=== PATIENT | female | born 1945 | race Caucasian/White ===

== ENCOUNTER → 2017-09-21 10:45 | Outpatient (POV) | payer MEDICARE, SELFPAY ==
[2017-09-21 12:26] LABS: Basophils # 0.1 K/mm3 (0-0.2); Basophils % 1.1 % (0.1-2.0); Eosinophils # 0.6 K/mm3 (0.0-0.4); Eosinophils % 5.6 % (0.1-12.0); Hematocrit 34.3 % (37.0-47.0); Hemoglobin 10.9 g/dL (12.2-16.2); Lymphocytes % 27.8 K/mm3 (10-50); Mean Corpuscular HGB Conc 31.7 g/dL (31.8-35.4); Mean Corpuscular Hemoglobin 25.7 pg (27.0-31.2); Mean Platelet Volume 7.2 fl (7.4-10.4); Monocytes # 0.7 K/mm3 (0.1-1.0); Monocytes % 5.9 % (1.7-9.3); Neutrophils # 6.5 K/mm3 (1.8-7.8); Neutrophils % 59.5 % (37.0-80.0); Platelet Count 326 K/mm3 (142-424); Red Blood Count 4.24 M/mm3 (4.20-5.40); Red Cell Distribution Width 14.9 % (11.5-17.5); White Blood Count 10.9 K/mm3 (4.8-10.8)
[2017-09-21 14:02] LABS: Ferritin 25 ng/mL (8-388)
[2017-09-22 08:24] LABS: Iron 51 ug/dL (27-139); UIBC 288 ug/dL (118-369)
[2017-09-23 06:30] LABS: Iron Saturation 15 (15-55)
== END ==
PROVIDERS: Family Provider Family Medicine; Visit Provider Physician Assistant Medical
DX: D50.9 Iron deficiency anemia, unspecified (principal)
CPT/HCPCS: 36415; 82728; 83550; 85025

== ENCOUNTER → 2018-06-23 10:40 | Outpatient (CLI) | payer MEDICARE, SELFPAY ==
--- NOTE | 2018-06-23 10:49 | XR_ITS ---
XR chest 2V HISTORY: ITS.REASON: SOB ORDERING PHYSICIAN: Katerin Echeverria PATIENT AGE: 72 years COMPARISON: Portable upright chest 05/22/2017 FINDINGS: This is a good inspiration and the lung glass appear clear of pneumonic infiltrate. There is moderate generalized cardio megaly and there is mild vascular congestion. There is mild thickening of the major minor fissures. There is no pleural fluid. There are multilevel degenerative changes of the thoracic spine. IMPRESSION: Cardio megaly with findings of mild congestive heart failure
== END ==
PROVIDERS: PCP Nurse Practitioner Family; Visit Provider Nurse Practitioner Family
DX: R06.02 Shortness of breath (principal)
CPT/HCPCS: 71046

== ENCOUNTER → 2018-09-18 14:47 | Outpatient (CLI) | payer MEDICARE, SELFPAY ==
[2018-09-18 16:04] LABS: Erythrocyte Sedimentation Rate 38 mm/hr (0-30)
[2018-09-18 16:07] LABS: Basophils # 0.1 K/mm3 (0-0.2); Eosinophils # 0.6 K/mm3 (0.0-0.4); Eosinophils % 5.8 % (0.1-12.0); Hematocrit 34.1 % (37.0-47.0); Hemoglobin 10.7 g/dL (12.2-16.2); Lymphocytes # 2.3 K/mm3 (0.7-4.5); Lymphocytes % 23.8 % (10-50); Mean Corpuscular HGB Conc 31.4 g/dL (31.8-35.4); Mean Corpuscular Volume 76.3 fl (81-99); Mean Platelet Volume 6.1 fl (7.4-10.4); Monocytes # 0.5 K/mm3 (0.1-1.0); Monocytes % 4.9 % (1.7-9.3); Neutrophils # 6.3 K/mm3 (1.8-7.8); Neutrophils % 64.6 % (37.0-80.0); Platelet Count 311 K/mm3 (142-424); Red Blood Count 4.46 M/mm3 (4.20-5.40); Red Cell Distribution Width 18.2 % (11.5-17.5); White Blood Count 9.8 K/mm3 (4.8-10.8)
[2018-09-18 16:18] LABS: Alanine Aminotransferase 13 U/L (12-78); Albumin Level 3.2 gm/dL (3.4-5.0); Albumin/Globulin Ratio 0.9 (1.1-1.8); Alkaline Phosphatase 93 U/L (46-116); Anion Gap 13.9 mEq/L (5-15); Aspartate Amino Transferase 10 U/L (15-37); Bilirubin,Total 0.2 mg/dL (0.2-1.0); Blood Urea Nitrogen 39 mg/dL (7-18); Calcium 8.6 mg/dL (8.5-10.1); Carbon Dioxide 27 mmol/L (21.0-32.0); Chloride 101 mmol/L (98-107); Estimated Glomerular Filt Rate 34 ml/min (>60); Ferritin 20 ng/mL (8-388); GFR (African American) 41 ML/MIN (>60); Globulin 3.7 gm/dl (1.3-3.2); Glucose 231 mg/dL (74-106); Potassium 4.9 mmoL/L (3.5-5.1); Sodium 137 mmol/L (136-145); Total Protein,Serum 6.9 gm/dL (6.4-8.2)
[2018-09-20 08:30] LABS: Iron 25 ug/dL (27-139); UIBC 307 ug/dL (118-369)
[2018-09-20 15:19] LABS: Iron Saturation 8 % (15-55); Vitamin B12 224 pg/mL (232-1245)
[2018-09-20 15:20] LABS: Vitamin D 25 Hydroxy 25.7 ng/mL (30.0-100.0)
== END ==
PROVIDERS: Visit Provider Nurse Practitioner Acute Care
DX: K51.90 Ulcerative colitis, unspecified, without complications (principal)
CPT/HCPCS: 36415; 80053; 82607; 82652; 82728; 83540; 83550; 85025; 85651; 86140

== ENCOUNTER → 2018-09-18 14:50 | Outpatient (POV) | payer MEDICARE, SELFPAY | PROVIDERS: Visit Provider Nurse Practitioner Acute Care | DX: Z00.00 Encounter for general adult medical examination without abnormal findings (principal) ==

== ENCOUNTER → 2019-06-13 14:49 | Outpatient (CLI) | payer MEDICARE, SELFPAY ==
--- NOTE | 2019-06-13 14:56 | XR_ITS ---
PROCEDURE: XR CHEST 2V CLINICAL HISTORY: SOB The COMPARISON: CXR1 CHEST-PORTABLE from 05/22/2017 CXR2V XR chest 2V from 06/23/2018 FINDINGS: Cardiomegaly with some mild pulmonary venous congestion suggesting mild CHF. No lobar consolidation or collapse is evident. The interstitial edema has improved since 06/23/2018. The lungs are clear without infiltrates, suspicious nodules, or pleural effusions. Degenerative changes noted in the thoracic spine IMPRESSION: Mild CHF Dictated by: Jona Lopez MD 06/13/2019 15:14 Electronically signed by Jona Lopez MD in [place] 06/13/2019 15:14
== END ==
PROVIDERS: PCP Family Medicine; Visit Provider Family Medicine
DX: R06.02 Shortness of breath (principal)
CPT/HCPCS: 71046

== ENCOUNTER → 2019-06-20 14:08 | Outpatient (CLI) | payer MEDICARE, SELFPAY ==
--- NOTE | 2019-06-20 14:11 | CA_ITS ---
APPROVED REPORT EXAM: Limited 2D Echocardiogram [employer] Worker: Tamar Zurita CRT Ht: 5 ft 3 in Wt: 235lbs BSA: 2.07 BP: 145/83 mmHg Indications: CHF,HTN,HLD,SOA,OBESITY,CAD,STENT 2D Dimensions LVOT 1.47 cm (M/F) 1.5-2.5 M-Mode Dimensions RVDd 2.78 cm (0.9-2.6) LVDd 5.50 cm (3.5-5.7) LVDs 3.65 cm (3.5-5.7) IVSd 1.23 cm (0.6-1.1) PWd 0.98 cm (0.6-1.1) EF (Teich) 61.80% FS 33.60% EDV (Teich) 147.40 mL ESV (Teich) 56.30 mL LV Diastology E/A Ratio 1.35 Mitral Valve MV A Velocity 75.00 (40-130 cm/s) Left Ventricle Left atrium is mildly enlarged, left ventricle is normal size, mild concentric left ventricular hypertrophy, visually estimated ejection fraction 55% with no regional wall motion abnormality, endocardial surfaces are poorly visualized, diastolic parameters are inconclusive. Right Ventricle Right atrium and right ventricular mildly enlarged with normal contractility. Aortic Valve Aortic valve is minimally thickened and calcified, leaflet continue to display good mobility, there is no aortic stenosis aortic insufficiency. Mitral Valve Mitral valve is grossly normal, there is mild mitral regurgitation. Tricuspid Valve Tricuspid valve is poorly visualized, there is mild tricuspid regurgitation tricuspid regurgitation jet velocity is inadequate for calculation of the right ventricular systolic pressure. Pulmonic Valve Pulmonic valve is poorly visualized. Great Vessels Aortic root is normal size. Pericardium No significant pericardial effusion noted. Conclusion 1. Technically difficult study because of the patient fact in poor acoustic windows 2. Mildly enlarged left atrium, normal left ventricular size, mild concentric left ventricular hypertrophy, visually estimated ejection fraction 55% with no regional wall motion abnormality, diastolic parameters are inconclusive. 3. Mild mitral and tricuspid regurgitation. 4. No significant pericardial effusion noted. Electronically signed by : Oscar Cobb, 06/21/2019 15:13:22
== END ==
PROVIDERS: PCP Family Medicine; Visit Provider Family Medicine
DX: I50.9 Heart failure, unspecified (principal); R06.02 Shortness of breath
CPT/HCPCS: 93308

== ENCOUNTER 2019-07-11 10:15 | Observation (INO) ==
--- NOTE | 2019-07-11 10:51 | Emergency Department Note ---
ED Disposition Clinical Impression: Hyperkalemia, Weakness Disposition: Admitted as Observation Condition on Discharge: Fair Time of Disposition: 15:53 - Critical Care Critical Care Time: Yes Attestation: On 07/11/19, the high probability of a clinically significant, sudden or life threatening deterioration of the following system(s) required my full and direct attention, intervention and personal management. The time I documented below is in addition to time spent performing reported procedures but includes the following listed in this critical care notation. Total Critical Care Time: 30 Vital system(s) involved:: Metabolic Failure My critical care processes included: Assessment & monitoring of V/S, Initial and Re-exams, Data Review/Interpretation, Coordinating Care, Medication Orders and management, Documentation Medical Decision Making - Rico Inquiry Pt receiving controlled substance: No Vital Signs: 07/11/19 10:20 07/11/19 12:17 07/11/19 12:50 Temperature 98.7 F 98.6 F Temperature Source Oral Oral Pulse Rate 50 L Pulse Rate [Left] 48 L 44 L Respiratory Rate 18 18 Blood Pressure [Right Arm] 163/72 H 145/68 H Blood Pressure Mean [Right Arm] 102 93 Blood Pressure Source [Right Arm] Automatic Cuff Automatic Cuff Blood Pressure Position [Right Arm] Sitting Sitting 02 Sat by Pulse Oximetry 92 L 93 L Oxygen Delivery Method Room Air Room Air - Lab Data Lab results reviewed: Yes: I reviewed the patient's lab results. Lab Results 07/11/19 10:50: WBC 11.7 H, RBC 4.26, Hgb 10.8 L, Hct 35.2 L, MCV 82.6, MCH 25.3 L, MCHC 30.6 L, RDW 16.9, Plt Count 297, MPV 7.4, Neut % (Auto) 72.7, Lymph % (Auto) 15.3, [place] % (Auto) 6.6, Eos % (Auto) 4.4, Baso % (Auto) 1.0, Neut # (Auto) 8.5 H, Lymph # (Auto) 1.8, [place] # (Auto) 0.8, Eos # (Auto) 0.5 H, Baso # (Auto) 0.1 07/11/19 10:50: Sodium 136, Potassium 6.2 H*, Chloride 104, Carbon Dioxide 23, Anion Gap 15.2 H, BUN 27 H, Creatinine 2.07 H, Estimated Creat Clear 41, Estimated GFR 24 L, Est GFR ( Amer) 28 L, Glucose 187 H, Calcium 8.3 L, Total Bilirubin 0.3, AST 2 L, ALT 11 L, Alkaline Phosphatase 69, Troponin I < 0.02, Total Protein 7.2, Albumin 3.3 L, Globulin 3.9 H, Albumin/Globulin Ratio 0.8 L 07/11/19 10:50: Digoxin 2.20 H* 07/11/19 15:20: POC Glucose 106 Result diagrams: 07/11/19 10:50 07/11/19 10:50 Orders (Tests/Meds): ED MEDICATIONS Discontinued Medications Generic Name Dose Route Start Last Admin Trade Name Freq PRN Reason Stop Dose Admin Albuterol Sulfate 2.5 mg 07/11/19 12:25 07/11/19 12:50 Albuterol 0.083% 2.5mg/3ml [facility] 07/11/19 12:26 2.5 mg ONCE ONE Administration Albuterol Sulfate 10 mg 07/11/19 14:45 07/11/19 15:25 Albuterol 0.083% 2.5mg/3ml Neb 07/11/19 14:46 10 mg ONCE ONE Administration Dextrose 25 ml 07/11/19 14:47 07/11/19 15:33 Dextrose 50% 50ml Syringe IVP 07/11/19 14:48 Not Given ONCE ONE Dextrose 50 ml 07/11/19 15:26 07/11/19 15:27 Dextrose 50% 50ml Syringe IVP 07/11/19 15:27 50 ml ONCE ONE Administration Insulin Human Regular 10 unit 07/11/19 14:46 Humulin R Insulin 100 Units/Ml 10ml Vial IVP 07/11/19 14:47 ONCE ONE Sodium Polystyrene Sulfonate 30 gm 07/11/19 14:47 Kayexalate 15gm/60ml Bottle PO 07/11/19 14:48 ONCE ONE - ECG Data Tracing #1 EKG shows sinus bradycardia with heart rate of 47 bpm, prolonged AL interval, nonspecific ST-T changes. Left axis deviation, - Physician Consults Physician Consulted: Dr. Lee Time: 14:50 Reason -: Admission Comment/Response: Cussed with Dr. Lee, regarding the patient and planned to get the patient admitted to the floor. - Reevaluation(s) Time: 14:00 Reevaluation #1: Patient has been stable throughout the course of stay in the emergency department. Discussed the lab findings with the patient. Advised that she needs to be kept in the hospital. Patient was initially reluctant but finally agreed to stay in the hospital. Plan to discuss the case with the primary care providers. Time: 15:00 Reevaluation #3: Phone the patient about admission plan and she was agreeable for the same. General Adult HPI - General Chief complaint: Weakness Stated complaint: doctor wants for potassium levels Time Seen by Provider: 07/11/19 10:51 Mode of Arrival: Wheelchair Limitations: No Limitations Description of Symptoms (Recalled from ER Triage Doc. by RN): Patient reports she seen Dr. Echeverria yesterday and they did blood work. Patient report this morning they called her with the results this morning and told her to report to the ED because her potassium level was too high. Patient tapia not recall what the level was. - History of Present Illness HPI narrative: 73-year-old female presents to the emergency department with chief complaint of having high potassium at the blood work done from the clinic by her primary care provider about a week ago. Her primary care provider referred her to come to the emergency department to make sure that her potassium is okay. Patient takes potassium pills for her potassium replacement secondary to water pills. She has history of congestive heart failure and diabetes. He denies having any acute symptoms right now. Denies having any chest pain. Denies having any shortness of breath. No history of fever or chills. Denies having any trauma or injury. - Related Data Home Medications Medication Instructions Recorded Confirmed Amlodipine Besylate [Amlodipine 5 mg PO DAILY 11/20/18 11/20/18 5mg tab] Aspirin [Aspir 81] 81 mg PO DAILY 11/20/18 11/20/18 Balsalazide Disodium 750 mg PO DAILY 11/20/18 11/20/18 Clopidogrel Bisulfate [Clopidogrel 75 mg PO DAILY 11/20/18 11/20/18 75mg Tab] Ergocalciferol (Vitamin D2) 400 unit PO DAILY 11/20/18 11/20/18 [Vitamin D] Ferrous Gluconate [Ferrous 324 mg PO DAILY 11/20/18 11/20/18 Gluconate 324mg Tab] Furosemide [Furosemide 20mg Tab] 20 mg PO DAILY 11/20/18 11/20/18 Glimepiride 4 mg PO DAILY 11/20/18 11/20/18 Insulin NPH Hum/Reg Insulin Hm 100 unit SQ BID 11/20/18 11/20/18 [Novolin 70-30 100 Unit/ml Vial] Isosorbide Mononitrate [Imdur 60mg 0 mg PO DAILY 11/20/18 11/20/18 ER tablet] Levothyroxine Sodium 75 mcg PO DAILY 11/20/18 11/20/18 [Levothyroxine 75mcg (0.075mg) Tab] Metformin HCl [Fortamet] 500 mg PO DAILY 11/20/18 11/20/18 Omeprazole [Omeprazole 40mg 40 mg PO DAILY 11/20/18 11/20/18 Capsule] Potassium Chloride [Micro-K 10mEq 10 meq PO DAILY 11/20/18 11/20/18 cap] Simvastatin 40 mg PO DAILY 11/20/18 11/20/18 carvediloL [Carvedilol 25mg Tab] 25 mg PO DAILY 11/20/18 11/20/18 cloNIDine HCL [cloNIDine 0.2mg 0 mg PO DAILY 11/20/18 11/20/18 Tablet] hydroCHLOROthiazide [HCTZ 25mg 25 mg PO DAILY 11/20/18 11/20/18 tab] lisinopriL [Lisinopril 40mg Tablet] 40 mg PO DAILY 11/20/18 11/20/18 Allergies Allergy/AdvReac Type Severity Reaction Status Date / Time Sulfa (Sulfonamide Allergy Intermediate I-RASH Verified 07/11/19 10:34 Antibiotics) [facility] History - Hepatitis A Screen Drug use history?: No High risk sexual behaviors?: No History of sexually transmitted infection?: No Currently employed?: No Childcare worker?: No Do you have indoor plumbing?: Yes Do you have electricity?: Yes Attestation statement:: This patient has been screened for Hepatitis A risk factors. Medical History: Reports:: Coronary Artery Disease, Diabetes Mellitus Type 1, Hyperlipidemia, Hypertension Denies:: Diabetes Mellitus Type 2, Internal Pacemaker, Lung Disease, Seizures Other Medical History: Reports: Other (moise-cpap ) Other Surgeries: Yes: Coronary Stent, Hysterectomy-Total. No: Pacemaker - Social History Smoking Status: Current every day smoker Tobacco Type: cigarettes # Packs/Day (cigarettes): 1 Alcohol Intake: never Occupational Status: retired Family Hx:: No significant family history ROS Obtained: Yes All systems reviewed & no additional complaints Physical Exam - General General appearance: alert, in no apparent distress, obese - Head Head exam: atraumatic, normocephalic, normal inspection - Eye Eye exam: Present: normal appearance, PERRL, EOMI - ENT ENT exam: Present: normal exam, normal oropharynx, mucous membranes moist, normal external ear exam - Neck Neck exam: Present: normal inspection, full ROM, trachea midline. Absent: meningismus, lymphadenopathy - Chest Chest inspection: Present: normal inspection, symmetric chest wall rise. Absent: tenderness - Respiratory Respiratory exam: Present: normal lung sounds bilaterally. Absent: respiratory distress - Cardiovascular Cardiovascular exam: Present: regular rate, normal rhythm. Absent: JVD - Abdominal Exam Abdominal exam: Present: soft, normal bowel sounds. Absent: distention, tenderness, guarding - Extremities Exam Extremities exam: Present: full ROM, normal capillary refill, pedal edema, other (Bilateral lower leg extremity edema 2-3+.). Absent: calf tenderness - Back Exam Back exam: Present: normal inspection. Absent: tenderness - Neurological Exam Neurological exam: Present: alert, oriented X3, CN II-XII intact - Psychiatric Psychiatric exam: Present: normal affect, normal mood - Skin Skin exam: Present: warm, dry, intact, normal color
[2019-07-11 11:02] LABS: Basophils # 0.1 K/mm3 (0-0.2); Eosinophils # 0.5 K/mm3 (0.0-0.4); Eosinophils % 4.4 % (0.1-12.0); Hematocrit 35.2 % (37.0-47.0); Hemoglobin 10.8 g/dL (12.2-16.2); Lymphocytes # 1.8 K/mm3 (0.7-4.5); Lymphocytes % 15.3 % (10-50); Mean Corpuscular HGB Conc 30.6 g/dL (31.8-35.4); Mean Corpuscular Volume 82.6 fl (81-99); Mean Platelet Volume 7.4 fl (7.4-10.4); Monocytes # 0.8 K/mm3 (0.1-1.0); Monocytes % 6.6 % (1.7-9.3); Neutrophils # 8.5 K/mm3 (1.8-7.8); Neutrophils % 72.7 % (37.0-80.0); Platelet Count 297 K/mm3 (142-424); Red Blood Count 4.26 M/mm3 (4.20-5.40); Red Cell Distribution Width 16.9 % (11.5-17.5); White Blood Count 11.7 K/mm3 (4.8-10.8)
[2019-07-11 11:43] LABS: Alanine Aminotransferase 11 U/L (12-78); Albumin Level 3.3 gm/dL (3.4-5.0); Albumin/Globulin Ratio 0.8 (1.1-1.8); Alkaline Phosphatase 69 U/L (46-116); Anion Gap 15.2 mEq/L (5-15); Aspartate Amino Transferase 2 U/L (15-37); Bilirubin,Total 0.3 mg/dL (0.2-1.0); Blood Urea Nitrogen 27 mg/dL (7-18); Calcium 8.3 mg/dL (8.5-10.1); Carbon Dioxide 23 mmol/L (21.0-32.0); Chloride 104 mmol/L (98-107); Globulin 3.9 gm/dl (1.3-3.2); Glucose 187 mg/dL (74-106); Sodium 136 mmol/L (136-145); Total Protein,Serum 7.2 gm/dL (6.4-8.2)
[2019-07-12 06:12] LABS: Basophils # 0.1 K/mm3 (0-0.2); Eosinophils # 0.6 K/mm3 (0.0-0.4); Eosinophils % 5.2 % (0.1-12.0); Lymphocytes # 1.9 K/mm3 (0.7-4.5); Mean Corpuscular Volume 81.8 fl (81-99)
[2019-07-12 06:18] LABS: Anion Gap 15.9 mEq/L (5-15); Calcium 8.3 mg/dL (8.5-10.1)
[2019-07-12 06:21] LABS: Hematocrit 38.3 % (37.0-47.0); Lymphocytes % 16.2 % (10-50); Mean Corpuscular HGB Conc 31.3 g/dL (31.8-35.4); Mean Platelet Volume 7.7 fl (7.4-10.4); Monocytes % 8.2 % (1.7-9.3); Neutrophils # 8.1 K/mm3 (1.8-7.8); Neutrophils % 69.4 % (37.0-80.0); Platelet Count 317 K/mm3 (142-424); Red Blood Count 4.68 M/mm3 (4.20-5.40); White Blood Count 11.6 K/mm3 (4.8-10.8)
--- NOTE | 2019-07-12 07:44 | H&P/Discharge Summary ---
General - General Admission date:: 07/11/19 Discharge date: 07/12/19 *Admission Date: 07/11/19 *Chief complaint: Sent to ER by PCP *History of present illness: 73-year-old female with history of coronary artery disease was sent to the emergency department by her primary care nurse practitioner Loli Echeverria due to hyperkalemia detected on routine office-based labs. Patient's potassium as an outpatient on July 10 was 7.4. Patient was taking lisinopril, spironolactone, digoxin and due to decreasing difficulties ambulating over the preceding 2 to 3 weeks along with generalized weakness patient was told to go to the emergency department for repeat labs and assessment. In the emergency department but patient's potassium had improved compared to the outside labs but digoxin level was elevated. Patient had been taken off of her digoxin and spironolactone the day prior. Decision was made to admit the patient overnight for observation and repeat electrolytes [facility] History I have reviewed the patient's past medical history: Yes Medical History: Reports:: Coronary Artery Disease, Diabetes Mellitus Type 2, Hyperlipidemia, Hypertension Denies:: Internal Pacemaker, Lung Disease, Seizures *Have you ever received a pneumonia vaccine?: No *Have you received a flu vaccine this season?: Yes Other Medical History: Reports: Cataracts, Other (moise-cpap ) Other Surgeries: Yes: Cardiac Catheterization, Coronary Stent, Hysterectomy- Total. No: Pacemaker - *Social History Educational Level: Completed High School Smoking Status: Current every day smoker Tobacco Type: cigarettes # Packs/Day (cigarettes): 1 Alcohol Intake: never *Occupational Status:: retired Housing: house *Travel in the last 8 weeks: None Family Hx:: No significant family history Review of Systems - Constitutional Reports anorexia, Denies body ache(s), Denies chills, Denies fever(s) - ENT Denies abnormal hearing - *Cardiovascular Denies chest pain - *Respiratory Denies change in phlegm color - *Gastrointestinal Denies abdominal pain - *Musculoskeletal Reports abnormal walking Exam Vital signs and Labs for Last 24 Hours: Temp Pulse Resp BP Pulse Ox 98.7 F 74 19 175/76 H 90 L 07/12/19 04:31 07/12/19 04:31 07/12/19 04:31 07/12/19 04:31 07/12/19 04:31 Laboratory Results - last 24 hr 07/11/19 10:50: WBC 11.7 H, RBC 4.26, Hgb 10.8 L, Hct 35.2 L, MCV 82.6, MCH 25.3 L, MCHC 30.6 L, RDW 16.9, Plt Count 297, MPV 7.4, Neut % (Auto) 72.7, Lymph % (Auto) 15.3, [place] % (Auto) 6.6, Eos % (Auto) 4.4, Baso % (Auto) 1.0, Neut # (Auto) 8.5 H, Lymph # (Auto) 1.8, [place] # (Auto) 0.8, Eos # (Auto) 0.5 H, Baso # (Auto) 0.1 07/11/19 10:50: Sodium 136, Potassium 6.2 H*, Chloride 104, Carbon Dioxide 23, Anion Gap 15.2 H, BUN 27 H, Creatinine 2.07 H, Estimated Creat Clear 41, Estimated GFR 24 L, Est GFR ( Amer) 28 L, Glucose 187 H, Calcium 8.3 L, Total Bilirubin 0.3, AST 2 L, ALT 11 L, Alkaline Phosphatase 69, Troponin I < 0.02, Total Protein 7.2, Albumin 3.3 L, Globulin 3.9 H, Albumin/Globulin Ratio 0.8 L 07/11/19 10:50: Digoxin 2.20 H* 07/11/19 15:20: POC Glucose 106 07/11/19 17:47: POC Glucose 67 L 07/11/19 19:01: Troponin I < 0.02 07/11/19 21:28: POC Glucose 139 H 07/12/19 00:55: Troponin I < 0.02 07/12/19 05:39: WBC 11.6 H, RBC 4.68, Hgb 12.0 L D, Hct 38.3, MCV 81.8, MCH 25.6 L, MCHC 31.3 L, RDW 17.0, Plt Count 317, MPV 7.7, Neut % (Auto) 69.4, Lymph % (Auto) 16.2, [place] % (Auto) 8.2, Eos % (Auto) 5.2, Baso % (Auto) 1.0, Neut # (Auto) 8.1 H, Lymph # (Auto) 1.9, [place] # (Auto) 1.0, Eos # (Auto) 0.6 H, Baso # (Auto) 0.1 07/12/19 05:39: Sodium 140, Potassium 4.9 D, Chloride 106, Carbon Dioxide 23, Anion Gap 15.9 H, BUN 22 H, Creatinine 1.66 H, Estimated Creat Clear 49, Estimated GFR 30 L, Est GFR ( Amer) 37 L D, Glucose 115 H D, Calcium 8.3 L, Magnesium 1.3 L 07/12/19 05:53: POC Glucose 110 I & O for Last 24 hours: Intake & Output 07/09/19 07/10/19 07/11/19 07/12/19 11:59 11:59 11:59 11:59 Intake Total 2100 / 2100 Output Total 1150 / 1150 Balance 950 / 950 Weight 232 lb 224 lb 3 oz - *Routine HEENT Exam Head: Present: normocephalic Eye: Present: EOMI, PERRL ENT: Present: mucous membranes moist - *Routine Neck Exam Present: supple. Absent: lymphadenopathy - *Routine Respiratory Exam Present: CTA bilaterally - *Routine Cardiovascular Exam Present: RRR, Normal S1, Normal S2, murmur - *Routine Abdominal Exam Present: soft, normoactive bowel sounds. Absent: tenderness - *Routine Extremities Exam Absent: cyanosis, clubbing, edema - *Routine Skin Exam Present: warm. Absent: rash - *Routine Neurological Exam Present: alert, oriented X3 Hospital Course Hospital Course: Patient was admitted. Medicines that contribute to hyperkalemia were held. Patient was given intravenous insulin and glucose infusion in the emergency department. She was continued on fingersticks with sliding scale insulin coverage before meals and at bedtime. She was started on normal saline at 100 mL's per hour. The following morning her potassium had returned to normal. Her pulse had elevated from the 40s into the 70s. Patient was discharged home. We will arrange home health prior to discharge for home PT due to her weakness and difficulty ambulating because from her electrolyte imbalances. She will follow- up in my office on Tuesday and patient has been instructed to bring any medicine that she takes from home for review Results Labs on day of discharge: Labs from last 24 hours 07/12/19 07/12/19 07/12/19 05:53 05:39 05:39 WBC 11.6 H RBC 4.68 Hgb 12.0 L D Hct 38.3 MCV 81.8 MCH 25.6 L MCHC 31.3 L RDW 17.0 Plt Count 317 MPV 7.7 Neut % (Auto) 69.4 Lymph % (Auto) 16.2 [place] % (Auto) 8.2 Eos % (Auto) 5.2 Baso % (Auto) 1.0 Neut # (Auto) 8.1 H Lymph # (Auto) 1.9 [place] # (Auto) 1.0 Eos # (Auto) 0.6 H Baso # (Auto) 0.1 Sodium 140 Potassium 4.9 D Chloride 106 Carbon Dioxide 23 Anion Gap 15.9 H BUN 22 H Creatinine 1.66 H Estimated Creat Clear 49 Estimated GFR 30 L Est GFR ( Amer) 37 L D Glucose 115 H D POC Glucose 110 Calcium 8.3 L Magnesium 1.3 L Total Bilirubin AST ALT Alkaline Phosphatase Troponin I Total Protein Albumin Globulin Albumin/Globulin Ratio Digoxin 07/12/19 07/11/19 07/11/19 00:55 21:28 19:01 WBC RBC Hgb Hct MCV MCH MCHC RDW Plt Count MPV Neut % (Auto) Lymph % (Auto) [place] % (Auto) Eos % (Auto) Baso % (Auto) Neut # (Auto) Lymph # (Auto) [place] # (Auto) Eos # (Auto) Baso # (Auto) Sodium Potassium Chloride Carbon Dioxide Anion Gap BUN Creatinine Estimated Creat Clear Estimated GFR Est GFR ( Amer) Glucose POC Glucose 139 H Calcium Magnesium Total Bilirubin AST ALT Alkaline Phosphatase Troponin I < 0.02 < 0.02 Total Protein Albumin Globulin Albumin/Globulin Ratio Digoxin 07/11/19 07/11/19 07/11/19 17:47 15:20 10:50 WBC RBC Hgb Hct MCV MCH MCHC RDW Plt Count MPV Neut % (Auto) Lymph % (Auto) [place] % (Auto) Eos % (Auto) Baso % (Auto) Neut # (Auto) Lymph # (Auto) [place] # (Auto) Eos # (Auto) Baso # (Auto) Sodium Potassium Chloride Carbon Dioxide Anion Gap BUN Creatinine Estimated Creat Clear Estimated GFR Est GFR ( Amer) Glucose POC Glucose 67 L 106 Calcium Magnesium Total Bilirubin AST ALT Alkaline Phosphatase Troponin I Total Protein Albumin Globulin Albumin/Globulin Ratio Digoxin 2.20 H* 07/11/19 07/11/19 10:50 10:50 WBC 11.7 H RBC 4.26 Hgb 10.8 L Hct 35.2 L MCV 82.6 MCH 25.3 L MCHC 30.6 L RDW 16.9 Plt Count 297 MPV 7.4 Neut % (Auto) 72.7 Lymph % (Auto) 15.3 [place] % (Auto) 6.6 Eos % (Auto) 4.4 Baso % (Auto) 1.0 Neut # (Auto) 8.5 H Lymph # (Auto) 1.8 [place] # (Auto) 0.8 Eos # (Auto) 0.5 H Baso # (Auto) 0.1 Sodium 136 Potassium 6.2 H* Chloride 104 Carbon Dioxide 23 Anion Gap 15.2 H BUN 27 H Creatinine 2.07 H Estimated Creat Clear 41 Estimated GFR 24 L Est GFR ( Amer) 28 L Glucose 187 H POC Glucose Calcium 8.3 L Magnesium Total Bilirubin 0.3 AST 2 L ALT 11 L Alkaline Phosphatase 69 Troponin I < 0.02 Total Protein 7.2 Albumin 3.3 L Globulin 3.9 H Albumin/Globulin Ratio 0.8 L Digoxin DS: Diagnosis - Discharge Diagnosis (1) Hyperkalemia Status: Resolved (2) Digoxin toxicity Status: Resolved (3) Acute kidney injury Status: Resolved (4) Diabetes mellitus Status: Chronic (5) Coronary artery disease Status: Chronic Discharge Plan - Patient Discharge Instructions ACTIVITY: Continue current activity DIET: continue same diet - Follow up Plan Follow up with: Mike Lee MD [Staff Physician] - 07/16/19 (Bring all your medicines from home to your follow up appointment) Disposition: Home, Self-Detention Medications: Home Medications Medication Instructions Recorded Confirmed Type Amlodipine Besylate [Amlodipine 5 mg PO DAILY 11/20/18 07/11/19 History 5mg tab] Aspirin [Aspir 81] 81 mg PO DAILY 11/20/18 07/11/19 History Balsalazide Disodium 2,250 mg PO BID 11/20/18 07/11/19 History Clopidogrel Bisulfate [Clopidogrel 75 mg PO DAILY 11/20/18 07/11/19 History 75mg Tab] Ergocalciferol (Vitamin D2) 400 unit PO DAILY 11/20/18 07/11/19 History [Vitamin D] Ferrous Gluconate [Ferrous 324 mg PO DAILY 11/20/18 07/11/19 History Gluconate 324mg Tab] Furosemide [Furosemide 20mg Tab] 20 mg PO DAILY 11/20/18 07/11/19 History Glimepiride 4 mg PO BID 11/20/18 07/11/19 History Insulin NPH Hum/Reg Insulin Hm 0 unit SQ BID 11/20/18 07/11/19 History [Novolin 70-30 100 Unit/ml Vial] Isosorbide Mononitrate [Imdur 60mg 60 mg PO DAILY 11/20/18 07/11/19 History ER tablet] Levothyroxine Sodium 75 mcg PO DAILY 11/20/18 07/11/19 History [Levothyroxine 75mcg (0.075mg) Tab] Metformin HCl [Fortamet] 1,000 mg PO BID 11/20/18 07/11/19 History Omeprazole [Omeprazole 40mg 40 mg PO DAILY 11/20/18 07/11/19 History Capsule] Potassium Chloride [Micro-K 10mEq 10 meq PO BID 11/20/18 07/11/19 History cap] Simvastatin 40 mg PO HS 11/20/18 07/11/19 History carvediloL [Carvedilol 25mg Tab] 25 mg PO BID 11/20/18 07/11/19 History cloNIDine HCL [cloNIDine 0.2mg 0.2 mg PO TID 11/20/18 07/11/19 History Tablet] hydroCHLOROthiazide [HCTZ 25mg 25 mg PO BID 11/20/18 07/11/19 History tab] lisinopriL [Lisinopril 40mg Tablet] 40 mg PO DAILY 11/20/18 07/11/19 History Timolol [Betimol] 5 ml OP BID 07/11/19 07/11/19 History Prescriptions/Medication Reconciliation: Continued Levothyroxine Sodium [Levothyroxine 75mcg (0.075mg) Tab] 75 mcg PO DAILY Furosemide [Furosemide 20mg Tab] 20 mg PO DAILY hydroCHLOROthiazide [HCTZ 25mg tab] 25 mg PO BID Ferrous Gluconate [Ferrous Gluconate 324mg Tab] 324 mg PO DAILY lisinopriL [Lisinopril 40mg Tablet] 40 mg PO DAILY Amlodipine Besylate [Amlodipine 5mg tab] 5 mg PO DAILY Simvastatin 40 mg PO HS Omeprazole [Omeprazole 40mg Capsule] 40 mg PO DAILY Isosorbide Mononitrate [Imdur 60mg ER tablet] 60 mg PO DAILY Insulin NPH Hum/Reg Insulin Hm [Novolin 70-30 100 Unit/ml Vial] 0 unit SQ BID Glimepiride 4 mg PO BID Ergocalciferol (Vitamin D2) [Vitamin D] 400 unit PO DAILY Clopidogrel Bisulfate [Clopidogrel 75mg Tab] 75 mg PO DAILY Balsalazide Disodium 2,250 mg PO BID Aspirin [Aspir 81] 81 mg PO DAILY Timolol [Betimol] 5 ml OP BID cloNIDine HCL [cloNIDine 0.2mg Tablet] 0.2 mg PO TID Changed carvediloL [Carvedilol 25mg Tab] 12.5 mg PO BID #0 Discontinued Metformin HCl [Fortamet] 1,000 mg PO BID Potassium Chloride [Micro-K 10mEq cap] 10 meq PO BID - Problem Reconciliation Problems Reviewed?: Yes
--- NOTE | 2019-07-12 07:45 | Pharmacy Consult Notes ---
[facility] Pharm[facility] VTE Monitoring - Patient Demographics Admission date: 07/11/19 Report Date: 07/12/19 Time: 07:45 Allergies/Adverse Reactions: Patient Allergies Sulfa (Sulfonamide Antibiotics) Allergy (Intermediate, Verified 07/11/19 10:34) I-RASH Height: 1.6 m Weight: 101.69 kg Patient Problems: Current Active Problems Hyperkalemia (Acute) Weakness (Acute) - VTE Risk Labs: VTE Related Lab Results Hgb 12.0 g/dL (12.2-16.2) L D 07/12/19 05:39 Hct 38.3 % (37.0-47.0) 07/12/19 05:39 Plt Count 317 K/mm3 (142-424) 07/12/19 05:39 BUN 22 mg/dL (7-18) H 07/12/19 05:39 Creatinine 1.66 mg/dL (0.55-1.02) H 07/12/19 05:39 Estimated Creat Clear 49 mL/min (50-200) 07/12/19 05:39 Was VTE Risk Assessment Performed: Yes VTE Score: 3 VTE Risk Level: Low Risk - Prophylaxis VTE Prophylaxis Ordered?: Yes Types of VTE Prophylaxis: TEDS Knee High Location of Applied Device: Bilateral Lower Extremeties - VTE Diagnosis Confirmed Treatment or plan recommended: Continue Current Treatment
--- NOTE | 2019-07-12 10:27 | Electrocardiograph Report ---
APPROVED REPORT Exam: Resting ECG HR:47 bpm ECG Measurements Heart Rate 47 AXES PA 218 P -16 QRSd 70 QRS -37 QT 350 T124 QTc 309 <Conclusion> Marked sinus bradycardia with 1st degree AV block Left axis deviation Inferior infarct, age undetermined Anterolateral infarct, age undetermined Abnormal ECG Electronically signed by : Mike Saucedo, 07/12/2019 10:26:34
== END 2019-07-12 13:34 | disposition home health service (06) ==
LOC: 2ND 10:15 → ER 10:15 → 2ND 17:12
PROVIDERS: ADMIT Family Medicine; ATTEND Family Medicine
CPT/HCPCS: 36415; 80048; 80053; 80162; 82962; 83735; 84484; 85025; 93005; 96374; 96375; 99284; G0378

== ENCOUNTER 2019-09-02 21:07 | Inpatient (IN) ==
[2019-09-02 21:40] LABS: Basophils # 0.1 K/mm3 (0-0.2); Eosinophils # 0.5 K/mm3 (0.0-0.4); Lymphocytes # 3.4 K/mm3 (0.7-4.5); Lymphocytes % 25.5 % (10-50); Mean Corpuscular HGB Conc 30.5 g/dL (31.8-35.4); Mean Corpuscular Volume 83.8 fl (81-99); Mean Platelet Volume 7.3 fl (7.4-10.4); Monocytes # 0.7 K/mm3 (0.1-1.0); Monocytes % 4.9 % (1.7-9.3); Neutrophils # 8.6 K/mm3 (1.8-7.8); Neutrophils % 64.6 % (37.0-80.0); Platelet Count 338 K/mm3 (142-424); Red Cell Distribution Width 15.8 % (11.5-17.5); White Blood Count 13.2 K/mm3 (4.8-10.8)
[2019-09-02 21:42] LABS: Hematocrit 21.8 % (37.0-47.0); Hemoglobin 6.6 g/dL (12.2-16.2)
--- NOTE | 2019-09-02 21:43 | Emergency Department Note ---
ED Disposition Clinical Impression: Lower gastrointestinal hemorrhage, Blood loss anemia, PIEDAD (acute kidney injury) Ulcerative colitis Qualifiers: Ulcerative colitis location: unspecified ulcerative colitis location Digestive disease complication type: with rectal bleeding Qualified Code(s): K51.911 - Ulcerative colitis, unspecified with rectal bleeding Disposition: Admitted As Inpatient Condition on Discharge: Fair - Critical Care Critical Care Time: No Attestation: On 09/02/19, the high probability of a clinically significant, sudden or life threatening deterioration of the following system(s) required my full and direct attention, intervention and personal management. The time I documented below is in addition to time spent performing reported procedures but includes the following listed in this critical care notation. Medical Decision Making - Medical Records Medical records reviewed: Yes: I reviewed the patient's medical records. - [place] Inquiry Pt receiving controlled substance: No Vital Signs: 09/02/19 21:23 Temperature 97.8 F Temperature Source Oral Pulse Rate [Right Brachial] 83 Respiratory Rate 18 Blood Pressure [Right Arm] 120/56 L Blood Pressure Mean [Right Arm] 77 Blood Pressure Source [Right Arm] Automatic Cuff Blood Pressure Position [Right Arm] Sitting 02 Sat by Pulse Oximetry 98 Oxygen Delivery Method Room Air - Lab Data Lab results reviewed: Yes: I reviewed the patient's lab results. Lab Results 09/02/19 20:22: Troponin I < 0.02 09/02/19 21:10: Sodium 137, Potassium 4.3, Chloride 101, Carbon Dioxide 25, Anion Gap 15.3 H, BUN 45 H, Creatinine 2.17 H, Estimated Creat Clear 38, Estimated GFR 22 L, Est GFR ( Amer) 27 L, Glucose 113 H, Calcium 8.1 L, Total Bilirubin 0.2, AST 10 L, ALT 11 L, Alkaline Phosphatase 68, C-Reactive Protein 1.0 H, Total Protein 6.2 L, Albumin 2.9 L, Globulin 3.3 H, Albumin/Globulin Ratio 0.9 L, Lipase 131 09/02/19 21:10: ESR > 140 H 09/02/19 21:20: WBC 13.2 H, RBC 2.60 L, Hgb 6.6 L*, Hct 21.8 L*, MCV 83.8, MCH 25.6 L, MCHC 30.5 L, RDW 15.8, Plt Count 338, MPV 7.3 L, Neut % (Auto) 64.6, Lymph % (Auto) 25.5, Osborne % (Auto) 4.9, Eos % (Auto) 4.0, Baso % (Auto) 1.0, Neut # (Auto) 8.6 H, Lymph # (Auto) 3.4, Osborne # (Auto) 0.7, Eos # (Auto) 0.5 H, Baso # (Auto) 0.1 09/02/19 21:45: Stool Occult Blood Positive A Result diagrams: 09/02/19 21:20 09/02/19 21:10 Orders (Tests/Meds): ED MEDICATIONS Generic Name Dose Route Start Last Admin Trade Name Freq PRN Reason Stop Dose Admin Sodium Chloride 250 mls @ 25 mls/hr 09/02/19 21:45 09/02/19 21:58 Sod Chlor 0.9% 250ml Bag IV 09/03/19 21:44 25 mls/hr .Q10H JESSE Administration Discontinued Medications Generic Name Dose Route Start Last Admin Trade Name Freq PRN Reason Stop Dose Admin Methylprednisolone Sodium Succinate 125 mg 09/02/19 21:44 09/02/19 21:58 Solu-Medrol 125mg/2ml Vial IV 09/02/19 21:45 125 mg ONCE ONE Administration ORDERS Category Date Time Status PRBC [Red Blood Cells] Stat [facility] 09/02/19 21:59 Results Type and Screen Stat [facility] 09/02/19 21:[address] abdomen pelvis wo con Stat Cat Scan 09/02/19 21:29 Taken Troponin I Q3H Lab 09/03/19 00:45 Ordered Troponin I Q3H Lab 09/03/19 03:45 Ordered Urinalysis and Microscopic Routine Lab 09/02/19 Ordered - CT Data CT Scan: Abdomen, Pelvis Time Received: 23:[address] Reviewed: Yes: I have viewed the radiologist's interpretation Preliminary Findings: Abnormal (see report ) - ECG Data Tracing #1 Normal Sinus Rhythm: Yes Ischemic changes: non-specific ST-T wave changes GI Bleed HPI - General Chief complaint: GI Bleed Stated complaint: ulcerative colitis Time Seen by Provider: 09/02/19 21:40 Mode of Arrival: Family Vehicle Source of Information: Patient, Medical Record Limitations: No Limitations Description of Symptoms (Recalled from ER Triage Doc. by RN): pt presents with two days of bloody stools; history of ulcerative colitis - History of Present Illness HPI Narrative: crampy abd pain with hx of ulcerative colitis with brrb - no chest pain - no syncope MD complaint: gross hematochezia Onset (ago): day(s) Consistency: intermittent Severity: similar to previous episodes Context: other (ulcerative colitis ) Associated symptoms: denies other symptoms Treatments Prior to Arrival: none - Related Data Home Medications Medication Instructions Recorded Confirmed Amlodipine Besylate [Amlodipine 5 mg PO DAILY 11/20/18 09/02/19 5mg tab] Aspirin [Aspir 81] 81 mg PO DAILY 11/20/18 09/02/19 Balsalazide Disodium 2,250 mg PO BID 11/20/18 09/02/19 Clopidogrel Bisulfate [Clopidogrel 75 mg PO DAILY 11/20/18 09/02/19 75mg Tab] Ergocalciferol (Vitamin D2) 400 unit PO DAILY 11/20/18 09/02/19 [Vitamin D] Ferrous Gluconate [Ferrous 324 mg PO DAILY 11/20/18 09/02/19 Gluconate 324mg Tab] Furosemide [Furosemide 20mg Tab] 20 mg PO DAILY 11/20/18 09/02/19 Glimepiride 4 mg PO BID 11/20/18 09/02/19 Insulin NPH Hum/Reg Insulin Hm 0 unit SQ BID 11/20/18 09/02/19 [Novolin 70-30 100 Unit/ml Vial] Isosorbide Mononitrate [Imdur 60mg 60 mg PO DAILY 11/20/18 09/02/19 ER tablet] Levothyroxine Sodium 75 mcg PO DAILY 11/20/18 09/02/19 [Levothyroxine 75mcg (0.075mg) Tab] Omeprazole [Omeprazole 40mg 40 mg PO DAILY 11/20/18 09/02/19 Capsule] Simvastatin 40 mg PO HS 11/20/18 09/02/19 cloNIDine HCL [cloNIDine 0.2mg 0.2 mg PO TID 11/20/18 09/02/19 Tablet] hydroCHLOROthiazide [HCTZ 25mg 25 mg PO BID 11/20/18 09/02/19 tab] lisinopriL [Lisinopril 40mg Tablet] 40 mg PO DAILY 11/20/18 09/02/19 Timolol [Betimol] 5 ml OP BID 07/11/19 09/02/19 carvediloL [Carvedilol 25mg Tab] 6.25 mg PO BID 09/02/19 09/02/19 Allergies Allergy/AdvReac Type Severity Reaction Status Date / Time Sulfa (Sulfonamide Allergy Intermediate I-RASH Verified 07/11/19 10:34 Antibiotics) [facility] History - Hepatitis A Screen Drug use history?: No High risk sexual behaviors?: No History of sexually transmitted infection?: No Currently employed?: No Childcare worker?: No Do you have indoor plumbing?: Yes Do you have electricity?: Yes Attestation statement:: This patient has been screened for Hepatitis A risk factors. I have reviewed the patient's past medical history: Yes Medical History: Reports:: Congestive Heart Failure, Coronary Artery Disease, Diabetes Mellitus Type 1, Diabetes Mellitus Type 2, Hyperlipidemia, Hypertension Denies:: Internal Pacemaker, Lung Disease, Seizures Other Medical History: Reports: Cataracts, Other (moise-cpap ) Other Surgeries: Yes: Cardiac Catheterization, Coronary Stent, Hysterectomy- Total. No: Pacemaker - Social History Smoking Status: Current every day smoker Tobacco Type: cigarettes # Packs/Day (cigarettes): 1 Alcohol Intake: never Occupational Status: retired Housing: house Family Hx:: No significant family history ROS Obtained: Yes All systems reviewed & no additional complaints - Constitutional Constitutional: Denies fever(s) - Eyes Eyes: Denies change in vision - ENT Ears, Nose, Mouth, and Throat: Denies sore throat - Cardiovascular Cardiovascular: Denies chest pain, Denies dyspnea - Respiratory Respiratory: No cough - Gastrointestinal Gastrointestingal: Reports: as per HPI, abdominal pain, bright red blood in stools, nausea, vomiting - Genitourinary Female Genitourinary: Denies hematuria - Musculoskeletal Musculoskeletal: Denies joint swelling - Integumentary/Breasts Skin/Breast: Denies rash - Neurologic Neurologic: Denies seizure-like activity Physical Exam - General General appearance: alert, obese - Head Head exam: normocephalic - Eye Eye exam: Present: PERRL, EOMI, other (pale conj) - ENT ENT exam: Present: mucous membranes dry - Neck Neck exam: Present: trachea midline - Respiratory Respiratory exam: Present: normal lung sounds bilaterally. Absent: respiratory distress - Cardiovascular Cardiovascular exam: Present: regular rate, systolic murmur, +S4 - Abdominal Exam Abdominal exam: Present: soft, tenderness. Absent: guarding, rebound Abdominal tenderness: Present: moderate. Absent: epigastrium - Rectal Exam Rectal exam: Present: normal rectal tone, heme (+) stool, bloody stool - Extremities Exam Extremities exam: Present: full ROM. Absent: calf tenderness - Neurological Exam Neurological exam: Present: alert, oriented X3, CN II-XII intact - Psychiatric Psychiatric exam: Present: normal affect - Skin Skin exam: Absent: rash
[2019-09-02 21:51] LABS: Albumin Level 2.9 gm/dL (3.4-5.0); Albumin/Globulin Ratio 0.9 (1.1-1.8); Anion Gap 15.3 mEq/L (5-15); Bilirubin,Total 0.2 mg/dL (0.2-1.0); Calcium 8.1 mg/dL (8.5-10.1); Globulin 3.3 gm/dl (1.3-3.2); Total Protein,Serum 6.2 gm/dL (6.4-8.2)
[2019-09-03 04:13] LABS: Anion Gap 15.3 mEq/L (5-15); Blood Urea Nitrogen 48 mg/dL (7-18); Carbon Dioxide 25 mmol/L (21.0-32.0); Chloride 102 mmol/L (98-107); Sodium 138 mmol/L (136-145)
[2019-09-03 04:14] LABS: Glucose 160 mg/dL (74-106)
--- NOTE | 2019-09-03 07:12 | Pharmacy Consult Notes ---
[facility] Pharmacy VTE Monitoring - Patient Demographics Admission date: 09/02/19 Report Date: 09/03/19 Time: 07:09 Allergies/Adverse Reactions: Patient Allergies Sulfa (Sulfonamide Antibiotics) Allergy (Intermediate, Verified 07/11/19 10:34) I-RASH Height: 1.6 m Weight: 104.525 kg Patient Problems: Current Active Problems Lower gastrointestinal hemorrhage (Acute) Blood loss anemia (Acute) PIEDAD (acute kidney injury) (Acute) Ulcerative colitis (Acute) - VTE Risk Labs: VTE Related Lab Results Hgb 6.6 g/dL (12.2-16.2) L* 09/02/19 21:20 Hct 21.8 % (37.0-47.0) L* 09/02/19 21:20 Plt Count 338 K/mm3 (142-424) 09/02/19 21:20 BUN 48 mg/dL (7-18) H 09/03/19 03:50 Creatinine 2.04 mg/dL (0.55-1.02) H 09/03/19 03:50 Estimated Creat Clear 41 mL/min (50-200) 09/03/19 03:50 Was VTE Risk Assessment Performed: Yes VTE Score: 8 VTE Risk Level: Moderate Risk - Prophylaxis VTE Prophylaxis Ordered?: Yes Types of VTE Prophylaxis: TEDS Thigh High Location of Applied Device: Bilateral Lower Extremeties
--- NOTE | 2019-09-03 07:20 | History & Physical Report ---
*Admission Date: 09/02/19 *Chief complaint: Blood in stool *History of present illness: 73-year-old female with known ulcerative colitis with last colonoscopy in October 2018 that also identified left-sided diverticulosis presented to the emergency department on the evening of September 02 with approximately 36 hours of bright red blood per rectum. Patient noted on Tuesday morning she had fresh blood with each bowel movement which had increased significantly in frequency on Tuesday and Tuesday. Patient did not have any significant abdominal pain. She denies fevers or chills. Patient takes aspirin and Plavix for known coronary artery disease. When bleeding persisted patient presented to the emergency department. She was found to be anemic requiring blood transfusion and was admitted for transfusion of 2 units of packed red blood cells and treatment of possible flare of ulcerative colitis. Patient denies change in appetite, fevers, chills, abdominal bloating, abdominal pain. [facility] History I have reviewed the patient's past medical history: Yes Medical History: Reports:: Cancer, Congestive Heart Failure, Coronary Artery Disease, Diabetes Mellitus Type 2, Hyperlipidemia, Hypertension, Myocardial Infarction Denies:: Diabetes Mellitus Type 1, Internal Pacemaker, Lung Disease, MRSA, Seizures *Have you ever received a pneumonia vaccine?: No *Have you received a flu vaccine this season?: Yes Other Medical History: Reports: Anemia, Cataracts, Hypothyroidism, Other (moise- cpap ) Laterality Cases: Right: Mastectomy Other Surgeries: Yes: Cardiac Catheterization, Coronary Stent, Hysterectomy- Total, Hysterectomy-Partial. No: Pacemaker Amputation: No Fractures: No - *Social History Educational Level: Completed High School Smoking Status: Current some day smoker Tobacco Type: cigarettes # Packs/Day (cigarettes): 1 Alcohol Intake: never *Occupational Status:: retired Housing: house Household Members: spouse *Travel in the last 8 weeks: None Family Hx:: Cancer Review of Systems - Review of Systems Review of systems:: pertinent systems reviewed and negative unless documented below - Constitutional Denies body ache(s), Denies chills, Denies fatigue, Denies fever(s) - ENT Denies bleeding gums - *Cardiovascular Denies chest pain, Denies chest pain at rest - *Respiratory Denies change in phlegm color, Denies chest congestion - *Gastrointestinal Reports change in bowel habits, Reports change in stools, Reports bright, red blood in stools, Denies abdominal pain, Denies belching, Denies bloating, Denies coffee ground vomit, Denies difficulty swallowing - *Neurologic Denies seizure-like activity Meds Home Medications Medication Instructions Recorded Confirmed Type Amlodipine Besylate [Amlodipine 5 mg PO DAILY 11/20/18 09/02/19 History 5mg tab] Aspirin [Aspir 81] 81 mg PO DAILY 11/20/18 09/02/19 History Balsalazide Disodium 2,250 mg PO BID 11/20/18 09/02/19 History Clopidogrel Bisulfate [Clopidogrel 75 mg PO DAILY 11/20/18 09/02/19 History 75mg Tab] Ferrous Gluconate [Ferrous 324 mg PO BID 11/20/18 09/02/19 History Gluconate 324mg Tab] Furosemide [Furosemide 20mg Tab] 20 mg PO DAILY 11/20/18 09/02/19 History Glimepiride 4 mg PO BID 11/20/18 09/02/19 History Insulin NPH Hum/Reg Insulin Hm 0 unit SQ BID 11/20/18 09/03/19 History [Novolin 70-30 100 Unit/ml Vial] Isosorbide Mononitrate [Imdur 60mg 60 mg PO BID 11/20/18 09/02/19 History ER tablet] Levothyroxine Sodium 75 mcg PO DAILY 11/20/18 09/03/19 History [Levothyroxine 75mcg (0.075mg) Tab] Omeprazole [Omeprazole 40mg 40 mg PO HS 11/20/18 09/02/19 History Capsule] Simvastatin 40 mg PO HS 11/20/18 09/02/19 History cloNIDine HCL [cloNIDine 0.2mg 0.2 mg PO TID 11/20/18 09/02/19 History Tablet] hydroCHLOROthiazide [HCTZ 25mg 25 mg PO BID 11/20/18 09/02/19 History tab] Timolol [Betimol] 5 ml OP BID 07/11/19 09/03/19 History Prazosin HCl [Minipres 1mg capsule] 2 mg PO BID 09/02/19 09/02/19 History carvediloL [Carvedilol 25mg Tab] 6.25 mg PO BID 09/02/19 09/02/19 History Cholecalciferol (Vitamin D3) 50 mcg PO DAILY 09/03/19 09/03/19 History [Vitamin D3] Allergies Allergy/AdvReac Type Severity Reaction Status Date / Time Sulfa (Sulfonamide Allergy Intermediate I-RASH Verified 07/11/19 10:34 Antibiotics) Exam Vital signs and Labs for Last 24 Hours: Temp Pulse Resp BP Pulse Ox 98.2 F 73 18 179/70 H 94 L 09/03/19 06:49 09/03/19 06:49 09/03/19 06:49 09/03/19 06:49 09/03/19 06:49 Laboratory Results - last 24 hr 09/02/19 20:22: Troponin I < 0.02 09/02/19 21:10: Sodium 137, Potassium 4.3, Chloride 101, Carbon Dioxide 25, Anion Gap 15.3 H, BUN 45 H, Creatinine 2.17 H, Estimated Creat Clear 38, Estimated GFR 22 L, Est GFR ( Amer) 27 L, Glucose 113 H, Calcium 8.1 L, Total Bilirubin 0.2, AST 10 L, ALT 11 L, Alkaline Phosphatase 68, C-Reactive Protein 1.0 H, Total Protein 6.2 L, Albumin 2.9 L, Globulin 3.3 H, Albumin/Globulin Ratio 0.9 L, Lipase 131 09/02/19 21:10: ESR > 140 H 09/02/19 21:20: WBC 13.2 H, RBC 2.60 L, Hgb 6.6 L*, Hct 21.8 L*, MCV 83.8, MCH 25.6 L, MCHC 30.5 L, RDW 15.8, Plt Count 338, MPV 7.3 L, Neut % (Auto) 64.6, Lymph % (Auto) 25.5, Gregg % (Auto) 4.9, Eos % (Auto) 4.0, Baso % (Auto) 1.0, Neut # (Auto) 8.6 H, Lymph # (Auto) 3.4, Gregg # (Auto) 0.7, Eos # (Auto) 0.5 H, Baso # (Auto) 0.1 09/02/19 21:45: Stool Occult Blood Positive A 09/02/19 21:59: Blood Type O Positive, Antibody Screen Negative, Crossmatch (AHG) See Detail 09/02/19 21:59: Blood Type Confirm O Positive 09/03/19 00:45: Troponin I < 0.02 09/03/19 03:50: Sodium 138, Potassium 4.3, Chloride 102, Carbon Dioxide 25, Anion Gap 15.3 H, BUN 48 H, Creatinine 2.04 H, Estimated Creat Clear 41, Estimated GFR 24 L, Est GFR ( Amer) 29 L, Glucose 160 H D, Calcium 8.0 L, Troponin I < 0.02 09/03/19 06:10: POC Glucose 212 H I & O for Last 24 hours: Intake & Output 08/31/19 09/01/19 09/02/19 09/03/19 11:59 11:59 11:59 11:59 Intake Total 800 / 800 Output Total 500 / 500 Balance 300 / 300 Weight 230 lb 7 oz Narrative: Patient is awake and alert sitting up in bed. She does not appear pale. There is no scleral icterus. Oropharynx is moist and clear. Neck has no jugular venous distention or carotid bruits. Lungs are distant but clear. Heart has a regular rate and rhythm. Abdomen is obese, soft, nontender with bowel sounds present. Patient has active range of motion in all extremities. There is no gross neurologic deficit. Skin is warm to the touch. Assessment and Plan (1) Lower gastrointestinal hemorrhage Current visit: Yes Status: Acute Category: Medical Code(s): K92.2 - Gastrointestinal hemorrhage, unspecified (2) Diverticulosis Current visit: Yes Status: Acute Category: Medical Code(s): K57.90 - Diverticulosis of intestine, part unspecified, without perforation or abscess without bleeding (3) Long-term use of aspirin therapy Current visit: Yes Status: Acute Category: Medical Code(s): Z79.82 - retirement (current) use of aspirin (4) Ulcerative colitis Current visit: Yes Status: Acute Qualifiers: Ulcerative colitis location: unspecified ulcerative colitis location Digestive disease complication type: with rectal bleeding Qualified Code(s): K51.911 - Ulcerative colitis, unspecified with rectal bleeding Category: Medical Code(s): K51.90 - Ulcerative colitis, unspecified, without complications (5) Coronary artery disease Current visit: No Status: Chronic Category: Medical Code(s): I25.10 - Atherosclerotic heart disease of samish coronary artery without angina pectoris (6) Diabetes mellitus Current visit: No Status: Chronic Category: Medical Code(s): E11.9 - Type 2 diabetes mellitus without complications - Assessment and plan all Dx Assessment and Plan for all problems:: 1. Continue patient's balsalazide and she has been placed on intravenous steroids 20 mg of Solu-Medrol every 8 hours 2. Patient's GI bleed may be diverticular in origin. Hold aspirin and Plavix 3. Consult gastroenterology due to familiarity with patient 4. Patient will remain n.p.o. for now until gastroenterology consult was obtained
[2019-09-03 07:59] LABS: Hematocrit 27.5 % (37.0-47.0)
[2019-09-03 08:00] LABS: Hemoglobin 8.7 g/dL (12.2-16.2)
--- NOTE | 2019-09-03 13:45 | Electrocardiograph Report ---
APPROVED REPORT Exam: Resting ECG HR:68 bpm ECG Measurements Heart Rate 68 AXES NC 196 P 53 QRSd 66 QRS -20 QT 388 T64 QTc 412 <Conclusion> Sinus rhythm with 1st degree AV block Left axis deviation Poor R Wave Progression Possible Inferior infarct Electronically signed by : Larry Durham, 09/03/2019 13:45:07
--- NOTE | 2019-09-03 14:46 | Procedure Note ---
[facility] Procedure Note Procedure Note:: Flexible Sigmoidoscopy Procedure Report: Aborted colonoscopy Endoscopist: David Armijo II, MD Referring physician: DANDRE Welsh/Mike Lee MD Date of Procedure: September 03, 2019 Equipment: Olympus 180 variable stiffness pediatric colonoscope Sedation: MAC sedation Indication: Mrs. Michelle is a 73-year-old female who presents with marked hematochezia. She initially had bright red blood and then current jelly stool and clots. This began at 8 AM Tuesday morning (September 01). The patient has had blood work showing hemoglobin 8.7 and hematocrit 27.5. Her CT scan of the abdomen showed some mild thickening of the sigmoid colon with air-fluid level that was nonspecific. The patient was on aspirin and Plavix for CASHD. She is received 2 to 4 units of PRBCs. The patient reports no abdominal pain. She has had some diarrhea. The patient does have a history of chronic ulcerative col itis but her colonoscopy in October 2018 showed complete colonoscopic remission with scattered pseudopolyps. The patient also had left-sided diverticulosis. The patient reports no abdominal pain. Her CRP was 1.0 with sed rate of 140. Her hemoglobin and hematocrit dropped critically low to 6.6 and 21.8 prior to the transfusions. Procedure: Prior to the procedure, a history and physical exam was performed, and patient's medications and allergies were reviewed. The risks, benefits and alternatives of the sedation and procedure were discussed with the patient. All questions were answered and informed consent was obtained. The patient was brought to the procedure room. Patient identification and proposed procedure were verified by the physician and the nurse. The patient was placed in a left lateral decubitus position and the scope was passed under direct vision. Throughout the procedure, the patient's blood pressure, pulse, and oxygen saturations were monitored continuously. The colonoscopy was accomplished without difficulty. The patient tolerated the procedure well. Findings: There was normal rectal tone. There were no external hemorrhoids or fistulas. The colonoscope was advanced through the anal canal and advanced to 20 to 25 cm. There was a marked amount of black/maroon current jelly appearing stool with some solid content. The scope could not be advanced further due to very poor visualization and completely unprepped colon. Vigorous washing was performed in the rectum and there was no evidence of any mucosal abnormality within the rectum. There was no evidence of proctocolitis of the rectum. Impression: 1. Unprepped colonoscopy with evidence of old blood within the rectum and no evidence of proctitis Plan: I do feel that the clinical history is more supportive of bleeding of diverticular origin. Diverticular hemorrhage is most often painless. She does not have any abdominal pain. Patient to have bleeding from chronic ulcerative colitis do not have massive bleeding in most circumstances. However, the patient has been on Plavix and aspirin. I do feel that withdrawal of anticoagulation short-term would be of some benefit. I would also consider adding octreotide short-term (50 mcg bolus and then 25 mcg an hour for 24 hours) if the patient is still bleeding. This reduces splanchnic blood flow and would help if she were to have ongoing bleeding. I would like for her to return soon for prepped colonoscopy to evaluate further.
--- NOTE | 2019-09-03 14:46 | Progress Note ---
[facility] Anesthesia Checklist - Structural Data Admitted From: Inpatient Planned Operative Procedure/s: colonoscopy Consent for Planned Operative Procedure(s) Verified: Yes - Additional verifications Anesthesia Reactions: No - Airway Assessment C-Spine Mobility Assessed: Yes TMJ Mobility Assessed: Yes Dentition: Poor Dentition - Neurological Assessment Level of Consciousness: Awake, Alert, Appropriate - Anesthesia Plan Anesthesia Risk discussed: Yes Anesthesia Plan: Verified ASA Class: III Anesthesia Type: MAC [facility] History I have reviewed the patient's past medical history: Yes Medical History: Reports:: Cancer, Congestive Heart Failure, Coronary Artery Disease, Diabetes Mellitus Type 2, Hyperlipidemia, Hypertension, Myocardial Infarction Denies:: Diabetes Mellitus Type 1, Internal Pacemaker, Lung Disease, MRSA, Seizures *Have you ever received a pneumonia vaccine?: No *Have you received a flu vaccine this season?: Yes Other Medical History: Reports: Anemia, Cataracts, Hypothyroidism, Other (moise- cpap ) Anesthesia experience/problems:: none Laterality Cases: Right: Mastectomy Other Surgeries: Yes: Cardiac Catheterization, Coronary Stent, Hysterectomy- Total, Hysterectomy-Partial. No: Pacemaker Amputation: No Fractures: No - *Social History Educational Level: Completed High School Smoking Status: Current some day smoker Tobacco Type: cigarettes # Packs/Day (cigarettes): 1 Alcohol Intake: never Substance Use Type: denies use *Occupational Status:: retired Housing: house Household Members: spouse *Travel in the last 8 weeks: None Family Hx:: Cancer
[2019-09-03 18:48] LABS: Hematocrit 22.7 % (37.0-47.0); Hemoglobin 7.1 g/dL (12.2-16.2)
[2019-09-04 04:11] LABS: Hematocrit 29.4 % (37.0-47.0)
[2019-09-04 04:15] LABS: Hemoglobin 9.4 g/dL (12.2-16.2)
--- NOTE | 2019-09-04 07:12 | Progress Note ---
Internal Medicine - PN: Subj *Date: 09/04/19 *Time: 07:09 Interval history: Patient has no complaints this morning. She denies abdominal pain. She underwent a very limited colonoscopy yesterday which did not reveal any proctitis or rectal bleeding. Dr. Armijo suspects a diverticular bleed is the source of the patient's lower GI bleed. Plan will be to repeat colonoscopy tomorrow with proper bowel prep. Patient required additional 2 units of packed red blood cells overnight. She remains off aspirin and Plavix. Exam Vital signs and Labs for Last 24 Hours: Temp Pulse Resp BP Pulse Ox 98.0 F 81 17 157/55 H 92 L 09/04/19 04:00 09/04/19 04:00 09/04/19 04:00 09/04/19 04:00 09/04/19 04:00 Laboratory Results - last 24 hr 09/02/19 21:59: Blood Type O Positive, Antibody Screen Negative, Crossmatch (AHG) See Detail 09/03/19 07:42: Hgb 8.7 L D, Hct 27.5 L 09/03/19 08:09: POC Glucose 223 H 09/03/19 10:54: POC Glucose 313 H* 09/03/19 16:24: POC Glucose 332 H* 09/03/19 18:14: Hgb 7.1 L*, Hct 22.7 L* 09/03/19 21:01: POC Glucose 459 H* 09/04/19 04:00: Hgb 9.4 L D, Hct 29.4 L 09/04/19 05:50: POC Glucose 298 H I & O for Last 24 hours: Intake & Output 09/01/19 09/02/19 09/03/19 09/04/19 11:59 11:59 11:59 11:59 Intake Total 800 / 800 679.37 / 679.37 Output Total 1200 / 1200 300 / 300 Balance -400 / -400 379.37 / 379.37 Weight 230 lb 7 oz 231 lb 7.766 oz Narrative: She is awake and alert sitting up on the side of the bed and is in no distress. She does not appear pale. Lungs are distant but clear. Heart has a regular rate and rhythm. Abdomen is obese, soft with some left lower quadrant tenderness with deep palpation Assessment and Plan (1) Lower gastrointestinal hemorrhage Current visit: Yes Status: Acute Category: Medical Code(s): K92.2 - Gastrointestinal hemorrhage, unspecified (2) Diverticulosis Current visit: Yes Status: Acute Category: Medical Code(s): K57.90 - Diverticulosis of intestine, part unspecified, without perforation or abscess without bleeding (3) Long-term use of aspirin therapy Current visit: Yes Status: Acute Category: Medical Code(s): Z79.82 - intermediate designer (current) use of aspirin (4) Ulcerative colitis Current visit: Yes Status: Acute Qualifiers: Ulcerative colitis location: unspecified ulcerative colitis location Digestive disease complication type: with rectal bleeding Qualified Code(s): K51.911 - Ulcerative colitis, unspecified with rectal bleeding Category: Medical Code(s): K51.90 - Ulcerative colitis, unspecified, without complications (5) Coronary artery disease Current visit: No Status: Chronic Category: Medical Code(s): I25.10 - Atherosclerotic heart disease of [place] coronary artery without angina pectoris (6) Diabetes mellitus Current visit: No Status: Chronic Category: Medical Code(s): E11.9 - Type 2 diabetes mellitus without complications - Assessment and plan all Dx Assessment and Plan for all problems:: 1. Start octreotide drip 2. Continue to hold aspirin and Plavix 3. Plan for colonoscopy tomorrow
[2019-09-04 07:55] LABS: Anion Gap 11.4 mEq/L (5-15); Calcium 8.3 mg/dL (8.5-10.1)
[2019-09-04 08:25] LABS: Basophils # 0.2 K/mm3 (0-0.2); Basophils % 0.8 % (0.1-2.0); Eosinophils # 0.1 K/mm3 (0.0-0.4); Eosinophils % 0.5 % (0.1-12.0); Hematocrit 31.3 % (37.0-47.0); Hemoglobin 9.8 g/dL (12.2-16.2); Lymphocytes # 2.2 K/mm3 (0.7-4.5); Lymphocytes % 9.6 % (10-50); Mean Corpuscular HGB Conc 31.2 g/dL (31.8-35.4); Mean Corpuscular Volume 90.9 fl (81-99); Mean Platelet Volume 7.8 fl (7.4-10.4); Monocytes # 0.9 K/mm3 (0.1-1.0); Monocytes % 3.9 % (1.7-9.3); Neutrophils # 19.5 K/mm3 (1.8-7.8); Neutrophils % 85.3 % (37.0-80.0); Platelet Count 291 K/mm3 (142-424); Red Blood Count 3.44 M/mm3 (4.20-5.40); Red Cell Distribution Width 16.3 % (11.5-17.5); White Blood Count 22.9 K/mm3 (4.8-10.8)
[2019-09-04 09:54] LABS: Lymphocytes % 11 % (10-50); Monocytes % 5 % (2-9); Neutrophils % 83 % (42-76); RBC Morphology Normal; Total Cells Counted 100
[2019-09-04 14:08] LABS: Hematocrit 27.9 % (37.0-47.0)
--- NOTE | 2019-09-05 07:00 | Progress Note ---
Internal Medicine - PN: Subj *Date: 09/05/19 *Time: 06:59 Interval history: Patient complains of abdominal pain this morning while she is completing her MoviPrep. She also reports that bowel movements are lightening up in her last bowel movement was basically clear. Overnight nursing does report some dark tarry liquidy stools. Patient denies shortness of breath or chest pain this morning. She is scheduled for colonoscopy at noon Exam Vital signs and Labs for Last 24 Hours: Temp Pulse Resp BP Pulse Ox 98.7 F 85 20 186/74 H 100 09/05/19 04:00 09/05/19 04:00 09/05/19 04:00 09/05/19 04:00 09/05/19 04:00 Laboratory Results - last 24 hr 09/04/19 07:30: Sodium 136, Potassium 4.4, Chloride 102, Carbon Dioxide 27, Anion Gap 11.4, BUN 46 H, Creatinine 1.76 H, Estimated Creat Clear 23, Estimated GFR 28 L, Est GFR ( Amer) 34 L, Glucose 321 H, Calcium 8.3 L 09/04/19 07:30: WBC 22.9 H* D, RBC 3.44 L D, Hgb 9.8 L, Hct 31.3 L, MCV 90.9, MCH 28.4, MCHC 31.2 L, RDW 16.3, Plt Count 291, MPV 7.8, Neut % (Auto) 85.3 H, Lymph % (Auto) 9.6 L, Josephine % (Auto) 3.9, Eos % (Auto) 0.5, Baso % (Auto) 0.8, Neut # (Auto) 19.5 H, Lymph # (Auto) 2.2, Josephine # (Auto) 0.9, Eos # (Auto) 0.1, Baso # (Auto) 0.2, Total Counted 100, Neutrophils % (Manual) 83 H, Lymphocytes % (Manual) 11, Monocytes % (Manual) 5, Metamyelocytes % 1.0, Platelet Estimate Normal, RBC Morphology Normal 09/04/19 11:34: POC Glucose 317 H* 09/04/19 13:57: Hgb 9.0 L, Hct 27.9 L 09/04/19 17:08: POC Glucose 341 H* 09/04/19 21:22: POC Glucose 357 H* 09/05/19 05:30: POC Glucose 258 H I & O for Last 24 hours: Intake & Output 09/02/19 09/03/19 09/04/19 09/05/19 11:59 11:59 11:59 11:59 Intake Total 800 / 800 1179.37 / 1179.37 2062 Output Total 1200 / 1200 1000 / 1000 400 / 400 Balance -400 / -400 179.37 / 179.37 166 / 1663 Weight 230 lb 7 oz 231 lb 7.766 oz 231 lb 7 oz Narrative: Patient is sitting up in bed. She is wrapped in covers and is shivering from being cold. Lungs are clear. Heart has a regular rate and rhythm. Abdomen is obese and soft with mild left lower quadrant tenderness. 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 (current) use of aspirin (4) Ulcerative colitis Current visit: Yes Status: Acute Qualifiers: Ulcerative colitis location: unspecified ulcerative colitis location Digestive disease complication type: with rectal bleeding Qualified Code(s): K51.911 - Ulcerative colitis, unspecified with rectal bleeding Category: Medical Code(s): K51.90 - Ulcerative colitis, unspecified, without complications (5) Coronary artery disease Current visit: No Status: Chronic Category: Medical Code(s): I25.10 - Atherosclerotic heart disease of [place] coronary artery without angina pectoris (6) Diabetes mellitus Current visit: No Status: Chronic Category: Medical Code(s): E11.9 - Type 2 diabetes mellitus without complications - Assessment and plan all Dx Assessment and Plan for all problems:: Colonoscopy today with further decisions made after colonoscopy. Await labs this morning as well to assess need for further transfusions
[2019-09-05 07:43] LABS: Basophils # 0.1 K/mm3 (0-0.2); Eosinophils # 0.1 K/mm3 (0.0-0.4); Mean Platelet Volume 7.7 fl (7.4-10.4); Monocytes # 0.6 K/mm3 (0.1-1.0); Red Cell Distribution Width 16.4 % (11.5-17.5); White Blood Count 17.9 K/mm3 (4.8-10.8)
[2019-09-05 07:48] LABS: Basophils % 0.4 % (0.1-2.0); Eosinophils % 0.3 % (0.1-12.0); Hematocrit 33.1 % (37.0-47.0); Lymphocytes # 1.4 K/mm3 (0.7-4.5); Mean Corpuscular HGB Conc 31.6 g/dL (31.8-35.4); Mean Corpuscular Volume 88.6 fl (81-99); Monocytes % 3.1 % (1.7-9.3); Neutrophils # 15.8 K/mm3 (1.8-7.8); Neutrophils % 88.1 % (37.0-80.0); Platelet Count 338 K/mm3 (142-424); Red Blood Count 3.73 M/mm3 (4.20-5.40)
[2019-09-05 07:49] LABS: Hemoglobin 10.4 g/dL (12.2-16.2)
[2019-09-05 11:25] LABS: Hypochromasia 1+; Lymphocytes % 9 % (10-50); Monocytes % 4 % (2-9); Neutrophils % 87 % (42-76); Total Cells Counted 100
--- NOTE | 2019-09-05 13:33 | Procedure Note ---
[facility] Procedure Note Procedure Note:: Colonoscopy Procedure Report: Colonoscopy with cold biopsies and Endo Clip placement Endoscopist: David Armijo II, MD Referring physician: Tony Canseco MD/Mike Lee MD Date of Procedure: September 05, 2019 Equipment: Olympus 180 variable stiffness pediatric colonoscope Sedation: MAC sedation Indication: Mrs. Michelle is a 73-year-old female that presented to the hospital with hematochezia and significant anemia with an initial hemoglobin of 6. The patient did have an unprepped sigmoid exam on Tuesday without good visualization. The patient has had gradual resolution. The rectal bleeding did begin abruptly 5 days ago and also stopped abruptly. The patient does have a history of chronic colitis. Her last colonoscopy did reveal complete remission. Procedure: Prior to the procedure, a history and physical exam was performed, and patient's medications and allergies were reviewed. The risks, benefits and alternatives of the sedation and procedure were discussed with the patient. All questions were answered and informed consent was obtained. The patient was brought to the procedure room. Patient identification and proposed procedure were verified by the physician and the nurse. The patient was placed in a left lateral decubitus position and the scope was passed under direct vision. Throughout the procedure, the patient's blood pressure, pulse, and oxygen saturations were monitored continuously. The colonoscopy was accomplished without difficulty. The patient tolerated the procedure well. Findings: On digital rectal examination there was normal rectal tone. There were no external hemorrhoids. The colonoscope was introduced through the anal canal to the rectum and advanced to the cecum. The ileocecal valve and appendiceal orifice were identified. The scope was advanced a short distance into the ileum which appeared grossly normal. The scope was then withdrawn into the colon. The cecum was normal. There was a superficial ulceration on the ileocecal valve. This was not deemed to be the source of bleeding but an Endo Clip was placed over the ulceration because there was some minor oozing of blood. The remainder of the ascending and transverse colon did show some diminutive pseudopolyps but there was no active colitis throughout. In other words there was complete colonoscopic remission of the chronic colitis. Cold biopsies were taken from the transverse colon at the site of the pseudopolyps to rule out any microscopic inflammatory activity. There were extensive scattered diverticuli throughout the colon but more predominantly in the descending and sigmoid colon (LEFT colon). There was no evidence of any blood or maroon stool or liquid with in the colon. The rectum itself was normal. Upon retroflexion within the rectum there were grade 1-2 internal hemorrhoids. The preparation was fair throughout with [place] Preparation Score of 7 out of 9. The cecal time was 12 minutes. Impression: 1. Superficial ileocecal valve ulcer status post Endo Clip placement (unlikely source of acute bleeding) 2. Complete colonoscopic remission of the chronic ulcerative colitis with some associated regenerative pseudopolyps (unlikely source of bleeding) 3. Extensive left-sided diverticulosis (most likely etiology is acute diverticular hemorrhage) 4. Grade 1-2 internal hemorrhoids Plan: Based upon the clinical history and presentation, this is most likely acute diverticular hemorrhage. The patient has had no further bleeding. I will advance diet to low residue. There is an appreciable 30% risk of diverticular hemorrhage in the future.
--- NOTE | 2019-09-05 13:59 | Discharge Summary ---
General - General Admission date:: 09/02/19 Discharge date: 09/07/19 HPI HPI: 73-year-old female with known ulcerative colitis with last colonoscopy in October 2018 that also identified left-sided diverticulosis presented to the emergency department on the evening of September 02 with approximately 36 hours of bright red blood per rectum. Patient noted on Tuesday morning she had fresh blood with each bowel movement which had increased significantly in frequency on Tuesday and Tuesday. Patient did not have any significant abdominal pain. She denies fevers or chills. Patient takes aspirin and Plavix for known coronary artery disease. When bleeding persisted patient presented to the emergency department. She was found to be anemic requiring blood transfusion and was admitted for transfusion of 2 units of packed red blood cells and treatment of possible flare of ulcerative colitis. Patient denies change in appetite, fevers, chills, abdominal bloating, abdominal pain. Hospital Course Hospital Course: Patient was admitted and transufused 2 units of PRBC. The following morning attmept was made at colonoscopy but prep was inadequate to not enough time for proper bowel prep. Patient required additional 2 units on the evening of Sep. 3. Patient was started on 24 hours of IV octreotide on the morning of Sep.04 due to slight drop in H/H and continued dark stools. Hemoglobin remained stable after morning of 09/04 and even yves on carroll morning of 09/05 to >10. She underwent repeat colonsocopy on 09/05 with sufficient prep and was found to have a cecal valve ulcer that was not bleeding and extensive left sided diverticulosis with no active bleeding. Diet was advanced and H&H was monitored. Once H&H stabilized patient met for requirement for discharge. After patient's colonoscopy she complained of chest tightness. Because of patient's underlying coronary artery disease EKG and troponin were monitored. EKG did not show any ischemic changes but troponin was elevated at 1.7. Cardiology was consulted. Patient underwent left heart catheterization on September 07. Findings were as follows: ANGIOGRAPHIC RESULTS The left main artery Normal The left anterior descending artery Has a very proximal 40 to 50% stenosis followed by a stent which is widely patent free of in-stent restenosis which extends through the mid segment and has excellent distal transitioning. A moderate sized first diagonal artery has a proximal 60% stenosis at a bifurcation The circumflex artery Nondominant and gives rise to a moderate-sized first obtuse marginal artery which has proximal 40% stenosis. The remaining circumflex artery has mild plaque The right coronary artery Is a dominant vessel proximally occluded and fills very nicely via [id number] collaterals The DUVAL ventriculogram reveals Normal 60% The left ventricular end-diastolic pressure 20 mmHg IMPRESSION Coronary artery disease as described above Normal ejection fraction Mildly elevated LVEDP Type II myocardial infarction secondary to demand ischemia stemming from severe to critical anemia PLAN 1. Medical management for coronary artery disease After left heart catheterization diet was advanced. Patient tolerated. The following morning H&H remained stable. Renal function remained stable. Patient was discharged to home she will follow-up in my office early next week. Objective Vital signs: Temp Pulse Resp BP Pulse Ox 98.7 F 93 H 16 180/90 H 91 L 09/05/19 12:00 09/05/19 12:00 09/05/19 12:00 09/05/19 12:00 09/05/19 12:00 no acute distress - *Routine Respiratory Exam Present: distant breath sounds - *Routine Cardiovascular Exam Present: RRR, Normal S1, Normal S2 - *Routine Abdominal Exam Present: soft, normoactive bowel sounds Results Labs on day of discharge: Labs from last 24 hours 09/05/19 09/05/19 09/05/19 12:41 11:23 07:25 WBC 17.9 H RBC 3.73 L Hgb 10.4 L D Hct 33.1 L MCV 88.6 MCH 28.0 MCHC 31.6 L RDW 16.4 Plt Count 338 MPV 7.7 Neut % (Auto) 88.1 H Lymph % (Auto) 8.0 L Maries % (Auto) 3.1 Eos % (Auto) 0.3 Baso % (Auto) 0.4 Neut # (Auto) 15.8 H Lymph # (Auto) 1.4 Maries # (Auto) 0.6 Eos # (Auto) 0.1 Baso # (Auto) 0.1 Total Counted 100 Neutrophils % (Manual) 87 H Lymphocytes % (Manual) 9 L Monocytes % (Manual) 4 Platelet Estimate Normal Hypochromasia 1+ POC Glucose 276 H 272 H 09/05/19 09/04/19 09/04/19 05:30 21:22 17:08 WBC RBC Hgb Hct MCV MCH MCHC RDW Plt Count MPV Neut % (Auto) Lymph % (Auto) Maries % (Auto) Eos % (Auto) Baso % (Auto) Neut # (Auto) Lymph # (Auto) Maries # (Auto) Eos # (Auto) Baso # (Auto) Total Counted Neutrophils % (Manual) Lymphocytes % (Manual) Monocytes % (Manual) Platelet Estimate Hypochromasia POC Glucose 258 H 357 H* 341 H* 09/04/19 13:57 WBC RBC Hgb 9.0 L Hct 27.9 L MCV MCH MCHC RDW Plt Count MPV Neut % (Auto) Lymph % (Auto) Maries % (Auto) Eos % (Auto) Baso % (Auto) Neut # (Auto) Lymph # (Auto) Maries # (Auto) Eos # (Auto) Baso # (Auto) Total Counted Neutrophils % (Manual) Lymphocytes % (Manual) Monocytes % (Manual) Platelet Estimate Hypochromasia POC Glucose DS: Diagnosis - Discharge Diagnosis (1) Lower gastrointestinal hemorrhage Status: Acute (2) Diverticulosis Status: Acute (3) Long-term use of aspirin therapy Status: Acute (4) Ulcerative colitis Status: Acute (5) Coronary artery disease Status: Chronic (6) Diabetes mellitus Status: Chronic Discharge Plan - Patient Discharge Instructions ACTIVITY: Continue current activity DIET: continue same diet Patient Instructions: Anemia, Acute Renal Failure, DI for Ulcerative Colitis, Gastrointestinal Bleeding, DI for Diverticulosis - Follow up Plan Follow up with: Mike Lee MD [Primary Care Provider] - 1 day Disposition: Home, Self-Correction Medications: Home Medications Medication Instructions Recorded Confirmed Type Balsalazide Disodium 2,250 mg PO BID 11/20/18 09/02/19 History Clopidogrel Bisulfate [Clopidogrel 75 mg PO DAILY 11/20/18 09/02/19 History 75mg Tab] Ferrous Gluconate [Ferrous 324 mg PO BID 11/20/18 09/02/19 History Gluconate 324mg Tab] Furosemide [Furosemide 20mg Tab] 20 mg PO DAILY 11/20/18 09/02/19 History Glimepiride 4 mg PO BID 11/20/18 09/02/19 History Insulin NPH Hum/Reg Insulin Hm 40 unit SQ BID 11/20/18 09/03/19 History [Novolin 70-30 100 Unit/ml Vial] Isosorbide Mononitrate [Imdur 60mg 60 mg PO BID 11/20/18 09/02/19 History ER tablet] Levothyroxine Sodium 75 mcg PO DAILY 11/20/18 09/03/19 History [Levothyroxine 75mcg (0.075mg) Tab] Omeprazole [Omeprazole 40mg 40 mg PO HS 11/20/18 09/02/19 History Capsule] Simvastatin 40 mg PO HS 11/20/18 09/02/19 History cloNIDine HCL [cloNIDine 0.2mg 0.2 mg PO TID 11/20/18 09/02/19 History Tablet] hydroCHLOROthiazide [HCTZ 25mg 25 mg PO BID 11/20/18 09/02/19 History tab] Timolol [Betimol] 1 drop OP BID 07/11/19 09/03/19 History Prazosin HCl [Minipres 1mg capsule] 2 mg PO BID 09/02/19 09/02/19 History Amlodipine Besylate [Amlodipine 5 mg PO DAILY 09/03/19 09/03/19 History 10mg Tab] Aspirin [Aspirin 81mg chewable 81 mg PO DAILY 09/03/19 09/03/19 History tab] Cholecalciferol (Vitamin D3) 50 mcg PO DAILY 09/03/19 09/03/19 History [Vitamin D3] carvediloL [Carvedilol 6.25mg Tab] 6.25 mg PO BID 09/03/19 09/03/19 History Prescriptions/Medication Reconciliation: Continued Levothyroxine Sodium [Levothyroxine 75mcg (0.075mg) Tab] 75 mcg PO DAILY Furosemide [Furosemide 20mg Tab] 20 mg PO DAILY hydroCHLOROthiazide [HCTZ 25mg tab] 25 mg PO BID Ferrous Gluconate [Ferrous Gluconate 324mg Tab] 324 mg PO BID Simvastatin 40 mg PO HS Omeprazole [Omeprazole 40mg Capsule] 40 mg PO HS Isosorbide Mononitrate [Imdur 60mg ER tablet] 60 mg PO BID Insulin NPH Hum/Reg Insulin Hm [Novolin 70-30 100 Unit/ml Vial] 40 unit SQ BID Glimepiride 4 mg PO BID Balsalazide Disodium 2,250 mg PO BID Timolol [Betimol] 1 drop OP BID Prazosin HCl [Minipres 1mg capsule] 2 mg PO BID Cholecalciferol (Vitamin D3) [Vitamin D3] 50 mcg PO DAILY carvediloL [Carvedilol 6.25mg Tab] 6.25 mg PO BID cloNIDine HCL [cloNIDine 0.2mg Tablet] 0.2 mg PO TID Amlodipine Besylate [Amlodipine 10mg Tab] 5 mg PO DAILY Discontinued Clopidogrel Bisulfate [Clopidogrel 75mg Tab] 75 mg PO DAILY Aspirin [Aspirin 81mg chewable tab] 81 mg PO DAILY - Problem Reconciliation Problems Reviewed?: Yes
--- NOTE | 2019-09-06 07:07 | Progress Note ---
Internal Medicine - PN: Subj *Date: 09/06/19 *Time: 07:04 Interval history: Patient underwent colonoscopy yesterday which revealed extensive left-sided diverticulosis which is believed to be the likely source of bleeding. She also had a single valve ulcer that was clipped but showed no active signs of bleeding or evidence of recent bleeding. Around 4 PM patient complained of some chest tightness. She has a history of coronary artery disease with prior stenting of the right coronary artery in 2017 so troponin, EKG and chest x-ray were ordered. Patient's troponin returned at 1.7. She was given aspirin and Lovenox. Patient had previously been on aspirin and Plavix which had been held because of her GI bleeding. Patient also had not had her blood pressure medicines yesterday and was dealing with quite high systolics. This x-ray was suggestive of CHF and patient was given intravenous Lasix 40 mg with excellent response This morning the patient reports intermittent chest tightness although not as severe as yesterday. Patient has not had a bowel movement since her colonoscopy yesterday Exam Vital signs and Labs for Last 24 Hours: Temp Pulse Resp BP Pulse Ox 99.1 F 87 18 157/75 H 92 L 09/06/19 04:00 09/06/19 05:00 09/06/19 04:00 09/06/19 05:00 09/06/19 04:00 Laboratory Results - last 24 hr 09/02/19 21:59: Crossmatch (AHG) See Detail 09/05/19 07:25: WBC 17.9 H, RBC 3.73 L, Hgb 10.4 L D, Hct 33.1 L, MCV 88.6, MCH 28.0, MCHC 31.6 L, RDW 16.4, Plt Count 338, MPV 7.7, Neut % (Auto) 88.1 H, Lymph % (Auto) 8.0 L, [place] % (Auto) 3.1, Eos % (Auto) 0.3, Baso % (Auto) 0.4, Neut # (Auto) 15.8 H, Lymph # (Auto) 1.4, [place] # (Auto) 0.6, Eos # (Auto) 0.1, Baso # (Auto) 0.1, Total Counted 100, Neutrophils % (Manual) 87 H, Lymphocytes % (Manual) 9 L, Monocytes % (Manual) 4, Platelet Estimate Normal, Hypochromasia 1+ 09/05/19 11:23: POC Glucose 272 H 09/05/19 12:41: POC Glucose 276 H 09/05/19 13:41: POC Glucose 261 H 09/05/19 15:20: Troponin I 1.71 H 09/05/19 16:03: POC Glucose 215 H 09/05/19 18:15: Troponin I 1.74 H 09/05/19 20:43: POC Glucose 322 H* 09/06/19 05:16: POC Glucose 316 H* I & O for Last 24 hours: Intake & Output 09/03/19 09/04/19 09/05/19 09/06/19 11:59 11:59 11:59 11:59 Intake Total 800 / 800 1179.37 / 1179.37 2183 / 2183 460 / 460 Output Total 1200 / 1200 1000 / 1000 700 / 700 3150 / 3150 Balance -400 / -400 179.37 / 179.37 1483 / 1483 -2690 / -2690 Weight 230 lb 7 oz 231 lb 7.766 oz 231 lb 7 oz 224 lb 8 oz Narrative: Patient is awake and alert. She is in no distress. Lungs are clear. Heart has a regular rate and rhythm. Abdomen is soft. 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 (4) Ulcerative colitis Current visit: Yes Status: Acute Qualifiers: Ulcerative colitis location: unspecified ulcerative colitis location Digestive disease complication type: with rectal bleeding Qualified Code(s): K51.911 - Ulcerative colitis, unspecified with rectal bleeding Category: Medical Code(s): K51.90 - Ulcerative colitis, unspecified, without complications (5) Coronary artery disease Current visit: No Status: Chronic Category: Medical Code(s): I25.10 - Atherosclerotic heart disease of [place] coronary artery without angina pectoris (6) Diabetes mellitus Current visit: No Status: Chronic Category: Medical Code(s): E11.9 - Type 2 diabetes mellitus without complications (7) NSTEMI (non-ST elevated myocardial infarction) Current visit: Yes Status: Acute Category: Medical Code(s): I21.4 - Non-ST elevation (NSTEMI) myocardial infarction (8) Hypertensive heart disease Current visit: Yes Status: Acute Category: Medical Code(s): I11.9 - Hypertensive heart disease without heart failure (9) Kidney disease, chronic, stage IV (severe, 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) Current visit: Yes Status: Acute Category: Medical Code(s): N18.4 - Chronic kidney disease, stage 4 (severe) - Assessment and plan all Dx Assessment and Plan for all problems:: 1. Consult cardiology. I have put in an order for echocardiogram. This can be compared to patient's June echocardiogram to assess for any change in LV function. Patient has had problems with hyperkalemia from CARMEN inhibitors and arms. I will place the patient on spironolactone 25 mg this morning with close monitoring of renal function and potassium.
[2019-09-06 08:41] LABS: Anion Gap 8.7 mEq/L (5-15); Calcium 8.6 mg/dL (8.5-10.1)
--- NOTE | 2019-09-06 08:48 | Consult Report ---
History of Present Illness Consult date: 09/06/19 Requesting physician: Mike Lee Consult reason: chest pain Chief complaint: NSTEMI Additional Medical History:: 1. Diabetes mellitus, treated for greater than 20 years 2. Coronary artery disease A. History of prior stent to RCA, 2017, Dr. Brock's group in [facility] in [place], [place] 3. Longstanding tobacco use up to 2 cartons per week until 2017 4. History of ulcerative colitis since 2012, followed by Dr. Armijo 5. Admission for GI bleed, 09/2019 with hemoglobin down to 6-7 and subsequent transfusion of 4 units A. Colonoscopy results: 1. Superficial ileocecal valve ulcer status post Endo Clip placement (unlikely source of acute bleeding) 2. Complete colonoscopic remission of the chronic ulcerative colitis with some associated regenerative pseudopolyps (unlikely source of bleeding) 3. Extensive left-sided diverticulosis (most likely etiology is acute diverticular hemorrhage) 4. Grade 1-2 internal hemorrhoids 6. Hypertension 7. Hyperlipidemia History of present illness: 73-year-old white female admitted for GI bleed with subsequent blood transfusion and colonoscopy yesterday revealing evidence of diverticulosis as likely source of bleeding. After patient returned to her room she began complaining of chest discomfort with elevated BP noted. Work-up including EKG and troponins was obtained with elevated troponin noted. No acute ST segment changes noted on EKG with the patient maintaining sinus rhythm. Symptoms resolved with sublingual nitroglycerin and cardiology consulted for evaluation. Patient denies any chest pain overnight. She does relate some recent similar but much less intense symptoms at home that are not associated with activity. Patient does admit to taking 1 of her husbands nitroglycerin tablets intermittently with relief of symptoms. Patient is on aspirin and Plavix at home with history of coronary stenting in 2017. [facility] History Medical History: Reports:: Cancer, Congestive Heart Failure, Coronary Artery Disease, Diabetes Mellitus Type 2, Hyperlipidemia, Hypertension, Myocardial Infarction Denies:: Diabetes Mellitus Type 1, Internal Pacemaker, Lung Disease, MRSA, Seizures *Have you ever received a pneumonia vaccine?: No *Have you received a flu vaccine this season?: Yes Other Medical History: Reports: Anemia, Cataracts, Hypothyroidism, Other (moise- cpap ) Anesthesia experience/problems:: none Laterality Cases: Right: Mastectomy Other Surgeries: Yes: Cardiac Catheterization, Coronary Stent, Hysterectomy- Total, Hysterectomy-Partial. No: Pacemaker Amputation: No Fractures: No - *Social History Educational Level: Completed High School Smoking Status: Current some day smoker Tobacco Type: cigarettes # Packs/Day (cigarettes): 1 Alcohol Intake: never Substance Use Type: denies use *Occupational Status:: retired Housing: house Household Members: spouse *Travel in the last 8 weeks: None Family Hx:: Cancer Meds Home Medications Medication Instructions Recorded Confirmed Type Balsalazide Disodium 2,250 mg PO BID 11/20/18 09/02/19 History Clopidogrel Bisulfate [Clopidogrel 75 mg PO DAILY 11/20/18 09/02/19 History 75mg Tab] Ferrous Gluconate [Ferrous 324 mg PO BID 11/20/18 09/02/19 History Gluconate 324mg Tab] Furosemide [Furosemide 20mg Tab] 20 mg PO DAILY 11/20/18 09/02/19 History Glimepiride 4 mg PO BID 11/20/18 09/02/19 History Insulin NPH Hum/Reg Insulin Hm 40 unit SQ BID 11/20/18 09/03/19 History [Novolin 70-30 100 Unit/ml Vial] Isosorbide Mononitrate [Imdur 60mg 60 mg PO BID 11/20/18 09/02/19 History ER tablet] Levothyroxine Sodium 75 mcg PO DAILY 11/20/18 09/03/19 History [Levothyroxine 75mcg (0.075mg) Tab] Omeprazole [Omeprazole 40mg 40 mg PO HS 11/20/18 09/02/19 History Capsule] Simvastatin 40 mg PO HS 11/20/18 09/02/19 History cloNIDine HCL [cloNIDine 0.2mg 0.2 mg PO TID 11/20/18 09/02/19 History Tablet] hydroCHLOROthiazide [HCTZ 25mg 25 mg PO BID 11/20/18 09/02/19 History tab] Timolol [Betimol] 1 drop OP BID 07/11/19 09/03/19 History Prazosin HCl [Minipres 1mg capsule] 2 mg PO BID 09/02/19 09/02/19 History Amlodipine Besylate [Amlodipine 5 mg PO DAILY 09/03/19 09/03/19 History 10mg Tab] Aspirin [Aspirin 81mg chewable 81 mg PO DAILY 09/03/19 09/03/19 History tab] Cholecalciferol (Vitamin D3) 50 mcg PO DAILY 09/03/19 09/03/19 History [Vitamin D3] carvediloL [Carvedilol 6.25mg Tab] 6.25 mg PO BID 09/03/19 09/03/19 History Allergies Allergy/AdvReac Type Severity Reaction Status Date / Time Sulfa (Sulfonamide Allergy Intermediate I-RASH Verified 07/11/19 10:34 Antibiotics) Review of Systems - *Cardiovascular Reports chest pain, Reports shortness of breath - *Respiratory Reports shortness of breath with activity, Denies cough - *Gastrointestinal Reports loose stools, Reports nausea, Denies vomiting - *Genitourinary Denies blood in urine - *Musculoskeletal Denies joint pain, Denies back pain - *Neurologic Denies seizure-like activity Exam Vital signs and Labs for Last 24 Hours: Temp Pulse Resp BP Pulse Ox 99.1 F 90 18 157/75 H 92 L 09/06/19 04:00 09/06/19 05:10 09/06/19 04:00 09/06/19 05:00 09/06/19 04:00 Laboratory Results - last 24 hr 09/02/19 21:59: Crossmatch (AHG) See Detail 09/05/19 07:25: Total Counted 100, Neutrophils % (Manual) 87 H, Lymphocytes % (Manual) 9 L, Monocytes % (Manual) 4, Platelet Estimate Normal, Hypochromasia 1+ 09/05/19 11:23: POC Glucose 272 H 09/05/19 12:41: POC Glucose 276 H 09/05/19 13:41: POC Glucose 261 H 09/05/19 15:20: Troponin I 1.71 H 09/05/19 16:03: POC Glucose 215 H 09/05/19 18:15: Troponin I 1.74 H 09/05/19 20:43: POC Glucose 322 H* 09/06/19 05:16: POC Glucose 316 H* I & O for Last 24 hours: Intake & Output 09/03/19 09/04/19 09/05/19 09/06/19 11:59 11:59 11:59 11:59 Intake Total 800 / 800 1179.37 / 1179.37 2183 / 2183 460 / 460 Output Total 1200 / 1200 1000 / 1000 700 / 700 3150 / 3150 Balance -400 / -400 179.37 / 179.37 1483 / 1483 -2690 / -2690 Weight 230 lb 7 oz 231 lb 7.766 oz 231 lb 7 oz 224 lb 8 oz - *Routine HEENT Exam Head: Present: normocephalic Eye: Present: EOMI, PERRL ENT: Present: mucous membranes moist - *Routine Neck Exam Present: supple, carotid bruit. Absent: JVD - *Routine Respiratory Exam Present: CTA bilaterally. Absent: accessory muscle use, rales, rhonchi, wheezes - *Routine Cardiovascular Exam Present: RRR, murmur. Absent: gallop, rubs Comments: Grade 2/6 systolic ejection murmur noted at the left upper sternal border with radiation into the carotids - *Routine Abdominal Exam Present: soft. Absent: tenderness, distended, guarding - *Routine Extremities Exam Present: edema. 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 (4) Ulcerative colitis Current visit: Yes Status: Acute Qualifiers: Ulcerative colitis location: unspecified ulcerative colitis location Digestive disease complication type: with rectal bleeding Qualified Code(s): K51.911 - Ulcerative colitis, unspecified with rectal bleeding Category: Medical Code(s): K51.90 - Ulcerative colitis, unspecified, without complications (5) Coronary artery disease Current visit: No Status: Chronic Category: Medical Code(s): I25.10 - Atherosclerotic heart disease of [place] coronary artery without angina pectoris (6) Diabetes mellitus Current visit: No Status: Chronic Category: Medical Code(s): E11.9 - Type 2 diabetes mellitus without complications (7) NSTEMI (non-ST elevated myocardial infarction) Current visit: Yes Status: Acute Category: Medical Code(s): I21.4 - Non-ST elevation (NSTEMI) myocardial infarction (8) Hypertensive heart disease Current visit: Yes Status: Acute Category: Medical Code(s): I11.9 - Hypertensive heart disease without heart failure (9) Kidney disease, chronic, stage IV (severe, 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) Current visit: Yes Status: Acute Category: Medical Code(s): N18.4 - Chronic kidney disease, stage 4 (severe) - Assessment and plan all Dx Assessment and Plan for all problems:: 1. Elevated troponins with chest pain resolved with sublingual nitroglycerin consistent with non-ST elevation [place]. EKG showed no acute ST segment changes. Patient with known coronary artery disease and prior coronary stenting for which she has been on aspirin and Plavix at home. Recommend proceeding with left heart catheterization today. Risks, benefits and procedure explained to the patient she agrees to proceed. 2. GI bleed with subsequent transfusion and colonoscopy showing likely etiology of diverticulosis. 3. History of ulcerative colitis with colonoscopy evidence of remission on 09/05/2019 4. Long-term diabetes, per PCP 5. History of tobacco use, cessation recommended with patient stating no recent cigarette use in the last month 6. Hypertension with elevated blood pressure yesterday secondary to transient medication hold due to colonoscopy 7. Hyperlipidemia, statin therapy to continue
[2019-09-06 09:01] LABS: Basophils % 0.2 % (0.1-2.0); Eosinophils % 0.3 % (0.1-12.0); Hematocrit 30.6 % (37.0-47.0); Hemoglobin 9.7 g/dL (12.2-16.2); Lymphocytes # 1.1 K/mm3 (0.7-4.5); Lymphocytes % 8.7 % (10-50); Mean Corpuscular HGB Conc 31.6 g/dL (31.8-35.4); Mean Corpuscular Volume 89.1 fl (81-99); Mean Platelet Volume 7.8 fl (7.4-10.4); Monocytes # 1.2 K/mm3 (0.1-1.0); Monocytes % 9.3 % (1.7-9.3); Neutrophils # 10.5 K/mm3 (1.8-7.8); Neutrophils % 81.3 % (37.0-80.0); Platelet Count 289 K/mm3 (142-424); Red Blood Count 3.44 M/mm3 (4.20-5.40); Red Cell Distribution Width 16.2 % (11.5-17.5); White Blood Count 12.9 K/mm3 (4.8-10.8)
--- NOTE | 2019-09-06 15:29 | Electrocardiograph Report ---
APPROVED REPORT Exam: Resting ECG HR:102 bpm ECG Measurements Heart Rate 102 AXES [place] 192 P 64 QRSd 94 QRS 9 QT 342 T83 QTc 445 <Conclusion> Sinus tachycardia Cannot rule out Anterior infarct, age undetermined Abnormal ECG Electronically signed by : Mike Saucedo, 09/06/2019 15:29:02
--- NOTE | 2019-09-06 15:30 | Electrocardiograph Report ---
APPROVED REPORT Exam: Resting ECG HR:93 bpm ECG Measurements Heart Rate 93 AXES [place] 184 P 40 QRSd 82 QRS 22 QT 336 T29 QTc 417 <Conclusion> Normal sinus rhythm Low voltage QRS Septal infarct, age undetermined Abnormal ECG Electronically signed by : Mike Saucedo, 09/06/2019 15:29:53
[2019-09-07 06:39] LABS: Basophils % 0.2 % (0.1-2.0); Eosinophils % 0.3 % (0.1-12.0); Hematocrit 30.4 % (37.0-47.0); Hemoglobin 9.5 g/dL (12.2-16.2); Lymphocytes # 1.1 K/mm3 (0.7-4.5); Lymphocytes % 11.9 % (10-50); Mean Corpuscular HGB Conc 31.4 g/dL (31.8-35.4); Mean Corpuscular Volume 89.3 fl (81-99); Mean Platelet Volume 7.4 fl (7.4-10.4); Monocytes # 0.7 K/mm3 (0.1-1.0); Monocytes % 7.2 % (1.7-9.3); Neutrophils # 7.7 K/mm3 (1.8-7.8); Neutrophils % 80.4 % (37.0-80.0); Platelet Count 256 K/mm3 (142-424); Red Blood Count 3.41 M/mm3 (4.20-5.40); Red Cell Distribution Width 15.5 % (11.5-17.5); White Blood Count 9.6 K/mm3 (4.8-10.8)
[2019-09-07 06:44] LABS: Anion Gap 7.8 mEq/L (5-15); Calcium 8.3 mg/dL (8.5-10.1)
--- NOTE | 2019-09-07 07:12 | Progress Note ---
Internal Medicine - PN: Subj *Date: 09/07/19 *Time: 07:11 Interval history: Patient has no complaints this morning. She underwent left heart catheterization yesterday which revealed moderate disease but patient did not require any further intervention. Medical management has been recommended and at this time patient may stay off aspirin and Plavix while she recovers from her GI bleed. Exam Vital signs and Labs for Last 24 Hours: Temp Pulse Resp BP Pulse Ox 99.4 F 70 16 140/76 94 L 09/07/19 03:55 09/07/19 04:00 09/07/19 03:55 09/07/19 03:55 09/07/19 03:55 Laboratory Results - last 24 hr 09/06/19 08:18: WBC 12.9 H D, RBC 3.44 L, Hgb 9.7 L, Hct 30.6 L, MCV 89.1, MCH 28.2, MCHC 31.6 L, RDW 16.2, Plt Count 289, MPV 7.8, Neut % (Auto) 81.3 H, Lymph % (Auto) 8.7 L, [place] % (Auto) 9.3, Eos % (Auto) 0.3, Baso % (Auto) 0.2, Neut # (Auto) 10.5 H, Lymph # (Auto) 1.1, [place] # (Auto) 1.2 H, Eos # (Auto) 0.0, Baso # (Auto) 0.0 09/06/19 08:18: Sodium 141, Potassium 3.7, Chloride 104, Carbon Dioxide 32, Anion Gap 8.7, BUN 27 H D, Creatinine 1.39 H D, Estimated Creat Clear 59, Estimated GFR 37 L, Est GFR ( Amer) 45 L D, Glucose 257 H, Calcium 8.6 09/06/19 11:02: POC Glucose 273 H 09/06/19 16:31: POC Glucose 322 H* 09/06/19 20:00: POC Glucose 396 H* 09/07/19 05:30: POC Glucose 300 H 09/07/19 06:18: WBC 9.6 D, RBC 3.41 L, Hgb 9.5 L, Hct 30.4 L, MCV 89.3, MCH 28.0, MCHC 31.4 L, RDW 15.5, Plt Count 256, MPV 7.4, Neut % (Auto) 80.4 H, Lymph % (Auto) 11.9, [place] % (Auto) 7.2, Eos % (Auto) 0.3, Baso % (Auto) 0.2, Neut # (Auto) 7.7, Lymph # (Auto) 1.1, [place] # (Auto) 0.7, Eos # (Auto) 0.0, Baso # (Auto) 0.0 I & O for Last 24 hours: Intake & Output 09/04/19 09/05/19 09/06/19 09/07/19 11:59 11:59 11:59 11:59 Intake Total 1179.37 / 1179.37 2183 / 2183 460 / 460 120 / 120 Output Total 1000 / 1000 700 / 700 3450 / 3450 1700 / 1700 Balance 179.37 / 179.37 1483 / 1483 -2990 / -2990 -1580 / -1580 Weight 231 lb 7.766 oz 231 lb 7 oz 224 lb 8 oz 221 lb 6 oz Narrative: Patient is sitting up on the side of the bed. Lungs are distant but clear. Heart has a regular rate and rhythm. Extremities are warm to the touch. 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) use of aspirin (4) Ulcerative colitis Current visit: Yes Status: Acute Qualifiers: Ulcerative colitis location: unspecified ulcerative colitis location Digestive disease complication type: with rectal bleeding Qualified Code(s): K51.911 - Ulcerative colitis, unspecified with rectal bleeding Category: Medical Code(s): K51.90 - Ulcerative colitis, unspecified, without complications (5) Coronary artery disease Current visit: No Status: Chronic Category: Medical Code(s): I25.10 - Atherosclerotic heart disease of [place] coronary artery without angina pectoris (6) Diabetes mellitus Current visit: No Status: Chronic Category: Medical Code(s): E11.9 - Type 2 diabetes mellitus without complications (7) NSTEMI (non-ST elevated myocardial infarction) Current visit: Yes Status: Acute Category: Medical Code(s): I21.4 - Non-ST elevation (NSTEMI) myocardial infarction (8) Hypertensive heart disease Current visit: Yes Status: Acute Category: Medical Code(s): I11.9 - Hypertensive heart disease without heart failure (9) Kidney disease, chronic, stage IV (severe, 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) Current visit: Yes Status: Acute Category: Medical Code(s): N18.4 - Chronic kidney disease, stage 4 (severe) - Assessment and plan all Dx Assessment and Plan for all problems:: 1. Await morning BMP. Anticipate discharge home today. Follow-up in the office next week
--- NOTE | 2019-09-07 13:19 | Cardiology Report ---
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: Tamar Zurita CRT Ht: 5 ft 2 in Wt: 224lbs BSA: 2.01 BP: 157/75 mmHg Indications: Congenital Heart Disease, Shortness of Breath, Non STEMI, Diabetes, Obesity, Hyperlipidemia, Hypertension/HDD, stent, gi bleed 2D Dimensions LVOT 2.07 cm (M/F) 1.5-2.5 M-Mode Dimensions RVDd 1.91 cm (0.9-2.6)LVDd 5.34 cm (3.5-5.7) LVDs 3.79 cm (3.5-5.7)IVSd 2.09 cm (0.6-1.1) PWd 0.56 cm (0.6-1.1)EF (Teich) 55.30% FS 29.00% EDV (Teich) 137.70 mL ESV (Teich) 61.60 mL LV Diastology E/A Ratio 1.04 Mitral Valve MV A Velocity 116.00 (40-130 cm/s) Left Ventricle Left atrium is mildly enlarged, left ventricle is normal size, mild concentric left ventricular hypertrophy, visually estimated ejection fraction 55% with no regional wall motion abnormality. Grade 1 diastolic dysfunction seen with tissue Doppler evidence of raise left atrial pressure. Right Ventricle Right atrium and right ventricle are mildly enlarged with normal contractility. Aortic Valve Aortic valve leaflets are not well visualized, aortic outflow velocities not suggestive of aortic stenosis or aortic insufficiency. Mitral Valve Mitral valve is grossly normal, there is mild mitral regurgitation. Tricuspid Valve Tricuspid valve is grossly normal, there is mild tricuspid regurgitation, tricuspid regurgitation jet velocity is inadequate for calculation of the right ventricular systolic pressure. Pulmonic Valve Pulmonic valve is poorly visualized. Great Vessels Aortic root is normal size. Pericardium No significant pericardial effusion noted. Conclusion 1. Biatrial enlargement, normal left ventricular size, mild concentric left ventricular hypertrophy, visually estimated ejection fraction 55% with no regional wall motion abnormality, grade 1 diastolic dysfunction seen with tissue Doppler evidence of raise left atrial pressure. Endocardial surfaces are poorly visualized. 2. Mildly enlarged right ventricle with normal contractility. 3. Mild mitral and tricuspid regurgitation. 4. No significant pericardial effusion noted. Electronically signed by : Oscar Cobb, 09/07/2019 13:18:54
== END 2019-09-07 08:50 | disposition home or self-care (01) | DRG 377 ==
LOC: ER 21:07 → 2ND 21:45
PROVIDERS: ADMIT Emergency Medicine; ATTEND Family Medicine
CPT/HCPCS: 36415; 71010; 71045; 74176; 80048; 80053; 82272; 82962; 83690; 84484; 85007; 85014; 85018; 85025; 85651; 86140; 86850; 88305; 93005; 93306; 93458; 96365; 96375; 99152; 99284; C1725; C1769; G0328; J1644; J2354; J2405; P9016; Q9967

== ENCOUNTER → 2019-09-25 12:59 | Outpatient (CLI) | payer MEDICARE, SELFPAY ==
[2019-09-25 13:02] LABS: Microscopic, Urine URINE MICROSCOPIC (MICROSCOPIC)
[2019-09-25 13:28] LABS: Basophils # 0.1 K/mm3 (0-0.2); Basophils % 0.9 % (0.1-2.0); Eosinophils # 0.4 K/mm3 (0.0-0.4); Eosinophils % 4.5 % (0.1-12.0); Hematocrit 29.6 % (37.0-47.0); Hemoglobin 9.4 g/dL (12.2-16.2); Lymphocytes # 2.1 K/mm3 (0.7-4.5); Lymphocytes % 22.8 % (10-50); Mean Corpuscular HGB Conc 31.6 g/dL (31.8-35.4); Mean Corpuscular Hemoglobin 27.8 pg (27.0-31.2); Mean Corpuscular Volume 87.9 fl (81-99); Mean Platelet Volume 7.3 fl (7.4-10.4); Monocytes # 0.5 K/mm3 (0.1-1.0); Monocytes % 5.2 % (1.7-9.3); Neutrophils # 6.1 K/mm3 (1.8-7.8); Neutrophils % 66.5 % (37.0-80.0); Platelet Count 293 K/mm3 (142-424); Red Blood Count 3.37 M/mm3 (4.20-5.40); Red Cell Distribution Width 15.8 % (11.5-17.5); White Blood Count 9.1 K/mm3 (4.8-10.8)
[2019-09-25 14:23] LABS: Appearance,Urine CLEAR (Clear); Bilirubin,Urine Negative (Negative); Blood, Urine Negative (Negative); Color,Urine YELLOW (Yellow); Glucose,Urine (UA) Negative (Negative); Ketones,Urine Negative (Negative); Leukocyte Esterase,Urine Negative (Negative); Nitrate,Urine Negative (Negative); Protein,Urine 2+ (Negative); Urobilinogen,Urine 0.2 EU/dl (0.2)
[2019-09-25 14:30] LABS: Creatinine,Urine Random 58 mg/dL (Not Estab.)
[2019-09-25 14:36] LABS: Albumin Level 3.2 g/dl (3.5-5.0); Chloride 98 mmol/L (98-107); Potassium 4.4 mmoL/L (3.5-5.1); Sodium 134 mmol/L (136-145)
[2019-09-25 14:38] LABS: Blood Urea Nitrogen 21 mg/dl (7-17); Estimated Glomerular Filt Rate 37 ml/min (>60); GFR (African American) 45 ML/MIN (>60)
[2019-09-25 14:39] LABS: Anion Gap 12.4 mEq/L (5-15); Calcium 8.5 mg/dl (8.4-10.2); Carbon Dioxide 28 mmol/L (22.0-30.0); Glucose 210 mg/dl (74-100); Phosphorous 4.5 mg/dl (2.5-4.5)
[2019-09-25 14:45] LABS: Bacteria,Urine Trace /lpf; Squamous Epithelial Cell,Urine 20-50 #/hpf (0-5)
[2019-09-27 06:40] LABS: Parathyroid Hormone Intact 74 pg/mL (15-65); Vitamin D 25 Hydroxy 26.8 ng/mL (30.0-100.0)
== END ==
PROVIDERS: Visit Provider Internal Medicine Nephrology
DX: N18.3 Chronic kidney disease, stage 3 (moderate) (principal); E55.9 Vitamin D deficiency, unspecified
CPT/HCPCS: 36415; 80069; 81001; 82570; 82652; 83970; 84155; 85025

== ENCOUNTER 2019-09-26 14:54 | Outpatient (RCR) | payer MEDICARE, SELFPAY | END 2019-10-31 10:21 | disposition home or self-care (01) | LOC: PT 14:54 | PROVIDERS: Visit Provider Internal Medicine | DX: I21.4 Non-ST elevation (NSTEMI) myocardial infarction (principal) | CPT/HCPCS: 93798 ==

== ENCOUNTER 2019-10-03 07:57 | Inpatient (IN) ==
[2019-10-03 08:36] LABS: Basophils # 0.1 K/mm3 (0-0.2); Basophils % 0.9 % (0.1-2.0); Eosinophils # 0.5 K/mm3 (0.0-0.4); Eosinophils % 3.8 % (0.1-12.0); Hematocrit 36.6 % (37.0-47.0); Hemoglobin 11.2 g/dL (12.2-16.2); Lymphocytes # 1.7 K/mm3 (0.7-4.5); Lymphocytes % 13.3 % (10-50); Mean Corpuscular HGB Conc 30.6 g/dL (31.8-35.4); Mean Corpuscular Volume 88.5 fl (81-99); Mean Platelet Volume 7.6 fl (7.4-10.4); Monocytes # 0.5 K/mm3 (0.1-1.0); Monocytes % 4.2 % (1.7-9.3); Neutrophils % 77.9 % (37.0-80.0); Platelet Count 437 K/mm3 (142-424); Red Blood Count 4.14 M/mm3 (4.20-5.40); Red Cell Distribution Width 15.3 % (11.5-17.5); White Blood Count 12.8 K/mm3 (4.8-10.8)
[2019-10-03 08:44] LABS: Anion Gap 15.5 mEq/L (5-15); Bilirubin,Total 0.3 mg/dl (0.2-1.3)
--- NOTE | 2019-10-03 08:44 | Emergency Department Note ---
ED Disposition Clinical Impression: Pneumonia Disposition: Admitted as Observation Condition on Discharge: Good Additional Instructions: Admit to Dr. Lee Referrals: Mike Lee MD [Primary Care Provider] - - Critical Care Critical Care Time: No Attestation: On 10/03/19, the high probability of a clinically significant, sudden or life threatening deterioration of the following system(s) required my full and direct attention, intervention and personal management. The time I documented below is in addition to time spent performing reported procedures but includes the following listed in this critical care notation. Medical Decision Making - Medical Records Medical records reviewed: Yes: I reviewed the patient's medical records. - [place] Inquiry Pt receiving controlled substance: No Vital Signs: 10/03/19 07:58 10/03/19 08:36 10/03/19 09:24 Pulse Rate [Radial] 111 H 83 95 H Respiratory Rate 22 Blood Pressure [Right Arm] 193/106 H 190/83 H 203/70 H Blood Pressure Mean [Right Arm] 135 118 114 Blood Pressure Source [Right Arm] Automatic Cuff Blood Pressure Position [Right Arm] Sitting Sitting Sitting 02 Sat by Pulse Oximetry 82 L 91 L 90 L Oxygen Delivery Method Room Air Nasal Cannula Nasal Cannula Oxygen Flow Rate (LPM) 2 2 - Lab Data Lab results reviewed: Yes: I reviewed the patient's lab results. Lab Results 10/03/19 08:15: WBC 12.8 H, RBC 4.14 L, Hgb 11.2 L, Hct 36.6 L, MCV 88.5, MCH 27.0, MCHC 30.6 L, RDW 15.3, Plt Count 437 H, MPV 7.6, Neut % (Auto) 77.9, Lymph % (Auto) 13.3, [place] % (Auto) 4.2, Eos % (Auto) 3.8, Baso % (Auto) 0.9, Neut # (Auto) 10.0 H, Lymph # (Auto) 1.7, [place] # (Auto) 0.5, Eos # (Auto) 0.5 H, Baso # (Auto) 0.1 10/03/19 08:15: Sodium 139, Potassium 4.5, Chloride 100, Carbon Dioxide 28, Anion Gap 15.5 H, BUN 17, Creatinine 1.40 H, Estimated Creat Clear 30, Estimated GFR 37 L, Est GFR ( Amer) 45 L, Glucose 175 H, Calcium 9.2, Total Bilirubin 0.3, AST 19, ALT 9 L, Alkaline Phosphatase 102, Total Protein 7.1, Albumin 3.9, Globulin 3.2, Albumin/Globulin Ratio 1.2 10/03/19 08:15: Lactate 0.9 10/03/19 08:15: Troponin I < 0.01 10/03/19 08:15: NT-Pro-B Natriuret Pep 779 H Result diagrams: 10/03/19 08:15 10/03/19 08:15 Orders (Tests/Meds): ED MEDICATIONS Discontinued Medications Generic Name Dose Route Start Last Admin Trade Name Freq PRN Reason Stop Dose Admin Albuterol/Ipratropium 3 ml 10/03/19 08:19 10/03/19 08:20 Duoneb 3ml Neb IH 10/03/19 08:20 3 ml ONCE ONE Administration Methylprednisolone Sodium Succinate 125 mg 10/03/19 08:13 10/03/19 08:19 Solu-Medrol 125mg/2ml Vial IV 10/03/19 08:14 125 mg ONCE ONE Administration ORDERS Category Date Time Status Troponin I Q3H Lab 10/03/19 11:30 Ordered Troponin I Q3H Lab 10/03/19 14:30 Ordered Blood Culture Stat Micro 10/03/19 08:12 Received - Radiology Data #1 Image(s): Chest Preliminary Findings: Abnormal (Right lower lobe infiltrate) - ECG Data Tracing #1 I reviewed this ECG and interpreted as documented below: Normal Sinus Rhythm: Yes Medical Decision Narrative: Patient did receive 125 of Solu-Medrol IV plus a DuoNeb treatment here in the ER and her oxygen saturations improved and her breathing improved after those treatments. As of note she did get up and walk to the restroom and when she came back her oxygen saturation was in the mid 70s when she was placed back on the nasal cannula at 2 L her oxygen saturations went back up to 93%. Resp/SOB HPI - General Chief Complaint: Shortness of Breath/Dyspnea Stated Complaint: SOA Time Seen by Provider: 10/03/19 08:30 Mode of Arrival: Wheelchair Source of Information: Patient Limitations: No Limitations Description of Symptoms (Recalled from ER Triage Doc. by RN): Complaint of shortness of breathe for approx. 1.5 hours. - History of Present Illness 73-year-old female comes in with acute shortness of breath. She states that the shortness of breath started this morning. She denies any other exacerbating symptoms as any recent fever shakes or chills or any cough or any productive co ugh she does state that she is had a dry cough for about 3 to 4 days. Patient does deny any fevers. Patient also denies any chest pain or diaphoresis. And patient also denies any recent nausea or vomiting. Patient does have some cardiac history she was recently diagnosed with CHF in June of this past year. She is presently on medications to help control her CHF. - Related Data Home Medications Medication Instructions Recorded Confirmed Balsalazide Disodium 2,250 mg PO BID 11/20/18 09/19/19 Ferrous Gluconate [Ferrous 324 mg PO BID 11/20/18 09/19/19 Gluconate 324mg Tab] Furosemide [Furosemide 20mg Tab] 20 mg PO DAILY 11/20/18 09/19/19 Glimepiride 4 mg PO BID 11/20/18 09/19/19 Insulin NPH Hum/Reg Insulin Hm 40 unit SQ BID 11/20/18 09/19/19 [Novolin 70-30 100 Unit/ml Vial] Isosorbide Mononitrate [Imdur 60mg 60 mg PO BID 11/20/18 09/19/19 ER tablet] Levothyroxine Sodium 75 mcg PO DAILY 11/20/18 09/19/19 [Levothyroxine 75mcg (0.075mg) Tab] Omeprazole [Omeprazole 40mg 40 mg PO HS 11/20/18 09/19/19 Capsule] Simvastatin 40 mg PO HS 11/20/18 09/19/19 cloNIDine HCL [cloNIDine 0.2mg 0.2 mg PO TID 11/20/18 09/19/19 Tablet] hydroCHLOROthiazide [HCTZ 25mg 25 mg PO BID 11/20/18 09/19/19 tab] Timolol [Betimol] 1 drp OP BID 07/11/19 09/19/19 Prazosin HCl [Minipres 1mg capsule] 2 mg PO BID 09/02/19 09/19/19 Amlodipine Besylate [Amlodipine 5 mg PO DAILY 09/03/19 09/19/19 10mg Tab] Cholecalciferol (Vitamin D3) 50 mcg PO DAILY 09/03/19 09/19/19 [Vitamin D3] carvediloL [Carvedilol 6.25mg Tab] 6.25 mg PO BID 09/03/19 09/19/19 Allergies Allergy/AdvReac Type Severity Reaction Status Date / Time Sulfa (Sulfonamide Allergy Intermediate I-RASH Verified 09/19/19 09:12 Antibiotics) [facility] History - Hepatitis A Screen Drug use history?: No High risk sexual behaviors?: No History of sexually transmitted infection?: No Currently employed?: No Childcare worker?: No Do you have indoor plumbing?: Yes Do you have electricity?: Yes Attestation statement:: This patient has been screened for Hepatitis A risk factors. I have reviewed the patient's past medical history: Yes Medical History: Reports:: Cancer, Congestive Heart Failure, Coronary Artery Disease, Diabetes Mellitus Type 2, Hyperlipidemia, Hypertension, Myocardial Infa rction Denies:: Diabetes Mellitus Type 1, Internal Pacemaker, Lung Disease, MRSA, Seizures Other Medical History: Reports: Anemia, Cataracts, Hypothyroidism, Other (moise- cpap ) Laterality Cases: Right: Mastectomy Other Surgeries: Yes: Cardiac Catheterization, Coronary Stent, Hysterectomy- Total, Hysterectomy-Partial. No: Pacemaker Amputation: No Fractures: No - Social History Educational Level: Completed High School Smoking Status: Current some day smoker Tobacco Type: cigarettes # Packs/Day (cigarettes): 1 Alcohol Intake: never Substance Use Type: denies use Occupational Status: disabled Housing: house Household Members: spouse Family Hx:: Cancer, Coronary Artery Disease ROS Obtained: Yes All systems reviewed & no additional complaints - Constitutional Constitutional: Reports system reviewed and no additional complaints, except as docu - Eyes Eyes: Reports system reviewed and no additional complaints, except as docu - ENT Ears, Nose, Mouth, and Throat: Reports system reviewed and no additional complaints, except as docu - Cardiovascular Cardiovascular: Reports system reviewed and no additional complaints, except as docu - Respiratory Respiratory: Yes system reviewed and no additional complaints, except as docu - Gastrointestinal Gastrointestingal: Reports: system reviewed and no additional complaints, except as docu - Genitourinary Male Genitourinary: Reports system reviewed and no additional complaints, except as docu Female Genitourinary: Reports system reviewed and no additional complaints, except as docu - Musculoskeletal Musculoskeletal: Reports system reviewed and no additional complaints, except as docu Physical Exam - General General appearance: alert, in no apparent distress - Head Head exam: atraumatic, normocephalic - Eye Eye exam: Present: normal appearance, PERRL - ENT ENT exam: Present: normal exam, normal oropharynx - Neck Neck exam: Present: normal inspection - Chest Chest inspection: Present: normal inspection - Respiratory Respiratory exam: Present: normal lung sounds bilaterally - Cardiovascular Cardiovascular exam: Present: regular rate, normal rhythm - Abdominal Exam Abdominal exam: Present: soft - External exam: Absent: normal external exam - Extremities Exam Extremities exam: Present: normal inspection - Back Exam Back exam: Present: normal inspection - Neurological Exam Neurological exam: Present: alert, oriented X3 - Psychiatric Psychiatric exam: Present: normal affect - Skin Skin exam: Present: warm
[2019-10-03 08:45] LABS: Albumin Level 3.9 g/dl (3.5-5.0); Albumin/Globulin Ratio 1.2 (1.1-1.8); Calcium 9.2 mg/dl (8.4-10.2); Globulin 3.2 g/dL (1.3-3.2); Total Protein,Serum 7.1 g/dl (6.3-8.2)
--- NOTE | 2019-10-03 11:29 | Pharmacy Consult Notes ---
[facility] Pharmacy VTE Monitoring - Patient Demographics Admission date: 10/03/19 Report Date: 10/03/19 Time: 11:29 Allergies/Adverse Reactions: Patient Allergies Sulfa (Sulfonamide Antibiotics) Allergy (Intermediate, Verified 09/19/19 09:12) I-RASH Height: 1.6 m Weight: 107.955 kg Patient Problems: Current Active Problems Pneumonia (Acute) - VTE Risk Labs: VTE Related Lab Results Hgb 11.2 g/dL (12.2-16.2) L 10/03/19 08:15 Hct 36.6 % (37.0-47.0) L 10/03/19 08:15 Plt Count 437 K/mm3 (142-424) H 10/03/19 08:15 BUN 17 mg/dl (7-17) 10/03/19 08:15 Creatinine 1.40 mg/dl (0.52-1.04) H 10/03/19 08:15 Estimated Creat Clear 30 mL/min (50-200) 10/03/19 08:15 - Prophylaxis VTE Prophylaxis Ordered?: Yes Types of VTE Prophylaxis: TEDS Knee High Location of Applied Device: Bilateral Lower Extremeties - VTE Diagnosis Confirmed Treatment or plan recommended: Continue Current Treatment
--- NOTE | 2019-10-03 15:24 | History & Physical Report ---
*Admission Date: 10/03/19 *Chief complaint: Shortness of breath *History of present illness: 73-year-old female presented to the ER early this morning with complaint of shortness of breath. Patient's shortness of breath started yesterday. Early this morning she awoke because of a hypoglycemic event. She corrected her hypoglycemia but expressed to her her extreme shortness of breath. He checked her O2 sat at home and their pulse oximeter recorded 78%. He decided to bring her to the hospital. He notes that she was quite short of breath with exertion. Patient denies fevers, chills, runny nose, sore throat, chest pain. She endorses some cough that is been productive of clear sputum. Work-up in the emergency department was suspicious for both CHF and pneumonia. Patient was admitted and started on IV antibiotics. Patient denies orthopnea or paroxysmal nocturnal dyspnea. Patient does imbibe large quantities of fluids at home and while she takes some diuretics has chronic kidney disease which may impair her ability to maintain a euvolemia. She does endorse swelling of the lower ex tremities but is not sure whether it is above baseline. She does not weigh herself routinely at home. Patient's last echocardiogram was in June which revealed a normal systolic function with ejection fraction of 55%. [facility] History I have reviewed the patient's past medical history: Yes Medical History: Reports:: Cancer, Congestive Heart Failure, Coronary Artery Disease, Diabetes Mellitus Type 2, Gastrointestinal Bleed (Diverticular), Hyperlipidemia, Hypertension, Myocardial Infarction, Renal Disease Denies:: Diabetes Mellitus Type 1, Internal Pacemaker, Lung Disease, MRSA, Seizures *Have you ever received a pneumonia vaccine?: No *Have you received a flu vaccine this season?: Yes Other Medical History: Reports: Anemia, Cataracts, Hypothyroidism, Other (moise- cpap, ulcerative colitis) Laterality Cases: Right: Mastectomy Other Surgeries: Yes: Cardiac Catheterization, Coronary Stent, Hysterectomy- Total, Hysterectomy-Partial. No: Pacemaker Amputation: No Fractures: No - *Social History Educational Level: Completed High School Smoking Status: Former smoker Tobacco Type: cigarettes # Packs/Day (cigarettes): 1 Alcohol Intake: never Substance Use Type: denies use *Occupational Status:: retired Housing: house Household Members: spouse *Travel in the last 8 weeks: None Family Hx:: Cancer, Coronary Artery Disease Review of Systems - Review of Systems Review of systems:: other (See HPI) Meds Home Medications Medication Instructions Recorded Confirmed Type Balsalazide Disodium 2,250 mg PO BID 11/20/18 10/03/19 History Ferrous Gluconate [Ferrous 324 mg PO BID 11/20/18 10/03/19 History Gluconate 324mg Tab] Furosemide [Furosemide 20mg Tab] 20 mg PO DAILY 11/20/18 10/03/19 History Glimepiride 4 mg PO BID 11/20/18 10/03/19 History Insulin NPH Hum/Reg Insulin Hm 40 unit SQ BID 11/20/18 10/03/19 History [Novolin 70-30 100 Unit/ml Vial] Isosorbide Mononitrate [Imdur 60mg 60 mg PO BID 11/20/18 10/03/19 History ER tablet] Levothyroxine Sodium 75 mcg PO DAILY 11/20/18 10/03/19 History [Levothyroxine 75mcg (0.075mg) Tab] Omeprazole [Omeprazole 40mg 40 mg PO HS 11/20/18 10/03/19 History Capsule] Simvastatin 40 mg PO HS 11/20/18 10/03/19 History cloNIDine HCL [cloNIDine 0.2mg 0.2 mg PO TID 11/20/18 10/03/19 History Tablet] hydroCHLOROthiazide [HCTZ 25mg 25 mg PO BID 11/20/18 10/03/19 History tab] Timolol [Betimol] 1 drp OU BID 07/11/19 10/03/19 History Prazosin HCl [Minipres 1mg capsule] 2 mg PO BID 09/02/19 10/03/19 History Amlodipine Besylate [Amlodipine 5 mg PO DAILY 09/03/19 10/03/19 History 10mg Tab] Cholecalciferol (Vitamin D3) 50 mcg PO DAILY 09/03/19 10/03/19 History [Vitamin D3] carvediloL [Carvedilol 6.25mg Tab] 6.25 mg PO BID 09/03/19 10/03/19 History Allergies Allergy/AdvReac Type Severity Reaction Status Date / Time Sulfa (Sulfonamide Allergy Intermediate I-RASH Verified 09/19/19 09:12 Antibiotics) Exam Vital signs and Labs for Last 24 Hours: Temp Pulse Resp BP Pulse Ox 98.8 F 102 H 19 133/85 90 L 10/03/19 12:00 10/03/19 12:00 10/03/19 12:00 10/03/19 12:00 10/03/19 12:00 Laboratory Results - last 24 hr 10/03/19 08:15: WBC 12.8 H, RBC 4.14 L, Hgb 11.2 L, Hct 36.6 L, MCV 88.5, MCH 27.0, MCHC 30.6 L, RDW 15.3, Plt Count 437 H, MPV 7.6, Neut % (Auto) 77.9, Lymph % (Auto) 13.3, [place] % (Auto) 4.2, Eos % (Auto) 3.8, Baso % (Auto) 0.9, Neut # (Auto) 10.0 H, Lymph # (Auto) 1.7, [place] # (Auto) 0.5, Eos # (Auto) 0.5 H, Baso # (Auto) 0.1 10/03/19 08:15: Sodium 139, Potassium 4.5, Chloride 100, Carbon Dioxide 28, Anion Gap 15.5 H, BUN 17, Creatinine 1.40 H, Estimated Creat Clear 30, Estimated GFR 37 L, Est GFR ( Amer) 45 L, Glucose 175 H, Calcium 9.2, Total Bilirubin 0.3, AST 19, ALT 9 L, Alkaline Phosphatase 102, Total Protein 7.1, Albumin 3.9, Globulin 3.2, Albumin/Globulin Ratio 1.2 10/03/19 08:15: Lactate 0.9 10/03/19 08:15: Troponin I < 0.01 10/03/19 08:15: NT-Pro-B Natriuret Pep 779 H I & O for Last 24 hours: Intake & Output 10/01/19 10/02/19 10/03/19 10/04/19 11:59 11:59 11:59 11:59 Intake Total 240 / 240 Balance 240 / 240 Weight 238 lb 238 lb 1.588 oz Narrative: Patient is awake and alert sitting up in a chair. Nasal cannula is in place. She does not appear to be in any distress. Scalp is without lesions. Pupils are reactive to light. Oropharynx is moist and clear. Neck is supple. Lungs have bibasilar rales right slightly more prominent than left. There are no wheezes. Heart has a regular rate and rhythm. Abdomen is obese and soft. Lower extremities have 2+ edema over the tibias. Patient is active range of motion in the arms and legs. Neurologically there is no deficit. Assessment and Plan (1) Acute diastolic CHF (congestive heart failure) Current visit: Yes Status: Acute Category: Medical Code(s): I50.31 - Acute diastolic (congestive) heart failure Patient will be given Lasix 40 mg IV this evening with monitoring of urine output and daily weights (2) Kidney disease, chronic, stage IV (severe, 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) Current visit: No Status: Acute Category: Medical Code(s): N18.4 - Chronic kidney disease, stage 4 (severe) Stable with creatinine at baseline (3) Recent non-ST elevation myocardial infarction (NSTEMI) Current visit: No Status: Acute Category: Medical (4) Ulcerative colitis Current visit: No Status: Acute Qualifiers: Ulcerative colitis location: unspecified ulcerative colitis location Digestive disease complication type: with rectal bleeding Qualified Code(s): K51.911 - Ulcerative colitis, unspecified with rectal bleeding Category: Medical Code(s): K51.90 - Ulcerative colitis, unspecified, without complications (5) Coronary artery disease Current visit: No Status: Chronic Qualifiers: Coronary Disease-Associated Artery/Lesion type: [place] artery [place] vs. transplanted heart: [place] heart Associated angina: without angina Qualified Code(s): I25.10 - Atherosclerotic heart disease of [place] coronary artery without angina pectoris Category: Medical Code(s): I25.10 - Atherosclerotic heart disease of [place] coronary artery without angina pectoris (6) Diabetes mellitus Current visit: No Status: Chronic Qualifiers: Diabetes mellitus type: type 2 Diabetes mellitus detention insulin use: with detention use Diabetes mellitus complication status: with circulatory complication Category: Medical Code(s): E11.9 - Type 2 diabetes mellitus without complications At present we will continue sliding scale insulin (7) Hypertensive heart disease Current visit: No Status: Chronic Qualifiers: Heart failure presence: without heart failure Qualified Code(s): I11.9 - Hypertensive heart disease without heart failure Category: Medical Code(s): I11.9 - Hypertensive heart disease without heart failure Monitor blood pressure, pulse rate and patient will be ordered home medications.
--- NOTE | 2019-10-04 07:23 | Progress Note ---
Internal Medicine - PN: Subj *Date: 10/04/19 *Time: 07:21 Interval history: Patient has no complaints this morning. She does report that she still has some dyspnea with exertion. She had some mild orthopnea last night as well which she did not have on admission. Urine output has been excellent after a single dose of Lasix 40 mg intravenously. Exam Vital signs and Labs for Last 24 Hours: Temp Pulse Resp BP Pulse Ox 98.3 F 78 20 163/79 H 95 10/04/19 03:29 10/04/19 06:16 10/04/19 03:29 10/04/19 03:29 10/04/19 07:15 Laboratory Results - last 24 hr 10/03/19 08:15: WBC 12.8 H, RBC 4.14 L, Hgb 11.2 L, Hct 36.6 L, MCV 88.5, MCH 27.0, MCHC 30.6 L, RDW 15.3, Plt Count 437 H, MPV 7.6, Neut % (Auto) 77.9, Lymph % (Auto) 13.3, [place] % (Auto) 4.2, Eos % (Auto) 3.8, Baso % (Auto) 0.9, Neut # (Auto) 10.0 H, Lymph # (Auto) 1.7, [place] # (Auto) 0.5, Eos # (Auto) 0.5 H, Baso # (Auto) 0.1 10/03/19 08:15: Sodium 139, Potassium 4.5, Chloride 100, Carbon Dioxide 28, Anion Gap 15.5 H, BUN 17, Creatinine 1.40 H, Estimated Creat Clear 30, Estimated GFR 37 L, Est GFR ( Amer) 45 L, Glucose 175 H, Calcium 9.2, Total Bilirubin 0.3, AST 19, ALT 9 L, Alkaline Phosphatase 102, Total Protein 7.1, Albumin 3.9, Globulin 3.2, Albumin/Globulin Ratio 1.2 10/03/19 08:15: Lactate 0.9 10/03/19 08:15: Troponin I < 0.01 10/03/19 08:15: NT-Pro-B Natriuret Pep 779 H 10/03/19 16:52: POC Glucose 347 H* 10/03/19 22:28: POC Glucose 480 H* 10/04/19 05:14: POC Glucose 325 H* I & O for Last 24 hours: Intake & Output 10/01/19 10/02/19 10/03/19 10/04/19 11:59 11:59 11:59 11:59 Intake Total 1260 / 1260 Output Total 3300 / 3300 Balance -2039 / -2039 Weight 238 lb 240 lb Microbiology Reports for the Last 24 Hours: Microbiology 10/03/19 15:15 Sputum - Expectorated Sputum Gram Stain - Final 10/03/19 15:15 Sputum - Expectorated Sputum Sputum Culture - Preliminary Narrative: Patient looks well. Weight is recorded as having increased 2 pounds. Lung exam reveals bibasilar rales right more prominent than left. Anteriorly lung glass are clear. There are no wheezes. Heart has a regular rate and rhythm. Lower extremities have 1+ edema around the ankles. Assessment and Plan (1) Acute diastolic CHF (congestive heart failure) Current visit: Yes Status: Acute Category: Medical Code(s): I50.31 - Acute diastolic (congestive) heart failure (2) Kidney disease, chronic, stage IV (severe, 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) Current visit: No Status: Acute Category: Medical Code(s): N18.4 - Chronic kidney disease, stage 4 (severe) (3) Recent non-ST elevation myocardial infarction (NSTEMI) Current visit: No Status: Acute Category: Medical (4) Ulcerative colitis Current visit: No Status: Acute Qualifiers: Ulcerative colitis location: unspecified ulcerative colitis location Digestive disease complication type: with rectal bleeding Qualified Code(s): K51.911 - Ulcerative colitis, unspecified with rectal bleeding Category: Medical Code(s): K51.90 - Ulcerative colitis, unspecified, without complications (5) Coronary artery disease Current visit: No Status: Chronic Qualifiers: Coronary Disease-Associated Artery/Lesion type: [place] artery [place] vs. transplanted heart: [place] heart Associated angina: without angina Qualified Code(s): I25.10 - Atherosclerotic heart disease of [place] coronary artery without angina pectoris Category: Medical Code(s): I25.10 - Atherosclerotic heart disease of [place] coronary artery without angina pectoris (6) Diabetes mellitus Current visit: No Status: Chronic Qualifiers: Diabetes mellitus type: type 2 Diabetes mellitus alf insulin use: with alf use Diabetes mellitus complication status: with circulatory complication Category: Medical Code(s): E11.9 - Type 2 diabetes mellitus without complications (7) Hypertensive heart disease Current visit: No Status: Chronic Qualifiers: Heart failure presence: without heart failure Qualified Code(s): I11.9 - Hypertensive heart disease without heart failure Category: Medical Code(s): I11.9 - Hypertensive heart disease without heart failure - Assessment and plan all Dx Assessment and Plan for all problems:: 1. Give Lasix 40 mg IV twice daily today and continue monitoring of urine output 2. DC steroids
[2019-10-04 08:00] LABS: Basophils # 0.1 K/mm3 (0-0.2); Basophils % 0.6 % (0.1-2.0); Eosinophils # 0.1 K/mm3 (0.0-0.4); Eosinophils % 0.5 % (0.1-12.0); Hematocrit 52.6 % (37.0-47.0); Lymphocytes # 0.9 K/mm3 (0.7-4.5); Mean Corpuscular HGB Conc 31.3 g/dL (31.8-35.4); Mean Corpuscular Volume 89.3 fl (81-99); Mean Platelet Volume 7.9 fl (7.4-10.4); Monocytes # 0.3 K/mm3 (0.1-1.0); Monocytes % 2.7 % (1.7-9.3); Neutrophils # 7.7 K/mm3 (1.8-7.8); Platelet Count 205 K/mm3 (142-424); Red Blood Count 5.89 M/mm3 (4.20-5.40); Red Cell Distribution Width 15.2 % (11.5-17.5)
[2019-10-04 08:09] LABS: Anion Gap 12.2 mEq/L (5-15); Calcium 9.2 mg/dl (8.4-10.2)
[2019-10-04 09:19] LABS: Lymphocytes % 20 % (10-50); Monocytes % 1 % (2-9); Neutrophils % 79 % (42-76); RBC Morphology Normal; Total Cells Counted 100
[2019-10-04 09:38] LABS: Hemoglobin 16.5 g/dL (12.2-16.2)
[2019-10-05 06:51] LABS: Basophils % 0.3 % (0.1-2.0); Eosinophils % 0.1 % (0.1-12.0); Lymphocytes # 2.3 K/mm3 (0.7-4.5); Lymphocytes % 14.5 % (10-50); Mean Corpuscular HGB Conc 30.7 g/dL (31.8-35.4); Mean Corpuscular Volume 86.1 fl (81-99); Mean Platelet Volume 7.1 fl (7.4-10.4); Neutrophils # 12.7 K/mm3 (1.8-7.8); Neutrophils % 79.2 % (37.0-80.0); Platelet Count 446 K/mm3 (142-424); Red Blood Count 3.84 M/mm3 (4.20-5.40); Red Cell Distribution Width 15.1 % (11.5-17.5)
[2019-10-05 07:00] LABS: Anion Gap 10.9 mEq/L (5-15); Calcium 9.4 mg/dl (8.4-10.2)
[2019-10-05 07:21] LABS: Lymphocytes % 18 % (10-50); Monocytes % 5 % (2-9); Neutrophils % 77 % (42-76); RBC Morphology Normal; Total Cells Counted 100
--- NOTE | 2019-10-05 07:34 | Discharge Summary ---
General - General Admission date:: 10/03/19 Discharge date: 10/05/19 HPI HPI: 73-year-old female presented to the ER early this morning with complaint of shortness of breath. Patient's shortness of breath started yesterday. Early this morning she awoke because of a hypoglycemic event. She corrected her hypoglycemia but expressed to her her extreme shortness of breath. He checked her O2 sat at home and their pulse oximeter recorded 78%. He decided to bring her to the hospital. He notes that she was quite short of breath with exertion. Patient denies fevers, chills, runny nose, sore throat, chest pain. She endorses some cough that is been productive of clear sputum. Work-up in the emergency department was suspicious for both CHF and pneumonia. Patient was admitted and started on IV antibiotics. Patient denies orthopnea or paroxysmal nocturnal dyspnea. Patient does imbibe large quantities of fluids at home and while she takes some diuretics has chronic kidney disease which may impair her ability to maintain a euvolemia. She does endorse swelling of the lower extremities but is not sure whether it is above baseline. She does not weigh herself routinely at home. Patient's last echocardiogram was in June which revealed a normal systolic function with ejection fraction of 55%. Hospital Course Hospital Course: Patient was admitted and placed on Rocephin and azithromycin to cover possibility of right lower lobe pneumonia but symptoms were more consistent with hypervolemia so patient was treated with intravenous Lasix to diurese. Patient had excellent response to diuretics but did not actually lose weight on vital sign monitoring. Patient put out over 2002 L each day with diuretic and had rapid improvement in her level of dyspnea as well as her dependence upon supplemental oxygen. Once patient had diuresed adequately she was discharged home. At discharge patient's hydrochlorothiazide has been transitioned to furosemide twice daily Objective Vital signs: Temp Pulse Resp BP Pulse Ox 98.3 F 67 20 144/63 H 96 10/05/19 04:00 10/05/19 06:05 10/05/19 04:00 10/05/19 04:00 10/05/19 06:05 no acute distress - *Routine Respiratory Exam Present: crackles (Bilateral bases right more than left improved since admission), diminished air movement - *Routine Cardiovascular Exam Present: RRR, Normal S1, Normal S2 Results Labs on day of discharge: Labs from last 24 hours 10/05/19 10/05/19 10/05/19 06:25 06:25 06:08 WBC 16.0 H D RBC 3.84 L D Hgb Hct 33.0 L MCV 86.1 MCH 26.5 L MCHC 30.7 L RDW 15.1 Plt Count 446 H D MPV 7.1 L Neut % (Auto) 79.2 Lymph % (Auto) 14.5 Henry % (Auto) 6.0 Eos % (Auto) 0.1 Baso % (Auto) 0.3 Neut # (Auto) 12.7 H Lymph # (Auto) 2.3 Henry # (Auto) 1.0 Eos # (Auto) 0.0 Baso # (Auto) 0.0 Total Counted 100 Neutrophils % (Manual) 77 H Lymphocytes % (Manual) 18 Monocytes % (Manual) 5 Platelet Estimate Normal RBC Morphology Normal Sodium 138 Potassium 3.9 Chloride 98 Carbon Dioxide 33 H D Anion Gap 10.9 BUN 38 H D Creatinine 1.40 H Estimated Creat Clear 63 Estimated GFR 37 L Est GFR ( Amer) 45 L Glucose 76 D POC Glucose 89 Calcium 9.4 10/04/19 10/04/19 10/04/19 21:12 16:16 10:40 WBC RBC Hgb Hct MCV MCH MCHC RDW Plt Count MPV Neut % (Auto) Lymph % (Auto) Henry % (Auto) Eos % (Auto) Baso % (Auto) Neut # (Auto) Lymph # (Auto) Henry # (Auto) Eos # (Auto) Baso # (Auto) Total Counted Neutrophils % (Manual) Lymphocytes % (Manual) Monocytes % (Manual) Platelet Estimate RBC Morphology Sodium Potassium Chloride Carbon Dioxide Anion Gap BUN Creatinine Estimated Creat Clear Estimated GFR Est GFR ( Amer) Glucose POC Glucose 437 H* 492 H* 381 H* Calcium 10/04/19 10/04/19 10/04/19 08:26 07:30 07:30 WBC 9.0 D RBC 5.89 H D Hgb 16.5 H D Hct 52.6 H MCV 89.3 MCH 28.0 MCHC 31.3 L RDW 15.2 Plt Count 205 D MPV 7.9 Neut % (Auto) 86.0 H Lymph % (Auto) 10.0 Henry % (Auto) 2.7 Eos % (Auto) 0.5 Baso % (Auto) 0.6 Neut # (Auto) 7.7 Lymph # (Auto) 0.9 Henry # (Auto) 0.3 Eos # (Auto) 0.1 Baso # (Auto) 0.1 Total Counted 100 Neutrophils % (Manual) 79 H Lymphocytes % (Manual) 20 Monocytes % (Manual) 1 L Platelet Estimate Normal RBC Morphology Normal Sodium 132 L Potassium 4.2 Chloride 97 L Carbon Dioxide 27 Anion Gap 12.2 BUN 24 H D Creatinine 1.20 H Estimated Creat Clear 34 Estimated GFR 44 L Est GFR ( Amer) 53 L Glucose 360 H D POC Glucose 375 H* Calcium 9.2 Preliminary micro results at discharge 10/03/19 15:15 Sputum Culture - Preliminary Sputum - Expectorated Sputum DS: Diagnosis - Discharge Diagnosis (1) Acute diastolic CHF (congestive heart failure) Status: Acute (2) Kidney disease, chronic, stage IV (severe, 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) Status: Acute (3) Recent non-ST elevation myocardial infarction (NSTEMI) Status: Acute (4) Ulcerative colitis Status: Acute (5) Coronary artery disease Status: Chronic (6) Diabetes mellitus Status: Chronic (7) Hypertensive heart disease Status: Chronic Discharge Plan - Patient Discharge Instructions ACTIVITY: Continue current activity DIET: continue same diet Patient Instructions: DI for Pneumonia -- Adult - Follow up Plan Follow up with: Mike Lee MD [Primary Care Provider] - Disposition: Home, [facility] Medications: Home Medications Medication Instructions Recorded Confirmed Type Balsalazide Disodium 2,250 mg PO BID 11/20/18 10/03/19 History Ferrous Gluconate [Ferrous 324 mg PO BID 11/20/18 10/03/19 History Gluconate 324mg Tab] Furosemide [Furosemide 20mg Tab] 20 mg PO DAILY 11/20/18 10/03/19 History Glimepiride 4 mg PO BID 11/20/18 10/03/19 History Insulin NPH Hum/Reg Insulin Hm 40 unit SQ BID 11/20/18 10/03/19 History [Novolin 70-30 100 Unit/ml Vial] Isosorbide Mononitrate [Imdur 60mg 60 mg PO BID 11/20/18 10/03/19 History ER tablet] Levothyroxine Sodium 75 mcg PO DAILY 11/20/18 10/03/19 History [Levothyroxine 75mcg (0.075mg) Tab] Omeprazole [Omeprazole 40mg 40 mg PO HS 11/20/18 10/03/19 History Capsule] Simvastatin 40 mg PO HS 11/20/18 10/03/19 History cloNIDine HCL [cloNIDine 0.2mg 0.2 mg PO TID 11/20/18 10/03/19 History Tablet] hydroCHLOROthiazide [HCTZ 25mg 25 mg PO BID 11/20/18 10/03/19 History tab] Timolol [Betimol] 1 drp OU BID 07/11/19 10/03/19 History Prazosin HCl [Minipres 1mg capsule] 2 mg PO BID 09/02/19 10/03/19 History Amlodipine Besylate [Amlodipine 5 mg PO DAILY 09/03/19 10/03/19 History 10mg Tab] Cholecalciferol (Vitamin D3) 50 mcg PO DAILY 09/03/19 10/03/19 History [Vitamin D3] carvediloL [Carvedilol 6.25mg Tab] 6.25 mg PO BID 09/03/19 10/03/19 History Methylcellulose [Citrucel] 500 mg PO DAILY 10/03/19 10/03/19 History Furosemide [Furosemide 40MG tAB] 40 mg PO BID #60 tab 10/05/19 Rx Prescriptions/Medication Reconciliation: New Furosemide [Furosemide 40MG tAB] 40 mg PO BID #60 tab Continued Levothyroxine Sodium [Levothyroxine 75mcg (0.075mg) Tab] 75 mcg PO DAILY Ferrous Gluconate [Ferrous Gluconate 324mg Tab] 324 mg PO BID Simvastatin 40 mg PO HS Omeprazole [Omeprazole 40mg Capsule] 40 mg PO HS Isosorbide Mononitrate [Imdur 60mg ER tablet] 60 mg PO BID Insulin NPH Hum/Reg Insulin Hm [Novolin 70-30 100 Unit/ml Vial] 40 unit SQ BID Glimepiride 4 mg PO BID Balsalazide Disodium 2,250 mg PO BID Timolol [Betimol] 1 drp OU BID Prazosin HCl [Minipres 1mg capsule] 2 mg PO BID Cholecalciferol (Vitamin D3) [Vitamin D3] 50 mcg PO DAILY carvediloL [Carvedilol 6.25mg Tab] 6.25 mg PO BID Methylcellulose [Citrucel] 500 mg PO DAILY cloNIDine HCL [cloNIDine 0.2mg Tablet] 0.2 mg PO TID Amlodipine Besylate [Amlodipine 10mg Tab] 5 mg PO DAILY Discontinued Furosemide [Furosemide 20mg Tab] 20 mg PO DAILY hydroCHLOROthiazide [HCTZ 25mg tab] 25 mg PO BID - Problem Reconciliation Problems Reviewed?: Yes
[2019-10-05 07:39] LABS: Hemoglobin 10.2 g/dL (12.2-16.2)
--- NOTE | 2019-10-05 08:51 | Electrocardiograph Report ---
APPROVED REPORT Exam: Resting ECG HR:89 bpm ECG Measurements Heart Rate 89 AXES KS 210 P 66 QRSd 92 QRS -33 QT 362 T49 QTc 440 <Conclusion> Sinus rhythm with 1st degree AV block Left axis deviation Low voltage QRS Nonsignificant Q waves in III Unchanged poor R wave progression Abnormal ECG Electronically signed by : Mike Saucedo, 10/05/2019 08:51:00
== END 2019-10-05 10:30 | disposition home or self-care (01) | DRG 280 ==
LOC: ER 07:57 → 2ND 09:54
PROVIDERS: ADMIT Family Medicine; ATTEND Family Medicine
CPT/HCPCS: 36415; 71010; 71045; 80048; 80053; 82962; 83605; 83880; 84484; 85007; 85025; 87040; 87070; 87205; 93005; 94640; 94761; 96374; 99285; J0456

== ENCOUNTER → 2020-01-14 08:48 | Outpatient (CLI) | payer MEDICARE, SELFPAY ==
[2020-01-14 10:17] LABS: Basophils # 0.1 K/mm3 (0-0.2); Basophils % 1.1 % (0.1-2.0); Eosinophils # 0.9 K/mm3 (0.0-0.4); Eosinophils % 7.5 % (0.1-12.0); Hematocrit 38.7 % (37.0-47.0); Hemoglobin 12.5 g/dL (12.2-16.2); Lymphocytes # 2.3 K/mm3 (0.7-4.5); Lymphocytes % 19.4 % (10-50); Mean Corpuscular HGB Conc 32.2 g/dL (31.8-35.4); Mean Corpuscular Hemoglobin 25.8 pg (27.0-31.2); Mean Corpuscular Volume 80.1 fl (81-99); Mean Platelet Volume 7.3 fl (7.4-10.4); Monocytes # 0.6 K/mm3 (0.1-1.0); Neutrophils # 7.8 K/mm3 (1.8-7.8); Platelet Count 338 K/mm3 (142-424); Red Blood Count 4.83 M/mm3 (4.20-5.40); White Blood Count 11.6 K/mm3 (4.8-10.8)
== END ==
PROVIDERS: Visit Provider Family Medicine
DX: K57.31 Diverticulosis of large intestine without perforation or abscess with bleeding (principal)
CPT/HCPCS: 36415; 85025

== ENCOUNTER → 2020-03-17 09:12 | Outpatient (CLI) | payer MEDICARE, SELFPAY ==
--- NOTE | 2020-03-17 09:16 | CA_ITS ---
APPROVED REPORT Tool Planner: Candace Orona RVT Laterality: Bilateral Study Quality: Adequate, Due to body habitus. Indications: TIA,RT AMAUROSIS FUGAX Risk Factors Hypertension: TIA/CVA History Diabetes Smoking Doppler Spectral Velocity Analysis ECA (R) 167.40/9.70 cm/s ECA (L) 235.80/5.50 cm/s dICA (R) 95.70/12.10 cm/s dICA (L) 66.60/18.00 cm/s Joe (R) 326.70/58.30 cm/s Joe (L) 107.70/17.50 cm/s pICA (R) 335.00/41.60 cm/s pICA (L) 119.00/16.30 cm/s dCCA (R) 61.40/10.30 cm/s dCCA (L) 65.90/14.30 cm/s pCCA (R) 67.70/8.60 cm/s pCCA (L) 79.10/16.50 cm/s Vert (R) 43.50/17.70 cm/s Vert (L) 48.50/12.40 cm/s ICA/CCA 5.45 ICA/CCA 1.80 Findings Study suggests 70-99% stenosis of the right internal cartoid artery. Study suggests 20-49% stenosis of the left internal cartoid artery. Antegrade flow seen bilateral vertebral arteries. Conclusion Study suggests 70-99% stenosis of the right internal cartoid artery. Study suggests 20-49% stenosis of the left internal cartoid artery. Antegrade flow seen bilateral vertebral arteries. Critical Notification Physician Notified Date: 03/17/2020 Time: 10:01 Physician Name: Christina Lee Electronically signed by : Jona Lopez MD 03/17/2020 15:23:25
== END ==
PROVIDERS: PCP Family Medicine; Visit Provider Family Medicine
DX: G45.9 Transient cerebral ischemic attack, unspecified (principal); I25.10 Atherosclerotic heart disease of native coronary artery without angina pectoris; R09.89 Other specified symptoms and signs involving the circulatory and respiratory systems
CPT/HCPCS: 93880

== ENCOUNTER → 2020-03-24 13:32 | Outpatient (POV) | payer MEDICARE, SELFPAY ==
[2020-03-24 15:35] LABS: Basophils # 0.1 K/mm3 (0-0.2); Basophils % 0.7 % (0.1-2.0); Eosinophils # 0.6 K/mm3 (0.0-0.4); Eosinophils % 4.7 % (0.1-12.0); Hematocrit 36.2 % (37.0-47.0); Hemoglobin 11.9 g/dL (12.2-16.2); Lymphocytes # 2.8 K/mm3 (0.7-4.5); Lymphocytes % 22.3 % (10-50); Mean Corpuscular HGB Conc 32.8 g/dL (31.8-35.4); Mean Corpuscular Hemoglobin 26.2 pg (27.0-31.2); Mean Platelet Volume 7.3 fl (7.4-10.4); Monocytes # 0.6 K/mm3 (0.1-1.0); Monocytes % 5.1 % (1.7-9.3); Neutrophils # 8.3 K/mm3 (1.8-7.8); Neutrophils % 67.2 % (37.0-80.0); Platelet Count 293 K/mm3 (142-424); Red Blood Count 4.53 M/mm3 (4.20-5.40); Red Cell Distribution Width 15.8 % (11.5-17.5); White Blood Count 12.4 K/mm3 (4.8-10.8)
[2020-03-24 15:54] LABS: Chloride 100 mmol/L (98-107); Potassium 4.3 mmoL/L (3.5-5.1); Sodium 138 mmol/L (136-145)
[2020-03-24 15:57] LABS: Alanine Aminotransferase 9 U/L (12-78); Albumin Level 3.7 g/dl (3.5-5.0); Albumin/Globulin Ratio 1.1 (1.1-1.8); Alkaline Phosphatase 107 U/L (38-126); Anion Gap 13.3 mEq/L (5-15); Aspartate Amino Transferase 17 U/L (14-36); Bilirubin,Total 0.5 mg/dl (0.2-1.3); Blood Urea Nitrogen 29 mg/dl (7-17); Carbon Dioxide 29 mmol/L (22.0-30.0); Estimated Glomerular Filt Rate 32 ml/min (>60); GFR (African American) 38 ML/MIN (>60); Globulin 3.4 g/dL (1.3-3.2); Glucose 148 mg/dl (74-100); Iron 49 ug/dL (37-170); Total Protein,Serum 7.1 g/dl (6.3-8.2)
[2020-03-24 15:59] LABS: Erythrocyte Sedimentation Rate 39 mm/hr (0-30)
[2020-03-24 16:07] LABS: C-Reactive Protein 13.7 mg/L (0-4)
[2020-03-24 16:10] LABS: Total Iron Binding Capacity 253 ug/dL (265-497)
[2020-03-24 16:31] LABS: Ferritin 23.3 ng/ml (11.1-264)
[2020-03-24 16:49] LABS: 25-OH Vitamin D, Total 24.1 ng/mL (30-100)
[2020-03-26 12:11] LABS: Vitamin B12 380 pg/mL (232-1245)
== END ==
PROVIDERS: Visit Provider Nurse Practitioner Family
DX: K51.90 Ulcerative colitis, unspecified, without complications (principal); R14.0 Abdominal distension (gaseous); K64.9 Unspecified hemorrhoids; K57.90 Diverticulosis of intestine, part unspecified, without perforation or abscess without bleeding; K62.5 Hemorrhage of anus and rectum; E55.9 Vitamin D deficiency, unspecified
CPT/HCPCS: 36415; 80053; 82306; 82607; 82728; 83540; 83550; 85025; 85651; 86140

== ENCOUNTER → 2020-04-18 08:37 | Outpatient (CLI) | payer MEDICARE, SELFPAY ==
--- NOTE | 2020-04-18 09:02 | CT_ITS ---
Procedure: CT ANGIO NECK CLINICAL HISTORY: CAROTID STENOSIS BRIGITTE right carotid artery stenosis 100ml optiray 350, 40ml saline no prior carotid duplex 03/17/20 COMPARISON: US CA CAROTID DUPLEX BI from 03/17/2020 TECHNIQUE: IV Contrast: 100ml Optiray 350 Axial images obtained with sagittal and coronal reformats. All CT scans at the facility use one or more dose reduction, viz: automated exposure control, ma/kV adjustment per patient size (including targeted exams where dose is matched to indication, i.e. head), or iterative reconstruction technique. FINDINGS: There are mild atherosclerotic changes of the aortic arch. No significant stenosis evident of the great vessels. Right carotid: The common carotid artery is unremarkable. Fibrocalcific plaque is present at the ostium of the ICA causing 70 percent stenosis. There is tortuosity of the right ICA having a retropharyngeal coarse. Left carotid: There is a mild amount of calcific plaque at the ostium of the left ICA and carotid bifurcation with approximately 20 percent stenosis of the ostium of the left ICA. Retropharyngeal course of the ICA also noted on the left. Vertebral arteries have an unremarkable appearance. Small amount of calcific plaque is present at the ostium of the right vertebral artery without significant stenosis. Nonvascular Mosaic attenuation of the lungs which is nonspecific. IMPRESSION: 70 percent stenosis of the ostium of the right ICA secondary to fibrocalcific plaque. Retropharyngeal course of the ICAs on both sides. 20 percent stenosis of the ostium of the left ICA Dictated by: Jona Lopez MD 04/19/2020 10:21 Jona Lopez MD in [place] 04/19/2020 10:21
[2020-04-18 09:17] LABS: Blood Urea Nitrogen 27 mg/dl (7-17); Estimated Glomerular Filt Rate 40 ml/min (>60); GFR (African American) 49 ML/MIN (>60)
== END ==
PROVIDERS: PCP Family Medicine; Visit Provider Surgery
DX: I65.23 Occlusion and stenosis of bilateral carotid arteries (principal)
CPT/HCPCS: 36415; 70498; 82565; 84520; Q9967

== ENCOUNTER → 2020-05-27 09:11 | Outpatient (CLI) | payer MEDICARE, SELFPAY ==
[2020-05-27 09:16] LABS: Microscopic, Urine URINE MICROSCOPIC (MICROSCOPIC)
[2020-05-27 10:03] LABS: Basophils # 0.1 K/mm3 (0-0.2); Basophils % 1.1 % (0.1-2.0); Eosinophils # 0.5 K/mm3 (0.0-0.4); Eosinophils % 4.7 % (0.1-12.0); Hematocrit 39.2 % (37.0-47.0); Hemoglobin 12.6 g/dL (12.2-16.2); Lymphocytes # 1.7 K/mm3 (0.7-4.5); Lymphocytes % 17.4 % (10-50); Mean Corpuscular HGB Conc 32.1 g/dL (31.8-35.4); Mean Corpuscular Volume 81.1 fl (81-99); Monocytes # 0.6 K/mm3 (0.1-1.0); Monocytes % 6.2 % (1.7-9.3); Neutrophils % 70.6 % (37.0-80.0); Platelet Count 325 K/mm3 (142-424); Red Blood Count 4.84 M/mm3 (4.20-5.40); Red Cell Distribution Width 15.2 % (11.5-17.5); White Blood Count 9.9 K/mm3 (4.8-10.8)
[2020-05-27 10:12] LABS: Appearance,Urine CLEAR (Clear); Bilirubin,Urine Negative (Negative); Blood, Urine Negative (Negative); Color,Urine YELLOW (Yellow); Glucose,Urine (UA) TRACE (Negative); Ketones,Urine Negative (Negative); Leukocyte Esterase,Urine TRACE (Negative); Nitrate,Urine Negative (Negative); Protein,Urine 2+ (Negative); Urobilinogen,Urine 0.2 EU/dl (0.2)
[2020-05-27 10:25] LABS: Creatinine,Urine Random 112 mg/dL (Not Estab.)
[2020-05-27 10:34] LABS: RBC,Urine Occasional #/hpf (0-3)
[2020-05-27 11:12] LABS: Chloride 98 mmol/L (98-107); Potassium 4.6 mmoL/L (3.5-5.1); Sodium 137 mmol/L (136-145)
[2020-05-27 11:13] LABS: Albumin Level 3.7 g/dl (3.5-5.0)
[2020-05-27 11:15] LABS: Anion Gap 11.6 mEq/L (5-15); Blood Urea Nitrogen 30 mg/dl (7-17); Carbon Dioxide 32 mmol/L (22.0-30.0); Estimated Glomerular Filt Rate 29 ml/min (>60); GFR (African American) 36 ML/MIN (>60); Glucose 288 mg/dl (74-100); Phosphorous 4.4 mg/dl (2.5-4.5)
[2020-05-27 11:16] LABS: Calcium 8.8 mg/dl (8.4-10.2)
== END ==
PROVIDERS: Visit Provider Internal Medicine Nephrology
DX: N18.30 Chronic kidney disease, stage 3 unspecified (principal)
CPT/HCPCS: 36415; 80069; 81001; 82570; 84155; 85025

== ENCOUNTER → 2020-06-02 14:10 | Outpatient (POV) | payer MEDICARE, SELFPAY | PROVIDERS: Visit Provider Internal Medicine Nephrology | DX: Z00.00 Encounter for general adult medical examination without abnormal findings (principal) ==

== ENCOUNTER → 2020-09-22 10:41 | Outpatient (POV) | payer MEDICARE, SELFPAY | PROVIDERS: Visit Provider Nurse Practitioner Family | DX: Z00.00 Encounter for general adult medical examination without abnormal findings (principal) ==

== ENCOUNTER → 2020-09-29 10:01 | Outpatient (CLI) | payer MEDICARE, SELFPAY ==
[2020-09-29 10:08] LABS: Microscopic, Urine URINE MICROSCOPIC (MICROSCOPIC)
--- NOTE | 2020-09-29 10:24 | XR_ITS ---
PROCEDURE: XR DEXA AXIAL SKELETON CLINICAL HISTORY: POST-MENOPAUSAL COMPARISON: CT CT ABDOMEN PELVIS WO CON from 09/02/2019 FINDINGS: The right hip BMD is 1.153 with a T-score of 2.7. The left hip BMD is 0.892 with a T-score of 0.4. The lumbar spine BMD is 1.516 with a T-score of 4.3. IMPRESSION: This patient is considered normal according to the World Health Organization criteria. Fracture risk is low. Based on these results a follow-up exam is recommended in 2 year. Dictated by: Jona Lopez MD 09/29/2020 20:34 Jona Lopez MD in [facility] 09/30/2020 08:39
[2020-09-29 10:53] LABS: Appearance,Urine CLEAR (Clear); Basophils # 0.1 K/mm3 (0-0.2); Basophils % 1.2 % (0.1-2.0); Bilirubin,Urine Negative (Negative); Blood, Urine Negative (Negative); Color,Urine YELLOW (Yellow); Eosinophils # 0.4 K/mm3 (0.0-0.4); Eosinophils % 4.2 % (0.1-12.0); Glucose,Urine (UA) 3+ (Negative); Hematocrit 40.1 % (37.0-47.0); Hemoglobin 12.9 g/dL (12.2-16.2); Ketones,Urine Negative (Negative); Leukocyte Esterase,Urine Negative (Negative); Lymphocytes # 2.2 K/mm3 (0.7-4.5); Lymphocytes % 20.8 % (10-50); Mean Corpuscular HGB Conc 32.1 g/dL (31.8-35.4); Mean Corpuscular Hemoglobin 26.2 pg (27.0-31.2); Mean Corpuscular Volume 81.7 fl (81-99); Mean Platelet Volume 6.9 fl (7.4-10.4); Monocytes # 0.5 K/mm3 (0.1-1.0); Monocytes % 4.9 % (1.7-9.3); Neutrophils # 7.2 K/mm3 (1.8-7.8); Neutrophils % 68.9 % (37.0-80.0); Nitrate,Urine Negative (Negative); PH,Urine 7.5 (5.0-8.5); Platelet Count 325 K/mm3 (142-424); Protein,Urine Negative (Negative); Red Blood Count 4.91 M/mm3 (4.20-5.40); Red Cell Distribution Width 14.8 % (11.5-17.5); Urobilinogen,Urine 0.2 EU/dl (0.2); White Blood Count 10.5 K/mm3 (4.8-10.8)
[2020-09-29 11:11] LABS: Creatinine,Urine Random 12 mg/dL (Not Estab.)
[2020-09-29 11:21] LABS: Chloride 99 mmol/L (98-107); Potassium 4.6 mmoL/L (3.5-5.1); Sodium 138 mmol/L (136-145)
[2020-09-29 11:22] LABS: Albumin Level 3.9 g/dl (3.5-5.0)
[2020-09-29 11:23] LABS: Blood Urea Nitrogen 34 mg/dl (7-17); Estimated Glomerular Filt Rate 24 ml/min (>60); GFR (African American) 30 ML/MIN (>60)
[2020-09-29 11:24] LABS: Anion Gap 11.6 mEq/L (5-15); Calcium 9.1 mg/dl (8.4-10.2); Carbon Dioxide 32 mmol/L (22.0-30.0); Glucose 250 mg/dl (74-100); Phosphorous 4.9 mg/dl (2.5-4.5)
[2020-10-02 15:17] LABS: Tandem-R Ostase 27.1 ug/L (.)
[2020-10-03 14:01] LABS: N-Telopeptide Cross-linked 24.3 nmol BCE/L (6.2-19.0)
== END ==
PROVIDERS: PCP Family Medicine; Visit Provider Internal Medicine Nephrology
DX: Z78.0 Asymptomatic menopausal state (principal); N18.30 Chronic kidney disease, stage 3 unspecified; E55.9 Vitamin D deficiency, unspecified
CPT/HCPCS: 36415; 77080; 80069; 81001; 82306; 82523; 82570; 84080; 84155; 85025

== ENCOUNTER → 2020-10-10 06:14 | Outpatient (CLI) | payer MEDICARE, SELFPAY ==
--- NOTE | 2020-10-10 06:15 | CA_ITS ---
APPROVED REPORT EXAM: Comprehensive 2D, Doppler, and color-flow Echocardiogram Ward Assistant: Gail Charles RT(R) Ht: 5 ft 3 in Wt: 230lbs BSA: 2.05 BP: 149/65 mmHg Indications: CP, ex smoker, HTN, DM, hyperlipidemia,angina, CAD, NSTEMI, KARON, Abn EKG 2D Dimensions LVOT 1.92 cm (M/F) 1.5-2.5 M-Mode Dimensions RVDd 2.80 cm (0.9-2.6) LA Diam 4.13 cm (1.9-4.0) LVDd 5.14 cm (3.5-5.7) Ao Diam 2.13 cm (2.0-3.7) LVDs 4.25 cm (3.5-5.7) IVSd 1.23 cm (0.6-1.1) PWd 0.89 cm (0.6-1.1) EF (Teich) 35.90% FS 17.30% EDV (Teich) 126.10 mL ESV (Teich) 80.80 mL Left Ventricle Technically difficult study because of the patient factors and poor acoustic windows, repeat study with Definity contrast is recommended. Left atrium is mildly enlarged, left ventricle is normal size, mild concentric left ventricular hypertrophy, visually estimated ejection fraction is probably 50% with no obvious regional wall motion abnormality, endocardial surfaces are very poorly visualized, but Definity contrast study is recommended. Right Ventricle Right atrium and right ventricle are mildly enlarged with normal contractility. Aortic Valve Aortic valve is minimally thickened and fibrosed, there is no aortic stenosis or aortic insufficiency. Mitral Valve Mitral valve is grossly normal, there is trace mitral regurgitation. Tricuspid Valve Tricuspid valve grossly normal, there is trace tricuspid regurgitation, tricuspid regurgitation jet velocity is inadequate for calculation of the right ventricular systolic pressure. Pulmonic Valve Pulmonic valve is poorly visualized. Great Vessels Aortic root is normal size. Pericardium No significant pericardial effusion noted. Conclusion 1. Technically difficult study because of the patient factors and poor acoustic windows, repeat study with Definity contrast is recommended. Normal left ventricular size, preserved left ventricular systolic function, visually estimated ejection fraction approximately 50% with no obvious regional wall motion abnormality, endocardial surfaces are very poorly visualized. Diastolic parameters are inconclusive. 2. Mildly enlarged right ventricle with normal contractility. 3. Trace mitral and tricuspid regurgitation. 4. No significant pericardial effusion noted. Electronically signed by : Oscar Cobb, 10/10/2020 12:48:47
--- NOTE | 2020-10-10 06:15 | NM_ITS ---
APPROVED REPORT Exam: Nuclear Stress Test Indication: CAD, H/O NE, HTN, DM, HYPERLIPIDEMIA, C.P., SOB, FATIGUE Patient Location: Outpatient Stress Tech: Tri Coburnnkson [place] Tech:Mari Batres, ARRT RT(R)(N) Ht: 5 ft 3 in Wt: 230 lbs Bra Size: 44D HR: 90 bpm BP: 213/90 mmHg BSA: 2.05 m2 BMI: 40.7 History: CAD, H/O NE, HTN, DM, HYPERLIPIDEMIA, C.P., SOB, FATIGUE Procedure: Patient received a 0.4 mg of intravenous Lexiscan, resting heart rate 90 bpm, resting blood pressure 213/90 mmHg, with Lexiscan maximum heart rate achived was 105 bpm which is Less than 85 % of the maximum predicted heart rate and blood pressure was 200/78 mmHg. With Lexiscan, patient denied any complaint of chest pain. Electrocardiogram Resting electrocardiogram shows sinus rhythm nonspecific ST-T changes, low voltage QRS complexes, with Lexiscan there is less than 1.[address] segment depression noted from the baseline EKG. Cardiac Stress and Resting SPECT Images: Cardiac Stress and Resting SPECT images were obtained using technetium 99m Myoview 32.6 mCi stress and 9.64 mCi at rest. Gated SPECT for analysis of segmental wall motion and calculation of the ejection fraction also done. Prone images were also obtained. Cardiac stress and resting SPECT images show reversible ischemia involving the inferior and posterior basal buchanan, computer derived ejection fraction is 50% with moderate inferior and posterior basal wall hypokinesis, right ventricle is mildly enlarged with normal contractility. Conclusion: 1. The EKG portion of the Lexiscan is nondiagnostic. 2. Scintigraphic evidence of reversible ischemia seen involving the inferior posterior basal wall, computer derived ejection fraction 50% with segmental wall motion abnormality described above, right ventricle is mildly enlarged with normal contractility. 3. Abnormal Lexiscan Myoview study. Electronically signed by : Oscar Cobb, 10/10/2020 11:21:17
--- NOTE | 2020-10-10 06:15 | CA_ITS ---
APPROVED REPORT Exam: Pharmacologic Technologist: Aurora Vanegas, Ht: 5 ft 3 in Wt: 241 lbs BSA: 2.09 m2 HR: 90 bpm BP: 200/78 mmHg Rhythm: NSR,IRBBB,NSSTTW ABNORMALITIES Medical History Medical History: HTN,, Hyperlipidemia, Diabetic ??? Insulin Medications: Omeprazole,,,,, Levothyroxine,,,,, Clonidine,,,,, Isosorbide,,,,, Simvastatin,,,,, Iron,,,,, Lasix,,,,, INSULIN,,,,, Vit D3,,,,, PraZOSIN,,,,, BaLSALAZIDE,,,,, CaNAGLIFLOZIN,,,,, Allergies: SULFA Cardiac Risk Factors: HTN, Hyperlipidemia, Diabetes (insulin) Stress Test Details Test: LEXISCAN HR Resting HR: 93 bpm Max Heart Rate (APMHR): 147.240210 bpm Max HR Achieved: 111 bpm Target HR (85% APMHR): 124.120247 bpm % of APMHR: 75.51 BP Resting BP: 213/90 mmHg Max BP: 222/75 mmHg Recovery BP: 225.0/75.0 mmHg ECG Resting ECG: NSR,IRBBB,NSSTTW ABNORMALITIES Clinical Reason for Termination: Completed Protocol Exercise duration: 04:04 min Highest Stage Achieved: Exercise capacity: 1.0 METs Stress ECG Conclusion DURING INFUSION PATIENT HAD NO SYMPTOMS. NO ARRHYTHMIAS/ECTOPY DURING STRESS 1PVC IN RECOVERY. <1.[address] SEGMENT CHANGES. NON-DIAGNOSTIC STRESS Test Summary REST . . . . . . . Sitting REST 04:27 . . 93 . 213/ 90 . . Stage 1 . . . . . . . Cardiolite injected Stage 1 01:00 . . 104 . . . . Stage 2 01:00 . . 106 . . . . Stage 3 01:00 . . 108 . 200/ 78 . . Stage 4 01:00 . . 104 . . . . Stage 4 01:04 . . 105 . . . Stop exercise at 04:04 RECOVERY 01:00 . . 102 . 222/ 75 . . RECOVERY 02:00 . . 97 . 222/ 75 . . RECOVERY 03:00 . . 97 . 222/ 75 . . RECOVERY 04:00 . . 97 . 222/ 75 . . RECOVERY 04:24 . . 96 . 222/ 75 . . Electronically signed by : Oscar Cobb, 10/10/2020 11:09:15
== END ==
PROVIDERS: PCP Family Medicine; Visit Provider Nurse Practitioner Family
DX: E11.69 Type 2 diabetes mellitus with other specified complication (principal); I11.9 Hypertensive heart disease without heart failure; I21.4 Non-ST elevation (NSTEMI) myocardial infarction; I25.10 Atherosclerotic heart disease of native coronary artery without angina pectoris; K92.2 Gastrointestinal hemorrhage, unspecified; R06.00 Dyspnea, unspecified; R07.9 Chest pain, unspecified; Z79.4 Long term (current) use of insulin
CPT/HCPCS: 78452; 93017; 93306; A9502; J2785

== ENCOUNTER → 2020-10-15 10:59 | Outpatient (CLI) | payer MEDICARE, SELFPAY ==
[2020-10-15 12:06] LABS: Basophils # 0.1 K/mm3 (0-0.2); Eosinophils # 0.4 K/mm3 (0.0-0.4); Eosinophils % 3.8 % (0.1-12.0); Hematocrit 39.9 % (37.0-47.0); Hemoglobin 12.9 g/dL (12.2-16.2); Lymphocytes # 2.5 K/mm3 (0.7-4.5); Lymphocytes % 23.2 % (10-50); Mean Corpuscular HGB Conc 32.3 g/dL (31.8-35.4); Mean Corpuscular Hemoglobin 26.4 pg (27.0-31.2); Mean Corpuscular Volume 81.8 fl (81-99); Mean Platelet Volume 7.3 fl (7.4-10.4); Monocytes # 0.5 K/mm3 (0.1-1.0); Monocytes % 4.6 % (1.7-9.3); Neutrophils # 7.2 K/mm3 (1.8-7.8); Neutrophils % 67.5 % (37.0-80.0); Platelet Count 330 K/mm3 (142-424); Red Blood Count 4.87 M/mm3 (4.20-5.40); Red Cell Distribution Width 14.8 % (11.5-17.5); White Blood Count 10.7 K/mm3 (4.8-10.8)
[2020-10-15 12:14] LABS: Chloride 99 mmol/L (98-107); Potassium 4.8 mmoL/L (3.5-5.1); Sodium 138 mmol/L (136-145)
[2020-10-15 12:17] LABS: Anion Gap 10.8 mEq/L (5-15); Blood Urea Nitrogen 30 mg/dl (7-17); Calcium 8.9 mg/dl (8.4-10.2); Carbon Dioxide 33 mmol/L (22.0-30.0); Estimated Glomerular Filt Rate 26 ml/min (>60); GFR (African American) 31 ML/MIN (>60); Glucose 168 mg/dl (74-100)
[2020-10-15 12:26] LABS: Coronavirus 19 IgG Antibody Negative (Negative)
[2020-10-15 12:27] LABS: Coronavirus 19 IgM Antibody Negative (Negative)
== END ==
PROVIDERS: PCP Family Medicine; Visit Provider Urology
DX: Z01.818 Encounter for other preprocedural examination; Z20.822 Contact with and (suspected) exposure to COVID-19; R06.00 Dyspnea, unspecified; R42 Dizziness and giddiness; R60.0 Localized edema; R94.30 Abnormal result of cardiovascular function study, unspecified; E78.2 Mixed hyperlipidemia; I11.9 Hypertensive heart disease without heart failure; I25.118 Atherosclerotic heart disease of native coronary artery with other forms of angina pectoris; I50.30 Unspecified diastolic (congestive) heart failure; Z87.891 Personal history of nicotine dependence
CPT/HCPCS: 36415; 80048; 85025; 86328; U0003

== ENCOUNTER 2020-10-16 07:20 | Day surgery (SDC) | payer MEDICARE, SELFPAY ==
[2020-10-16] VITALS (13 sets, daily range): BP systolic 149–253; BP diastolic 60–114; PULSE 57–86; RESP 16–18; TEMP 36.8; O2SAT 91–99; BMI 42.7
--- NOTE | 2020-10-16 07:30 | IR_ITS ---
APPROVED REPORT Patient Location: Outpatient Suspender Maker: PAWNA Ruffin RT (R) PROCEDURES Left heart catheterization Left ventriculogram Selective coronary angiogram INDICATION Abnormal stress test, Angina pectoris, Known multivessel coronary disease, Informed consent was obtained prior to the procedure. COMPLICATIONS None Estimated Blood Loss: Less than 10 mls TECHNIQUE One percent lidocaine used to anesthetize the right anterior aspect of the wrist. The right radial artery was accessed via the Seldinger technique. A 6 Slovenian sheath was placed in the right radial artery. 2.5 mg of verapamil, 800 mcg of nitroglycerin, 1mg Lidocaine and 5000 U Heparin were given through the arterial sheath. The trap catheter was also used to perform left heart catheterization, left ventriculogram and selective coronary angiogram. At the end of the procedure the sheath was removed good hemostasis was achieved using Traclet band, patient was transferred to the postop holding area in stable condition. ANGIOGRAPHIC RESULTS The left main artery Normal The left anterior descending artery As proximal 10 to 20% stenosis followed by a proximal stent which is widely patent with minimal in-stent restenosis and excellent proximal distal transitioning. The remaining vessel is widely patent with minimal mid vessel 20% stenosis The circumflex artery Is a nondominant yet still large vessel which has an ostial proximal 10 to 20% stenosis followed by a concentric 40 to 50% stenosis and a moderate size 2-1/2 mm obtuse marginal artery. The right coronary artery Dominant proximally occluded with excellent [id number] collaterals The DUVAL ventriculogram reveals Normal 65% The left ventricular end-diastolic pressure Severely elevated at 30 to 35 mmHg IMPRESSION Coronary disease as described above which includes a chronically occluded right coronary artery which is excellent left to right collateralization Normal ejection fraction Severely elevated LVEDP PLAN 1. Medical management which should focus on decreasing LVEDP which is likely etiology for patient's angina 2. Beta-blockers 3. Better hypertension control. Patient's blood pressure was 210 mmHg systolic at the beginning of the case while sedate on the Senior Java Programmer Analyst table her therapy should include beta-blockers Electronically signed by : John Ramos, 10/16/2020 08:52:18
== END 2020-10-16 12:10 | disposition home or self-care (01) ==
PROVIDERS: PCP Family Medicine; Visit Provider Internal Medicine
DX: E78.2 Mixed hyperlipidemia (principal); I25.118 Atherosclerotic heart disease of native coronary artery with other forms of angina pectoris; I50.30 Unspecified diastolic (congestive) heart failure; R06.00 Dyspnea, unspecified; R42 Dizziness and giddiness; R60.0 Localized edema; R94.30 Abnormal result of cardiovascular function study, unspecified; I11.0 Hypertensive heart disease with heart failure; I25.82 Chronic total occlusion of coronary artery
CPT/HCPCS: 93458; 99152; C1725; C1769; J1644; Q9967

== ENCOUNTER → 2020-10-20 07:52 | Outpatient (CLI) | payer MEDICARE, SELFPAY ==
--- NOTE | 2020-10-20 08:38 | CA_ITS ---
APPROVED REPORT Health Safety Manager: RA Study Quality: FairPoor, Due to body habitus. Indications: acute kidney failure Risk Factors Hypertension Obesity Diabetes quit smoking Renal Artery Doppler Mid (R) 104.8/ cm/sec Distal (R) 107.3/ cm/sec Renal Aorta Ratio (R) 0.00 Segmental A. (R) / cm/sec RI: 0.82 Segmental A. Sup (R) 15.0/2.0 cm/sec Segmental A. Mid (R) 15.0/4.0 cm/sec Segmental A. Inf (R) 21.0/3.0 cm/sec Origin (L) 141.4/ cm/sec Proximal (L) 119.0/ cm/sec Mid (L) 99.4/ cm/sec Distal (L) 95.4/ cm/sec Renal Aorta Ratio (L) 1.10 Segmental A. (L) / cm/sec RI: 0.76 Segmental A. Sup (L) 16.0/4.0 cm/sec Segmental A. Mid (L) 20.0/5.0 cm/sec Segmental A. Inf (L) 16.0/3.0 cm/sec Renal Measurements Kidney Size (R) 12.0x4.0 cm Kidney Size (L) 11.5x4.7 cm Findings An attempt was made to evaluate the abdominal aorta, the right and left renal arteries and kidneys, utilizing duplex ultrasonography and color flow doppler. This was a technically difficult and therefore limited exam due to the presence of bowel gas and abdominal movement with respiration. Both kidneys appear to be within normal size parameters (greater than 9.0cm and symmetrical). Based on the renal/aortic ratio there is no evidence of significant stenosis in the mid nor distal renal artery. Based on the renal/aortic ratio there is no evidence of significant stenosis in the left renal artery. Conclusion An attempt was made to evaluate the abdominal aorta, the right and left renal arteries and kidneys, utilizing duplex ultrasonography and color flow doppler. This was a technically difficult and therefore limited exam due to the presence of bowel gas and abdominal movement with respiration. Both kidneys appear to be within normal size parameters (greater than 9.0cm and symmetrical). Based on the renal/aortic ratio there is no evidence of significant stenosis in the mid nor distal renal artery. Based on the renal/aortic ratio there is no evidence of significant stenosis in the left renal artery. Electronically signed by : Jona Lopez MD 10/20/2020 16:03:53
== END ==
PROVIDERS: PCP Family Medicine; Visit Provider Internal Medicine
DX: N17.9 Acute kidney failure, unspecified (principal)
CPT/HCPCS: 93976

== ENCOUNTER → 2020-10-27 13:16 | Outpatient (CLI) | payer MEDICARE, SELFPAY ==
[2020-10-27 14:08] LABS: Chloride 96 mmol/L (98-107)
[2020-10-27 14:09] LABS: Potassium 5.1 mmoL/L (3.5-5.1); Sodium 134 mmol/L (136-145)
[2020-10-27 14:11] LABS: Blood Urea Nitrogen 39 mg/dl (7-17); Estimated Glomerular Filt Rate 24 ml/min (>60); GFR (African American) 30 ML/MIN (>60)
[2020-10-27 14:12] LABS: Anion Gap 12.1 mEq/L (5-15); Calcium 8.8 mg/dl (8.4-10.2); Carbon Dioxide 31 mmol/L (22.0-30.0); Glucose 319 mg/dl (74-100)
== END ==
PROVIDERS: Visit Provider Physician Assistant
DX: E11.69 Type 2 diabetes mellitus with other specified complication (principal); I11.9 Hypertensive heart disease without heart failure; I21.4 Non-ST elevation (NSTEMI) myocardial infarction; I25.118 Atherosclerotic heart disease of native coronary artery with other forms of angina pectoris; I65.23 Occlusion and stenosis of bilateral carotid arteries; K92.2 Gastrointestinal hemorrhage, unspecified; R06.00 Dyspnea, unspecified; R94.31 Abnormal electrocardiogram [ECG] [EKG]; Z98.890 Other specified postprocedural states
CPT/HCPCS: 36415; 80048

== ENCOUNTER → 2020-11-03 13:36 | Outpatient (CLI) | payer MEDICARE, SELFPAY ==
[2020-11-03 15:22] LABS: Anion Gap 11.9 mEq/L (5-15); Blood Urea Nitrogen 39 mg/dl (7-17); Calcium 8.8 mg/dl (8.4-10.2); Carbon Dioxide 31 mmol/L (22.0-30.0); Chloride 97 mmol/L (98-107); Estimated Glomerular Filt Rate 26 ml/min (>60); GFR (African American) 31 ML/MIN (>60); Glucose 278 mg/dl (74-100); Potassium 4.9 mmoL/L (3.5-5.1); Sodium 135 mmol/L (136-145)
== END ==
PROVIDERS: Visit Provider Physician Assistant
DX: I10 Essential (primary) hypertension (principal)
CPT/HCPCS: 36415; 80048

== ENCOUNTER → 2021-02-23 09:40 | Outpatient (CLI) | payer MEDICARE, SELFPAY | PROVIDERS: PCP Family Medicine; Visit Provider Family Medicine | DX: R06.02 Shortness of breath (principal); J44.9 Chronic obstructive pulmonary disease, unspecified | CPT/HCPCS: 94060; 94640; 94726; 94729 ==

== ENCOUNTER → 2021-03-17 12:51 | Outpatient (CLI) | payer MEDICARE, SELFPAY ==
[2021-03-17 13:34] LABS: Basophils # 0.2 K/mm3 (0-0.2); Basophils % 1.2 % (0.1-2.0); Eosinophils # 0.5 K/mm3 (0.0-0.4); Eosinophils % 3.9 % (0.1-12.0); Hematocrit 37.4 % (37.0-47.0); Hemoglobin 12.2 g/dL (12.2-16.2); Lymphocytes # 2.5 K/mm3 (0.7-4.5); Lymphocytes % 19.3 % (10-50); Mean Corpuscular HGB Conc 32.6 g/dL (31.8-35.4); Mean Corpuscular Hemoglobin 26.4 pg (27.0-31.2); Mean Corpuscular Volume 81.1 fl (81-99); Mean Platelet Volume 7.7 fl (7.4-10.4); Monocytes # 0.6 K/mm3 (0.1-1.0); Monocytes % 4.9 % (1.7-9.3); Neutrophils % 70.7 % (37.0-80.0); Platelet Count 318 K/mm3 (142-424); Red Blood Count 4.61 M/mm3 (4.20-5.40); Red Cell Distribution Width 15.1 % (11.5-17.5); White Blood Count 12.8 K/mm3 (4.8-10.8)
[2021-03-17 14:17] LABS: Erythrocyte Sedimentation Rate 94 mm/hr (0-30)
[2021-03-17 14:21] LABS: Chloride 98 mmol/L (98-107); Potassium 4.6 mmoL/L (3.5-5.1); Sodium 139 mmol/L (136-145)
[2021-03-17 14:23] LABS: Alanine Aminotransferase 9 U/L (12-78); Alkaline Phosphatase 97 U/L (38-126); Anion Gap 13.6 mEq/L (5-15); Aspartate Amino Transferase 19 U/L (14-36); Bilirubin,Total 0.4 mg/dl (0.2-1.3); Blood Urea Nitrogen 29 mg/dl (7-17); Carbon Dioxide 32 mmol/L (22.0-30.0); Estimated Glomerular Filt Rate 22 ml/min (>60); GFR (African American) 26 ML/MIN (>60); Iron 48 ug/dL (37-170)
[2021-03-17 14:24] LABS: Albumin Level 3.9 g/dl (3.5-5.0); Albumin/Globulin Ratio 1.3 (1.1-1.8); Calcium 8.8 mg/dl (8.4-10.2); Glucose 79 mg/dl (74-100); Total Protein,Serum 6.9 g/dl (6.3-8.2)
[2021-03-17 14:30] LABS: 25-OH Vitamin D, Total 34.9 ng/mL (30-100)
[2021-03-17 14:44] LABS: C-Reactive Protein 15.6 mg/L (0-4)
[2021-03-17 14:47] LABS: Total Iron Binding Capacity 313 ug/dL (265-497)
[2021-03-17 14:59] LABS: Ferritin 31.2 ng/ml (11.1-264)
[2021-03-17 21:25] LABS: Vitamin B12 304 pg/mL (239-931)
== END ==
PROVIDERS: Visit Provider Nurse Practitioner Family
DX: K62.5 Hemorrhage of anus and rectum (principal); K51.90 Ulcerative colitis, unspecified, without complications; K57.90 Diverticulosis of intestine, part unspecified, without perforation or abscess without bleeding; E66.9 Obesity, unspecified
CPT/HCPCS: 36415; 80053; 82306; 82607; 82728; 83540; 83550; 85025; 85651; 86140

== ENCOUNTER → 2021-04-03 14:11 | Outpatient (CLI) | payer MEDICARE, SELFPAY ==
[2021-04-03 14:27] LABS: Basophils # 0.2 K/mm3 (0-0.2); Basophils % 1.2 % (0.1-2.0); Eosinophils # 0.5 K/mm3 (0.0-0.4); Eosinophils % 3.7 % (0.1-12.0); Hematocrit 41.8 % (37.0-47.0); Hemoglobin 13.1 g/dL (12.2-16.2); Lymphocytes # 2.4 K/mm3 (0.7-4.5); Lymphocytes % 18.8 % (10-50); Mean Corpuscular HGB Conc 31.3 g/dL (31.8-35.4); Mean Corpuscular Hemoglobin 26.7 pg (27.0-31.2); Mean Corpuscular Volume 85.2 fl (81-99); Monocytes # 0.6 K/mm3 (0.1-1.0); Monocytes % 4.4 % (1.7-9.3); Neutrophils # 9.3 K/mm3 (1.8-7.8); Platelet Count 349 K/mm3 (142-424); Red Cell Distribution Width 15.1 % (11.5-17.5); White Blood Count 12.8 K/mm3 (4.8-10.8)
[2021-04-03 15:02] LABS: Erythrocyte Sedimentation Rate 22 mm/hr (0-30)
[2021-04-03 16:14] LABS: C-Reactive Protein 15.4 mg/L (0-4)
== END ==
PROVIDERS: Visit Provider Nurse Practitioner Family
DX: Z01.89 Encounter for other specified special examinations (principal); R79.89 Other specified abnormal findings of blood chemistry
CPT/HCPCS: 36415; 85025; 85651; 86140

== ENCOUNTER → 2021-05-08 12:41 | Outpatient (CLI) | payer MEDICARE, SELFPAY ==
--- NOTE | 2021-05-08 12:55 | CA_ITS ---
APPROVED REPORT Pitch Worker: CT Laterality: Bilateral Study Quality: Fair, Due to body habitus. Indications: aaron Risk Factors Hypertension: Hyperlipidemia Diabetes Surgery/Intervention Endarterectomy: right Doppler Spectral Velocity Analysis ECA (R) 113.00/23.00 cm/s ECA (L) 101.00/ cm/s dICA (R) 66.30/16.10 cm/s dICA (L) 90.10/18.20 cm/s Joe (R) 126.00/24.40 cm/s Joe (L) 77.60/15.20 cm/s pICA (R) 133.00/23.70 cm/s pICA (L) 64.10/17.00 cm/s dCCA (R) 77.70/12.70 cm/s dCCA (L) 59.70/8.64 cm/s pCCA (R) 80.10/9.43 cm/s pCCA (L) 79.00/13.80 cm/s Vert (R) 46.30/ cm/s Vert (L) 40.10/ cm/s ICA/CCA 1.71 ICA/CCA 1.51 Findings Duplex evaluation demonstrates stenosis of the right proximal internal carotid artery <20% with PSV <140 cm/sec, EDV <100 cm/sec, and IC/CC Ratio <4.0. Duplex evaluation demonstrates stenosis of the left proximal internal carotid artery in the range of 20-49% with PSV <140 cm/sec, EDV <100 cm/sec, and IC/CC Ratio <4.0. Duplex evaluation demonstrates antegrade flow of the bilateral Vertebral Arteries. TDS scanned by 2 techs. Conclusion Duplex evaluation demonstrates stenosis of the right proximal internal carotid artery <20% with PSV <140 cm/sec, EDV <100 cm/sec, and IC/CC Ratio <4.0. Duplex evaluation demonstrates stenosis of the left proximal internal carotid artery in the range of 20-49% with PSV <140 cm/sec, EDV <100 cm/sec, and IC/CC Ratio <4.0. Duplex evaluation demonstrates antegrade flow of the bilateral Vertebral Arteries. TDS scanned by 2 techs. Electronically signed by : Jona Lopez MD 05/12/2021 09:25:41
== END ==
PROVIDERS: PCP Family Medicine; Visit Provider Surgery
DX: R42 Dizziness and giddiness (principal)
CPT/HCPCS: 93880

== ENCOUNTER → 2021-06-10 14:04 | Outpatient (CLI) | payer MEDICARE, SELFPAY ==
[2021-06-10 16:16] LABS: Albumin Level 3.7 g/dl (3.5-5.0); Blood Urea Nitrogen 28 mg/dl (7-17); Calcium 8.5 mg/dl (8.4-10.2); Carbon Dioxide 30 mmol/L (22.0-30.0); Chloride 98 mmol/L (98-107); Estimated Glomerular Filt Rate 28 ml/min (>60); GFR (African American) 33 ML/MIN (>60); Glucose 176 mg/dl (74-100); Phosphorous 4.7 mg/dl (2.5-4.5); Sodium 137 mmol/L (136-145)
[2021-06-10 17:00] LABS: 25-OH Vitamin D, Total 36.8 ng/mL (30-100)
== END ==
PROVIDERS: Visit Provider Internal Medicine Nephrology
DX: N18.30 Chronic kidney disease, stage 3 unspecified (principal)
CPT/HCPCS: 36415; 80069; 82306

== ENCOUNTER → 2021-06-15 13:06 | Outpatient (POV) | payer MEDICARE, SELFPAY | PROVIDERS: Visit Provider Internal Medicine Nephrology | DX: Z00.00 Encounter for general adult medical examination without abnormal findings (principal) ==

== ENCOUNTER → 2021-12-03 09:13 | Outpatient (CLI) | payer MEDICARE, SELFPAY ==
--- NOTE | 2021-12-03 09:17 | CA_ITS ---
APPROVED REPORT EXAM: Comprehensive 2D, Doppler, and color-flow Echocardiogram Tunnel Kiln Repairer: SORIN Sequeira, RVS Ht: 5 ft 3 in Wt: 255lbs BSA: 2.14 BP: 000/00 mmHg Indications: CP, COPD, Morbid Obesity, SOA, DM, HTN, Edema, Ex-smoker Echo Enhancing Agent Indication: declined IV Comments: Extremely poor acoustic properties due to large body habitus with lung impedence. 2D Dimensions Aortic Root 3.60 cm F: 2.7 - 3.3 LA Volume 35.50 mL Left Atrium 3.08 cm F: 2.7 - 3.8 LA Volume Index 16.58 mL/m2 (M/F) 16-34 LVOT 1.80 cm (M/F) 1.5-2.5 M-Mode Dimensions RVDd 2.95 cm (0.9-2.6) LA Diam 4.23 cm (1.9-4.0) LVDd 4.74 cm (3.5-5.7) Ao Diam 2.79 cm (2.0-3.7) LVDs 3.05 cm (3.5-5.7) IVSd 1.41 cm (0.6-1.1) PWd 1.22 cm (0.6-1.1) EF (Teich) 65.10% FS 35.70% EDV (Teich) 104.40 mL TAPSE 2.81 (<1.7) ESV (Teich) 36.40 mL LV Diastology E Decel Time 227.00 (160-240 msec) E/A Ratio 1.13 MED E' 5.60 (< 7 cm/sec) MED A' 8.40 cm/s E'/MED E' Ratio 22.80 (>14) LAT E' 4.70 (<10 cm/sec) LAT A' 6.80 cm/s E/LAT E' Ratio 27.17 (>14) Aortic Valve LVOT Max 118.00 (70-110 cm/s) LVOT VTI 28.84 cm AoV Peak Josué. 168.00 (50-130 cm/s) AO Peak GR. 11.30 mmHg AO Mean GR. 5.70 (<5 mmHg) AO VTI 41.81 (18-25 cm) KLEBER (VTI) 1.76 (2.5-4.5 cm2) Mitral Valve MV A Velocity 113.00 (40-130 cm/s) E/A Ratio 1.13 MV Decel. Time 227.00 (160-240 ms) MV Mean Gr. 2.70 (<2mmHg) MV PHT 63.00 ms Pulmonary Valve PV Peak Velocity 94.00 (50-150 cm/s) Tricuspid Valve TR P. Velocity 192.00 cm/s RAP Estimate 10.00 mmHg RVSP 24.80 mmHg Left Ventricle Left atrium is mildly enlarged, left ventricle is normal size, mild concentric left ventricular hypertrophy, estimated ejection fraction 55% with no regional wall motion abnormality, grade 2 diastolic dysfunction seen with tissue Doppler evidence of raise left atrial pressure. Right Ventricle Right atrium and right ventricle are mildly enlarged with normal contractility. Aortic Valve Aortic valve is minimally thickened and fibrosed, there is no aortic stenosis or aortic insufficiency. Mitral Valve Mitral valve grossly normal, there is trace mitral regurgitation. Tricuspid Valve Tricuspid valve grossly normal, there is trace tricuspid regurgitation, tricuspid regurgitation jet velocity is inadequate for calculation of the left right ventricular systolic pressure. Pulmonic Valve Pulmonic valve is poorly visualized. Great Vessels Aortic root is normal size. Inferior vena cava is poorly visualized. Pericardium No significant pericardial effusion noted. Conclusion 1. Mild biatrial enlargement, normal left ventricular size, mild concentric left ventricular hypertrophy, estimated ejection fraction 55% with no regional wall motion abnormality, grade 2 diastolic dysfunction seen with tissue Doppler evidence of raise left atrial pressure. 2. Mildly enlarged right ventricle with normal contractility. 3. Trace mitral and tricuspid regurgitation. 4. No significant pericardial effusion. 5. Inferior vena cava is poorly visualized. Electronically signed by : Oscar Cobb MD 12/04/2021 11:13:39
== END ==
PROVIDERS: PCP Nurse Practitioner Family; Visit Provider Nurse Practitioner Family
DX: E78.2 Mixed hyperlipidemia (principal); I25.118 Atherosclerotic heart disease of native coronary artery with other forms of angina pectoris; I50.30 Unspecified diastolic (congestive) heart failure; R06.00 Dyspnea, unspecified; R60.0 Localized edema; Z98.890 Other specified postprocedural states; I11.0 Hypertensive heart disease with heart failure
CPT/HCPCS: 93306

== ENCOUNTER → 2021-12-08 08:43 | Outpatient (CLI) | payer MEDICARE, SELFPAY ==
[2021-12-08 10:22] LABS: Basophils # 0.1 K/mm3 (0-0.2); Basophils % 1.1 % (0.1-2.0); Eosinophils # 0.5 K/mm3 (0.0-0.4); Eosinophils % 4.1 % (0.1-12.0); Hematocrit 40.2 % (37.0-47.0); Hemoglobin 13.2 g/dL (12.2-16.2); Lymphocytes # 1.6 K/mm3 (0.7-4.5); Lymphocytes % 14.7 % (10-50); Mean Corpuscular HGB Conc 32.8 g/dL (31.8-35.4); Mean Corpuscular Hemoglobin 26.8 pg (27.0-31.2); Mean Corpuscular Volume 81.6 fl (81-99); Mean Platelet Volume 7.6 fl (7.4-10.4); Monocytes # 0.6 K/mm3 (0.1-1.0); Monocytes % 5.6 % (1.7-9.3); Neutrophils # 8.3 K/mm3 (1.8-7.8); Neutrophils % 74.5 % (37.0-80.0); Platelet Count 326 K/mm3 (142-424); Red Blood Count 4.93 M/mm3 (4.20-5.40); Red Cell Distribution Width 16.2 % (11.5-17.5); White Blood Count 11.2 K/mm3 (4.8-10.8)
[2021-12-08 10:41] LABS: Albumin Level 3.7 g/dl (3.5-5.0); Anion Gap 13.6 mEq/L (5-15); Blood Urea Nitrogen 37 mg/dl (7-17); Calcium 8.8 mg/dl (8.4-10.2); Carbon Dioxide 33 mmol/L (22.0-30.0); Chloride 96 mmol/L (98-107); Estimated Glomerular Filt Rate 23 ml/min (>60); GFR (African American) 28 ML/MIN (>60); Glucose 140 mg/dl (74-100); Potassium 4.6 mmoL/L (3.5-5.1); Sodium 138 mmol/L (136-145)
[2021-12-08 11:00] LABS: Creatinine,Urine Random 36 mg/dL (Not Estab.)
[2021-12-08 11:04] LABS: Microalbumin/Creatinine Ratio 236.6
== END ==
PROVIDERS: Visit Provider Internal Medicine Nephrology
DX: N18.4 Chronic kidney disease, stage 4 (severe) (principal); I10 Essential (primary) hypertension; N25.0 Renal osteodystrophy
CPT/HCPCS: 36415; 80069; 82043; 82306; 82570; 85025

== ENCOUNTER → 2021-12-14 12:06 | Outpatient (POV) | payer MEDICARE, SELFPAY | PROVIDERS: Visit Provider Internal Medicine Nephrology | DX: Z00.00 Encounter for general adult medical examination without abnormal findings (principal) ==

== ENCOUNTER → 2022-04-14 13:14 | Outpatient (CLI) | payer MEDICARE, SELFPAY ==
[2022-04-14 14:29] LABS: Albumin Level 3.8 g/dl (3.5-5.0); Chloride 96 mmol/L (98-107); Sodium 137 mmol/L (136-145)
[2022-04-14 14:32] LABS: Blood Urea Nitrogen 36 mg/dl (7-17); Carbon Dioxide 32 mmol/L (22.0-30.0); Estimated Glomerular Filt Rate 27 ml/min (>60); GFR (African American) 33 ML/MIN (>60)
[2022-04-14 14:33] LABS: Glucose 220 mg/dl (74-100); Phosphorous 4.5 mg/dl (2.5-4.5)
== END ==
PROVIDERS: PCP Nurse Practitioner Family; Visit Provider Internal Medicine Nephrology
DX: I12.9 Hypertensive chronic kidney disease with stage 1 through stage 4 chronic kidney disease, or unspecified chronic kidney disease (principal); N18.4 Chronic kidney disease, stage 4 (severe); N25.0 Renal osteodystrophy
CPT/HCPCS: 36415; 80069

== ENCOUNTER → 2022-04-19 10:44 | Outpatient (POV) | payer MEDICARE, SELFPAY | PROVIDERS: Visit Provider Internal Medicine Nephrology | DX: Z00.00 Encounter for general adult medical examination without abnormal findings (principal) ==

== ENCOUNTER → 2022-05-14 10:43 | Outpatient (CLI) | payer MEDICARE, SELFPAY ==
--- NOTE | 2022-05-14 10:47 | CA_ITS ---
FINAL REPORT TECHNIQUE: Color Doppler, duplex Doppler and yoder scale sonography of the bilateral neck arterial vasculature was performed. Velocities were measured in the carotid arteries. Stenosis evaluation based on the validated velocity criteria. CLINICAL HISTORY: .KARON RT ENART FINDINGS: The peak systolic velocity of the right common carotid artery is 76 cm/s. The peak systolic velocity of the right internal carotid artery is 111 cm/s and end diastolic velocity 20 cm/s. The ICA/CCA ratio is 2.0. A small amount of plaque is present. The right external carotid artery is patent. The right vertebral artery is patent with antegrade flow. The peak systolic velocity of the left common carotid artery is 71 cm/s. The peak systolic velocity of the left internal carotid artery is 81 cm/s and end diastolic velocity 17 cm/s. The ICA/CCA ratio is 1.3. A small amount of plaque is present. The left external carotid artery is patent.The left vertebral artery is patent with antegrade flow. IMPRESSION: Less than 50% bilateral carotid stenoses. Bilateral patent vertebral arteries with antegrade flow. If indicated, CTA or MRA could further evaluate. Reviewed, Interpreted and Dictated by Leonardo Mendes III, MD Transcribed by Analilia Turner Authenticated and [facility]
== END ==
PROVIDERS: PCP Nurse Practitioner Family; Visit Provider Nurse Practitioner Family
DX: I65.23 Occlusion and stenosis of bilateral carotid arteries (principal)
CPT/HCPCS: 93880

== ENCOUNTER 2022-06-01 16:28 | Inpatient (IN) | payer MEDICARE, SELFPAY ==
[2022-06-01] VITALS (10 sets, daily range): BP systolic 130–207; BP diastolic 62–117; PULSE 57–88; RESP 16–24; TEMP 36.6–37; O2SAT 81–98; BMI 45.1; BMI 46.5
--- NOTE | 2022-06-01 16:24 | ECG_ITS ---
APPROVED REPORT Exam: Resting ECG HR:77 bpm ECG Measurements Heart Rate 77 AXES SD 219 P 46 QRSd 94 QRS -36 QT 374 T 56 QTc 406 Conclusion SINUS RHYTHM WITH FIRST DEGREE AV BLOCK LEFT AXIS DEVIATION [QRS AXIS < -30] LVH Isolated Q in iii Late r wave progression ABNORMAL ECG UNCONFIRMED REPORT Electronically signed by : Mike Saucedo MD 06/01/2022 21:05:42
--- NOTE | 2022-06-01 16:39 | XR_ITS ---
PROCEDURE INFORMATION: Exam: XR Chest Exam date and time: 06/01/2022 5:02 PM Age: 76 years old Clinical indication: Patient HX: Fluid buildup per patient, shortness of breath. ; Additional info: SOA, chest pain TECHNIQUE: Imaging protocol: Radiologic exam of the chest. Views: 1 view. COMPARISON: CR XR CHEST PORTABLE 10/03/2019 8:32 AM FINDINGS: Lungs: Prominence and redistribution of pulmonary vasculature. Pleural spaces: Unremarkable. No pleural effusion. No pneumothorax. Heart/Mediastinum: Cardiomegaly. Bones/joints: Unremarkable. IMPRESSION: Findings compatible with congestive heart failure.
[2022-06-01 16:47] LABS: Basophils # 0.1 K/mm3 (0-0.2); Eosinophils # 0.5 K/mm3 (0.0-0.4); Hemoglobin 13.3 g/dL (12.2-16.2); Lymphocytes # 1.6 K/mm3 (0.7-4.5); Lymphocytes % 13.2 % (10-50); Mean Corpuscular HGB Conc 32.5 g/dL (31.8-35.4); Mean Corpuscular Hemoglobin 27.1 pg (27.0-31.2); Mean Corpuscular Volume 83.3 fl (81-99); Mean Platelet Volume 7.4 fl (7.4-10.4); Monocytes # 0.5 K/mm3 (0.1-1.0); Neutrophils # 9.5 K/mm3 (1.8-7.8); Neutrophils % 77.7 % (37.0-80.0); Platelet Count 319 K/mm3 (142-424); Red Blood Count 4.92 M/mm3 (4.20-5.40); Red Cell Distribution Width 15.2 % (11.5-17.5); White Blood Count 12.2 K/mm3 (4.8-10.8)
[2022-06-01 16:53] LABS: Anion Gap 14.5 mEq/L (5-15); Blood Urea Nitrogen 35 mg/dl (7-17); Calcium 9.2 mg/dl (8.4-10.2); Carbon Dioxide 33 mmol/L (22.0-30.0); Chloride 94 mmol/L (98-107); Creatinine Clearance Estimated 29 mL/min (50-200); Estimated Glomerular Filt Rate 37 ml/min (>60); GFR (African American) 44 ML/MIN (>60); Glucose 263 mg/dl (74-100); Potassium 4.5 mmoL/L (3.5-5.1); Sodium 137 mmol/L (136-145)
[2022-06-01 17:02] LABS: NT Pro Brain Natriuretic Pep. 972 pg/mL (0-450)
[2022-06-01 17:15] LABS: Troponin I < 0.01 ng/ml (0.00-0.034)
--- NOTE | 2022-06-01 18:04 | HMH.EDGENADL ---
Discharge Plan Disposition Patient Disposition: Admitted As Inpatient Condition: Fair Clinical Impressions Clinical Impression: Congestive heart failure Discharge ED Provider: Tawanda Del Real General Adult HPI General Chief complaint: Shortness of Breath/Dyspnea Stated complaint: SOA Time Seen by Provider: 06/01/22 18:03 History of Present Illness HPI narrative: Patient states that she is filling up with fluid . 3 to 4-day history of shortness of breath, swelling of abdomen and legs. She saw her primary care provider, Loli Echeverria, in the office today. States she was told her pulse ox was 88% on room air and that she had gained 7 pounds since her last visit in mid May. She has a history of congestive heart failure and takes Lasix 40 mg twice a day. She had an episode of chest pain last night, but states it only lasted 1 minute . No current chest pain. No fever, vomiting, diarrhea. Related Data Home Medications Medication Instructions Recorded Confirmed ferrous gluconate 324 mg (38 mg 324 mg PO BID anemia 11/20/18 01/04/22 iron) tablet glimepiride 4 mg tablet 4 mg PO BID Diabetes 11/20/18 01/04/22 insulin human U-100 NPH-regulr 40 unit SQ BID Diabetes 11/20/18 01/04/22 70-30 mix 100 unit/mL subcutaneous susp isosorbide mononitrate 60 mg 60 mg PO BID BLOOD PRESSURE 11/20/18 01/04/22 tablet,extended release 24 hr levothyroxine 75 mcg tablet 75 mcg PO DAILY thyroid 11/20/18 01/04/22 omeprazole 40 mg capsule,delayed 40 mg PO HS GERD 11/20/18 01/04/22 release simvastatin 40 mg tablet 40 mg PO HS Cholesterol 11/20/18 01/04/22 timolol 0.25 % eye drops 1 drp OU BID eyes 07/11/19 01/04/22 prazosin 1 mg capsule 2 mg PO BID Hypertension 09/02/19 01/04/22 cholecalciferol (vitamin D3) 50 50 mcg PO DAILY bone health 09/03/19 01/04/22 mcg (2,000 unit) capsule balsalazide 750 mg capsule 750 mg PO BID u.c. 10/01/20 01/04/22 aspirin 81 mg tablet,delayed 81 mg PO DAILY heart health 10/15/20 01/04/22 release (Adult Low Dose Aspirin) spironolactone 25 mg tablet 25 mg PO .MWF 11/03/20 01/04/22 (Aldactone) canagliflozin 100 mg tablet 100 mg PO DAILY 12/02/20 01/04/22 ergocalciferol (vitamin D2) 1,250 1,250 mcg PO WEEKLY 12/02/20 01/04/22 mcg (50,000 unit) capsule albuterol sulfate 90 mcg/actuation 2 puff inhalation ONCE PRN 01/04/22 01/04/22 aerosol inhaler (Ventolin HFA) furosemide 40 mg tablet 40 mg PO BID chf 06/01/22 06/01/22 Previous Rx's Medication Instructions Recorded nitroglycerin 0.4 mg sublingual 0.4 mg sublingual Q5-15M PRN chest 10/15/20 tablet pain #25 tabs carvedilol 25 mg tablet (Coreg) 25 mg PO BID #60 tabs 11/30/21 amlodipine 5 mg tablet 5 mg PO DAILY #30 tabs 12/04/21 Allergies Allergy/AdvReac Type Severity Reaction Status Date / Time Sulfa (Sulfonamide Allergy Intermediate I-RASH Verified 01/04/22 09:18 Antibiotics) [facility] Medical History (Updated 06/01/22 @ 18:23 by Tawanda Del Real MD) Chest pain Dyspnea LV dysfunction Surgical History (Updated 10/01/20 @ 10:19 by Erika Talamantes RN) History of right-sided carotid endarterectomy Social History Smoking Status: Former smoker alcohol intake: never substance use type: denies use current occupational status: retired Travel in the last 8 weeks: Inside the [place] household members: spouse housing: house current occupational exposures/hazards: No caffeine: Yes ROS Obtained: Yes Systems reviewed as appropriate & no additional complaints except as documented Constitutional Constitutional: Denies fever(s), Denies headache(s) and Denies weakness ENT Ears, Nose, Mouth, and Throat: Denies headache(s), Denies nasal discharge and Denies sore throat Cardiovascular Cardiovascular: Reports chest pain and Reports edema Respiratory Respiratory: Reports shortness of breath and Denies cough Gastrointestinal Gastrointestingal: Reports bloating; Denies abdominal pain, constipation,
--- NOTE | 2022-06-01 18:30 | PC.NURSE ---
pt up to restroom, standby assist only, tolerated activity well.
[2022-06-01 18:56] LABS: Alanine Aminotransferase 14 U/L (12-78); Albumin Level 4.1 g/dl (3.5-5.0); Alkaline Phosphatase 97 U/L (38-126); Aspartate Amino Transferase 25 U/L (14-36); Bilirubin,Direct 0.3 mg/dl (0.0-0.4); Bilirubin,Indirect 0.1 mg/dL (0.0-0.9); Bilirubin,Total 0.4 mg/dl (0.2-1.3); Bilirubin,Unconjugated 0.1 mg/dL (0.0-1.1); Total Protein,Serum 7.5 g/dl (6.3-8.2)
--- NOTE | 2022-06-01 19:01 | PC.NURSE ---
notified household refrigeration mechanic of admission
--- NOTE | 2022-06-01 19:18 | PC.NURSE ---
shift change report given to sharirn
[2022-06-01 19:20] LABS: Coronavirus 19, PCR Not Detected (NotDetected); Influenza A, PCR Not Detected (NotDetected); Influenza B, PCR Not Detected (NotDetected)
[2022-06-01 19:28] LABS: Thyroid Stimulating Hormone 2.71 uIU/mL (0.465-4.68)
[2022-06-01 20:16] LABS: Troponin I 0.03 ng/ml (0.00-0.034)
--- NOTE | 2022-06-01 20:39 | EXP.HP ---
History of Present Illness *Admission Date: 06/01/22 *Reason for visit:: SOA, weight gain *History of present illness: Ms. Michelle is a 76-year-old female with a past medical history that is positive for Diastolic CHF with preserved EF, Ulcerative Colitis, Hyperlipidemia, Diabetes Mellitus and Iron deficiency anemia. She presents to [facility] with complaints of weight gain due to fluid and progressive shortness of air with the fluid over approximately a 1-week period of time. She denies orthopnea or paroxysmal nocturnal dyspnea. In the ER the patient had a Cxray that showed pulmonary edema. BNP was elevated at 972. EKG showed NSR with 1st degree AVB with rate 77. On initial evaluation the patient's blood pressure was noted to be elevated in the 200 range systolic, however on re-check the blood pressure was 150 systolic. She was given Lasix 80 mg iv x 1 in the ER. The patient will be admitted with initial impression: CHF exacerbation. She will be placed on strict intake/output. Placed on low sodium diet and CHF teaching performed. The plan of care was discussed with the patient and in length and detatil at bedside prior to admission. Both verbalized understanding and agreement with the plan of care. [facility] Medical History Carpal tunnel syndrome Chest pain Diastolic CHF Dyspnea Hyperlipidemia Iron deficiency anemia LV dysfunction Ulcerative colitis Surgical History H/O hysterectomy for benign disease History of right-sided carotid endarterectomy Family History (Updated 06/01/22 @ 21:29 by Mari Cardoso RN) Liver cancer Family history of diabetes mellitus type I Family history of myocardial infarction Social History (Updated 06/01/22 @ 21:30 by Mari Cardoso RN) Smoking Status: Former smoker alcohol intake: never substance use type: denies use current occupational status: retired Travel in the last 8 weeks: Inside the [place] household members: spouse housing: house current occupational exposures/hazards: No caffeine: Yes Review of Systems Review of Systems Review of systems:: pertinent systems reviewed and negative unless documented below Constitutional Constitutional: Reports weakness and Reports weight gain Eyes Eyes: Reports system reviewed and no additional complaints, except as documented ENT Ears, Nose, Mouth, and Throat: Reports system reviewed and no additional complaints, except as documented *Cardiovascular Cardiovascular: Reports dyspnea, Reports dyspnea on exertion, Reports edema and Reports leg edema *Respiratory Respiratory: Reports dyspnea and Reports dyspnea on exertion *Gastrointestinal Gastrointestinal: Reports system reviewed and no additional complaints, except as documented *Genitourinary Genitourinary: Reports system reviewed and no additional complaints, except as documented *Musculoskeletal Musculoskeletal: Reports system reviewed and no additional complaints, except as documented Integumentary/Breasts Skin/Breast: Reports system reviewed and no additional complaints, except as documented *Neurologic Neurologic: Reports system reviewed and no additional complaints, except as documented and Reports weakness Psychiatric Psychiatric: Reports system reviewed and no additional complaints, except as documented Endocrine Endocrine: Reports system reviewed and no additional complaints, except as documented Hematologic/Lymphatic Hematologic/Lymphatic: Reports system reviewed and no additional complaints, except as documented Allergic/Immunologic Allergic/Immunologic: Reports system reviewed and no additional complaints, except as documented Meds Home Medications and Allergies Home Medications Medication Instructions Recorded Confirmed Type ferrous gluconate 324 mg (38 mg 324 mg PO BID anemia 11/20/18 06/02/22 History iron) ta
[2022-06-01 20:56] LABS: POC Glucose,Bedside 56 (70-110)
--- NOTE | 2022-06-01 21:07 | PC.NURSE ---
PT ARRIVED TO FLOOR VIA WHEELCHAIR AT THIS TIME
--- NOTE | 2022-06-01 22:22 | PC.NURSE ---
NURSE NOTIFIED ABOUT OXYGEN LEVEL OF 85% ON ROOM AIR.
[2022-06-01 22:26] LABS: POC Glucose,Bedside 162 (70-110)
--- NOTE | 2022-06-01 22:26 | PC.NURSE ---
o2 sat on RA 85% now remains on 3l nc o2 sat >90%
--- NOTE | 2022-06-01 22:56 | PC.NURSE ---
upon admission pt stated she used CPAP at night at home. spoke with Agapito BARAJAS, and CPAP was ordered for tonight. Pt refused our CPAP and refused to have her huisband bring her CPAP tonight, stating she is going home in the morning, and she is okay without it tonight. Educated pt on use of CPAP at night, and to have her bring her CPAP for tomorrow night if she is still here. Pt agrees and verbalizes understanding
[2022-06-01 23:23] LABS: Troponin I 0.03 ng/ml (0.00-0.034)
[2022-06-02] VITALS (7 sets, daily range): BP systolic 145–171; BP diastolic 56–85; PULSE 53–66; RESP 18–20; TEMP 36.6–36.9; O2SAT 94–98; BMI 46.5
--- NOTE | 2022-06-02 04:24 | PC.NURSE ---
pt admitted this shift. no changes since previous assessment. +2 pitting edema in BLE. pt gets SOA with little activity. commode placed at bedside. o2 sats remain >90% on 3L NC. LS diminished O2 sats drop to mid 80's on room air.
[2022-06-02 05:39] LABS: POC Glucose,Bedside 111 (70-110)
--- NOTE | 2022-06-02 10:19 | HMH.PHAINT1 ---
Pharmacy Intervention Comments: HOME MEDICATION LIST COMPLETED USING LIST FROM OUTPATIENT PHARMACY AND RX BOTTLES
--- NOTE | 2022-06-02 11:03 | EXP.ACUTE.PN ---
Subjective *Date: 06/02/22 *Time: 11:07 Interval history: Complaining of shortness of breath though somewhat improved overnight with diuresis. Wears oxygen at home at night but not during the day. Still on 2-1/2 L this morning. Denies chest pain, nausea, vomiting. Has been urinating frequently. No significant cough. 14 point review of systems performed, pertinent positives and negatives as per above. Medical Exam Vital signs and Labs for Last 24 Hours: Vital Signs Temp Pulse Pulse Resp BP BP Pulse Ox 06/02/22 07:43 98.4 F 60 18 149/76 H 96 06/02/22 04:00 98.2 F 57 L 20 153/85 H 96 06/02/22 00:00 98.4 F 53 L 18 158/62 H 96 06/01/22 22:21 85 L 06/01/22 21:07 97.9 F 65 18 185/68 H 92 L 06/01/22 20:44 98 F 88 16 152/80 H 06/01/22 20:31 58 L 16 152/80 H 96 06/01/22 20:01 57 L 19 163/62 H 96 06/01/22 19:40 60 18 130/106 H 95 06/01/22 19:00 60 20 165/99 H 95 06/01/22 18:01 64 20 207/84 H 95 06/01/22 18:00 95 06/01/22 16:29 98.6 F 77 24 177/117 H 81 L Intake and Output 06/01/22 06/02/22 06/02/22 23:59 07:59 15:59 Intake Total 300 / 300 Output Total 900 / 1100 950 / 950 0 / 950 Balance -900 / -1100 -650 / -650 0 / -650 Intake: Intake, Oral Amount 300 / 300 Output: Output, Urine Amount 900 / 1100 950 / 950 0 / 950 Other: Number of Voids 1 Number of Unmeasured Voids 0 1 1 Weight 119.011 kg Laboratory Results - last 24 hr 06/01/22 16:32: WBC 12.2 H, RBC 4.92, Hgb 13.3, Hct 41.0, MCV 83.3, MCH 27.1, MCHC 32.5, RDW 15.2, Plt Count 319, MPV 7.4, Neut % (Auto) 77.7, Lymph % (Auto) 13.2, [place] % (Auto) 4.0, Eos % (Auto) 4.0, Baso % (Auto) 1.0, Neut # (Auto) 9.5 H, Lymph # (Auto) 1.6, [place] # (Auto) 0.5, Eos # (Auto) 0.5 H, Baso # (Auto) 0.1 06/01/22 16:32: Sodium 137, Potassium 4.5, Chloride 94 L, Carbon Dioxide 33 H, Anion Gap 14.5, BUN 35 H, Creatinine 1.40 H, Estimated Creat Clear 29, Estimated GFR 37 L, Est GFR ( Amer) 44 L, Glucose 263 H, Calcium 9.2, Troponin I < 0.01 06/01/22 16:32: NT-Pro-B Natriuret Pep 972 H 06/01/22 16:35: Total Bilirubin 0.4, Direct Bilirubin 0.3, Conjugated Bilirubin 0.0, Indirect Bilirubin 0.1, Unconjugated Bilirubin 0.1, AST 25, ALT 14, Alkaline Phosphatase 97, Total Protein 7.5, Albumin 4.1, TSH 2.71 06/01/22 18:55: SARS-CoV-2 (PCR) Not detected, Influenza A Untype (PCR) Not detected, Influenza Type B (PCR) Not detected 06/01/22 19:35: Troponin I 0.03 06/01/22 20:49: POC Glucose 56 L 06/01/22 21:38: POC Glucose 162 H 06/01/22 22:51: Troponin I 0.03 06/02/22 05:24: POC Glucose 111 H I & O for Labs for Last 24 Hours: Intake & Output 05/30/22 05/31/22 06/01/22 06/02/22 23:59 23:59 23:59 23:59 Intake Total 300 / 300 Output Total 900 / 1100 950 / 950 Balance -900 / -1100 -650 / -650 Weight 119.011 kg Constitutional: Present mild distress, obese and chronically ill appearing Head: Present atraumatic and normocephalic ENT: Present normal exam and mucous membranes moist Respiratory: Present accessory muscle use and crackles (bibasilar); Absent rhonchi or wheezes Cardiac: Present Reg Rate and Rhythm; Absent No Murmur GI: Present normal bowel sounds; Absent tenderness Extremities: Present normal inspection, full ROM and edema Comment:: 2+ to grey BLE Skin: Present intact; Absent erythema Neuro: Present Grossly Intact and moves all extremities Assessment and Plan *Assessment and plan (1) Acute exacerbation of CHF (congestive heart failure): Status: Acute Category: Medical Code(s): I50.9 - Heart failure, unspecified (2) Diabetes: Status: Chronic Category: Medical Code(s): E11.9 - Type 2 diabetes mellitus without complications (3) Ulcerative colitis: Status: Chronic Category: Medical Code(s): K51.90 - Ulcerative colitis, unspecified, without complications (4) Iron deficiency anemia: Status
[2022-06-02 18:08] LABS: POC Glucose,Bedside 289 (70-110)
[2022-06-02 21:05] LABS: POC Glucose,Bedside 310 (70-110)
--- NOTE | 2022-06-02 23:39 | PC.NURSE ---
Pt is A/ox4. She has been on 3L NC all shift. She has ambulated to the bathroom as a stand by assist. She gets very winded with exertion. She has tolerated diet well. She has not complained of any pain. I spoke with Dr. Shultz about VTE, and he stated that she is ambulating and doesn't need it. He is aware there is no order, but doesn't want to do it. She has no complaints at this time during shift.
[2022-06-03] VITALS: BP 138/72; PULSE 66; RESP 16; TEMP 36.6; O2SAT 92
[2022-06-03 04:00] VITALS: BP 132/66; PULSE 60; RESP 17; TEMP 36.6; O2SAT 94
[2022-06-03 05:00] VITALS: BMI 46.5
[2022-06-03 05:28] LABS: POC Glucose,Bedside 122 (70-110)
[2022-06-03 07:25] LABS: Basophils # 0.1 K/mm3 (0-0.2); Eosinophils # 0.5 K/mm3 (0.0-0.4); Eosinophils % 4.7 % (0.1-12.0); Hematocrit 39.1 % (37.0-47.0); Hemoglobin 12.5 g/dL (12.2-16.2); Lymphocytes # 1.8 K/mm3 (0.7-4.5); Lymphocytes % 16.4 % (10-50); Mean Corpuscular HGB Conc 31.9 g/dL (31.8-35.4); Mean Corpuscular Hemoglobin 26.9 pg (27.0-31.2); Mean Corpuscular Volume 84.3 fl (81-99); Mean Platelet Volume 7.7 fl (7.4-10.4); Monocytes # 0.7 K/mm3 (0.1-1.0); Monocytes % 6.2 % (1.7-9.3); Neutrophils # 7.7 K/mm3 (1.8-7.8); Neutrophils % 71.6 % (37.0-80.0); Platelet Count 310 K/mm3 (142-424); Red Blood Count 4.64 M/mm3 (4.20-5.40); Red Cell Distribution Width 15.3 % (11.5-17.5); White Blood Count 10.8 K/mm3 (4.8-10.8)
[2022-06-03 07:31] LABS: Alanine Aminotransferase 9 U/L (12-78); Albumin Level 3.6 g/dl (3.5-5.0); Albumin/Globulin Ratio 1.2 (1.1-1.8); Alkaline Phosphatase 101 U/L (38-126); Anion Gap 12.7 mEq/L (5-15); Aspartate Amino Transferase 21 U/L (14-36); Bilirubin,Total 0.7 mg/dl (0.2-1.3); Blood Urea Nitrogen 39 mg/dl (7-17); Calcium 8.8 mg/dl (8.4-10.2); Carbon Dioxide 35 mmol/L (22.0-30.0); Chloride 95 mmol/L (98-107); Creatinine Clearance Estimated 24 mL/min (50-200); Estimated Glomerular Filt Rate 31 ml/min (>60); GFR (African American) 38 ML/MIN (>60); Globulin 3.1 g/dL (1.3-3.2); Glucose 120 mg/dl (74-100); Magnesium 1.9 mg/dl (1.6-2.3); Potassium 4.7 mmoL/L (3.5-5.1); Sodium 138 mmol/L (136-145); Total Protein,Serum 6.7 g/dl (6.3-8.2)
[2022-06-03 08:00] VITALS: BP 155/93; PULSE 58; RESP 17; TEMP 37; O2SAT 91
[2022-06-03 11:21] LABS: POC Glucose,Bedside 221 (70-110)
[2022-06-03 11:31] VITALS: BP 135/53; PULSE 59; RESP 18; TEMP 36.6; O2SAT 92
--- NOTE | 2022-06-03 12:15 | EXP.DC.SUM ---
General Admission date:: 06/02/22 Discharge date: 06/03/22 HPI HPI HPI: Ms. Michelle is a 76-year-old female with a past medical history that is positive for Diastolic CHF with preserved EF, Ulcerative Colitis, Hyperlipidemia, Diabetes Mellitus and Iron deficiency anemia. She presents to [facility] with complaints of weight gain due to fluid and progressive shortness of air with the fluid over approximately a 1-week period of time. She denies orthopnea or paroxysmal nocturnal dyspnea. In the ER the patient had a Cxray that showed pulmonary edema. BNP was elevated at 972. EKG showed NSR with 1st degree AVB with rate 77. On initial evaluation the patient's blood pressure was noted to be elevated in the 200 range systolic, however on re-check the blood pressure was 150 systolic. She was given Lasix 80 mg iv x 1 in the ER. The patient will be admitted with initial impression: CHF exacerbation. She will be placed on strict intake/output. Placed on low sodium diet and CHF teaching performed. The plan of care was discussed with the patient and in length and detatil at bedside prior to admission. Both verbalized understanding and agreement with the plan of care. Hospital Course Hospital Course Hospital Course: 76-year-old female with past medical history of CHF (Diastolic) with preserved EF, Ulcerative Colitis, Diabetes, Hyperlipidemia, Iron deficiency anemia presents with acute onset of Shortness of air associated with weight gain and swelling Acute CHF Exacerbation - Presented with peripheral edema and pulmonary edema on assessment and imaging, Echo from 11/2021 reviewed with Diastolic Dysfunction Grade 2, EF 55%. Started on diuretics, responded well with over 2 L of output daily. On nighttime oxygen at home, continue during admission. Given her saturations during hospitalization, meets criteria for daytime oxygen as well. Impressive response to diuresis. Improved discomfort. Hemodynamically stable. Discharge home with continued diuretic regimen. See medications for full details. -Patient meeting criteria for continuous oxygen therapy. Saturations documented as 85% on room air on day of discharge. Continue 2 L nasal cannula continuously CKD -Review of chart shows that her creatinine is the best its been in the past year.? Stable during admission. New baseline creatinine 1.4-1.6. Diabetes - Sliding Scale insulin while hospitalized. A1c 9.0 during admission. Resumed her home SGLT2 during hospitalization. Needs further adjustment in the outpatient setting. Continued her home regimen for ulcerative colitis. Medically stable for discharge home. Exam Data for Last 24 hours Vital signs and Labs for Last 24 Hours: Temp Pulse Resp BP Pulse Ox 97.9 F 59 L 18 135/53 L 92 L 06/03/22 11:31 06/03/22 11:31 06/03/22 11:31 06/03/22 11:31 06/03/22 11:31 Laboratory Results - last 24 hr 06/01/22 16:32: Hemoglobin A1c 9.0 H 06/02/22 18:01: POC Glucose 289 H 06/02/22 20:58: POC Glucose 310 H* 06/03/22 05:21: POC Glucose 122 H 06/03/22 06:39: WBC 10.8, RBC 4.64, Hgb 12.5, Hct 39.1, MCV 84.3, MCH 26.9 L, MCHC 31.9, RDW 15.3, Plt Count 310, MPV 7.7, Neut % (Auto) 71.6, Lymph % (Auto) 16.4, [place] % (Auto) 6.2, Eos % (Auto) 4.7, Baso % (Auto) 1.0, Neut # (Auto) 7.7, Lymph # (Auto) 1.8, [place] # (Auto) 0.7, Eos # (Auto) 0.5 H, Baso # (Auto) 0.1 06/03/22 06:39: Sodium 138, Potassium 4.7, Chloride 95 L, Carbon Dioxide 35 H, Anion Gap 12.7, BUN 39 H, Creatinine 1.60 H, Estimated Creat Clear 24, Estimated GFR 31 L, Est GFR ( Amer) 38 L, Glucose 120 H, Calcium 8.8, Magnesium 1.9, Total Bilirubin 0.7, AST 21, ALT 9 L D, Alkaline Phosphatase 101, Total Protein 6.7, Albumin 3.6, Globulin 3.1, Albumin/Globulin Ratio 1.2 06/03/22 11:12: POC Glucose 221 H I & O for Last 24 hours: Intake & Output 05/31/22 06/01/22 06/02/22 06/03/22 23:59 23:59 23:59 23:59 Intake Total 900 / 900 480 / 480 Output Total
--- NOTE | 2022-06-03 12:28 | CARE MANAGER ---
MD wanted patient to have oxygen continuos, this was faxed to [facility] (they provide HS O2)
--- NOTE | 2022-06-04 13:21 | CARE MANAGER ---
Spoke with patient for post-discharge phone interview, no needs noted.
== END 2022-06-03 13:33 | disposition home or self-care (01) | DRG 292 ==
LOC: ER 18:23 → 2ND 19:15
PROVIDERS: Admitting Provider Internal Medicine Adolescent Medicine; Emergency Provider Emergency Medicine; PCP Nurse Practitioner Family; Visit Provider Internal Medicine Adolescent Medicine
DX: I50.33 Acute on chronic diastolic (congestive) heart failure (principal); K51.90 Ulcerative colitis, unspecified, without complications; N17.9 Acute kidney failure, unspecified; D50.9 Iron deficiency anemia, unspecified; N18.30 Chronic kidney disease, stage 3 unspecified; J44.9 Chronic obstructive pulmonary disease, unspecified; Z99.81 Dependence on supplemental oxygen; E11.22 Type 2 diabetes mellitus with diabetic chronic kidney disease
CPT/HCPCS: 36415; 71045; 80048; 80053; 80076; 82962; 83036; 83735; 83880; 84443; 84484; 85025; 93005; 94640; 94761; 99285; C9803; G0378; U0003; U0005

== ENCOUNTER 2022-06-10 07:35 | Inpatient (IN) | payer MEDICARE, SELFPAY ==
[2022-06-10] VITALS (50 sets, daily range): BP systolic 112–244; BP diastolic 47–130; PULSE 64–86; RESP 15–24; TEMP 36.4–37.2; O2SAT 89–97; BMI 44.2; BMI 44.1
--- NOTE | 2022-06-10 07:19 | ECG_ITS ---
APPROVED REPORT Exam: Resting ECG HR:87 bpm ECG Measurements Heart Rate 87 AXES IL 221 P 140 QRSd 88 QRS -28 QT 340 T 157 QTc 384 Conclusion ECTOPIC ATRIAL RHYTHM WITH FIRST DEGREE AV BLOCK WITH OCCASIONAL VENTRICULAR PREMATURE COMPLEXES LOW QRS VOLTAGE IN PRECORDIAL LEADS [QRS DEFLECTION < 1.0 mV IN CHEST LEADS] ABNORMAL ECG UNCONFIRMED REPORT Electronically signed by : Mike Saucedo MD 06/10/2022 19:49:54
--- NOTE | 2022-06-10 08:03 | CT_ITS ---
FINAL REPORT TECHNIQUE: Axial images were obtained through the chest without contrast. This study was performed with techniques to keep radiation doses as low as reasonably achievable (ALARA). Individualized dose reduction techniques using automated exposure control or adjustment of mA and/or kV according to the patient's size were employed. CLINICAL HISTORY: concern for pneumonia, covid positive FINDINGS: There is moderate vascular calcification of the aortic arch. There is dense coronary artery calcification. Small bilateral pleural effusions are identified. There is moderate cardiomegaly. There is a dense opacity in the right mid lung and dense bibasilar airspace infiltrates consistent with acute pneumonia. Limited images of the upper abdomen are unremarkable. No suspicious infiltrate or nodule identified. IMPRESSION: Findings consistent with acute pneumonia. Small bilateral pleural effusions. Reviewed, Interpreted and Dictated by Erik Lares MD Transcribed by Analilia Turner Authenticated and [facility]
--- NOTE | 2022-06-10 08:04 | XR_ITS ---
FINAL REPORT CLINICAL HISTORY: concern for covid pneumonia, covid positive COMPARISON: 06/01/2022 FINDINGS: SINGLE-VIEW CHEST There is moderate cardiomegaly and pulmonary vascular congestion. The mediastinum is normal. There is dense airspace opacity in the inferior right upper lobe which is new since prior. Findings are probably due to acute pneumonia. There is no pneumothorax. IMPRESSION: Acute pneumonia. Reviewed, Interpreted and Dictated by Erik Lares MD Transcribed by Analilia Turner Authenticated and [facility]
[2022-06-10 08:07] LABS: Basophils # 0.1 K/mm3 (0-0.2); Basophils % 1.3 % (0.1-2.0); Chloride 94 mmol/L (98-107); Eosinophils # 0.1 K/mm3 (0.0-0.4); Eosinophils % 0.9 % (0.1-12.0); Hematocrit 36.5 % (37.0-47.0); Lymphocytes # 0.9 K/mm3 (0.7-4.5); Lymphocytes % 9.2 % (10-50); Mean Corpuscular HGB Conc 35.6 g/dL (31.8-35.4); Mean Corpuscular Hemoglobin 29.8 pg (27.0-31.2); Mean Corpuscular Volume 83.8 fl (81-99); Mean Platelet Volume 7.7 fl (7.4-10.4); Monocytes # 0.3 K/mm3 (0.1-1.0); Monocytes % 3.1 % (1.7-9.3); Neutrophils # 8.4 K/mm3 (1.8-7.8); Neutrophils % 85.6 % (37.0-80.0); Platelet Count 276 K/mm3 (142-424); Potassium 4.9 mmoL/L (3.5-5.1); Red Blood Count 4.35 M/mm3 (4.20-5.40); Red Cell Distribution Width 15.6 % (11.5-17.5); Sodium 135 mmol/L (136-145); White Blood Count 9.8 K/mm3 (4.8-10.8)
[2022-06-10 08:08] LABS: MANUAL DIFFERENTIAL MANUAL DIFFERENTIAL (MANUAL DIFF)
[2022-06-10 08:09] LABS: Blood Urea Nitrogen 35 mg/dl (7-17); Creatinine Clearance Estimated 31 mL/min (50-200); Estimated Glomerular Filt Rate 40 ml/min (>60); GFR (African American) 48 ML/MIN (>60)
--- NOTE | 2022-06-10 08:09 | HMH.EDGENADL ---
Discharge Plan Disposition Patient Disposition: Admitted As Inpatient Chief Complaint: Shortness of Breath/Dyspnea Clinical Impressions Clinical Impression: Acute on chronic respiratory failure with hypoxia and hypercapnia, Pneumonia Discharge ED Provider: Moises Rodas General Adult HPI General Chief complaint: Shortness of Breath/Dyspnea Stated complaint: shortness of breath Time Seen by Provider: 06/10/22 08:00 History of Present Illness HPI narrative: Patient is a 76-year-old female with a past medical history of CHF, CAD, COPD, hyperlipidemia, hypertension, CKD who presents with concern for shortness of breath. She says that she was recently admitted in the hospital for CHF exacerbation. She says that she was discharged about a week ago. She says that she has been doing okay until she was diagnosed with COVID on Tuesday. She says that she is gotten progressively more short of breath during that time. She says it is worse when she lies flat. She also endorses little bit of chest pain when she takes a deep inspiration. Denies any fever or chills. She does have sputum production but unknown if this is changed from her baseline. She wears 2 L nasal cannula at all times. She states that she has not missed any doses of her medications. She feels like her weight is trending downward. Related Data Home Medications Medication Instructions Recorded Confirmed ferrous gluconate 324 mg (38 mg 324 mg PO BID anemia 11/20/18 06/10/22 iron) tablet glimepiride 4 mg tablet 4 mg PO BIDWMEAL Diabetes 11/20/18 06/10/22 insulin human U-100 NPH-regulr 40 unit SQ DIRECTED Diabetes 11/20/18 06/10/22 70-30 mix 100 unit/mL subcutaneous susp levothyroxine 75 mcg tablet 75 mcg PO DAILYDM hypothyroidism 11/20/18 06/10/22 omeprazole 40 mg capsule,delayed 40 mg PO HS acid reflux 11/20/18 06/10/22 release simvastatin 40 mg tablet 40 mg PO HS Cholesterol 11/20/18 06/10/22 cholecalciferol (vitamin D3) 50 50 mcg PO DAILY bone health 09/03/19 06/10/22 mcg (2,000 unit) capsule balsalazide 750 mg capsule 750 mg PO BID ulcerative colitis 10/01/20 06/10/22 aspirin 81 mg tablet,delayed 81 mg PO DAILY heart health 10/15/20 06/10/22 release (Adult Low Dose Aspirin) albuterol sulfate 90 mcg/actuation 1 puff inhalation Q4HP PRN 01/04/22 06/10/22 aerosol inhaler (Ventolin HFA) Shortness Of Breath latanoprost 0.005 % eye drops 1 drp Eye-Both PM intraocular 06/02/22 06/10/22 pressure fluticasone 100 mcg-salmeterol 50 1 puff inhalation BIDRT COPD 06/10/22 06/10/22 mcg/dose blistr powdr for inhalation (Advair Diskus) Previous Rx's Medication Instructions Recorded nitroglycerin 0.4 mg sublingual 0.4 mg sublingual Q5-15M PRN chest 10/15/20 tablet pain #25 tabs furosemide 40 mg tablet 80 mg PO DAILY diuretic/heart 06/03/22 disease 30 days #60 tabs carvedilol 25 mg tablet (Coreg) 25 mg PO BIDWMEAL High blood 06/08/22 pressure #180 tabs Allergies Allergy/AdvReac Type Severity Reaction Status Date / Time Sulfa (Sulfonamide Allergy Intermediate I-RASH Verified 01/04/22 09:18 Antibiotics) PFSH [facility] Medical History (Updated 06/10/22 @ 13:21 by Moises Rodas MD) Breast cancer Carpal tunnel syndrome Cataract Chest pain Diastolic CHF Dyspnea Hyperlipidemia Iron deficiency anemia LV dysfunction IAN (obstructive sleep apnea) Ulcerative colitis Surgical History (Updated 06/10/22 @ 12:31 by Keerthi Diego, LUIS) H/O hysterectomy for benign disease H/O mastectomy History of right-sided carotid endarterectomy Family History Other Family history of diabetes mellitus type I Family history of myocardial infarction Liver cancer Social History (Updated 06/10/22 @ 12:34 by Keerthi Diego, RN) Smoking Status: Former smoker alcohol intake: never substance use type: denies use current occupational status: retired Travel
[2022-06-10 08:10] LABS: Alanine Aminotransferase 15 U/L (12-78); Albumin Level 3.8 g/dl (3.5-5.0); Albumin/Globulin Ratio 1.1 (1.1-1.8); Alkaline Phosphatase 97 U/L (38-126); Anion Gap 10.9 mEq/L (5-15); Aspartate Amino Transferase 28 U/L (14-36); Bilirubin,Total 0.5 mg/dl (0.2-1.3); Carbon Dioxide 35 mmol/L (22.0-30.0); Globulin 3.4 g/dL (1.3-3.2); Total Protein,Serum 7.2 g/dl (6.3-8.2)
[2022-06-10 08:11] LABS: Calcium 8.5 mg/dl (8.4-10.2); Glucose 221 mg/dl (74-100)
--- NOTE | 2022-06-10 08:11 | PC.NURSE ---
called RT for vbg collection
[2022-06-10 08:13] LABS: VBG Base Excess 2.8 mmol/L (-2.4-2.3); VBG Oxygen Saturation 74.9 % (50-70); VBG Total CO2 33.5 mmol/L (23-27)
[2022-06-10 08:15] LABS: VBG PCO2 82.6 mmol/L (35-51); VBG PH 7.19 mmol/L (7.31-7.41)
--- NOTE | 2022-06-10 08:19 | PC.NURSE ---
pt to radiology
[2022-06-10 08:22] LABS: Lactic Acid 0.9 mmol/L (0.7-2.1)
[2022-06-10 08:23] LABS: Magnesium 1.6 mg/dl (1.6-2.3)
--- NOTE | 2022-06-10 08:23 | PC.NURSE ---
RT to the bedside for bipap
[2022-06-10 08:28] LABS: C-Reactive Protein 30.4 mg/L (0-4)
[2022-06-10 08:34] LABS: NT Pro Brain Natriuretic Pep. 2160 pg/mL (0-450)
[2022-06-10 08:36] LABS: Erythrocyte Sedimentation Rate 16 mm/hr (0-30)
[2022-06-10 08:37] LABS: Troponin I 0.02 ng/ml (0.00-0.034)
[2022-06-10 08:40] LABS: Lymphocytes % 7 % (10-50); Monocytes % 9 % (2-9); Neutrophils % 84 % (42-76); Platelet Estimate Normal; RBC Morphology Normal; Total Cells Counted 100
[2022-06-10 08:43] LABS: Procalcitonin 0.065 ng/mL (0.0-2.0)
[2022-06-10 09:53] LABS: ABG Base Excess -0.6 mmol/L (-2.4-2.3); ABG HCO3 25.3 mmhg (22.0-26.0); ABG Oxygen Saturation 91 % (90-100); ABG PCO2 49.1 mmhg (35.0-45.0); ABG PH 7.33 mmol/L (7.35-7.45); ABG PO2 61.2 mmhg (80-100); ABG TCO2 26.8 mmhg (23-27)
[2022-06-10 09:57] LABS: Allen's Test ACCEPTABLE; Oxygen 40 %; Pressure Support BIPAP 14/7; Source Right Radial
--- NOTE | 2022-06-10 10:20 | PC.NURSE ---
CALLING RAD FOR UPDATE ON REPORTS
--- NOTE | 2022-06-10 10:39 | PC.NURSE ---
titrated drip per protocol per md request
[2022-06-10 10:50] LABS: Influenza A, PCR Not Detected (NotDetected); Influenza B, PCR Not Detected (NotDetected)
[2022-06-10 10:50] LABS: Microscopic, Urine URINE MICROSCOPIC (MICROSCOPIC)
[2022-06-10 10:53] LABS: Appearance,Urine CLEAR (Clear); Bilirubin,Urine Negative (Negative); Blood, Urine TRACE-I (Negative); Glucose,Urine (UA) 1+ (Negative); Ketones,Urine TRACE (Negative); Leukocyte Esterase,Urine Negative (Negative); Nitrate,Urine Negative (Negative); Protein,Urine 3+ (Negative); Specific Gravity, Urine 1.025 (1.005-1.030); Urobilinogen,Urine 0.2 EU/dl (0.2)
[2022-06-10 11:03] LABS: Color,Urine Yellow (Yellow)
[2022-06-10 11:05] LABS: Bacteria,Urine Trace /lpf; Squamous Epithelial Cell,Urine Occasional #/hpf (0-5); WBC,Urine Occasional #/hpf (0-3)
[2022-06-10 11:39] LABS: Coronavirus 19, PCR Detected (NotDetected)
--- NOTE | 2022-06-10 11:40 | PC.NURSE ---
called care management for admission
[2022-06-10 12:05] LABS: Troponin I 0.32 ng/ml (0.00-0.034)
--- NOTE | 2022-06-10 12:38 | PC.NURSE ---
called report to ann boo
--- NOTE | 2022-06-10 12:44 | PC.NURSE ---
drip titrated per protocol
--- NOTE | 2022-06-10 13:37 | PC.NURSE ---
patient arrived to floor by stretcher from ED
--- NOTE | 2022-06-10 13:41 | EXP.HP ---
History of Present Illness *Admission Date: 06/10/22 *Reason for visit:: shortness of breath, cough, fatigue *History of present illness: Patient is a 76-year-old woman with past medical history of diastolic heart failure, CAD status post stent x1, type 2 diabetes, ulcerative colitis, iron deficiency anemia, CKD who comes to the hospital for shortness of breath, fatigue, cough, decreased appetite, and head congestion for the past few days. Patient was recently admitted to this facility from 06/01-06/03 for CHF exacerbation and acute kidney injury. Patient is typically on 2 L of oxygen by nasal cannula for CHF, but she continued to develop the aforementioned cough and shortness of breath despite supplemental oxygen. Patient saw her PCP on Tuesday (3 days ago) and she was diagnosed with COVID at that time. [facility] Medical History (Updated 06/10/22 @ 13:56 by Pancho Zabala MD) Breast cancer Carpal tunnel syndrome Cataract Chest pain Diastolic CHF Dyspnea Hyperlipidemia Iron deficiency anemia LV dysfunction IAN (obstructive sleep apnea) Ulcerative colitis Surgical History (Updated 06/10/22 @ 12:31 by Keerthi Diego RN) H/O hysterectomy for benign disease H/O mastectomy History of right-sided carotid endarterectomy Family History Other Family history of diabetes mellitus type I Family history of myocardial infarction Liver cancer Social History (Updated 06/10/22 @ 12:34 by Keerthi Diego RN) Smoking Status: Former smoker alcohol intake: never substance use type: denies use current occupational status: retired Travel in the last 8 weeks: Inside the [place] household members: spouse housing: house current occupational exposures/hazards: No caffeine: Yes Review of Systems Constitutional Constitutional: Reports as per HPI, Reports body ache(s), Reports chills, Reports fatigue, Denies fever(s), Reports headache(s), Reports poor appetite and Reports lethargy Eyes Eyes: Denies change in vision and Denies loss of vision ENT Ears, Nose, Mouth, and Throat: Denies change in voice, Denies dizziness, Denies dysphagia, Reports headache(s), Denies mouth lesions, Denies odynophagia and Reports sinus pressure *Cardiovascular Cardiovascular: Denies chest pain, Denies chest pain at rest, Denies chest pain with activity, Reports dyspnea, Reports dyspnea on exertion, Denies irregular heart rhythm, Reports leg edema, Reports orthopnea and Denies syncope *Respiratory Respiratory: Reports cough, Reports dyspnea and Reports dyspnea on exertion *Gastrointestinal Gastrointestinal: Denies dysphagia and Denies odynophagia *Musculoskeletal Musculoskeletal: Denies abnormal gait, Denies limited range of motion and Denies muscle weakness *Neurologic Neurologic: Denies abnormal gait, Denies confusion, Denies dizziness, Denies localized weakness, Reports headache(s), Denies loss of vision and Denies syncope Psychiatric Psychiatric: Denies anxiety, Denies confusion and Denies depression Endocrine Endocrine: Reports fatigue Meds Home Medications and Allergies Home Medications Medication Instructions Recorded Confirmed Type ferrous gluconate 324 mg (38 mg 324 mg PO BID anemia 11/20/18 06/10/22 History iron) tablet glimepiride 4 mg tablet 4 mg PO BIDWMEAL Diabetes 11/20/18 06/10/22 History insulin human U-100 NPH-regulr 40 unit SQ DIRECTED Diabetes 11/20/18 06/10/22 History 70-30 mix 100 unit/mL subcutaneous susp levothyroxine 75 mcg tablet 75 mcg PO DAILYDM hypothyroidism 11/20/18 06/10/22 History omeprazole 40 mg capsule,delayed 40 mg PO HS acid reflux 11/20/18 06/10/22 History release simvastatin 40 mg tablet 40 mg PO HS Cholesterol 11/20/18 06/10/22 History cholecalciferol (vitamin D3) 50 50 mcg PO DAILY bone health 09/03/19 06/10/22 History mcg (2,000 unit) capsule balsalazide 750 mg capsule 750 mg PO BID ulcerative colitis 10/01/20
--- NOTE | 2022-06-10 14:03 | PC.NURSE ---
verified with md that patient was to get another dose of lasix now and then stated to give the second dose closer to 6 rather than 4
--- NOTE | 2022-06-10 14:17 | PC.NURSE ---
RN aware of elevated BP.
--- NOTE | 2022-06-10 14:30 | EXP.PHA.CONS ---
Pharmacy Consult Date: 06/10/22 Time: 14:31 Referring provider: DR WILBURN Reason for Consult:: VANCOMYCIN DOSING CONSULT Allergies Allergy/AdvReac Type Severity Reaction Status Date / Time Sulfa (Sulfonamide Allergy Intermediate I-RASH Verified 01/04/22 09:18 Antibiotics) Home Medications Medication Instructions Recorded Confirmed Type ferrous gluconate 324 mg (38 mg 324 mg PO BID anemia 11/20/18 06/10/22 History iron) tablet glimepiride 4 mg tablet 4 mg PO BIDWMEAL Diabetes 11/20/18 06/10/22 History insulin human U-100 NPH-regulr 40 unit SQ DIRECTED Diabetes 11/20/18 06/10/22 History 70-30 mix 100 unit/mL subcutaneous susp levothyroxine 75 mcg tablet 75 mcg PO DAILYDM hypothyroidism 11/20/18 06/10/22 History omeprazole 40 mg capsule,delayed 40 mg PO HS acid reflux 11/20/18 06/10/22 History release simvastatin 40 mg tablet 40 mg PO HS Cholesterol 11/20/18 06/10/22 History cholecalciferol (vitamin D3) 50 50 mcg PO DAILY bone health 09/03/19 06/10/22 History mcg (2,000 unit) capsule balsalazide 750 mg capsule 750 mg PO BID ulcerative colitis 10/01/20 06/10/22 History aspirin 81 mg tablet,delayed 81 mg PO DAILY heart health 10/15/20 06/10/22 History release (Adult Low Dose Aspirin) nitroglycerin 0.4 mg sublingual 0.4 mg sublingual Q5-15M PRN chest 10/15/20 06/10/22 Rx tablet pain #25 tabs albuterol sulfate 90 mcg/actuation 1 puff inhalation Q4HP PRN 01/04/22 06/10/22 History aerosol inhaler (Ventolin HFA) Shortness Of Breath latanoprost 0.005 % eye drops 1 drp Eye-Both PM intraocular 06/02/22 06/10/22 History pressure furosemide 40 mg tablet 80 mg PO DAILY diuretic/heart 06/03/22 06/10/22 Rx disease 30 days #60 tabs carvedilol 25 mg tablet (Coreg) 25 mg PO BIDWMEAL High blood 06/08/22 06/10/22 Rx pressure #180 tabs fluticasone 100 mcg-salmeterol 50 1 puff inhalation BIDRT COPD 06/10/22 06/10/22 History mcg/dose blistr powdr for inhalation (Advair Diskus) New Prescriptions to Start Prescriptions: Height: 1.6 m Weight: 113.115 kg Laboratory Results:: Laboratory Results - last 24 hr 06/10/22 07:20: WBC 9.8, RBC 4.35, Hgb 13.0, Hct 36.5 L, MCV 83.8, MCH 29.8, MCHC 35.6 H, RDW 15.6, Plt Count 276, MPV 7.7, Neut % (Auto) 85.6 H, Lymph % (Auto) 9.2 L, [place] % (Auto) 3.1, Eos % (Auto) 0.9, Baso % (Auto) 1.3, Neut # (Auto) 8.4 H, Lymph # (Auto) 0.9, [place] # (Auto) 0.3, Eos # (Auto) 0.1, Baso # (Auto) 0.1, Total Counted 100, Neutrophils % (Manual) 84 H, Lymphocytes % (Manual) 7 L, Monocytes % (Manual) 9, Platelet Estimate Normal, RBC Morphology Normal 06/10/22 07:20: Sodium 135 L, Potassium 4.9, Chloride 94 L, Carbon Dioxide 35 H, Anion Gap 10.9, BUN 35 H, Creatinine 1.30 H, Estimated Creat Clear 31, Estimated GFR 40 L, Est GFR ( Amer) 48 L, Glucose 221 H, Calcium 8.5, Total Bilirubin 0.5, AST 28, ALT 15, Alkaline Phosphatase 97, Total Protein 7.2, Albumin 3.8, Globulin 3.4 H, Albumin/Globulin Ratio 1.1 06/10/22 07:20: Lactate 0.9 06/10/22 07:20: Troponin I 0.02, C-Reactive Protein 30.4 H, NT-Pro-B Natriuret Pep 2160 H 06/10/22 07:20: ESR 16 06/10/22 07:20: Magnesium 1.6, Procalcitonin 0.065 06/10/22 07:25: SARS-CoV-2 (PCR) Detected A, Influenza A Untype (PCR) Not detected, Influenza Type B (PCR) Not detected 06/10/22 08:12: VBG pH 7.19 L, VBG pCO2 82.6 H, VBG pO2 48.0 H, VBG HCO3 31.0 H, VBG Total CO2 33.5 H, VBG O2 Saturation 74.9 H, VBG Base Excess 2.8 H 06/10/22 08:40: Urine Color Yellow, Urine Appearance Clear, Urine pH 6.0, Ur Specific [place] 1.025, Urine Protein 3+, Urine Glucose (UA) 1+, Urine Ketones Trace, Urine Blood Trace-i, Urine Nitrate Negative, Urine Bilirubin Negative, Urine Urobilinogen 0.2, Ur Leukocyte Esterase Negative, Urine RBC 3-5, Urine WBC Occasional, Ur Squamous Epith Cells Occasional, Urine Bacteria Trace 06/10/22 10:00: Specimen Source Right radial, O2 % 40, ABG pH 7.33 L, ABG pCO2 49.1 H, ABG pO2 61.2 L, ABG HCO3 25.3, ABG Total CO2 26.8, ABG O2 Saturation 91
[2022-06-10 14:48] LABS: Troponin I 0.37 ng/ml (0.00-0.034)
--- NOTE | 2022-06-10 14:49 | DIET.NUTRFU ---
saw patient with present. Patient was on breathing mask and was having a hard time understanding me. Spoke to about diet at home, practices low sugar and low sodium. Checks sugars at home and gives insulin, he explained they hve been really recently d/t COVID. Today he was unable to give insulin with her BS being really low in the 40's and 50's possible d/t low meal intake. He said she reports nothing tastes good. RD also explained the fluid restriction and to only drink beverages at meals and sip inbetween, provided handouts for all diet recommendations and contact information. Will stop tomorrow to review and answer any questions.
[2022-06-10 17:22] LABS: POC Glucose,Bedside 261 (70-110)
--- NOTE | 2022-06-10 17:27 | PC.NURSE ---
Nitro drip titrated as follows: 1545: 40mcg/min 1550: 60mcg/min 1600: 80mcg/min 1640: 100mcg/min 1651: 120mcg/min VS as documented in intervention
--- NOTE | 2022-06-10 17:57 | PC.NURSE ---
Addendum entered by Keerthi Diego RN 06/10/22 17:58: 1655: Original Note: Pt taken off bipap and placed on 5L Dr Sagrario HARRIS aware
[2022-06-10 21:33] LABS: POC Glucose,Bedside 336 (70-110)
[2022-06-10 22:18] LABS: POC Glucose,Bedside 323 (70-110)
--- NOTE | 2022-06-10 23:51 | PC.NURSE ---
1939 nitro drip decreased to 110mcg//min per Hospital verbal order from Elizabeth BARAJAS, stated of with sbp 160-180's 2014 nitro decreased to 90mcg/min 2044 nitro drip decreased to 80mcg/min 2144 nitro drip decreased to 70mcg/min 2234 nitro drip decreased to 60mcg/min 2299 nitro decreased to 50mcg/min 2314 nitro drip off for sbp 112-120's, notified Elizabeth BARAJAS of b/p's and states to monitor neuro checks as needed, no acute distress, pt on side of bed working word search puzzles, alert and oriented x4.
[2022-06-11] VITALS (17 sets, daily range): BP systolic 129–198; BP diastolic 53–89; PULSE 51–65; RESP 12–22; TEMP 36.5–37.1; O2SAT 89–98; BMI 45.6
[2022-06-11 06:07] LABS: Basophils % 0.5 % (0.1-2.0); Eosinophils % 0.2 % (0.1-12.0); Hematocrit 37.3 % (37.0-47.0); Hemoglobin 11.8 g/dL (12.2-16.2); Lymphocytes # 0.8 K/mm3 (0.7-4.5); Lymphocytes % 15.2 % (10-50); Mean Corpuscular HGB Conc 31.5 g/dL (31.8-35.4); Mean Corpuscular Hemoglobin 26.4 pg (27.0-31.2); Mean Corpuscular Volume 83.7 fl (81-99); Mean Platelet Volume 8.1 fl (7.4-10.4); Monocytes # 0.3 K/mm3 (0.1-1.0); Monocytes % 5.7 % (1.7-9.3); Neutrophils # 4.3 K/mm3 (1.8-7.8); Neutrophils % 78.4 % (37.0-80.0); Platelet Count 288 K/mm3 (142-424); Red Blood Count 4.46 M/mm3 (4.20-5.40); Red Cell Distribution Width 15.7 % (11.5-17.5); White Blood Count 5.5 K/mm3 (4.8-10.8)
[2022-06-11 06:11] LABS: Lactic Acid 0.7 mmol/L (0.7-2.1)
[2022-06-11 06:12] LABS: Alanine Aminotransferase 14 U/L (12-78); Albumin Level 3.2 g/dl (3.5-5.0); Albumin/Globulin Ratio 1.1 (1.1-1.8); Alkaline Phosphatase 82 U/L (38-126); Anion Gap 15.3 mEq/L (5-15); Aspartate Amino Transferase 24 U/L (14-36); Bilirubin,Total 0.4 mg/dl (0.2-1.3); Blood Urea Nitrogen 52 mg/dl (7-17); Calcium 8.1 mg/dl (8.4-10.2); Carbon Dioxide 29 mmol/L (22.0-30.0); Chloride 94 mmol/L (98-107); Creatinine Clearance Estimated 23 mL/min (50-200); Estimated Glomerular Filt Rate 29 ml/min (>60); GFR (African American) 35 ML/MIN (>60); Globulin 2.9 g/dL (1.3-3.2); Glucose 290 mg/dl (74-100); Magnesium 1.6 mg/dl (1.6-2.3); Potassium 4.3 mmoL/L (3.5-5.1); Sodium 134 mmol/L (136-145); Total Protein,Serum 6.1 g/dl (6.3-8.2)
[2022-06-11 06:42] LABS: POC Glucose,Bedside 256 (70-110)
[2022-06-11 06:42] LABS: Adenovirus F 40/41, stool Not Detected (NotDetected); Astrovirus Not Detected (NotDetected); Campylobacter Not Detected (NotDetected); Clostridium Difficile A/B, PCR Not Detected (NotDetected); Cryptosporidium Not Detected (NotDetected); Cyclospora Cayetanesis Not Detected (NotDetected); Entamoeba histolytica Not Detected (NotDetected); Enteroaggregative E coli Not Detected (NotDetected); Enteropathogenic E coli Not Detected (NotDetected); Enterotoxigenic E coli Not Detected (NotDetected); Giardia lamblia Not Detected (NotDetected); Norovirus Not Detected (NotDetected); Plesimonas Shigalloides, PCR Not Detected (NotDetected); Rotavirus A Not Detected (NotDetected); Salmonella, PCR Not Detected (NotDetected); Sapovirus Not Detected (NotDetected); Shiga-like toxin E coli Not Detected (NotDetected); Shigella Enterovasive E coli Not Detected (NotDetected); Vibrio Cholerae Not Detected (NotDetected); Vibrio, PCR Not Detected (NotDetected); Yersinia Entercolitica, PCR Not Detected (NotDetected)
--- NOTE | 2022-06-11 07:02 | PC.NURSE ---
called critical troponin to Elizabeth Sinclair, 0.2 repeated and verified, no new orders recieved at this time, also informed elizabeth of urine appears red brown, hematuria with sedement, also notified of diarrhea panel sent as pt has had 3 loose bm's, no new orders at this time.
--- NOTE | 2022-06-11 07:05 | PC.NURSE ---
pt restless through the night, vss, b/p have been normotensive, nitro drip was stopped, pt is alert and oriented x4, 2+ pitting edema, skin pwd, lung sounds diminished, 02 sats have been 90-93% on 5L of 02, f/c to bsd with brown red urine noted with sediment, no acute distress, no other issues or concerns at this time
--- NOTE | 2022-06-11 07:30 | XR_ITS ---
FINAL REPORT TECHNIQUE: Chest PA & Lateral CLINICAL HISTORY: CHF, PNA COMPARISON: 06/10/2022 FINDINGS: 2 views of the chest were performed. There is mild to moderate cardiomegaly. The mediastinum is within normal limits. There is diffuse interstitial opacity in both lungs probably due to edema. There are small bilateral pleural effusions. There is no pneumothorax. The bony thorax appears intact. IMPRESSION: Bilateral edema and pleural effusions. Reviewed, Interpreted and Dictated by Erik Lares MD Transcribed by Rylie Soto Authenticated and [facility]
[2022-06-11 08:19] LABS: ABG Base Excess 0.6 mmol/L (-2.4-2.3); ABG HCO3 25.8 mmhg (22.0-26.0); ABG Oxygen Saturation 96 % (90-100); ABG PCO2 44.9 mmhg (35.0-45.0); ABG PH 7.38 mmol/L (7.35-7.45); ABG PO2 80.1 mmhg (80-100); ABG TCO2 27.2 mmhg (23-27)
[2022-06-11 08:20] LABS: Allen's Test Acceptable; Oxygen 5L NC %; Source Left Radial
--- NOTE | 2022-06-11 10:06 | EXP.PN ---
Subjective *Date: 06/11/22 *Time: 10:06 Interval history: No acute events overnight. Patient has been off BiPAP since 5 PM last night and she is doing well on 5 L by nasal cannula. Her shortness of breath has improved, she is sitting up in her bed doing a crossword puzzle this morning. Exam Data for Last 24 hours Vital signs and Labs for Last 24 Hours: Temp Pulse Resp BP Pulse Ox FiO2 98.3 F 58 L 20 138/59 L 95 40 06/11/22 08:00 06/11/22 07:00 06/11/22 07:00 06/11/22 07:00 06/11/22 07:00 06/10/22 08:41 Laboratory Results - last 24 hr 06/10/22 07:25: SARS-CoV-2 (PCR) Detected A, Influenza A Untype (PCR) Not detected, Influenza Type B (PCR) Not detected 06/10/22 08:40: Urine Color Yellow, Urine Appearance Clear, Urine pH 6.0, Ur Specific [place] 1.025, Urine Protein 3+, Urine Glucose (UA) 1+, Urine Ketones Trace, Urine Blood Trace-i, Urine Nitrate Negative, Urine Bilirubin Negative, Urine Urobilinogen 0.2, Ur Leukocyte Esterase Negative, Urine RBC 3-5, Urine WBC Occasional, Ur Squamous Epith Cells Occasional, Urine Bacteria Trace 06/10/22 11:30: Troponin I 0.32 H 06/10/22 14:10: Troponin I 0.37 H 06/10/22 15:55: POC Glucose 261 H 06/10/22 20:23: POC Glucose 336 H* 06/10/22 22:10: POC Glucose 323 H* 06/11/22 05:53: Troponin I 0.20 H 06/11/22 05:53: WBC 5.5 D, RBC 4.46, Hgb 11.8 L, Hct 37.3, MCV 83.7, MCH 26.4 L, MCHC 31.5 L, RDW 15.7, Plt Count 288, MPV 8.1, Neut % (Auto) 78.4, Lymph % (Auto) 15.2, [place] % (Auto) 5.7, Eos % (Auto) 0.2, Baso % (Auto) 0.5, Neut # (Auto) 4.3, Lymph # (Auto) 0.8, [place] # (Auto) 0.3, Eos # (Auto) 0.0, Baso # (Auto) 0.0 06/11/22 05:53: Sodium 134 L, Potassium 4.3, Chloride 94 L, Carbon Dioxide 29, Anion Gap 15.3 H, BUN 52 H D, Creatinine 1.70 H D, Estimated Creat Clear 23, Estimated GFR 29 L, Est GFR ( Amer) 35 L D, Glucose 290 H D, Calcium 8.1 L, Magnesium 1.6, Total Bilirubin 0.4, AST 24, ALT 14, Alkaline Phosphatase 82, Total Protein 6.1 L, Albumin 3.2 L D, Globulin 2.9, Albumin/Globulin Ratio 1.1 06/11/22 05:53: Lactate 0.7 06/11/22 06:24: POC Glucose 256 H 06/11/22 06:25: Stl Aeromonas (PCR) Not detected, Stl C. cayetanensis PCR Not detected, Stool Rotavirus (PCR) Not detected, Stl Adenov F 40/41 PCR Not detected, Stool Astrovirus (PCR) Not detected, Stool Campylobacter PCR Not detected, Stl C.difficile Tox PCR Not detected, Stool Cryptosporidium PCR Not detected, Stl E.coli Shiga Tox PCR Not detected, Stool E coli O157 PCR Not detected, Stl Enterotoxigenic E PCR Not detected, Stool EPEC (PCR) Not detected, Stool EAEC (PCR) Not detected, Stl E. histolytica PCR Not detected, Stool Giardia Lamblia PCR Not detected, Stool Salmonella PCR Not detected, Stool Sapovirus (PCR) Not detected, Stl P. shigelloides PCR Not detected, Stl Shigella/EIEC PCR Not detected, St Y.enterocolitica PCR Not detected, Stool Vibrio (PCR) Not detected, Stl Vibrio cholerae PCR Not detected, Stl Norovirus GI/GII PCR Not detected 06/11/22 08:15: Specimen Source Left radial, O2 % 5l nc, ABG pH 7.38, ABG pCO2 44.9, ABG pO2 80.1, ABG HCO3 25.8, ABG Total CO2 27.2 H, ABG O2 Saturation 96, ABG Base Excess 0.6, Jona Test Acceptable I & O for Last 24 hours: Intake & Output 11/0806/09/22 06/10/22 06/11/22 23:59 23:59 23:59 23:59 Intake Total 1237.6 / 1237.6 594 / 594 Output Total 1400 / 1400 201 / 201 Balance -162.4 / -162.4 393 / 393 Weight 113 kg 116.8 kg Constitutional Constitutional: no acute distress, morbidly obese, chronically ill appearing and cooperative Comments: sitting up on the side of her bed doing a cross word puzzle, dyspnea improved *Routine HEENT Exam Head: Present normocephalic and atraumatic Eye: Present EOMI and PERRL ENT: Present mucous membranes moist and oropharynx clear *Routine Neck Exam Neck: Present supple and full ROM *Routine Respiratory Exam Respiratory: Present rhonchi and crackles (bibasilar); Absent accessory muscle use, CTA bilaterally, respiratory distress or wheezes *Routine
--- NOTE | 2022-06-11 10:35 | EXP.CARD.CON ---
History of Present Illness History of Present Illness Consult date: 06/11/22 Requesting physician: Pancho Zabala Consult reason: congestive heart failure and shortness of breath Chief complaint: SOA, COVID, pneumonia, elevated troponin Additional Medical History:: 1. Carotid artery stenosis with history of right CEA in 2019 A. Carotid duplex, 05/14/2022, less than 50% stenosis bilaterally. 2. Hypertension with hypertensive heart disease/diastolic dysfunction and congestive heart failure A. Echocardiogram, 12/03/2021, mild biatrial enlargement, normal LV size, mild concentric LVH, EF 55% with no regional WMA, grade 2 diastolic dysfunction with tissue Doppler evidence of raise left atrial pressure. Mild RV enlargement with normal contractility. Trace MR and TR. B. Renal artery duplex, 10/20/2020, technically very difficult but with limited exam showing what appears to be normal kidney sizes with no evidence of significant renal artery stenosis 3. Coronary artery disease with NSTEMI 09/2019 (no stenting required) and prior LAD stenting 12/29/2016 ([place], [place]) A. Abnormal myocardial perfusion scanning 10/10/2020 with ischemia of the inferior posterior basal wall. EF 50%. B. Left heart catheterization, 10/16/2020, left main normal, LAD with proximal 10 to 20% stenosis followed by proximal stent that is widely patent and containing minimal in-stent restenosis. Nondominant circumflex has ostial 10 to 20% stenosis followed by concentric 40 to 50% stenosis in a moderate 2-1/2 mm vessel. RCA dominant with proximal occlusion and excellent [id number] collaterals. EF 65%. LVEDP elevated at 30-35 mmHg. Medical management recommended. 4. History of ulcerative colitis with prior GI bleed and severe anemia. 5. Chronic kidney disease, followed by nephrology 6. Hyperlipidemia 7. Diabetes mellitus type 2 with last hemoglobin A1c of 9 on 06/01/2022 8. COPD 9. COVID, 06/2022 with right upper lobe pneumonia. History of present illness: In review this is a 76-year-old female who presents with shortness of breath.? Hemodynamically stable but ill-appearing.? Her initial vitals show that she is hypoxic.? She was bumped up to 6 L nasal cannula which brought her into the upper 80s and low 90s.? She still seems to be using a little bit of accessory muscles and her lung exam shows rales in bilateral lung glass as well as some rhonchi on the right.? Concern that this could be bacterial pneumonia on top of COVID-pneumonia superimposed on a CHF exacerbation and pulmonary edema.? Due to this I gave her 80 mg of Lasix.? Additionally I gave her 10 mg of Decadron due to her hypoxia in the setting of COVID.? Additionally she was recently admitted to the hospital so I gave her a dose of cefepime here to cover any bacterial pneumonia.? Initial VBG shows a pH of 7.19 with a PCO2 of 82.6 consistent with respiratory acidosis the patient was placed on BiPAP to assist with ventilation.? Laboratory studies were obtained which showed no leukocytosis.? Stable chronic kidney disease.? Her BNP was 2160 consistent with CHF exacerbation which is elevated from her recent admission levels.? She also became hypertensive at this point so this is all consistent with flash pulmonary edema.? Due to this I placed her on a nitroglycerin drip as well to help remove some of the fluid from her lungs as well as help with her blood pressure.? Her chest x-ray and CT scans were all consistent with pulmonary edema as well as focal pneumonia.? Patient is already on cefepime.? I talked with the hospital admission team and the subsequently admitted the patient to their service. The above per NICHOLAS Abreu MD Patient confirms events as noted above. After being diagnosed with COVID on Tuesday she was prescribed Paxlovid but was unable to fill the prescription here in [place]. Nitroglycerin drip was discontinued early this morning with blood pressure in the 170/80s range. Patient denies an
--- NOTE | 2022-06-11 10:51 | HMH.PHAINT1 ---
Pharmacy Intervention Comments: Medication reconciliation completed via external fill history and patient interview. Of note, patient states she no longer takes canagliflozin due to the expensive co-pay. -Ivette Hou, PharmD Candidate 2022
--- NOTE | 2022-06-11 11:37 | CA_ITS ---
APPROVED REPORT EXAM: Comprehensive 2D, Doppler, and color-flow Echocardiogram Layboy Tender: Candace Orona RVT Ht: 5 ft 2 in Wt: 257lbs BSA: 2.13 BP: 138/59 mmHg Indications: CHF,CAD,ELEVATED TROP,DM,COPD,OBESITY,COVID,PNEUMONIA,HTN,HLD,EX SMOKER TDS-PT BODY HABITUS 2D Dimensions LVOT 2.16 cm (M/F) 1.5-2.5 LA Volume 39.90 mL LA Volume Index 18.82 mL/m2 (M/F) 16-34 M-Mode Dimensions RVDd 3.08 cm (0.9-2.6) LA Diam 3.53 cm (1.9-4.0) LVDd 4.26 cm (3.5-5.7) Ao Diam 2.60 cm (2.0-3.7) LVDs 2.92 cm (3.5-5.7) IVSd 1.54 cm (0.6-1.1) PWd 1.08 cm (0.6-1.1) EF (Teich) 59.70% FS 31.50% EDV (Teich) 81.30 mL TAPSE 2.83 (<1.7) ESV (Teich) 32.80 mL LV Diastology E Decel Time 190.00 (160-240 msec) E/A Ratio 1.5 MED E' 8.90 (< 7 cm/sec) E'/MED E' Ratio 13.72 (>14) LAT E' 7.70 (<10 cm/sec) E/LAT E' Ratio 15.86 (>14) Aortic Valve AO Peak GR. 8.40 mmHg Mitral Valve MV E Max Josué. 122.00 (40-130 cm/s) MV A Velocity 84.00 (40-130 cm/s) E/A Ratio 1.46 MV Decel. Time 190.00 (160-240 ms) MV PHT 56.00 ms Pulmonary Valve PV Peak Velocity 83.00 (50-150 cm/s) Tricuspid Valve TR P. Velocity 277.00 cm/s RAP Estimate 10.00 mmHg RVSP 40.70 mmHg Left Ventricle Technically difficult study because of the patient factors and poor acoustic windows. Left atrium is mildly enlarged, left ventricle is normal size mild concentric left ventricular hypertrophy, estimated ejection fraction 55% with no regional wall motion abnormality, diastolic parameters are inconclusive. Right Ventricle Right atrium and right ventricle are mildly enlarged with normal contractility. Aortic Valve Aortic valve is minimally thickened and fibrosed there is no aortic stenosis or aortic insufficiency. Mitral Valve Mitral valve has mitral annular calcification, there is no mitral stenosis, there is mild mitral regurgitation. Tricuspid Valve Tricuspid valve grossly normal, there is mild tricuspid regurgitation, tricuspid regurgitation jet velocity is inadequate for calculation of the right ventricular systolic pressure. Pulmonic Valve Pulmonic valve is poorly visualized. Great Vessels Aortic root is normal size. Inferior vena cava is normal size with normal inspiratory collapse. Pericardium No significant pericardial effusion noted. Conclusion 1. Technically difficult study because of the patient factors and poor acoustic windows. Mild biatrial enlargement, normal left ventricular size, mild concentric left ventricular hypertrophy, estimated ejection fraction 55% with no regional wall motion abnormality, diastolic parameters are inconclusive. 2. Mildly enlarged right ventricle with normal contractility. 3. Mild mitral and tricuspid regurgitation. 4. No significant pericardial effusion noted. 5. Inferior vena cava is normal size with normal inspiratory collapse. Electronically signed by : Oscar Cobb MD 06/11/2022 15:02:05
[2022-06-11 12:19] LABS: POC Glucose,Bedside 191 (70-110)
--- NOTE | 2022-06-11 13:16 | PC.NURSE ---
late entry: pt out of stepdown during am rounds per Dr Zabala
--- NOTE | 2022-06-11 16:24 | PC.NURSE ---
report given to lorraine romero RN at 4100
[2022-06-11 16:27] LABS: POC Glucose,Bedside 217 (70-110)
--- NOTE | 2022-06-11 17:49 | PC.NURSE ---
Pt is alert and oriented x4. She is currently on 5L NC w/O2 sats measuring > 90%. Her pop is to bedside draining brownish red urine, moderate amount of sediment noted. Glucose was 191 and 217 at checks. SSI administered per mar. She reports feeling much better today and is anxious to go home. She is currently sitting on the side of the bed doing a word search puzzle. Bed is locked and in the lowest position, call light is within reach.
[2022-06-11 21:24] LABS: POC Glucose,Bedside 180 (70-110)
[2022-06-12] VITALS (9 sets, daily range): BP systolic 168–196; BP diastolic 73–101; PULSE 60–69; RESP 17–20; TEMP 36.4–36.9; O2SAT 93–98; BMI 45.6
--- NOTE | 2022-06-12 04:27 | PC.NURSE ---
Elevated BP reported to Leonel. Orders for 1 time dose of hydralazine given over the phone. Pt is asymptomatic at this time. Hospitalist putting order in.
--- NOTE | 2022-06-12 06:42 | PC.NURSE ---
pt given orange juice and peanut butter crackers
[2022-06-12 06:50] LABS: POC Glucose,Bedside 54 (70-110)
[2022-06-12 08:39] LABS: POC Glucose,Bedside 186 (70-110)
[2022-06-12 08:44] LABS: Basophils % 0.4 % (0.1-2.0); Eosinophils # 0.1 K/mm3 (0.0-0.4); Eosinophils % 1.4 % (0.1-12.0); Hematocrit 38.7 % (37.0-47.0); Hemoglobin 12.3 g/dL (12.2-16.2); Lymphocytes # 1.3 K/mm3 (0.7-4.5); Lymphocytes % 14.7 % (10-50); Mean Corpuscular HGB Conc 31.9 g/dL (31.8-35.4); Mean Corpuscular Hemoglobin 26.3 pg (27.0-31.2); Mean Corpuscular Volume 82.5 fl (81-99); Mean Platelet Volume 7.7 fl (7.4-10.4); Monocytes # 0.4 K/mm3 (0.1-1.0); Monocytes % 4.9 % (1.7-9.3); Neutrophils # 6.8 K/mm3 (1.8-7.8); Neutrophils % 78.5 % (37.0-80.0); Platelet Count 333 K/mm3 (142-424); Red Blood Count 4.69 M/mm3 (4.20-5.40); Red Cell Distribution Width 15.7 % (11.5-17.5); White Blood Count 8.7 K/mm3 (4.8-10.8)
[2022-06-12 08:50] LABS: Chloride 95 mmol/L (98-107); Potassium 4.3 mmoL/L (3.5-5.1); Sodium 132 mmol/L (136-145)
[2022-06-12 08:53] LABS: Alanine Aminotransferase 14 U/L (12-78); Albumin Level 3.4 g/dl (3.5-5.0); Albumin/Globulin Ratio 1.2 (1.1-1.8); Alkaline Phosphatase 75 U/L (38-126); Anion Gap 16.3 mEq/L (5-15); Aspartate Amino Transferase 25 U/L (14-36); Bilirubin,Total 0.3 mg/dl (0.2-1.3); Blood Urea Nitrogen 64 mg/dl (7-17); Calcium 8.2 mg/dl (8.4-10.2); Carbon Dioxide 25 mmol/L (22.0-30.0); Creatinine Clearance Estimated 18 mL/min (50-200); Estimated Glomerular Filt Rate 23 ml/min (>60); GFR (African American) 28 ML/MIN (>60); Globulin 2.9 g/dL (1.3-3.2); Glucose 148 mg/dl (74-100); Total Protein,Serum 6.3 g/dl (6.3-8.2)
[2022-06-12 08:54] LABS: Magnesium 1.7 mg/dl (1.6-2.3)
--- NOTE | 2022-06-12 09:07 | EXP.DC.SUM ---
General Admission date:: 06/10/22 Discharge date: 06/12/22 HPI HPI HPI: Patient is a 76-year-old woman with past medical history of diastolic heart failure, CAD status post stent x1, type 2 diabetes, ulcerative colitis, iron deficiency anemia, CKD who comes to the hospital for shortness of breath, fatigue, cough, decreased appetite, and head congestion for the past few days. Patient was recently admitted to this facility from 06/01-06/03 for CHF exacerbation and acute kidney injury. Patient is typically on 2 L of oxygen by nasal cannula for CHF, but she continued to develop the aforementioned cough and shortness of breath despite supplemental oxygen. Patient saw her PCP on Tuesday (3 days ago) and she was diagnosed with COVID at that time. Hospital Course Hospital Course Hospital Course: Patient is a 76-year-old woman with several significant comorbidities including diastolic heart failure, poorly controlled type 2 diabetes, COPD, ulcerative colitis, iron deficiency anemia, and morbid obesity who was admitted on 06/10 for COVID, diastolic heart failure exacerbation, and HCAP. This was a readmission as patient was discharged home on 06/03 for a heart failure exacerbation, but she became more short of breath and was diagnosed with COVID on 06/07. Patient was treated here with aggressive diuresis, including a total of 160 mg of Lasix IV on day of admission, followed by 40 mg IV twice daily yesterday and today. Patient will be discharged home on 40 mg p.o. 3 times daily and advised to use compression stockings as well. Cardiology was consulted and a repeat echocardiogram was done with no change to patient's ejection fraction noted. Cardiology recommends Imdur or hydralazine to improve blood pressure control. -On arrival to the ER patient's blood pressure was very high at 241/121. Patient was placed on a nitro drip and this improved and was stopped just after 7 PM on day of admission. On 1110 I started irbesartan 75 mg p.o. in addition to her home medication of Coreg 25 mg p.o. twice daily. On 06/12 patient was started on Imdur 30 mg p.o. daily and she will continue this as well as irbesartan 75 mg p.o. daily on discharge. -Patient was given 3 doses of remdesivir, and there is no need to continue this IV medication as her O2 sats are now back to baseline of 2 L by nasal cannula. -Patient was treated with Vanco and cefepime for healthcare acquired pneumonia. She will be discharged with 4 days of Levaquin 500 p.o. daily. Exam Data for Last 24 hours Vital signs and Labs for Last 24 Hours: Temp Pulse Resp BP Pulse Ox FiO2 97.5 F L 63 17 172/101 H 93 L 40 06/12/22 08:00 06/12/22 08:00 06/12/22 08:00 06/12/22 08:00 06/12/22 08:00 06/10/22 08:41 Laboratory Results - last 24 hr 06/11/22 06:25: Stl Aeromonas (PCR) Not detected, Stl C. cayetanensis PCR Not detected, Stool Rotavirus (PCR) Not detected, Stl Adenov F 40/41 PCR Not detected, Stool Astrovirus (PCR) Not detected, Stool Campylobacter PCR Not detected, Stl C.difficile Tox PCR Not detected, Stool Cryptosporidium PCR Not detected, Stl E.coli Shiga Tox PCR Not detected, Stool E coli O157 PCR Not detected, Stl Enterotoxigenic E PCR Not detected, Stool EPEC (PCR) Not detected, Stool EAEC (PCR) Not detected, Stl E. histolytica PCR Not detected, Stool Giardia Lamblia PCR Not detected, Stool Salmonella PCR Not detected, Stool Sapovirus (PCR) Not detected, Stl P. shigelloides PCR Not detected, Stl Shigella/EIEC PCR Not detected, St Y.enterocolitica PCR Not detected, Stool Vibrio (PCR) Not detected, Stl Vibrio cholerae PCR Not detected, Stl Norovirus GI/GII PCR Not detected 06/11/22 12:08: POC Glucose 191 H 06/11/22 16:09: POC Glucose 217 H 06/11/22 21:09: POC Glucose 180 H 06/12/22 06:41: POC Glucose 54 L 06/12/22 08:29: POC Glucose 186 H 06/12/22 08:36: WBC 8.7 D, RBC 4.69, Hgb 12.3, Hct 38.7, MCV 82.5, MCH 26.3 L, MCHC 31.9, RDW 15.7, Plt Count 333, MPV 7.7, Neut % (Auto) 78.5, Lymph % (Auto) 14.7,
--- NOTE | 2022-06-12 12:02 | PC.NURSE ---
pt has voided 2x post cath removal. Denies any issue with urination
--- NOTE | 2022-06-12 12:02 | PC.NURSE ---
pt has been discahrged from the unit. Took all belongings and home medication. Voiced understanding of all dc education and follow up appts. @ bedside during education. Saline locks discontinued. exited via wheelchair
--- NOTE | 2022-06-14 12:52 | CARE MANAGER ---
Contacted patient related to hospital discharge. She states she isn't feeling the best but she is better. She has all her medications and denies questions or concerns. LUIS Cid
== END 2022-06-12 12:05 | disposition home or self-care (01) | DRG 280 ==
LOC: ER 07:56 → 2ND 12:17
PROVIDERS: Admitting Provider Emergency Medicine; Emergency Provider Student in an Organized Health Care Education/Training Program; Visit Provider Emergency Medicine
DX: I13.0 Hypertensive heart and chronic kidney disease with heart failure and stage 1 through stage 4 chronic kidney disease, or unspecified chronic kidney disease; J12.82 Pneumonia due to coronavirus disease 2019; I21.A1 Myocardial infarction type 2; U07.1 COVID-19; I50.32 Chronic diastolic (congestive) heart failure; K51.90 Ulcerative colitis, unspecified, without complications; I25.118 Atherosclerotic heart disease of native coronary artery with other forms of angina pectoris; D50.9 Iron deficiency anemia, unspecified; N18.30 Chronic kidney disease, stage 3 unspecified; I65.23 Occlusion and stenosis of bilateral carotid arteries; E11.9 Type 2 diabetes mellitus without complications; Z79.4 Long term (current) use of insulin; Z79.899 Other long term (current) drug therapy
CPT/HCPCS: 36415; 71045; 71046; 71250; 80053; 81001; 82803; 82962; 83605; 83735; 83880; 84145; 84484; 85007; 85025; 85651; 86140; 87040; 87070; 87205; 87506; 93005; 93306; 94640; 94761; 99291; C9803; U0003; U0005

== ENCOUNTER → 2022-06-16 09:04 | Outpatient (CLI) | payer MEDICARE, SELFPAY ==
[2022-06-16 09:43] LABS: Basophils # 0.1 K/mm3 (0-0.2); Basophils % 1.1 % (0.1-2.0); Eosinophils # 0.4 K/mm3 (0.0-0.4); Hemoglobin 12.4 g/dL (12.2-16.2); Lymphocytes # 1.1 K/mm3 (0.7-4.5); Lymphocytes % 10.4 % (10-50); Mean Corpuscular HGB Conc 31.9 g/dL (31.8-35.4); Mean Corpuscular Hemoglobin 26.6 pg (27.0-31.2); Mean Corpuscular Volume 83.4 fl (81-99); Mean Platelet Volume 7.6 fl (7.4-10.4); Monocytes # 0.9 K/mm3 (0.1-1.0); Monocytes % 8.4 % (1.7-9.3); Neutrophils # 7.9 K/mm3 (1.8-7.8); Neutrophils % 76.1 % (37.0-80.0); Platelet Count 360 K/mm3 (142-424); Red Blood Count 4.68 M/mm3 (4.20-5.40); Red Cell Distribution Width 16.1 % (11.5-17.5); White Blood Count 10.3 K/mm3 (4.8-10.8)
[2022-06-16 10:00] LABS: Blood Urea Nitrogen 40 mg/dl (7-17); Calcium 8.9 mg/dl (8.4-10.2); Carbon Dioxide 35 mmol/L (22.0-30.0); Chloride 93 mmol/L (98-107); Estimated Glomerular Filt Rate 40 ml/min (>60); GFR (African American) 48 ML/MIN (>60); Glucose 182 mg/dl (74-100); Sodium 137 mmol/L (136-145)
== END ==
PROVIDERS: Nurse Practitioner; PCP Nurse Practitioner Family; Visit Provider Internal Medicine
DX: I11.9 Hypertensive heart disease without heart failure (principal); I50.9 Heart failure, unspecified; N18.30 Chronic kidney disease, stage 3 unspecified
CPT/HCPCS: 36415; 80048; 85025

== ENCOUNTER → 2022-07-15 09:10 | Outpatient (CLI) | payer MEDICARE, SELFPAY ==
[2022-07-15 10:41] LABS: Anion Gap 11.3 mEq/L (5-15); Blood Urea Nitrogen 38 mg/dl (7-17); Calcium 9.1 mg/dl (8.4-10.2); Carbon Dioxide 33 mmol/L (22.0-30.0); Chloride 99 mmol/L (98-107); Estimated Glomerular Filt Rate 26 ml/min (>60); GFR (African American) 31 ML/MIN (>60); Glucose 159 mg/dl (74-100); Potassium 4.3 mmoL/L (3.5-5.1); Sodium 139 mmol/L (136-145)
== END ==
PROVIDERS: PCP Nurse Practitioner Family; Visit Provider Nurse Practitioner Family
DX: E78.2 Mixed hyperlipidemia (principal); I25.118 Atherosclerotic heart disease of native coronary artery with other forms of angina pectoris; I50.30 Unspecified diastolic (congestive) heart failure; I65.23 Occlusion and stenosis of bilateral carotid arteries; J18.9 Pneumonia, unspecified organism; N18.30 Chronic kidney disease, stage 3 unspecified; Z98.890 Other specified postprocedural states; I11.0 Hypertensive heart disease with heart failure
CPT/HCPCS: 36415; 80048

== ENCOUNTER → 2022-07-29 07:55 | Outpatient (CLI) | payer MEDICARE, SELFPAY | PROVIDERS: PCP Nurse Practitioner Family; Visit Provider Internal Medicine Pulmonary Disease | DX: R06.09 Other forms of dyspnea (principal) | CPT/HCPCS: 94060; 94618; 94726; 94729 ==

== ENCOUNTER → 2022-09-01 12:55 | Outpatient (CLI) | payer MEDICARE, SELFPAY ==
[2022-09-01 13:26] LABS: Basophils # 0.2 K/mm3 (0-0.2); Basophils % 1.6 % (0.1-2.0); Eosinophils # 0.6 K/mm3 (0.0-0.4); Eosinophils % 4.6 % (0.1-12.0); Hematocrit 40.6 % (37.0-47.0); Hemoglobin 13.1 g/dL (12.2-16.2); Lymphocytes # 2.1 K/mm3 (0.7-4.5); Lymphocytes % 16.3 % (10-50); Mean Corpuscular HGB Conc 32.2 g/dL (31.8-35.4); Mean Corpuscular Hemoglobin 26.8 pg (27.0-31.2); Mean Corpuscular Volume 83.4 fl (81-99); Mean Platelet Volume 7.7 fl (7.4-10.4); Monocytes # 0.5 K/mm3 (0.1-1.0); Monocytes % 3.7 % (1.7-9.3); Neutrophils # 9.6 K/mm3 (1.8-7.8); Neutrophils % 73.8 % (37.0-80.0); Platelet Count 372 K/mm3 (142-424); Red Blood Count 4.87 M/mm3 (4.20-5.40); Red Cell Distribution Width 15.8 % (11.5-17.5); White Blood Count 13.1 K/mm3 (4.8-10.8)
[2022-09-01 14:11] LABS: Albumin Level 3.8 g/dl (3.5-5.0); Anion Gap 11.7 mEq/L (5-15); Blood Urea Nitrogen 38 mg/dl (7-17); Calcium 8.3 mg/dl (8.4-10.2); Carbon Dioxide 33 mmol/L (22.0-30.0); Chloride 97 mmol/L (98-107); Estimated Glomerular Filt Rate 24 ml/min (>60); GFR (African American) 29 ML/MIN (>60); Glucose 205 mg/dl (74-100); Phosphorous 4.7 mg/dl (2.5-4.5); Potassium 4.7 mmoL/L (3.5-5.1); Sodium 137 mmol/L (136-145)
[2022-09-01 14:22] LABS: Intact Parathyroid Hormone 199.6 pg/mL (7.5-53.5)
[2022-09-01 14:27] LABS: 25-OH Vitamin D, Total 16.5 ng/mL (30-100)
== END ==
PROVIDERS: PCP Nurse Practitioner Family; Visit Provider Internal Medicine Nephrology
DX: N18.4 Chronic kidney disease, stage 4 (severe) (principal); I10 Essential (primary) hypertension; N25.0 Renal osteodystrophy; R80.1 Persistent proteinuria, unspecified
CPT/HCPCS: 36415; 80069; 82306; 83970; 85025

== ENCOUNTER → 2022-09-06 12:43 | Outpatient (POV) | payer MEDICARE, SELFPAY | PROVIDERS: Visit Provider Internal Medicine Nephrology | DX: Z00.00 Encounter for general adult medical examination without abnormal findings (principal) ==

== ENCOUNTER → 2022-12-29 14:49 | Outpatient (CLI) | payer MEDICARE, SELFPAY ==
--- NOTE | 2022-12-29 14:49 | CT_ITS ---
FINAL REPORT TECHNIQUE: Axial CT images of the chest were obtained without contrast. Low-dose protocol was utilized. This study was performed with techniques to keep radiation doses as low as reasonably achievable (ALARA). Individualized dose reduction techniques using automated exposure control or adjustment of mA and/or kV according to the patient's size were employed. CLINICAL HISTORY: former smoker. quit 2 years ago. smoked 3 ppd x 55 years. copd COMPARISON: CT chest 05/11/2022 FINDINGS: CT CHEST WITHOUT, LOW DOSE SCREENING CT Di Vol: 2.90 mGy DLP: 100.03 mGy*cm There is no significant axillary, mediastinal, or hilar adenopathy. The heart size is normal. There are dense vascular calcifications of the aortic arch and coronary arteries. There is no pleural or pericardial effusion. The lung windows show an 11 mm noncalcified nodule in the left lower lobe seen on image 47 of series 4 and a 7 mm posterior right middle lobe nodule seen on image 45 of series 3. Limited images of the upper abdomen demonstrate no acute findings. IMPRESSION: Right mid lobe and left lower lobe noncalcified nodules. LR Category 4A: 3 month follow-up low-dose chest CT is recommended. Reviewed, Interpreted and Dictated by Erik Lares MD Transcribed by Ann Madera Authenticated and . [facility]
== END ==
PROVIDERS: PCP Nurse Practitioner Family; Visit Provider Internal Medicine Pulmonary Disease
DX: Z87.891 Personal history of nicotine dependence (principal); Z12.2 Encounter for screening for malignant neoplasm of respiratory organs
CPT/HCPCS: 71271

== ENCOUNTER 2023-02-22 15:41 | Observation (INO) | payer MEDICARE, SELFPAY ==
--- NOTE | 2023-02-22 15:36 | PC.NURSE ---
FSB mg/dL. Reported to LUIS Healy
[2023-02-22 15:41] VITALS: BP 173/75; PULSE 62; O2SAT 92
[2023-02-22 15:48] VITALS: BP 154/99; PULSE 77; RESP 20; TEMP 36.8; O2SAT 98; BMI 44.2
--- NOTE | 2023-02-22 15:58 | PC.NURSE ---
No needs at this time
[2023-02-22 16:03] VITALS: BP 115/96; PULSE 62; O2SAT 96
--- NOTE | 2023-02-22 16:05 | XR_ITS ---
FINAL REPORT CLINICAL HISTORY: SOA hypoglycemia blood sugar dropped and patient says she passed out, woke up in er. brought in by ambulance. COMPARISON: 06/11/2022 FINDINGS: SINGLE VIEW CHEST There is cardiomegaly. The mediastinum is normal. The lungs are clear. There is no pneumothorax. IMPRESSION: No acute cardiopulmonary process. Reviewed, Interpreted and Dictated by Robb Palomo MD Transcribed by Luly Garza Authenticated and [facility]
--- NOTE | 2023-02-22 16:08 | CT_ITS ---
PROCEDURE INFORMATION: Exam: CT Head Without Contrast Exam date and time: 02/22/2023 4:37 PM Age: 77 years old Clinical indication: Injury or trauma; Fall; Blunt trauma (contusions or hematomas); Altered mental status/memory loss; Additional info: Fall, head trauma, AMS TECHNIQUE: Imaging protocol: Computed tomography of the head without contrast. Radiation optimization: All CT scans at this facility use at least one of these dose optimization techniques: automated exposure control; mA and/or kV adjustment per patient size (includes targeted exams where dose is matched to clinical indication); or iterative reconstruction. REPORTING DATA: Count of CT and Cardiac NM exams in prior 12 months: This patient has received 2 known CTs and 0 known cardiac nuclear medicine studies in the 12 months prior to the current study. COMPARISON: CT ANGIO NECK 04/18/2020 10:17 AM FINDINGS: Brain: A small area of hypodensity is identified within the left occipital lobe, likely contributed by artifact. Infarct cannot be excluded, but is considered less likely. Small areas hypodense encephalomalacia/gliosis are identified within the right parietal lobe, consistent with old infarcts or brain insults. A small hypodense dilated perivascular space is visualized below the right basal ganglia. The yoder-white differentiation is otherwise preserved. No acute intracranial hemorrhage is visualized. There are scattered foci of white matter hypodensity, likely representing small vessel ischemic disease. The acuity of the white matter disease is indeterminate. The midline structures are stable compared to the previous exam. Within the left parietal convexity, there is an extra-axial calcified lesion/meningioma measuring 9 mm in diameter, without progression compared to the prior CT. Cerebral ventricles: There is mild prominence of the ventricles and sulci, compatible with atrophy. Mild asymmetry of the lateral ventricles. Paranasal sinuses: Mucosal thickening of the right maxillary sinus. Mucosal thickening of the left maxillary sinus. Mastoid air cells: Minimal effusions within right mastoid air cells. Orbital cavities: Bilateral orbital lens implants. Bones/joints: There is focal thinning of the right temporal skull post a to the mastoid air cells, which is a chronic finding compared to the prior study. Soft tissues: Unremarkable. Vasculature: Intracranial atherosclerosis visualized. IMPRESSION: 1. No acute intracranial hemorrhage. 2. A small area of hypodensity is identified within the left occipital lobe, likely contributed by artifact. Infarct cannot be excluded, but is considered less likely. If further evaluation is clinically indicated, an MRI of the brain is recommended. 3. Small areas hypodense encephalomalacia/gliosis are identified within the right parietal lobe, consistent with old infarcts or brain insults. 4. There are scattered foci of white matter hypodensity, likely representing small vessel ischemic disease. 5. Mild atrophy. 6. Minimal effusions within right mastoid air cells. 7. Within the left parietal convexity, there is an extra-axial calcified lesion/meningioma, without progression compared to the prior CT. 8. Additional findings described above. Findings are discussed with Fabian Winter , 02/22/2023 5:30 PM EDT. The findings were acknowledged and understood.
--- NOTE | 2023-02-22 16:10 | PC.NURSE ---
notified RT of abg order
--- NOTE | 2023-02-22 16:16 | HMH.EDGENADL ---
Discharge Plan Disposition Patient Disposition: Admitted as Observation Clinical Impressions Clinical Impression: PIEDAD (acute kidney injury), Hypoglycemia Discharge ED Provider: Fabian Winter General Adult HPI General Chief complaint: Hyper/Hypoglycemia Stated complaint: hypoglycemia Time Seen by Provider: 02/22/23 15:48 Mode of Arrival: EMS Source of Information: Patient Limitations: No Limitations Description of Symptoms (Recalled from ER Triage Doc. by RN): pt to ed c/o hypogylcemia and ams. ems states pt had a finger stick of 49 on scene. ems reports administering an amp of D50 in route, fsbs on arrival is 125. History of Present Illness HPI narrative: This is a 77-year-old female with history of hypertension, hyperlipidemia, type 2 diabetes, diastolic heart failure, COPD on nightly oxygen, PAD, currently smoking presenting with altered mental status and hypoglycemia. Per EMS, patient was at [facility] when she collapsed, hit the ground, bystanders mentioned they were unsure if she hit her head. On arrival, EMS took patient's blood sugar it was 49, so brought her to the emergency department after administering D50. Fingerstick on arrival 125. Initially, patient reported to be altered, answering questions appropriately on my evaluation. Denies chest pain, shortness of breath, nausea or vomiting, fevers or chills, dysuria hematuria, diarrhea constipation, abdominal pain, or any other concerns at this time. Patient remembers the event Related Data Home Medications Medication Instructions Recorded Confirmed ferrous gluconate 324 mg (38 mg 324 mg PO BID anemia 11/20/18 02/22/23 iron) tablet glimepiride 4 mg tablet 4 mg PO BIDWMEAL Diabetes 11/20/18 02/22/23 levothyroxine 75 mcg tablet 75 mcg PO DAILYDM hypothyroidism 11/20/18 02/22/23 omeprazole 40 mg capsule,delayed 40 mg PO HS acid reflux 11/20/18 02/22/23 release simvastatin 40 mg tablet 40 mg PO HS Cholesterol 11/20/18 02/22/23 cholecalciferol (vitamin D3) 50 50 mcg PO DAILY bone health 09/03/19 02/22/23 mcg (2,000 unit) capsule balsalazide 750 mg capsule 2,250 mg PO BID ulcerative colitis 10/01/20 02/22/23 aspirin 81 mg tablet,delayed 81 mg PO DAILY heart health 10/15/20 02/22/23 release (Adult Low Dose Aspirin) latanoprost 0.005 % eye drops 1 drp Eye-Both PM intraocular 06/02/22 02/22/23 pressure insulin human U-100 NPH-regulr 20 unit SQ HS Diabetes 06/11/22 02/22/23 70-30 mix 100 unit/mL subcutaneous susp (Novolin 70/30 U-100 Insulin) insulin human U-100 NPH-regulr 90 unit SQ AM Diabetes 06/11/22 02/22/23 70-30 mix 100 unit/mL subcutaneous susp (Novolin 70/30 U-100 Insulin) canagliflozin 100 mg tablet 100 mg PO DAILY Diabetes 06/22/22 02/22/23 (Invokana) Previous Rx's Medication Instructions Recorded nitroglycerin 0.4 mg sublingual 0.4 mg sublingual Q5-15M PRN chest 10/15/20 tablet pain #25 tabs carvedilol 25 mg tablet (Coreg) 25 mg PO BIDWMEAL High blood 06/08/22 pressure #180 tabs furosemide 40 mg tablet 40 mg PO TID diuretic/heart 07/22/22 disease #90 tabs Allergies Allergy/AdvReac Type Severity Reaction Status Date / Time Sulfa (Sulfonamide Allergy Intermediate I-RASH Verified 01/19/23 10:40 Antibiotics) [facility] Disclaimer: The information contained in this section may have been updated after the patient was seen, as this information can be updated by other users. 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
--- NOTE | 2023-02-22 16:22 | PC.NURSE ---
Radiology at BS; RT at BS for ABRigo
--- NOTE | 2023-02-22 16:31 | ECG_ITS ---
APPROVED REPORT Exam: Resting ECG HR:51 bpm ECG Measurements Heart Rate 51 AXES DE 201 P 42 QRSd 94 QRS -15 QT 450 T 37 QTc 426 Conclusion SINUS BRADYCARDIA WITH OCCASIONAL ECTOPIC PREMATURE COMPLEXES LEFT ATRIAL ENLARGEMENT [-0.15mV P-WAVE IN V1/V2] LOW QRS VOLTAGE IN PRECORDIAL LEADS [QRS DEFLECTION < 1.0 mV IN CHEST LEADS] POSSIBLE LEFT VENTRICULAR HYPERTROPHY [VOLTAGE CRITERIA PLUS LAE OR QRS WIDENING] ANTEROSEPTAL MYOCARDIAL INFARCTION , OF INDETERMINATE AGE [40+ ms Q WAVE IN V1-V4] ABNORMAL ECG UNCONFIRMED REPORT Electronically signed by : Mike Saucedo MD 02/22/2023 21:11:56
--- NOTE | 2023-02-22 16:41 | PC.NURSE ---
From CT; spouse at BS
[2023-02-22 16:48] LABS: ABG Base Excess 4.8 mmol/L (-2.4-2.3); ABG HCO3 30.1 mmhg (22.0-26.0); ABG Oxygen Saturation 95 % (90-100); ABG PH 7.37 mmol/L (7.35-7.45); ABG TCO2 31.7 mmhg (23-27)
[2023-02-22 16:49] LABS: Allen's Test Acceptable; Oxygen 3.5 LPM %; Source Left Radial
[2023-02-22 16:51] LABS: ABG PCO2 53.4 mmhg (35.0-45.0)
--- NOTE | 2023-02-22 16:52 | PC.NURSE ---
PATIENT PLACED ON BEDPAN, PATIENT CHANGED INTO A GOWN AND URINE COLLECTED
--- NOTE | 2023-02-22 17:01 | PC.NURSE ---
URINE COLLECTED AND SENT TO LAB
[2023-02-22 17:10] LABS: Microscopic, Urine URINE MICROSCOPIC (MICROSCOPIC)
--- NOTE | 2023-02-22 17:30 | PC.NURSE ---
NICHOLAS Winter spoke with Elijah
[2023-02-22 17:35] LABS: Appearance,Urine CLEAR (Clear); Bilirubin,Urine Negative (Negative); Blood, Urine 1+ (Negative); Color,Urine YELLOW (Yellow); Glucose,Urine (UA) 2+ (Negative); Ketones,Urine Negative (Negative); Leukocyte Esterase,Urine TRACE (Negative); Nitrate,Urine Negative (Negative); Protein,Urine 2+ (Negative); Specific Gravity, Urine 1.015 (1.005-1.030); Urobilinogen,Urine 0.2 EU/dl (0.2)
[2023-02-22 17:58] LABS: Basophils # 0.1 K/mm3 (0-0.2); Basophils % 0.8 % (0.1-2.0); Eosinophils # 0.4 K/mm3 (0.0-0.4); Eosinophils % 3.3 % (0.1-12.0); Hematocrit 46.1 % (37.0-47.0); Hemoglobin 14.2 g/dL (12.2-16.2); Lymphocytes # 1.2 K/mm3 (0.7-4.5); Lymphocytes % 10.3 % (10-50); Mean Corpuscular HGB Conc 30.9 g/dL (31.8-35.4); Mean Corpuscular Hemoglobin 25.6 pg (27.0-31.2); Mean Platelet Volume 7.5 fl (7.4-10.4); Monocytes # 0.4 K/mm3 (0.1-1.0); Monocytes % 3.8 % (1.7-9.3); Neutrophils # 9.5 K/mm3 (1.8-7.8); Neutrophils % 81.9 % (37.0-80.0); Platelet Count 291 K/mm3 (142-424); Red Blood Count 5.56 M/mm3 (4.20-5.40); Red Cell Distribution Width 15.8 % (11.5-17.5); White Blood Count 11.6 K/mm3 (4.8-10.8)
[2023-02-22 17:59] LABS: Amorphous Sediment,Urine Trace /lpf; Bacteria,Urine Trace /lpf; WBC,Urine Occasional #/hpf (0-3)
[2023-02-22 18:14] LABS: Alanine Aminotransferase 13 U/L (12-78); Albumin Level 4.2 g/dl (3.5-5.0); Albumin/Globulin Ratio 1.1 (1.1-1.8); Alkaline Phosphatase 97 U/L (38-126); Anion Gap 9.7 mEq/L (5-15); Aspartate Amino Transferase 27 U/L (14-36); Bilirubin,Total 0.5 mg/dl (0.2-1.3); Blood Urea Nitrogen 34 mg/dl (7-17); Carbon Dioxide 36 mmol/L (22.0-30.0); Chloride 99 mmol/L (98-107); Creatinine Clearance Estimated 16 mL/min (50-200); Estimated Glomerular Filt Rate 20 ml/min (>60); GFR (African American) 24 ML/MIN (>60); Globulin 3.7 g/dL (1.3-3.2); Glucose 97 mg/dl (74-100); Potassium 4.7 mmoL/L (3.5-5.1); Sodium 140 mmol/L (136-145); Total Protein,Serum 7.9 g/dl (6.3-8.2)
[2023-02-22 18:25] LABS: POC Glucose,Bedside 105 (70-110)
[2023-02-22 18:26] LABS: NT Pro Brain Natriuretic Pep. 1180 pg/mL (0-450); Troponin I < 0.01 ng/ml (0.00-0.034)
--- NOTE | 2023-02-22 18:29 | PC.NURSE ---
Rounded on patient, no needs at this time, call light within reach. Patient states she would like to go home. RN notified
--- NOTE | 2023-02-22 18:49 | PC.NURSE ---
patient assisted to bs julio jackson ordered
--- NOTE | 2023-02-22 19:41 | PC.NURSE ---
on phone with hospitalist
[2023-02-22 20:00] VITALS: BP 170/86; PULSE 60; PULSE 66; RESP 18; TEMP 36.4; O2SAT 98; BMI 45.0
[2023-02-22 20:01] VITALS: BP 121/74; PULSE 64; RESP 18; TEMP 36.8; O2SAT 96
--- NOTE | 2023-02-22 20:03 | PC.NURSE ---
Pt arrived to floor via wheelchair @ 2001
[2023-02-22 20:24] LABS: Troponin I < 0.01 ng/ml (0.00-0.034)
--- NOTE | 2023-02-22 20:53 | EXP.HP ---
History of Present Illness *Admission Date: 02/22/23 *Reason for visit:: PIEDAD *History of present illness: 77 year old female presented to the ED from [facility] after having altered mental status while operating a mobile cart. The patient was found to be in hypoglycemic shock. EMS received a blood glucose of 49 and treated with D 50. The patient was brought to the ED for further medical care. Upon ED blood work up, pt is found to have an PIEDAD with creatinine of 2.40. The patient is glucose improved to 105. PMHX of DM, HTN, CAD, CKD, COPD, CHF, UC and HLD. The patient states she experiences hypoglycemia often. She denies falling or hitting her head. States she did pass out in the mobile cart. Denies CP, SOB, or nausea. The ED physician spoke with the hospitalist team for further medical management. Pt will be admitted to the medical floor for further medical management of her PIEDAD and strict blood glucose monitoring. Pt appears in no distress. Does sound wet on lung auscultation. Currently receiving 1L NS from ED. Will also receive 40 mg IV Lasix. Will repeat BMP with morning labs. [facility] Disclaimer: The information contained in this section may have been updated after the patient was seen, as this information can be updated by other users. 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 Screening for lung cancer Smoking greater than 30 pack years Ulcerative colitis Surgical History H/O hysterectomy for benign disease H/O mastectomy History of right-sided carotid endarterectomy Family History Other Family history of diabetes mellitus type I Family history of myocardial infarction Liver cancer Social History (Updated 02/22/23 @ 22:33 by Fabian Winter MD) Smoking Status: Former smoker alcohol intake: never substance use type: denies use current occupational status: retired Travel in the last 8 weeks: None household members: spouse housing: house current occupational exposures/hazards: No caffeine: Yes Review of Systems Review of Systems Review of systems:: pertinent systems reviewed and negative unless documented below Constitutional Constitutional: Reports as per HPI Eyes Eyes: Reports system reviewed and no additional complaints, except as documented ENT Ears, Nose, Mouth, and Throat: Reports system reviewed and no additional complaints, except as documented *Cardiovascular Cardiovascular: Reports system reviewed and no additional complaints, except as documented *Respiratory Respiratory: Reports system reviewed and no additional complaints, except as documented *Gastrointestinal Gastrointestinal: Reports system reviewed and no additional complaints, except as documented *Genitourinary Genitourinary: Reports system reviewed and no additional complaints, except as documented *Musculoskeletal Musculoskeletal: Reports system reviewed and no additional complaints, except as documented Integumentary/Breasts Skin/Breast: Reports system reviewed and no additional complaints, except as documented *Neurologic Neurologic: Reports system reviewed and no additional complaints, except as documented Psychiatric Psychiatric: Reports system reviewed and no additional complaints, except as documented Endocrine Endocrine: Reports system reviewed and no additional complaints, except as documented Hematologic/Lymphatic Hematologic/Lymphatic: Reports system reviewed and no additional complaints, except as documented Allergic/Immunologic Allergic/Immunologic: Reports system reviewed and no additional complaints, except as documented Meds Home Medications and Allergi
[2023-02-22 22:04] LABS: Thyroid Stimulating Hormone 2.39 uIU/mL (0.465-4.68)
[2023-02-22 22:04] LABS: POC Glucose,Bedside 163 (70-110)
[2023-02-22 23:06] LABS: Troponin I 0.02 ng/ml (0.00-0.034)
[2023-02-22 23:22] LABS: Hemoglobin A1C 8.3 % (4.0-6.0)
[2023-02-23] VITALS: BP 155/71; PULSE 50; PULSE 55; RESP 18; TEMP 36.6; O2SAT 92
[2023-02-23 04:00] VITALS: BP 148/59; PULSE 50; PULSE 55; RESP 18; TEMP 37.1; O2SAT 97; BMI 45.0
--- NOTE | 2023-02-23 05:15 | PC.NURSE ---
NO ACUTE CHANGES THIS SHIFT. PT HAS SLEPT INTERMITTENTLY. NO C/O PAIN THIS SHIFT. PT HAS EXPIRATORY WHEEZES BILATERALLY. REMAINS ON 2L. PT DOES GET SOB WITH EXERTION. VSS. GOING TO THE BEDSIDE COMMODE INDEPENDENTLY.
[2023-02-23 05:55] LABS: POC Glucose,Bedside 113 (70-110)
[2023-02-23 06:43] LABS: Basophils # 0.1 K/mm3 (0-0.2); Basophils % 0.8 % (0.1-2.0); Eosinophils # 0.4 K/mm3 (0.0-0.4); Eosinophils % 2.9 % (0.1-12.0); Hematocrit 44.1 % (37.0-47.0); Hemoglobin 13.5 g/dL (12.2-16.2); Lymphocytes # 1.4 K/mm3 (0.7-4.5); Lymphocytes % 11.4 % (10-50); Mean Corpuscular HGB Conc 30.7 g/dL (31.8-35.4); Mean Corpuscular Hemoglobin 25.9 pg (27.0-31.2); Mean Corpuscular Volume 84.6 fl (81-99); Mean Platelet Volume 7.7 fl (7.4-10.4); Monocytes # 0.8 K/mm3 (0.1-1.0); Monocytes % 6.4 % (1.7-9.3); Neutrophils # 9.6 K/mm3 (1.8-7.8); Neutrophils % 78.4 % (37.0-80.0); Platelet Count 303 K/mm3 (142-424); Red Blood Count 5.21 M/mm3 (4.20-5.40); Red Cell Distribution Width 15.8 % (11.5-17.5); White Blood Count 12.3 K/mm3 (4.8-10.8)
[2023-02-23 06:50] LABS: Anion Gap 8.5 mEq/L (5-15); Blood Urea Nitrogen 32 mg/dl (7-17); Calcium 8.8 mg/dl (8.4-10.2); Carbon Dioxide 38 mmol/L (22.0-30.0); Chloride 99 mmol/L (98-107); Creatinine Clearance Estimated 18 mL/min (50-200); Estimated Glomerular Filt Rate 23 ml/min (>60); GFR (African American) 28 ML/MIN (>60); Glucose 141 mg/dl (74-100); Potassium 4.5 mmoL/L (3.5-5.1); Sodium 141 mmol/L (136-145)
[2023-02-23 07:40] VITALS: BP 168/87; PULSE 54; RESP 18; TEMP 36.8; O2SAT 96
--- NOTE | 2023-02-23 07:53 | HMH.PHAINT1 ---
Pharmacy Intervention Comments: Patient's home medications reviewed and verified with external pharmacy and patient. -Marko Devlin, Pharm Student
[2023-02-23 08:00] VITALS: PULSE 50
--- NOTE | 2023-02-23 09:44 | HMH.PTEV ---
Physical Therapy Evaluation Rehab PT IP Evaluation Start: 02/23/23 07:28 Freq: ONCE Status: Active Protocol: Document 02/23/23 09:25 SRINATH (Rec: 02/23/23 09:44 MICHELLEJOSUE [id number]) Subjective/History History History Pt is a 77 year old female who presented to [facility] ED from [facility] after having altered mental status while operating a mobile cart. Per history & physical note, the patient was found to be in hypoglycemic shock. EMS received a blood glucose of 49 and treated with D 50. The patient was brought to the ED for further medical care. Upon ED blood work up, pt is found to have an PIEDAD with creatinine of 2.40. The patient is glucose improved to 105. PMHX of DM, HTN, CAD, CKD, COPD, CHF, UC and HLD. The patient states she experiences hypoglycemia often . Subjective Subjective Pt reports she lives at home with her in a single- story home with 3 steps with HR to enter. Pt reports she uses a stright cane for ambulation and denies recent falls. Pt reports she is independent with all ADLs. Pt reports she wears oxygen at night time at baseline, currently on 3L NC. Pt denies pain, SOA or weakness. Rehab PT IP Eval Objective Appearance Patient Behavior Appropriate,Cooperative Patient Orientation Person,Place,Name,Birthday, Situation Difficulty following instructions none Speech Pattern Clear,Appropriate Ambulation Patient Able to Ambulate Yes Ambulation Observation IP General Gait Pattern Observation Wide Based Gait Ambulation Distance (feet) 50 Ambulation Assistive Device Straight Cane Ambulation Ability Independent Balance Ability to Arise Able, uses arms to help Sitting Balance Steady, safe Standing Balance Steady, wide stance Dynamic Sitting Balance Ability Normal Dynamic Standing Balance Ability Good Transfers Bed Transfer Ability
--- NOTE | 2023-02-23 10:28 | HMH.OTEV ---
OT Inpatient Evaluation Rehab OT IP Evaluation Start: 02/23/23 07:28 Freq: ONCE Status: Active Protocol: Document 02/23/23 10:14 SUSSY (Rec: 02/23/23 10:28 SUSSY [id number]) Rehab OT IP Assessment Subjective History 77 year old female presented to the ED from [facility] after having altered mental status while operating a mobile cart. The patient was found to be in hypoglycemic shock. EMS received a blood glucose of 49 and treated with D 50. The patient was brought to the ED for further medical care. Upon ED blood work up, pt is found to have an PIEDAD with creatinine of 2.40. The patient is glucose improved to 105. PMHX of DM, HTN, CAD, CKD, COPD, CHF, UC and HLD. The patient states she experiences hypoglycemia often . She denies falling or hitting her head. States she did pass out in the mobile cart. Denies CP, SOB, or nausea. The ED physician spoke with the hospitalist team for further medical management. Pt will be admitted to the medical floor for further medical management of her PIEDAD and strict blood glucose monitoring. Pt appears in no distress. Does sound wet on lung auscultation. Currently receiving 1L NS from ED. Will also receive 40 mg IV Lasix. Will repeat BMP with morning labs. Patient lives in 1 story home with 2 ADITYA in the front and 2- 4 ADITYA in the back. Patient uses straight cane to ambulate within home. Patient completed all ADLs and fx'l mobility independently. No hx of falling. Patient is currently on 2L of 02 at night . Subjective I
[2023-02-23 11:05] VITALS: BP 153/73; PULSE 55; RESP 16; TEMP 36.9; O2SAT 98
[2023-02-23 11:16] LABS: POC Glucose,Bedside 259 (70-110)
--- NOTE | 2023-02-23 11:26 | EXP.DC.SUM ---
General Admission date:: 02/22/23 Discharge date: 02/23/23 HPI HPI HPI: 77 year old female presented to the ED from [facility] after having altered mental status while operating a mobile cart. The patient was found to be in hypoglycemic shock. EMS received a blood glucose of 49 and treated with D 50. The patient was brought to the ED for further medical care. Upon ED blood work up, pt is found to have an PIEDAD with creatinine of 2.40. The patient is glucose improved to 105. PMHX of DM, HTN, CAD, CKD, COPD, CHF, UC and HLD. The patient states she experiences hypoglycemia often. She denies falling or hitting her head. States she did pass out in the mobile cart. Denies CP, SOB, or nausea. The ED physician spoke with the hospitalist team for further medical management. Pt will be admitted to the medical floor for further medical management of her PIEDAD and strict blood glucose monitoring. Pt appears in no distress. Does sound wet on lung auscultation. Currently receiving 1L NS from ED. Will also receive 40 mg IV Lasix. Will repeat BMP with morning labs. Hospital Course Hospital Course Hospital Course: 77 year old female presented to the ED from [facility] after having altered mental status while operating a mobile cart. The patient was found to be in hypoglycemic shock. EMS received a blood glucose of 49 and treated with D 50. The patient was brought to the ED for further medical care. Upon ED blood work up, pt is found to have an PIEDAD with creatinine of 2.40. Glucose improved in the ER however given her PIEDAD, ER requested observation overnight. Had improvement in kidney function to baseline by morning. Stable for discharge home. Problems addressed as follows: PIEDAD -Presents with PIEDAD upon ED blood workup. Baseline creatinine 1.9-2.1. 2.4 on presentation. Improved to 2.1 by morning. Responded well to diuresis with -1.5 L of output. Suspect patient has component of volume overload exacerbating her kidney dysfunction. Recommend she continue her diuretics. Chest x-ray was reviewed and consistent with cardiomegaly and hypervolemia. Further management per PCP in the outpatient setting. 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 Encouraged her to keep this appointment. DM -AMS due to hypoglycemia. Improved with D50. Reviewed patient's diabetes regimen with her. Recommend stopping glimepiride. Have adjusted her insulin regimen. Can continue her Invokana. Discussed changes today at length. See med rec for full details. A1c was obtained, 8.3. Recommend looser goal for patient per ADA guidelines with A1c of 7-8. Patient's comorbidities increase her risk for adverse events and complications due to hypoglycemia. COPD HLD HTN UC CAD HYPOTHYROID -Stopped smoking in 2019. 50+ year hx of tobacco use. Continue DuoNebs during hospitalization. Wears oxygen at home, 2 L nightly. Recommend continuing oxygen as needed. Continued home medications including aspirin, balasalzide, caredilol, lasix, levothyroxine, and simvastatin. TSH was obtained, 2.4. Continue home levothyroxine dose. No changes. Stable for discharge home. Spent 40 minutes in discharge counseling and direct care with patient. Exam Data for Last 24 hours Vital signs and Labs for Last 24 Hours: Temp Pulse Resp BP Pulse Ox O2 Del Method O2 Flow Rate 98.5 F 55 L 16 153/73 H 98 Nasal Cannula 3 02/23/23 11:05 02/23/23 11:05 02/23/23 11:05 02/23/23 11:05 02/23/23 11:05 02/23/23 11:05 02/23/23 11:05 Laboratory Results - last 24 hr 02/22/23 16:15: Specimen Source Left radial, O2 % 3.5 lpm, ABG pH 7.37, ABG pCO2 53.4 H, ABG pO2 80.0, ABG HCO3 30.1 H, ABG Total CO2 31.7 H, ABG O2 Saturation 95, ABG Base Excess 4.8 H, Jona Test Acceptable 02/22/23 17:00: Urine Color Yellow, Urine Appearance Clear, Urine pH 7.0, Ur Specific [place] 1.015, Urine Protein 2+, Urine Glucose (UA) 2+, Urine Ketones Negative, Urine Blood 1+, Urine Nitrate Negative, Urine Bilirubi
--- NOTE | 2023-02-23 11:57 | HMH.PHAINT1 ---
Pharmacy Intervention Comments: Discharge medications were reviewed with patient, -Changing morning and nightly doses of insulin. -D/C glimepiride Johnathon Hamilton. PharmD student
--- NOTE | 2023-02-24 14:43 | CARE MANAGER ---
Called and spoke with patient to discuss recent discharge. Patient stated that she is doing well, was aware of f/u appts, and had no questions or concerns at time of call.
== END 2023-02-23 13:47 | disposition home or self-care (01) ==
LOC: ER 18:11 → 2ND 19:39
PROVIDERS: Nurse Practitioner Critical Care Medicine; Admitting Provider Internal Medicine Adolescent Medicine; Emergency Provider Emergency Medicine; PCP Family Medicine; Visit Provider Internal Medicine Adolescent Medicine
DX: N17.9 Acute kidney failure, unspecified (principal); J44.9 Chronic obstructive pulmonary disease, unspecified; E78.2 Mixed hyperlipidemia; I11.0 Hypertensive heart disease with heart failure; I50.32 Chronic diastolic (congestive) heart failure; K51.911 Ulcerative colitis, unspecified with rectal bleeding; I25.118 Atherosclerotic heart disease of native coronary artery with other forms of angina pectoris; E03.9 Hypothyroidism, unspecified; E66.01 Morbid (severe) obesity due to excess calories; Z68.42 Body mass index [BMI] 45.0-49.9, adult; Z79.4 Long term (current) use of insulin; Z79.899 Other long term (current) drug therapy; E11.649 Type 2 diabetes mellitus with hypoglycemia without coma
CPT/HCPCS: G0378; 36415; 70450; 71045; 80048; 80053; 81001; 82803; 82962; 83036; 83880; 84443; 84484; 85025; 93005; 97161; 97165; 99285

== ENCOUNTER → 2023-02-28 12:49 | Outpatient (CLI) | payer MEDICARE, SELFPAY ==
[2023-02-28 14:13] LABS: Albumin Level 3.6 g/dl (3.5-5.0); Anion Gap 11.7 mEq/L (5-15); Blood Urea Nitrogen 35 mg/dl (7-17); Calcium 8.5 mg/dl (8.4-10.2); Carbon Dioxide 32 mmol/L (22.0-30.0); Chloride 99 mmol/L (98-107); Estimated Glomerular Filt Rate 24 ml/min (>60); GFR (African American) 29 ML/MIN (>60); Glucose 201 mg/dl (74-100); Phosphorous 3.6 mg/dl (2.5-4.5); Potassium 4.7 mmoL/L (3.5-5.1); Sodium 138 mmol/L (136-145)
[2023-02-28 14:25] LABS: Intact Parathyroid Hormone 233.6 pg/mL (7.5-53.5)
[2023-02-28 14:32] LABS: 25-OH Vitamin D, Total 25.8 ng/mL (30-100)
== END ==
PROVIDERS: PCP Nurse Practitioner Family; Visit Provider Internal Medicine Nephrology
DX: N18.4 Chronic kidney disease, stage 4 (severe) (principal); I10 Essential (primary) hypertension; N25.0 Renal osteodystrophy; R80.1 Persistent proteinuria, unspecified
CPT/HCPCS: 36415; 80069; 82306; 83970

== ENCOUNTER 2023-03-15 11:31 | Observation (INO) | payer MEDICARE, SELFPAY ==
[2023-03-15] VITALS (11 sets, daily range): BP systolic 137–189; BP diastolic 53–86; PULSE 55–80; RESP 18–20; TEMP 36.6–37; O2SAT 83–98; BMI 44.9; BMI 45.6
--- NOTE | 2023-03-15 11:30 | ECG_ITS ---
APPROVED REPORT Exam: Resting ECG HR:66 bpm ECG Measurements Heart Rate 66 AXES IL 225 P 62 QRSd 92 QRS -34 QT 388 T 80 QTc 402 Conclusion SINUS RHYTHM WITH FIRST DEGREE AV BLOCK LEFT AXIS DEVIATION [QRS AXIS < -30] LOW QRS VOLTAGE IN PRECORDIAL LEADS [QRS DEFLECTION < 1.0 mV IN CHEST LEADS] ANTEROSEPTAL MYOCARDIAL INFARCTION , OF INDETERMINATE AGE [40+ ms Q WAVE IN V1-V4] ABNORMAL ECG UNCONFIRMED REPORT Electronically signed by : Mike Saucedo MD 03/16/2023 17:34:32
--- NOTE | 2023-03-15 11:44 | XR_ITS ---
FINAL REPORT CLINICAL HISTORY: Shortness of breath COMPARISON: 02/22/2023 FINDINGS: A single portable view of the chest was obtained. Cardiomegaly is noted. There is mild pulmonary vascular congestion. The mediastinum is within normal limits. No acute pulmonary abnormality is identified. The bony thorax is intact. IMPRESSION: No active cardiopulmonary disease. Cardiomegaly and mild pulmonary vascular congestion. Reviewed, Interpreted and Dictated by Leonardo Mendes III, MD Transcribed by Ann Madera Authenticated and [facility]
[2023-03-15 11:56] LABS: Basophils # 0.1 K/mm3 (0-0.2); Basophils % 0.6 % (0.1-2.0); Eosinophils # 0.5 K/mm3 (0.0-0.4); Eosinophils % 4.6 % (0.1-12.0); Hematocrit 41.4 % (37.0-47.0); Hemoglobin 12.9 g/dL (12.2-16.2); Lymphocytes # 1.4 K/mm3 (0.7-4.5); Lymphocytes % 13.5 % (10-50); Mean Corpuscular HGB Conc 31.1 g/dL (31.8-35.4); Mean Corpuscular Hemoglobin 26.3 pg (27.0-31.2); Mean Corpuscular Volume 84.4 fl (81-99); Mean Platelet Volume 7.7 fl (7.4-10.4); Monocytes # 0.6 K/mm3 (0.1-1.0); Monocytes % 5.5 % (1.7-9.3); Neutrophils # 7.9 K/mm3 (1.8-7.8); Neutrophils % 75.8 % (37.0-80.0); Platelet Count 306 K/mm3 (142-424); Red Blood Count 4.91 M/mm3 (4.20-5.40); Red Cell Distribution Width 15.8 % (11.5-17.5); White Blood Count 10.5 K/mm3 (4.8-10.8)
[2023-03-15 12:01] LABS: VBG Base Excess 1.4 mmol/L (-2.4-2.3); VBG HCO3 27.4 mmol/L (23-30); VBG Oxygen Saturation 88.7 % (50-70); VBG PH 7.33 mmol/L (7.31-7.41); VBG PO2 60.8 mmol/L (28-40)
[2023-03-15 12:02] LABS: Chloride 98 mmol/L (98-107)
[2023-03-15 12:03] LABS: VBG PCO2 53.2 mmol/L (35-51)
[2023-03-15 12:03] LABS: Potassium 4.3 mmoL/L (3.5-5.1); Sodium 138 mmol/L (136-145)
--- NOTE | 2023-03-15 12:03 | PC.NURSE ---
paO2 60.8 reported to
[2023-03-15 12:05] LABS: Alanine Aminotransferase 16 U/L (12-78); Alkaline Phosphatase 83 U/L (38-126); Anion Gap 12.3 mEq/L (5-15); Aspartate Amino Transferase 21 U/L (14-36); Bilirubin,Total 0.6 mg/dl (0.2-1.3); Blood Urea Nitrogen 34 mg/dl (7-17); Carbon Dioxide 32 mmol/L (22.0-30.0); Creatinine Clearance Estimated 19 mL/min (50-200); Estimated Glomerular Filt Rate 23 ml/min (>60); GFR (African American) 28 ML/MIN (>60); Lactic Acid 1.1 mmol/L (0.7-2.1)
[2023-03-15 12:06] LABS: Albumin Level 3.8 g/dl (3.5-5.0); Calcium 8.9 mg/dl (8.4-10.2); Globulin 3.7 g/dL (1.3-3.2); Glucose 200 mg/dl (74-100); Total Protein,Serum 7.5 g/dl (6.3-8.2)
[2023-03-15 12:41] LABS: Thyroid Stimulating Hormone 2.76 uIU/mL (0.465-4.68)
[2023-03-15 12:44] LABS: T4 (Thyroxine) 9.1 ug/dl (5.53-11.0)
[2023-03-15 13:00] LABS: NT Pro Brain Natriuretic Pep. 1360 pg/mL (0-450); Troponin I < 0.01 ng/ml (0.00-0.034)
--- NOTE | 2023-03-15 13:27 | HMH.EDGENADL ---
Discharge Plan Disposition Patient Disposition: Admitted Condition: Good Clinical Impressions Clinical Impression: Acute hypoxemic respiratory failure, Acute exacerbation of chronic obstructive pulmonary disease, Acute exacerbation of CHF (congestive heart failure) Discharge ED Provider: Ashley Smith General Adult HPI General Chief complaint: Shortness of Breath/Dyspnea Stated complaint: Chest Pain Time Seen by Provider: 03/15/23 11:33 Mode of Arrival: Ambulatory Source of Information: Patient Limitations: No Limitations Description of Symptoms (Recalled from ER Triage Doc. by RN): 77 yo F presents to ED with c/o shortness of air. pt reports she began having trouble breathing. upon arrival pt 83% on room air sat. pt does have chf history and pt reports taking her lasix as prescribed. History of Present Illness HPI narrative: This patient is a 77-year-old female with a history of CAD status post stenting, diastolic heart failure, hypertension, hyperlipidemia, CKD, COPD, type 2 diabetes, and obesity presenting to the emergency department for evaluation with concern for chest tightness and shortness of breath. She reports that this has been worsening for the last several days. She typically does not wear oxygen at home except for at night, but she has had to wear it given shortness of breath. She notes that she is on Lasix at home and has been taking it without improvement. She denies any fevers, chills, abdominal pain, nausea, vomiting, changes in bowel movements, or other concerns. She does note chronic leg swelling bilaterally. Related Data Home Medications Medication Instructions Recorded Confirmed ferrous gluconate 324 mg (38 mg 324 mg PO BID Supplement 11/20/18 03/15/23 iron) tablet omeprazole 40 mg capsule,delayed 40 mg PO HS acid reflux 11/20/18 03/15/23 release simvastatin 40 mg tablet 40 mg PO HS Cholesterol 11/20/18 03/15/23 cholecalciferol (vitamin D3) 50 50 mcg PO DAILY Supplement 09/03/19 03/15/23 mcg (2,000 unit) capsule balsalazide 750 mg capsule 2,250 mg PO BID ulcerative colitis 10/01/20 03/15/23 aspirin 81 mg tablet,delayed 81 mg PO DAILY heart health 10/15/20 03/15/23 release (Adult Low Dose Aspirin) latanoprost 0.005 % eye drops 1 drp Eye-Both PM eye pressure 06/02/22 03/15/23 canagliflozin 100 mg tablet 100 mg PO DAILY Diabetes 06/22/22 03/15/23 (Invokana) furosemide 40 mg tablet 40 mg PO PM Fluid / swelling 02/23/23 03/15/23 furosemide 80 mg tablet 80 mg PO AM Fluid / swelling 03/15/23 03/15/23 insulin human U-100 NPH-regulr 24 unit SQ HS Diabetes 03/15/23 03/15/23 70-30 mix 100 unit/mL subcutaneous susp (Novolin 70/30 U-100 Insulin) insulin human U-100 NPH-regulr 75 unit SQ AM Diabetes 03/15/23 03/15/23 70-30 mix 100 unit/mL subcutaneous susp (Novolin 70/30 U-100 Insulin) levothyroxine 88 mcg tablet 88 mcg PO DAILY Thyroid 03/15/23 03/15/23 simethicone 125 mg tablet 125 mg PO DAILYP PRN Gas 03/15/23 03/15/23 Previous Rx's Medication Instructions Recorded nitroglycerin 0.4 mg sublingual 0.4 mg sublingual Q5-15M PRN chest 10/15/20 tablet pain #25 tabs carvedilol 25 mg tablet (Coreg) 25 mg PO BIDWMEAL High blood 06/08/22 pressure #180 tabs Allergies Allergy/AdvReac Type Severity Reaction Status Date / Time Sulfa (Sulfonamide Allergy Intermediate I-RASH Verified 01/19/23 10:40 Antibiotics) [facility] Disclaimer: The information contained in this section may have been updated after the patient was seen, as this information can be updated by other users. Medical History Breast cancer Carpal tunnel syndrome Cataract Chest pain COVID Diastolic CHF Dyspnea Dyspnea on exertion Hyperlipidemia Iron deficiency anemia LV dysfunction IAN (obstructive sleep apnea) [id number] syndrome manifesting as chronic dyspnea Screening for lung cancer Smoking greater than 30 pack years Ulcerative colitis Surgic
--- NOTE | 2023-03-15 13:30 | EXP.HP ---
History of Present Illness *Admission Date: 03/15/23 *Reason for visit:: shortness of breath *History of present illness: Ms. Michelle is a 77 year old female with a past medical history of IAN on cpap hs, DM, HTN, CAD, CKD, COPD (on supplemental oxygen as needed only), CHF, ulcerative colitis, HLD, hyperparathyroidism, vitamin d deficiency and a recent hospitalization for hypoglycemia and PIEDAD (02/22-02/23/23). She presented to the ED with 2-3 days of worsening shortness of breath. She's also had a dry cough only at night and has had lower extremity edema but doesn't think it is worse than her usual. She denies fever and wheeze. She quit smoking 3 years ago. She denies any recent change in her diet and hasn't skipped any doses. No recent changes to her medications except that her diabetes medications were adjusted. Initial vitals: BP 165/71 - P 72 - RR 20 - SpO2 83% RA - T 98.3F Initial workup: CBC with 10.5K wbcs CMP with na 138, k 4.3, cr 2.1 (cr was 2.0 on 02/28/23), glucose 200 trop i <0.01 probnp 1360 (1180 on 02/22/23) tsh 2.7 free t4 9.1 cxr- no active cardiopulmonary disease. cardiomegaly and mild pulmonary vascular congestion. echo from 06/2022: Conclusion 1. Technically difficult study because of the patient factors and poor acoustic windows. Mild biatrial enlargement, normal left ventricular size, mild concentric left ventricular hypertrophy, estimated ejection fraction 55% with no regional wall motion abnormality, diastolic parameters are inconclusive. 2. Mildly enlarged right ventricle with normal contractility. 3. Mild mitral and tricuspid regurgitation. 4. No significant pericardial effusion noted. 5. Inferior vena cava is normal size with normal inspiratory collapse. [facility] Disclaimer: The information contained in this section may have been updated after the patient was seen, as this information can be updated by other users. Medical History Breast cancer Carpal tunnel syndrome Cataract Chest pain Diastolic CHF Dyspnea Dyspnea on exertion Hyperlipidemia Iron deficiency anemia LV dysfunction IAN (obstructive sleep apnea) [id number] syndrome manifesting as chronic dyspnea Screening for lung cancer Smoking greater than 30 pack years Ulcerative colitis Surgical History H/O hysterectomy for benign disease H/O mastectomy History of right-sided carotid endarterectomy Family History Other Family history of diabetes mellitus type I Family history of myocardial infarction Liver cancer Social History Smoking Status: Former smoker alcohol intake: never substance use type: denies use current occupational status: retired Travel in the last 8 weeks: None household members: spouse housing: house marital status: number of children: 1 number of grandchildren: 2 education level: high school current occupational exposures/hazards: No sexually active: Yes how many partners: 1 caffeine: Yes Review of Systems *Cardiovascular Cardiovascular: Denies chest pain, Reports dyspnea on exertion and Reports edema *Respiratory Respiratory: Reports cough and Reports dyspnea on exertion Meds Home Medications and Allergies Home Medications Medication Instructions Recorded Confirmed Type ferrous gluconate 324 mg (38 mg 324 mg PO BID Supplement 11/20/18 03/15/23 History iron) tablet omeprazole 40 mg capsule,delayed 40 mg PO HS acid reflux 11/20/18 03/15/23 History release simvastatin 40 mg tablet 40 mg PO HS Cholesterol 11/20/18 03/15/23 History cholecalciferol (vitamin D3) 50 50 mcg PO DAILY Supplement 09/03/19 03/15/23 History mcg (2,000 unit) capsule balsalazide 750 mg capsule 2,250 mg PO BID ulcerative colitis 10/01/20 03/15/23 History as
--- NOTE | 2023-03-15 13:45 | PC.NURSE ---
report called to celia on second floor
--- NOTE | 2023-03-15 13:59 | PC.NURSE ---
Rounded on patient; nothing needed at this time. Call finn within reach of patient
--- NOTE | 2023-03-15 15:15 | HMH.PHAINT1 ---
Pharmacy Intervention Comments: Medication history complete, medications verified with fill history and patient at bedside. Of note, patient was told to stop losartan d/t low BP and insulin dose was changed to 75U in the AM and 24U in the PM d/t low BG. - Alexandra Murphy, PharmD Candidate 2023
--- NOTE | 2023-03-15 15:31 | CA_ITS ---
APPROVED REPORT EXAM: Comprehensive 2D, Doppler, and color-flow Echocardiogram Furniture Repair Technician: SORIN Sequeira, RVS Ht: 5 ft 3 in Wt: 257lbs BSA: 2.15 BP: 165/71 mmHg Indications: Respiratory failure, COPD, Smoker, Obesity, Diastolic CHF, Dyspnea Echo Enhancing Agent Comments: TDS: limited windows throughout exam due to body habitus, ling impedance, patient factorsa. Best exam possible. 2D Dimensions IVSd 1.21 cm F: 0.6-1.0 LVEF (Visual) 49.40 % PWd 0.96 cm F: 0.6 - 1.0 LA Volume 54.70 mL LVDd 5.64 cm F: 3.9 - 5.3 LA Volume Index 25.44 mL/m2 (M/F) 16-34 LVDs 4.21 cm F: 2.2 - 3.5 Aortic Root 2.71 cm F: 2.7 - 3.3 Left Atrium 4.00 cm F: 2.7 - 3.8 LVOT 2.10 cm (M/F) 1.5-2.5 M-Mode Dimensions LVDd 5.30 cm (3.5-5.7) LVDs 3.70 cm (3.5-5.7) EF (Teich) 57.10% EPSs 0.95 cm FS 30.20% EDV (Teich) 135.30 mL TAPSE 2.91 (<1.7) ESV (Teich) 58.10 mL LV Diastology E Decel Time 147.00 (160-240 msec) E/A Ratio 1.30 MED E' 5.40 (< 7 cm/sec) MED A' 7.40 cm/s E'/MED E' Ratio 26.44 (>14) LAT E' 5.20 (<10 cm/sec) LAT A' 6.80 cm/s E/LAT E' Ratio 27.46 (>14) Aortic Valve LVOT Max 105.00 (70-110 cm/s) LVOT VTI 27.35 cm AoV Peak Josué. 168.00 (50-130 cm/s) AO Peak GR. 11.60 mmHg AO Mean GR. 5.80 (<5 mmHg) AO VTI 39.23 (18-25 cm) KLEBER (VTI) 2.41 (2.5-4.5 cm2) Mitral Valve MV A Velocity 110.00 (40-130 cm/s) E/A Ratio 1.30 MV Decel. Time 147.00 (160-240 ms) MV Mean Gr. 3.30 (<2mmHg) Pulmonary Valve PV Peak Velocity 84.00 (50-150 cm/s) Tricuspid Valve TR P. Velocity 174.00 cm/s RAP Estimate 10.00 mmHg RVSP 22.20 mmHg Left Ventricle The left ventricle is normal size. The left ventricular systolic function is normal. The left ventricular ejection fraction is within the normal range. There is increased LV wall thickness. There is normal LV segmental wall motion. The diastolic function is indeterminate. LVEF is 55%. Right Ventricle The right ventricle is normal size. The right ventricular systolic function is normal. Atria The left atrium size is normal. The right atrium size is normal. Aortic Valve The aortic valve is mildly thickened. There is no aortic valvular stenosis. Mild aortic regurgitation. Mitral Valve There is mild mitral annular calcification. The MV leaflets are mildly thickened. No evidence of mitral valve stenosis. Trace mitral regurgitation. Tricuspid Valve The tricuspid leaflets are thin and pliable. There is trace tricuspid regurgitation. RVSP is normal. Pulmonic Valve The pulmonary valve is normal in structure. Trace pulmonic regurgitation. Great Vessels The aortic root is normal in size. The ascending aorta is not well visualized. IVC is normal in size and collapses >50% with inspiration. Pericardium There is no pericardial effusion. Other Information Study Quality: Fair Conclusion Normal biventricular systolic function. No significant valvular disease. Electronically signed by : Sobeida Turner, 03/17/2023 10:28:58
[2023-03-15 15:32] LABS: Troponin I < 0.01 ng/ml (0.00-0.034)
--- NOTE | 2023-03-15 17:28 | PC.NURSE ---
took over care from curt juarez. patient at this time sitting up on side of bed eating dinner. no concerns voiced. educated on lasix and meds as given. no distress noted. patient did walk to bathroom with out oxygen with no distress, but extra tubing provided. placed hat in toilet and bedside commode for accurate urine output. did void into toilet prior with no source of measuring. no complaints currently. appetite good.
[2023-03-15 17:30] LABS: POC Glucose,Bedside 163 (70-110)
--- NOTE | 2023-03-15 17:38 | PC.NURSE ---
spoke with about lasix. patient had a dose of 40 mg at 1347. stated to wait until about 1900 to give the 60 mg of lasix. wasted what was drawn up at that time
[2023-03-15 18:48] LABS: Troponin I < 0.01 ng/ml (0.00-0.034)
[2023-03-15 22:48] LABS: POC Glucose,Bedside 226 (70-110)
[2023-03-16] VITALS: BP 148/73; PULSE 76; PULSE 80; RESP 18; TEMP 37.1; O2SAT 91
[2023-03-16 04:00] VITALS: BP 166/66; PULSE 60; PULSE 71; RESP 20; TEMP 36.8; O2SAT 94; BMI 44.1
[2023-03-16 06:08] LABS: Basophils % 0.1 % (0.1-2.0); Eosinophils # 0.1 K/mm3 (0.0-0.4); Eosinophils % 0.7 % (0.1-12.0); Hematocrit 43.5 % (37.0-47.0); Hemoglobin 13.8 g/dL (12.2-16.2); Lymphocytes # 0.9 K/mm3 (0.7-4.5); Lymphocytes % 6.6 % (10-50); Mean Corpuscular HGB Conc 31.6 g/dL (31.8-35.4); Mean Corpuscular Volume 82.3 fl (81-99); Mean Platelet Volume 7.5 fl (7.4-10.4); Monocytes # 0.4 K/mm3 (0.1-1.0); Monocytes % 2.6 % (1.7-9.3); Neutrophils # 12.7 K/mm3 (1.8-7.8); Platelet Count 318 K/mm3 (142-424); Red Blood Count 5.29 M/mm3 (4.20-5.40); Red Cell Distribution Width 15.5 % (11.5-17.5); White Blood Count 14.1 K/mm3 (4.8-10.8)
[2023-03-16 06:12] LABS: POC Glucose,Bedside 243 (70-110)
[2023-03-16 06:23] LABS: Chloride 96 mmol/L (98-107); Potassium 4.1 mmoL/L (3.5-5.1); Sodium 137 mmol/L (136-145)
[2023-03-16 06:26] LABS: Anion Gap 16.1 mEq/L (5-15); Blood Urea Nitrogen 39 mg/dl (7-17); Calcium 9.1 mg/dl (8.4-10.2); Carbon Dioxide 29 mmol/L (22.0-30.0); Creatinine Clearance Estimated 19 mL/min (50-200); Estimated Glomerular Filt Rate 24 ml/min (>60); GFR (African American) 29 ML/MIN (>60); Glucose 256 mg/dl (74-100)
[2023-03-16 06:36] LABS: NT Pro Brain Natriuretic Pep. 4580 pg/mL (0-450)
[2023-03-16 06:39] LABS: Troponin I 0.02 ng/ml (0.00-0.034)
[2023-03-16 06:50] LABS: MANUAL DIFFERENTIAL MANUAL DIFFERENTIAL (MANUAL DIFF)
--- NOTE | 2023-03-16 07:00 | XR_ITS ---
FINAL REPORT CLINICAL HISTORY: chf exac COMPARISON: 1 day prior FINDINGS: A single portable view of the chest was obtained. Cardiomegaly is noted. There is stable pulmonary vascular congestion. The mediastinum is within normal limits. Pulmonary opacities are favored to represent edema. The bony thorax is intact. IMPRESSION: Cardiomegaly with stable pulmonary vascular congestion. Pulmonary opacities favor edema. Reviewed, Interpreted and Dictated by Leonardo Mendes III, MD Transcribed by Ann Madera Authenticated and [facility]
[2023-03-16 07:21] LABS: Hypochromasia 1+; Lymphocytes % 9 % (10-50); Monocytes % 1 % (2-9); Neutrophils % 90 % (42-76); Platelet Estimate Normal; Total Cells Counted 100
[2023-03-16 08:00] VITALS: BP 158/65; PULSE 63; PULSE 65; RESP 18; TEMP 36.7; O2SAT 94
[2023-03-16 09:15] LABS: POC Glucose,Bedside 304 (70-110)
[2023-03-16 11:15] VITALS: BP 150/78; PULSE 62; RESP 19; TEMP 37; O2SAT 92
[2023-03-16 11:55] LABS: POC Glucose,Bedside 326 (70-110)
[2023-03-16 12:00] VITALS: PULSE 60
--- NOTE | 2023-03-16 12:24 | EXP.DC.SUM ---
General Admission date:: 03/15/23 Discharge date: 03/16/23 HPI HPI HPI: Ms. Michelle is a 77 year old female with a past medical history of IAN on cpap hs, DM, HTN, CAD, CKD, COPD (on supplemental oxygen as needed only), CHF, ulcerative colitis, HLD, hyperparathyroidism, vitamin d deficiency and a recent hospitalization for hypoglycemia and [facility]EDAD (02/22-02/23/23). She presented to the ED with 2-3 days of worsening shortness of breath. She's also had a dry cough only at night and has had lower extremity edema but doesn't think it is worse than her usual. She denies fever and wheeze. She quit smoking 3 years ago. She denies any recent change in her diet and hasn't skipped any doses. No recent changes to her medications except that her diabetes medications were adjusted. Initial vitals: BP 165/71 - P 72 - RR 20 - SpO2 83% RA - T 98.3F Initial workup: CBC with 10.5K wbcs CMP with na 138, k 4.3, cr 2.1 (cr was 2.0 on 02/28/23), glucose 200 trop i <0.01 probnp 1360 (1180 on 02/22/23) tsh 2.7 free t4 9.1 cxr- no active cardiopulmonary disease. cardiomegaly and mild pulmonary vascular congestion. echo from 06/2022: Conclusion 1. Technically difficult study because of the patient factors and poor acoustic windows. Mild biatrial enlargement, normal left ventricular size, mild concentric left ventricular hypertrophy, estimated ejection fraction 55% with no regional wall motion abnormality, diastolic parameters are inconclusive. 2. Mildly enlarged right ventricle with normal contractility. 3. Mild mitral and tricuspid regurgitation. 4. No significant pericardial effusion noted. 5. Inferior vena cava is normal size with normal inspiratory collapse. Hospital Course Hospital Course Hospital Course: #acute hypoxic respiratory failure #diastolic CHF exacerbation #hyperglycemia associated with type 2 diabetes mellitus #IAN on CPAP HS #COPD #CAD In the ED the patient received furosemide iv 40mg and methylprednisolone iv 125mg. She was saturating well on room air in the ED but with ambulation desaturated to the 70s. At baseline she doesn't use supplemental oxygen except as needed. She diuresed well overnight with iv lasix 60mg bid. i/o over 24 hrs of +1.2/-3.1 net -1.9L. On day of discharge her dyspnea had significantly subsided. Her kidney function was stable. She will discharge home with new prescription of amlodipine for better blood pressure control. She will also need to increase her lasix from 80mg AM and 40mg PM to 80mg BID x 7 days, then she is to return to previous dosing. She will need to f/u with her PCP in 1 week and her kidney function should be checked at that time. Exam Data for Last 24 hours Vital signs and Labs for Last 24 Hours: Temp Pulse Resp BP Pulse Ox O2 Del Method O2 Flow Rate 98.6 F 62 19 150/78 H 92 L Nasal Cannula 1.5 03/16/23 11:15 03/16/23 11:15 03/16/23 11:15 03/16/23 11:15 03/16/23 11:15 03/16/23 11:15 03/16/23 11:15 Laboratory Results - last 24 hr 03/15/23 11:34: Troponin I < 0.01, NT-Pro-B Natriuret Pep 1360 H, TSH 2.76, Thyroxine (T4) 9.1 03/15/23 14:54: Troponin I < 0.01 03/15/23 16:57: POC Glucose 163 H 03/15/23 18:16: Troponin I < 0.01 03/15/23 20:52: POC Glucose 226 H 03/16/23 05:44: WBC 14.1 H D, RBC 5.29, Hgb 13.8, Hct 43.5, MCV 82.3, MCH 26.0 L, MCHC 31.6 L, RDW 15.5, Plt Count 318, MPV 7.5, Neut % (Auto) 90.0 H, Lymph % (Auto) 6.6 L, Maverick % (Auto) 2.6, Eos % (Auto) 0.7, Baso % (Auto) 0.1, Neut # (Auto) 12.7 H, Lymph # (Auto) 0.9, Maverick # (Auto) 0.4, Eos # (Auto) 0.1, Baso # (Auto) 0.0, Total Counted 100, Neutrophils % (Manual) 90 H, Lymphocytes % (Manual) 9 L, Monocytes % (Manual) 1 L, Platelet Estimate Normal, Hypochromasia 1+, Sodium 137, Potassium 4.1, Chloride 96 L, Carbon Dioxide 29, Anion Gap 16.1 H, BUN 39 H, Creatinine 2.00 H, Estimated Creat Clear 19, Estimated GFR 24 L, Est GFR ( Amer) 29 L, Glucose 256 H D, Calcium 9.1, Troponin I 0.02, NT-Pro-B Natriuret P
--- NOTE | 2023-03-17 11:10 | SW/DCPLANNER ---
Follow up phone call with this patient on 03/17/23. Patient stated that she is doing well at home at this time and does not have any needs.
== END 2023-03-16 13:30 | disposition home or self-care (01) ==
LOC: ER 13:28 → 2ND 13:37
PROVIDERS: Admitting Provider Internal Medicine; Emergency Provider Emergency Medicine; PCP Nurse Practitioner Family; Visit Provider Internal Medicine
DX: J96.01 Acute respiratory failure with hypoxia (principal); J44.1 Chronic obstructive pulmonary disease with (acute) exacerbation; I50.33 Acute on chronic diastolic (congestive) heart failure; I13.0 Hypertensive heart and chronic kidney disease with heart failure and stage 1 through stage 4 chronic kidney disease, or unspecified chronic kidney disease; E11.22 Type 2 diabetes mellitus with diabetic chronic kidney disease; N18.9 Chronic kidney disease, unspecified; Z95.5 Presence of coronary angioplasty implant and graft; E66.9 Obesity, unspecified; Z68.41 Body mass index [BMI] 40.0-44.9, adult; Z79.4 Long term (current) use of insulin; Z87.891 Personal history of nicotine dependence; G47.33 Obstructive sleep apnea (adult) (pediatric); E78.5 Hyperlipidemia, unspecified; E21.3 Hyperparathyroidism, unspecified; E11.65 Type 2 diabetes mellitus with hyperglycemia
CPT/HCPCS: 36415; 71045; 80048; 80053; 82803; 82962; 83605; 83880; 84436; 84443; 84484; 85007; 85025; 93005; 93306; 99291; G0378

== ENCOUNTER → 2023-05-05 13:22 | Outpatient (CLI) | payer MEDICARE, SELFPAY ==
[2023-05-05 13:49] LABS: Microscopic, Urine URINE MICROSCOPIC (MICROSCOPIC)
[2023-05-05 14:17] LABS: Appearance,Urine CLEAR (Clear); Bilirubin,Urine Negative (Negative); Blood, Urine Negative (Negative); Color,Urine YELLOW (Yellow); Glucose,Urine (UA) 3+ (Negative); Ketones,Urine Negative (Negative); Leukocyte Esterase,Urine Negative (Negative); Nitrate,Urine Negative (Negative); PH,Urine 6.5 (5.0-8.5); Protein,Urine Negative (Negative); Specific Gravity, Urine <= 1.005 (1.005-1.030); Urobilinogen,Urine 0.2 EU/dl (0.2)
[2023-05-05 14:35] LABS: Hematocrit 42.1 % (37.0-47.0); Hemoglobin 13.3 g/dL (12.2-16.2); Mean Corpuscular HGB Conc 31.7 g/dL (31.8-35.4); Mean Corpuscular Hemoglobin 26.5 pg (27.0-31.2); Mean Corpuscular Volume 83.6 fl (81-99); Platelet Count 311 K/mm3 (142-424); Red Blood Count 5.03 M/mm3 (4.20-5.40); Red Cell Distribution Width 15.2 % (11.5-17.5); White Blood Count 10.6 K/mm3 (4.8-10.8)
[2023-05-05 15:00] LABS: Albumin Level 3.6 g/dl (3.5-5.0); Anion Gap 11.9 mEq/L (5-15); Blood Urea Nitrogen 32 mg/dl (7-17); Calcium 8.6 mg/dl (8.4-10.2); Carbon Dioxide 34 mmol/L (22.0-30.0); Chloride 98 mmol/L (98-107); Estimated Glomerular Filt Rate 23 ml/min (>60); GFR (African American) 28 ML/MIN (>60); Glucose 171 mg/dl (74-100); Phosphorous 4.6 mg/dl (2.5-4.5); Potassium 4.9 mmoL/L (3.5-5.1); Sodium 139 mmol/L (136-145)
[2023-05-05 18:28] LABS: Creatinine,Urine Random 27 mg/dL (Not Estab.)
== END ==
PROVIDERS: PCP Nurse Practitioner Family; Visit Provider Internal Medicine Nephrology
DX: N18.4 Chronic kidney disease, stage 4 (severe) (principal)
CPT/HCPCS: 36415; 80069; 81001; 82570; 84155; 85014; 85018; 85048; 85049

== ENCOUNTER → 2023-06-29 10:26 | Outpatient (CLI) | payer MEDICARE, SELFPAY ==
--- NOTE | 2023-06-29 10:27 | CT_ITS ---
FINAL REPORT TECHNIQUE: Axial images were obtained through the chest without contrast. CLINICAL HISTORY: six month follow-up bilateral pulmonary nodules COMPARISON: 12/29/2022 FINDINGS: Today's exam is significantly degraded secondary to respiratory motion. The heart size is normal. There is calcification of the aortic arch. There is no pericardial or pleural effusion. There is a 5 mm noncalcified nodule in the posterior right upper lobe best seen on images 95 and 96 of series 3. Other smaller lesions are noted with well-defined foci. There is a 4 mm focus best seen on image 117 of series 3 contiguous with right major fissure. Dominant nodule in the left lower lobe measures 1.2 cm and is stable, best seen on image 147 of series 3. Stable 7 mm nodule posterior right middle lobe best seen on image 139 of series 3. Right lower lobe foci is similar to the prior study. IMPRESSION: Stable bilateral pulmonary nodules. Recommend follow-up in 1 year. Reviewed, Interpreted and Dictated by Erik Lares MD Transcribed by Ann Madera Authenticated and [facility]
== END ==
PROVIDERS: PCP Nurse Practitioner Family; Visit Provider Internal Medicine Pulmonary Disease
DX: R91.8 Other nonspecific abnormal finding of lung field (principal)
CPT/HCPCS: 71250

== ENCOUNTER → 2023-07-21 13:15 | Outpatient (CLI) | payer MEDICARE, SELFPAY | PROVIDERS: PCP Internal Medicine; Visit Provider Internal Medicine Pulmonary Disease | DX: G47.30 Sleep apnea, unspecified (principal) | CPT/HCPCS: 94762 ==

== ENCOUNTER → 2023-07-30 09:06 | Outpatient (CLI) | payer MEDICARE, SELFPAY ==
[2023-07-30 09:24] LABS: Microscopic, Urine URINE MICROSCOPIC (MICROSCOPIC)
[2023-07-30 09:44] LABS: Appearance,Urine CLEAR (Clear); Bilirubin,Urine Negative (Negative); Blood, Urine Negative (Negative); Color,Urine YELLOW (Yellow); Glucose,Urine (UA) 3+ (Negative); Ketones,Urine Negative (Negative); Leukocyte Esterase,Urine Negative (Negative); Nitrate,Urine Negative (Negative); Protein,Urine TRACE (Negative); Urobilinogen,Urine 0.2 EU/dl (0.2)
[2023-07-30 09:58] LABS: Albumin Level 3.7 g/dl (3.5-5.0); Chloride 94 mmol/L (98-107); Potassium 4.3 mmoL/L (3.5-5.1); Sodium 134 mmol/L (136-145)
[2023-07-30 10:01] LABS: Anion Gap 12.3 mEq/L (5-15); Blood Urea Nitrogen 47 mg/dl (7-17); Calcium 8.2 mg/dl (8.4-10.2); Carbon Dioxide 32 mmol/L (22.0-30.0); Estimated Glomerular Filt Rate 20 ml/min (>60); GFR (African American) 24 ML/MIN (>60); Glucose 125 mg/dl (74-100); Phosphorous 5.2 mg/dl (2.5-4.5)
[2023-07-30 10:02] LABS: Creatinine,Urine Random 54 mg/dL (Not Estab.); Hematocrit 40.3 % (37.0-47.0); Mean Corpuscular HGB Conc 32.3 g/dL (31.8-35.4); Mean Corpuscular Hemoglobin 26.5 pg (27.0-31.2); Mean Corpuscular Volume 81.9 fl (81-99); Platelet Count 330 K/mm3 (142-424); Red Blood Count 4.93 M/mm3 (4.20-5.40); Red Cell Distribution Width 15.5 % (11.5-17.5); White Blood Count 11.3 K/mm3 (4.8-10.8)
[2023-07-30 10:14] LABS: Bacteria,Urine Trace /lpf
== END ==
LOC: LAB 09:08
PROVIDERS: PCP Internal Medicine; Visit Provider Internal Medicine Nephrology
DX: N18.4 Chronic kidney disease, stage 4 (severe) (principal); E11.9 Type 2 diabetes mellitus without complications; Z79.4 Long term (current) use of insulin
CPT/HCPCS: 36415; 80069; 81001; 82570; 84155; 85014; 85018; 85048; 85049

== ENCOUNTER 2023-08-05 10:21 | Outpatient (CLI) | payer MEDICARE, SELFPAY ==
[2023-08-05 12:47] LABS: Alanine Aminotransferase 12 U/L (12-78); Albumin Level 3.9 g/dl (3.5-5.0); Albumin/Globulin Ratio 1.2 (1.1-1.8); Alkaline Phosphatase 87 U/L (38-126); Anion Gap 13.7 mEq/L (5-15); Aspartate Amino Transferase 21 U/L (14-36); Bilirubin,Total 0.7 mg/dl (0.2-1.3); Blood Urea Nitrogen 46 mg/dl (7-17); Calcium 8.9 mg/dl (8.4-10.2); Carbon Dioxide 33 mmol/L (22.0-30.0); Chloride 97 mmol/L (98-107); Cholesterol 149 mg/dl (140-200); Estimated Glomerular Filt Rate 22 ml/min (>60); GFR (African American) 26 ML/MIN (>60); Globulin 3.2 g/dL (1.3-3.2); Glucose 201 mg/dl (74-100); Potassium 4.7 mmoL/L (3.5-5.1); Sodium 139 mmol/L (136-145); Total Protein,Serum 7.1 g/dl (6.3-8.2); Triglycerides 99 mg/dl (30-150); VLDL Cholesterol 20 mg/dL (0-40)
[2023-08-05 12:48] LABS: Chol/HDL Ratio 3.5 (1-3.5); HDL Cholesterol 43 mg/dl (40-60)
[2023-08-05 12:50] LABS: Basophils # 0.1 K/mm3 (0-0.2); Basophils % 0.9 % (0.1-2.0); Eosinophils # 0.4 K/mm3 (0.0-0.4); Hematocrit 43.2 % (37.0-47.0); Hemoglobin 13.7 g/dL (12.2-16.2); Mean Corpuscular HGB Conc 31.8 g/dL (31.8-35.4); Mean Corpuscular Hemoglobin 26.5 pg (27.0-31.2); Mean Corpuscular Volume 83.2 fl (81-99); Mean Platelet Volume 8.5 fl (7.4-10.4); Monocytes # 0.7 K/mm3 (0.1-1.0); Monocytes % 5.1 % (1.7-9.3); Neutrophils # 10.7 K/mm3 (1.8-7.8); Platelet Count 340 K/mm3 (142-424); Red Blood Count 5.19 M/mm3 (4.20-5.40); Red Cell Distribution Width 15.3 % (11.5-17.5); White Blood Count 12.9 K/mm3 (4.8-10.8)
[2023-08-05 12:59] LABS: Direct LDL Cholesterol 71.14 mg/dL (100-129)
[2023-08-05 13:09] LABS: Hemoglobin A1C 7.8 % (4.0-6.0)
== END 2023-08-05 23:59 ==
PROVIDERS: PCP Internal Medicine; Visit Provider Internal Medicine
DX: K51.911 Ulcerative colitis, unspecified with rectal bleeding; E11.9 Type 2 diabetes mellitus without complications; I11.0 Hypertensive heart disease with heart failure; I50.32 Chronic diastolic (congestive) heart failure; E66.9 Obesity, unspecified; Z79.4 Long term (current) use of insulin; Z68.41 Body mass index [BMI] 40.0-44.9, adult
CPT/HCPCS: 80053; 80061; 82043; 83036; 85025

== ENCOUNTER 2023-09-14 13:03 | Outpatient (CLI) | payer MEDICARE, SELFPAY | END 2023-09-14 23:59 | LOC: RT 13:04 | PROVIDERS: PCP Internal Medicine; Visit Provider Internal Medicine Pulmonary Disease | DX: G47.33 Obstructive sleep apnea (adult) (pediatric) (principal) | CPT/HCPCS: 94762 ==

== ENCOUNTER 2023-09-22 14:43 | Outpatient (RCR) | payer MEDICARE, SELFPAY ==
--- NOTE | 2023-09-22 15:38 | HMH.PTOPWND ---
Rehab Outpt Wound Evaluation Rehab OP Wound Evaluation Start: 09/22/23 14:50 Freq: Status: Active Protocol: Document 09/22/23 15:28 BELKYS (Rec: 09/22/23 15:38 PHORNE [id number]) E-signed By Renato Simental, PT Subjective/History History History This is the initial PT eval for Cari Michelle, 77 yowf who presents with hx of B LE lymphedema for several years. She reports, They did swell, but they don't any more. She presents with no c/o pain or discomfort due to edmea and no TTP noted in B LE at this time. Minimal edema in B feet and ankles noted currently. She has PMH of lumpectomy of the breast, IAN, anemia, HLD, CHF, ulcerative colitis, ANA, DM, CKD. Subjective Subjective Currently she presents without pitting edema in B LE, No c/o pain, no c/o weeping from the skin, and no c/o TTP. She has mild-mod telangiectasis on B medial ankles, but no open wounds noted. B lower legs with significanty dry skin, but this is her baseline for some years now. New diagnosis of cancer in past 12 No months? Lymphedema Eval Classification of Lymphedema Secondary Lymphedema Yes Stemmer's sign Stemmer's Sign no Stage of Lymphedema Lymphedema stages Stage 0 (subjective c/o heaviness and aching) Skin Changes Dry Skin Yes Discoloration of Skin Yes Pain Scale Pain Scale (0-10) 0 Affected Extremities Areas Affected by Lymphedema/Edema Right Lower Extremity,Left Lower Extremity Lower Extremity Measurements Left MTP Measurement (cm) 22.2 Heel Measurement (cm) 32.8 10 cm Proximal to Lateral Malleoli 27.3 Measurement (cm) 20 cm Proximal to Lateral Malleoli 38.3 Measurement (cm) 30 cm Proximal to Lateral Malleoli 41.7 Measurement (cm) 40 cm Proximal to Lateral Malleoli 0 Measurement (cm) 50 cm Proximal to Lateral Malleoli 0 Measurement (cm) 60 cm Proximal to Lateral Malleoli 0 Measurement (cm) Lower Extremity Measurement Total (cm) 162.3 Right MTP Measurement (cm) 22.0 Heel Measurement (cm) 32.3 10 cm Proximal to Lateral Malleoli 26.5 Measurement (cm) 20 cm Proximal to Lateral Malleoli 38.9 Measurement (cm) 30 cm Proximal to Lateral Malleoli 40.6 Measurement (cm) 40 cm Proximal to Lateral Malleoli 0 Measurement (cm) 50 cm Proximal to Lateral Malleoli 0 Measurement (cm) 60 cm Proximal to Lateral Malleoli 0 Measurement (cm) Lower Extremity Measurement Total (cm) 160.3 Manual Lymphatic Drainage Treatment Area MLD Treatment Area Right Lower Extremity,Left Lower Extremity Wound Problems/Impairments Impairments Problems/Impairmments Lymphedema Present Prognosis Rehab Potential Innapropriate for Skilled Therapy Comment Considering pts multiple co- morbid conditions, she has no significant edema in either LE at this time. Baseline LE circumferential measurements taken and pt encouraged to seek further treatment if she does notice any increase in edema to B LE. Clinical Impression Consistent with Diagnosis Yes Outpatient Therapy Plan of Care Treatment Plan May Include Eval/Re-Eval Yes Frequency Times per week 0 Duration Number of Weeks 0 Addendums This patient is a candidate for social No or vocational rehab? Patient/Guardian verbally acknowledges Yes understanding of treatment program and consents to further treatment? Patient/Guardian verbally acknowledges Yes understanding of diagnosis, prognosis and goals for treatment? Eval Complexity PT Charges 93575 - Moderate Complexity PHYSICIAN CERTIFICATION: I certify the specified therapy services for Cari Michelle are required, authorized, and reviewed every 30 days.
== END 2023-09-22 16:00 | disposition home or self-care (01) ==
LOC: PT 14:43
PROVIDERS: PCP Internal Medicine; Visit Provider Internal Medicine
DX: I89.0 Lymphedema, not elsewhere classified (principal)
CPT/HCPCS: 97162

== ENCOUNTER 2023-10-05 18:15 | Outpatient (CLI) | payer MEDICARE, SELFPAY ==
[2023-10-05 19:07] LABS: Basophils # 0.1 K/mm3 (0-0.2); Eosinophils # 0.7 K/mm3 (0.0-0.4); Eosinophils % 6.4 % (0.1-12.0); Hematocrit 41.9 % (37.0-47.0); Hemoglobin 13.2 g/dL (12.2-16.2); Lymphocytes # 1.7 K/mm3 (0.7-4.5); Lymphocytes % 14.5 % (10-50); Mean Corpuscular HGB Conc 31.5 g/dL (31.8-35.4); Mean Corpuscular Hemoglobin 27.9 pg (27.0-31.2); Mean Corpuscular Volume 88.5 fl (81-99); Mean Platelet Volume 8.8 fl (7.4-10.4); Monocytes # 0.7 K/mm3 (0.1-1.0); Monocytes % 5.8 % (1.7-9.3); Neutrophils # 8.4 K/mm3 (1.8-7.8); Neutrophils % 72.3 % (37.0-80.0); Platelet Count 366 K/mm3 (142-424); Red Blood Count 4.73 M/mm3 (4.20-5.40); Red Cell Distribution Width 16.3 % (11.5-17.5); White Blood Count 11.6 K/mm3 (4.8-10.8)
[2023-10-05 19:37] LABS: Alanine Aminotransferase 11 U/L (12-78); Albumin Level 3.9 g/dl (3.5-5.0); Albumin/Globulin Ratio 1.3 (1.1-1.8); Alkaline Phosphatase 100 U/L (38-126); Anion Gap 12.8 mEq/L (5-15); Aspartate Amino Transferase 20 U/L (14-36); Bilirubin,Total 0.7 mg/dl (0.2-1.3); Blood Urea Nitrogen 34 mg/dl (7-17); Calcium 8.9 mg/dl (8.4-10.2); Carbon Dioxide 34 mmol/L (22.0-30.0); Chloride 97 mmol/L (98-107); Estimated Glomerular Filt Rate 24 ml/min (>60); GFR (African American) 29 ML/MIN (>60); Glucose 96 mg/dl (74-100); Potassium 4.8 mmoL/L (3.5-5.1); Sodium 139 mmol/L (136-145); Total Protein,Serum 6.9 g/dl (6.3-8.2)
[2023-10-05 19:49] LABS: 25-OH Vitamin D, Total 25.5 ng/mL (30-100)
== END 2023-10-05 23:59 ==
LOC: LAB.DROPOF 18:16
PROVIDERS: PCP Internal Medicine; Visit Provider Internal Medicine
DX: R53.83 Other fatigue (principal); E55.9 Vitamin D deficiency, unspecified; I11.9 Hypertensive heart disease without heart failure
CPT/HCPCS: 80053; 82306; 85025

== ENCOUNTER 2023-10-06 13:01 | Outpatient (CLI) | payer MEDICARE, SELFPAY ==
[2023-10-06 13:15] LABS: Microscopic, Urine URINE MICROSCOPIC (MICROSCOPIC)
[2023-10-06 13:34] LABS: Hematocrit 40.2 % (37.0-47.0); Hemoglobin 12.6 g/dL (12.2-16.2); Mean Corpuscular HGB Conc 31.3 g/dL (31.8-35.4); Mean Corpuscular Hemoglobin 27.2 pg (27.0-31.2); Mean Corpuscular Volume 86.9 fl (81-99); Platelet Count 356 K/mm3 (142-424); Red Blood Count 4.63 M/mm3 (4.20-5.40); Red Cell Distribution Width 16.3 % (11.5-17.5); White Blood Count 11.9 K/mm3 (4.8-10.8)
[2023-10-06 13:46] LABS: Appearance,Urine CLEAR (Clear); Bilirubin,Urine Negative (Negative); Blood, Urine Negative (Negative); Color,Urine YELLOW (Yellow); Glucose,Urine (UA) 3+ (Negative); Ketones,Urine Negative (Negative); Leukocyte Esterase,Urine Negative (Negative); Nitrate,Urine Negative (Negative); PH,Urine 6.5 (5.0-8.5); Protein,Urine Negative (Negative); Specific Gravity, Urine <= 1.005 (1.005-1.030); Urobilinogen,Urine 0.2 EU/dl (0.2)
[2023-10-06 13:57] LABS: Creatinine,Urine Random 32 mg/dL (Not Estab.)
[2023-10-06 14:34] LABS: Bacteria,Urine Trace /lpf; RBC,Urine Occasional #/hpf (0-3); WBC,Urine Occasional #/hpf (0-3)
[2023-10-06 14:46] LABS: Albumin Level 3.8 g/dl (3.5-5.0); Anion Gap 12.7 mEq/L (5-15); Blood Urea Nitrogen 35 mg/dl (7-17); Calcium 8.6 mg/dl (8.4-10.2); Carbon Dioxide 33 mmol/L (22.0-30.0); Chloride 97 mmol/L (98-107); Estimated Glomerular Filt Rate 24 ml/min (>60); GFR (African American) 29 ML/MIN (>60); Glucose 196 mg/dl (74-100); Phosphorous 5.2 mg/dl (2.5-4.5); Potassium 4.7 mmoL/L (3.5-5.1); Sodium 138 mmol/L (136-145)
== END 2023-10-06 23:59 ==
LOC: LAB 13:02
PROVIDERS: PCP Internal Medicine; Visit Provider Internal Medicine Nephrology
DX: N18.4 Chronic kidney disease, stage 4 (severe) (principal)
CPT/HCPCS: 36415; 80069; 81001; 82570; 84155; 85014; 85018; 85048; 85049

== ENCOUNTER 2023-10-10 16:04 | Outpatient (POV) | payer MEDICARE, SELFPAY | END 2023-10-10 23:59 | disposition home or self-care (01) | LOC: SC 16:05 | PROVIDERS: Visit Provider Internal Medicine Nephrology | DX: Z00.00 Encounter for general adult medical examination without abnormal findings (principal) ==

== ENCOUNTER 2023-11-30 18:00 | Outpatient (CLI) | payer MEDICARE, SELFPAY ==
[2023-11-30 19:02] LABS: Basophils # 0.1 K/mm3 (0-0.2); Basophils % 1.1 % (0.1-2.0); Eosinophils # 0.6 K/mm3 (0.0-0.4); Eosinophils % 6.1 % (0.1-12.0); Hematocrit 37.5 % (37.0-47.0); Hemoglobin 11.7 g/dL (12.2-16.2); Lymphocytes # 1.5 K/mm3 (0.7-4.5); Lymphocytes % 14.4 % (10-50); Mean Corpuscular HGB Conc 31.1 g/dL (31.8-35.4); Mean Corpuscular Volume 86.7 fl (81-99); Mean Platelet Volume 8.4 fl (7.4-10.4); Monocytes # 0.7 K/mm3 (0.1-1.0); Monocytes % 6.6 % (1.7-9.3); Neutrophils # 7.3 K/mm3 (1.8-7.8); Neutrophils % 71.8 % (37.0-80.0); Platelet Count 353 K/mm3 (142-424); Red Blood Count 4.33 M/mm3 (4.20-5.40); Red Cell Distribution Width 15.8 % (11.5-17.5); White Blood Count 10.1 K/mm3 (4.8-10.8)
[2023-11-30 19:40] LABS: Hemoglobin A1C 7.4 % (4.0-6.0)
[2023-11-30 19:52] LABS: Alanine Aminotransferase 12 U/L (12-78); Albumin Level 3.7 g/dl (3.5-5.0); Albumin/Globulin Ratio 1.2 (1.1-1.8); Alkaline Phosphatase 79 U/L (38-126); Anion Gap 12.8 mEq/L (5-15); Aspartate Amino Transferase 18 U/L (14-36); Bilirubin,Total 0.6 mg/dl (0.2-1.3); Blood Urea Nitrogen 46 mg/dl (7-17); Calcium 8.6 mg/dl (8.4-10.2); Carbon Dioxide 31 mmol/L (22.0-30.0); Chloride 100 mmol/L (98-107); Estimated Glomerular Filt Rate 22 ml/min (>60); GFR (African American) 26 ML/MIN (>60); Glucose 74 mg/dl (74-100); Potassium 4.8 mmoL/L (3.5-5.1); Sodium 139 mmol/L (136-145); Total Protein,Serum 6.7 g/dl (6.3-8.2)
== END 2023-11-30 23:59 | disposition home or self-care (01) ==
LOC: LAB.DROPOF 12-01 08:49
PROVIDERS: PCP Internal Medicine; Visit Provider Internal Medicine
DX: R53.83 Other fatigue (principal); R73.09 Other abnormal glucose
CPT/HCPCS: 80053; 83036; 85025

== ENCOUNTER 2023-12-29 09:01 | Outpatient (CLI) | payer MEDICARE, SELFPAY ==
[2023-12-29 09:11] LABS: Microscopic, Urine URINE MICROSCOPIC (MICROSCOPIC)
[2023-12-29 09:42] LABS: Hematocrit 37.1 % (37.0-47.0); Hemoglobin 11.6 g/dL (12.2-16.2); Mean Corpuscular HGB Conc 31.2 g/dL (31.8-35.4); Mean Corpuscular Hemoglobin 26.1 pg (27.0-31.2); Mean Corpuscular Volume 83.7 fl (81-99); Platelet Count 322 K/mm3 (142-424); Red Blood Count 4.43 M/mm3 (4.20-5.40); Red Cell Distribution Width 15.8 % (11.5-17.5); White Blood Count 10.8 K/mm3 (4.8-10.8)
[2023-12-29 09:53] LABS: Appearance,Urine CLEAR (Clear); Bilirubin,Urine Negative (Negative); Blood, Urine Negative (Negative); Color,Urine YELLOW (Yellow); Glucose,Urine (UA) 3+ (Negative); Ketones,Urine Negative (Negative); Leukocyte Esterase,Urine Negative (Negative); Nitrate,Urine Negative (Negative); PH,Urine 6.5 (5.0-8.5); Protein,Urine TRACE (Negative); Urobilinogen,Urine 0.2 EU/dl (0.2)
[2023-12-29 10:02] LABS: Creatinine,Urine Random 58 mg/dL (Not Estab.)
[2023-12-29 10:44] LABS: Bacteria,Urine Trace /lpf
[2023-12-29 10:45] LABS: Albumin Level 3.5 g/dl (3.5-5.0); Anion Gap 14.3 mEq/L (5-15); Blood Urea Nitrogen 37 mg/dl (7-17); Calcium 8.8 mg/dl (8.4-10.2); Carbon Dioxide 33 mmol/L (22.0-30.0); Chloride 96 mmol/L (98-107); Estimated Glomerular Filt Rate 22 ml/min (>60); GFR (African American) 26 ML/MIN (>60); Glucose 165 mg/dl (74-100); Phosphorous 4.8 mg/dl (2.5-4.5); Potassium 4.3 mmoL/L (3.5-5.1); Sodium 139 mmol/L (136-145)
[2023-12-29 10:56] LABS: Intact Parathyroid Hormone 204.1 pg/mL (7.5-53.5)
[2023-12-29 11:02] LABS: 25-OH Vitamin D, Total 31.7 ng/mL (30-100)
== END 2023-12-29 23:59 | disposition home or self-care (01) ==
LOC: LAB 09:02
PROVIDERS: PCP Internal Medicine; Visit Provider Internal Medicine Nephrology
DX: N18.4 Chronic kidney disease, stage 4 (severe) (principal); R71.0 Precipitous drop in hematocrit
CPT/HCPCS: 36415; 80069; 81001; 82306; 82570; 83970; 84156; 85014; 85018; 85048; 85049

== ENCOUNTER 2024-01-02 13:30 | Outpatient (POV) | payer MEDICARE, SELFPAY | END 2024-01-02 23:59 | disposition home or self-care (01) | LOC: SC 13:30 | PROVIDERS: Visit Provider Internal Medicine Nephrology | DX: Z00.00 Encounter for general adult medical examination without abnormal findings (principal) ==

== ENCOUNTER 2024-02-13 09:30 | Outpatient (CLI) | payer MEDICARE, SELFPAY ==
[2024-02-13 19:22] LABS: Iron 64 ug/dL (37-170)
[2024-02-13 19:36] LABS: Free Thyroxine Index 3.5 ug/dL (5.93-13.13); T4 (Thyroxine) 7.4 ug/dl (5.53-11.0); Triiodothryronine (T3) Uptake 47 % (23.5-40.5)
[2024-02-13 19:41] LABS: Total Iron Binding Capacity 290 ug/dL (265-497)
== END 2024-02-13 23:59 | disposition home or self-care (01) ==
LOC: LAB.DROPOF 02-14 08:31
PROVIDERS: PCP Internal Medicine; Visit Provider Internal Medicine
DX: D50.9 Iron deficiency anemia, unspecified (principal); E66.01 Morbid (severe) obesity due to excess calories; Z68.41 Body mass index [BMI] 40.0-44.9, adult; E03.9 Hypothyroidism, unspecified
CPT/HCPCS: 83540; 83550; 84436; 84443; 84479

== ENCOUNTER 2024-04-16 09:14 | Outpatient (CLI) | payer MEDICARE, SELFPAY ==
[2024-04-16 09:25] LABS: Microscopic, Urine URINE MICROSCOPIC (MICROSCOPIC)
[2024-04-16 10:16] LABS: Basophils # 0.2 K/mm3 (0-0.2); Basophils % 1.3 % (0.1-2.0); Eosinophils # 0.5 K/mm3 (0.0-0.4); Eosinophils % 4.3 % (0.1-12.0); Hematocrit 43.2 % (37.0-47.0); Hemoglobin 13.1 g/dL (12.2-16.2); Lymphocytes # 1.7 K/mm3 (0.7-4.5); Lymphocytes % 13.9 % (10-50); Mean Corpuscular HGB Conc 30.3 g/dL (31.8-35.4); Mean Corpuscular Hemoglobin 25.6 pg (27.0-31.2); Mean Corpuscular Volume 84.7 fl (81-99); Mean Platelet Volume 7.8 fl (7.4-10.4); Monocytes # 0.8 K/mm3 (0.1-1.0); Neutrophils # 8.8 K/mm3 (1.8-7.8); Neutrophils % 73.5 % (37.0-80.0); Platelet Count 352 K/mm3 (142-424); Red Blood Count 5.09 M/mm3 (4.20-5.40); Red Cell Distribution Width 16.8 % (11.5-17.5)
[2024-04-16 10:58] LABS: Albumin Level 3.6 g/dl (3.5-5.0); Chloride 99 mmol/L (98-107); Potassium 4.5 mmoL/L (3.5-5.1); Sodium 136 mmol/L (136-145)
[2024-04-16 11:01] LABS: Anion Gap 9.5 mEq/L (5-15); Blood Urea Nitrogen 41 mg/dl (7-17); Calcium 8.3 mg/dl (8.4-10.2); Carbon Dioxide 32 mmol/L (22.0-30.0); Estimated Glomerular Filt Rate 24 ml/min (>60); GFR (African American) 29 ML/MIN (>60); Glucose 182 mg/dl (74-100); Phosphorous 5.7 mg/dl (2.5-4.5)
[2024-04-16 11:43] LABS: Appearance,Urine CLEAR (Clear); Bilirubin,Urine Negative (Negative); Blood, Urine Negative (Negative); Color,Urine YELLOW (Yellow); Glucose,Urine (UA) 3+ (Negative); Ketones,Urine Negative (Negative); Leukocyte Esterase,Urine Negative (Negative); Nitrate,Urine Negative (Negative); Protein,Urine TRACE (Negative); Urobilinogen,Urine 0.2 EU/dl (0.2)
[2024-04-16 11:57] LABS: Creatinine,Urine Random 32 mg/dL (Not Estab.)
[2024-04-16 12:13] LABS: Squamous Epithelial Cell,Urine 20-50 #/hpf (0-5)
== END 2024-04-16 23:59 | disposition home or self-care (01) ==
LOC: LAB 09:16
PROVIDERS: PCP Internal Medicine; Visit Provider Internal Medicine Nephrology
DX: N18.4 Chronic kidney disease, stage 4 (severe) (principal)
CPT/HCPCS: 36415; 80069; 81001; 82570; 84156; 85025

== ENCOUNTER 2024-04-19 14:20 | Outpatient (POV) | payer MEDICARE, SELFPAY | END 2024-04-19 23:59 | disposition home or self-care (01) | LOC: SC 14:21 | PROVIDERS: Visit Provider Student in an Organized Health Care Education/Training Program | DX: Z00.00 Encounter for general adult medical examination without abnormal findings (principal) ==

== ENCOUNTER 2024-05-08 10:45 | Outpatient (CLI) | payer MEDICARE, SELFPAY ==
[2024-05-08 18:30] LABS: Alanine Aminotransferase 8 U/L (12-78); Albumin Level 3.8 g/dl (3.5-5.0); Albumin/Globulin Ratio 1.2 (1.1-1.8); Alkaline Phosphatase 74 U/L (38-126); Anion Gap 11.5 mEq/L (5-15); Aspartate Amino Transferase 18 U/L (14-36); Bilirubin,Total 0.7 mg/dl (0.2-1.3); Blood Urea Nitrogen 43 mg/dl (7-17); Calcium 8.7 mg/dl (8.4-10.2); Carbon Dioxide 34 mmol/L (22.0-30.0); Chloride 95 mmol/L (98-107); Estimated Glomerular Filt Rate 20 ml/min (>60); GFR (African American) 24 ML/MIN (>60); Globulin 3.1 g/dL (1.3-3.2); Glucose 104 mg/dl (74-100); Potassium 4.5 mmoL/L (3.5-5.1); Sodium 136 mmol/L (136-145); Total Protein,Serum 6.9 g/dl (6.3-8.2)
== END 2024-05-08 23:59 | disposition home or self-care (01) ==
LOC: LAB.DROPOF 05-09 09:31
PROVIDERS: PCP Internal Medicine; Visit Provider Internal Medicine
DX: N18.32 Chronic kidney disease, stage 3b (principal); E11.22 Type 2 diabetes mellitus with diabetic chronic kidney disease; B35.1 Tinea unguium; G47.33 Obstructive sleep apnea (adult) (pediatric); I89.0 Lymphedema, not elsewhere classified; E66.01 Morbid (severe) obesity due to excess calories; Z68.42 Body mass index [BMI] 45.0-49.9, adult; E03.9 Hypothyroidism, unspecified; I65.23 Occlusion and stenosis of bilateral carotid arteries; E78.2 Mixed hyperlipidemia; I11.0 Hypertensive heart disease with heart failure; I50.32 Chronic diastolic (congestive) heart failure; K51.911 Ulcerative colitis, unspecified with rectal bleeding; L98.9 Disorder of the skin and subcutaneous tissue, unspecified
CPT/HCPCS: 80053

== ENCOUNTER 2024-05-09 09:29 | Outpatient (CLI) | payer MEDICARE, SELFPAY | END 2024-05-09 23:59 | disposition home or self-care (01) | LOC: LAB.DROPOF 05-10 09:30 | PROVIDERS: PCP Internal Medicine; Visit Provider Nurse Practitioner | DX: L97.522 Non-pressure chronic ulcer of other part of left foot with fat layer exposed (principal); E11.621 Type 2 diabetes mellitus with foot ulcer | CPT/HCPCS: 87070; 87077; 87205 ==

== ENCOUNTER 2024-05-10 07:59 | Day surgery (SDC) | payer MEDICARE, SELFPAY ==
[2024-05-10] MEDS: LACTATED RINGERS 1000ML 1,000 ML 25 ML IV (08:20)
[2024-05-10 08:27] VITALS: BP 156/107; PULSE 63; RESP 18; TEMP 36.1; O2SAT 93; BMI 45.1
--- NOTE | 2024-05-10 08:40 | EXP.ANES.CKL ---
[facility] Disclaimer: The information contained in this section may have been updated after the patient was seen, as this information can be updated by other users. 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 Dyspnea on exertion COVID IAN (obstructive sleep apnea) Cataract Breast cancer Carpal tunnel syndrome Iron deficiency anemia Hyperlipidemia Diastolic CHF Ulcerative colitis LV dysfunction Chest pain Dyspnea Surgical History History of colonoscopy with polypectomy H/O mastectomy H/O hysterectomy for benign disease History of right-sided carotid endarterectomy Family History Other Family history of diabetes mellitus type I Family history of myocardial infarction Liver cancer Social History Smoking Status: Former smoker tobacco type: cigarettes packs per day: 1 alcohol intake: never substance use type: denies use current occupational status: retired Travel in the last 8 weeks: None household members: spouse housing: house marital status: number of children: 1 number of grandchildren: 2 education level: high school current occupational exposures/hazards: No sexually active: Yes how many partners: 1 caffeine: Yes [facility] Anesthesia Checklist Patient Identification Patient Identification: Arm Band and Verbal (Name & ) Structural Data Admitted From: Home Planned Operative Procedure/s: Colonoscopy Consent for Planned Operative Procedure(s) Verified: Yes Verified Documents: Surgical Consent, History and Physical and Cardiac Clearance NPO Status Verified Time NPO: 00:00 Additional verifications Anesthesia Reactions: No Airway Assessment Mallampati Score:: Class III C-Spine Mobility Assessed: Yes TMJ Mobility Assessed: Yes Dentition: Dentures-poor fitting (Removed) Neurological Assessment Level of Consciousness: Awake Hx Seizures: No Numbness or tingling in extremities: No Anesthesia Plan Anesthesia Risk discussed: Yes Anesthesia Plan: Verified ASA Class: III Anesthesia Type: MAC
[2024-05-10 08:47] LABS: POC Glucose,Bedside 109 (70-110)
[2024-05-10 09:05] VITALS: O2SAT 99
[2024-05-10 09:36] VITALS: BP 151/70; PULSE 70; RESP 18; TEMP 36.1; O2SAT 97
[2024-05-10 09:46] VITALS: BP 144/68; PULSE 71; RESP 18; O2SAT 97
[2024-05-10 09:56] VITALS: BP 140/50; PULSE 70; RESP 18; O2SAT 96
--- NOTE | 2024-05-10 10:02 | HMH.PROCNOTE ---
[facility] Procedure Note Date: 05/10/24 Time: 10:02 Procedure Note:: Colonoscopy Procedure Report: Colonoscopy with cold biopsies Endoscopist: David Armijo II, MD Referring physician: Jaguar Prince Date of Procedure: May 10, 2024 Equipment: Olympus 190 variable stiffness pediatric colonoscope Sedation: MAC sedation Indication: Mrs. Michelle is a 78-year-old female with a history of chronic ulcerative colitis. This was diagnosed by Bryan Kern more than 10 years ago. She was placed on balsalazide. The patient recently has had some rectal bleeding and loose stools. She does get moderate gassiness and some bloating. She takes medication for gas relief. She reports no mucus with her bowel movements. She does state that her last colonoscopy was in 2019. Procedure: Prior to the procedure, a history and physical exam was performed, and patient's medications and allergies were reviewed. The risks, benefits and alternatives of the sedation and procedure were discussed with the patient. All questions were answered and informed consent was obtained. The patient was brought to the procedure room. Patient identification and proposed procedure were verified by the physician and the nurse. The patient was placed in a left lateral decubitus position and the scope was passed under direct vision. Throughout the procedure, the patient's blood pressure, pulse, and oxygen saturations were monitored continuously. The colonoscopy was accomplished without difficulty. The patient tolerated the procedure well. Findings: On digital rectal examination there was normal rectal tone. There were no external hemorrhoids. The colonoscope was introduced through the anal canal to the rectum and advanced to the cecum. The ileocecal valve and appendiceal orifice were identified. The scope was advanced a short distance into the ileum which appeared grossly normal. The scope was then withdrawn into the colon. The cecum, ascending and transverse colon and mucosa were grossly normal. There were a couple of small benign pseudopolyps in the transverse and descending colon. There were extensive scattered diverticuli throughout the descending and sigmoid colon (LEFT colon). There was evidence of mucosal erythema, edema, granularity and loss of vascular pattern from 30 cm to the anal verge consistent with left-sided ulcerative colitis (mild). There is also a larger inflammatory pseudopolyp at 28 cm that was biopsied. Biopsies were taken from the sigmoid and rectum separately. Impression: 1. Chronic left-sided ulcerative colitis (mild) from 30 cm to anal verge 2. Extensive left-sided diverticulosis in background of pandiverticulosis 3. Larger inflammatory sigmoid pseudopolyp Plan: I will follow-up the biopsies and continue mesalamine or balsalazide. I would consider maintenance of remission with one of the newer oral Biologics (Zeposia or Velsipity).
--- NOTE | 2024-05-10 10:07 | EXP.HP ---
History of Present Illness *Admission Date: 05/10/24 *Reason for visit:: Bright red rectal bleeding *History of present illness: Mrs. Michelle is a 78-year-old female who is here for bright red rectal bleeding in setting of chronic ulcerative this. The examination is deemed medically necessary for colonoscopy. The patient has been seen, interviewed and examined prior to the procedure by both myself and the anesthesia provider. [facility] Disclaimer: The information contained in this section may have been updated after the patient was seen, as this information can be updated by other users. 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 Dyspnea on exertion COVID IAN (obstructive sleep apnea) Cataract Breast cancer Carpal tunnel syndrome Iron deficiency anemia Hyperlipidemia Diastolic CHF Ulcerative colitis LV dysfunction Chest pain Dyspnea Surgical History History of colonoscopy with polypectomy H/O mastectomy H/O hysterectomy for benign disease History of right-sided carotid endarterectomy Family History Other Family history of diabetes mellitus type I Family history of myocardial infarction Liver cancer Social History Smoking Status: Former smoker tobacco type: cigarettes packs per day: 1 alcohol intake: never substance use type: denies use current occupational status: retired Travel in the last 8 weeks: None household members: spouse housing: house marital status: number of children: 1 number of grandchildren: 2 education level: high school current occupational exposures/hazards: No sexually active: Yes how many partners: 1 caffeine: Yes Other Medical History Have you received the Flu Vaccine for this season: No Have you received the Pneumonia Vaccine: Yes Review of Systems Review of Systems Review of systems (narrative): Negative *Cardiovascular Comments: Negative *Gastrointestinal Comments: Negative *Genitourinary Comments: Negative *Musculoskeletal Comments: Negative *Neurologic Comments: Negative Meds Home Medications and Allergies Home Medications ?Medication ?Instructions ?Recorded ?Confirmed ?Type ferrous gluconate 324 mg (38 mg 324 mg PO BID Supplement 11/20/18 05/09/24 History iron) tablet cholecalciferol (vitamin D3) 50 50 mcg PO DAILY Supplement 09/03/19 05/09/24 History mcg (2,000 unit) capsule aspirin 81 mg tablet,delayed 81 mg PO DAILY heart health 10/15/20 05/09/24 History release (Adult Low Dose Aspirin) nitroglycerin 0.4 mg sublingual 0.4 mg sublingual Q5-15M PRN chest 10/15/20 05/09/24 Rx tablet pain #25 tabs simethicone 125 mg tablet 125 mg PO DAILYP PRN Gas 03/15/23 05/09/24 History amlodipine 5 mg tablet (Norvasc) 5 mg PO DAILY #30 tabs 03/16/23 05/09/24 Rx carvedilol 25 mg tablet (Coreg) 25 mg PO BIDWMEAL High blood 06/01/23 05/09/24 Rx pressure #180 tabs blood-glucose meter #1 ea 10/05/23 05/09/24 Rx mesalamine 800 mg tablet,delayed 2,400 mg (3 x 800 mg) PO BID 90 10/05/23 05/09/24 Rx release days #540 tabs fluticasone propionate 50 1 spray intranasal DAILY #16 grams 11/08/23 05/09/24 Rx mcg/actuation nasal spray,suspension (Flonase Allergy Relief) levothyroxine 88 mcg tablet 88 mcg PO DAILY Thyroid 90 days 11/17/23 05/09/24 Rx #90 tabs ipratropium 0.5 mg-albuterol 3 mg 3 ml inhalation QID PRN shortness 11/24/23 05/09/24 Rx (2.5 mg base)/3 mL nebulization of breath or wheezing 90 days #270 soln mL blood sugar diagnostic (Accu-Chek #100 ea 12/01/23 05/09/24 Rx Guide test strips) pen needle, diabetic 31 gauge x #100 ea 12/06/23 05/09/24 Rx 1/4 insulin syringe-needle U-100 1 mL #100 ea 01/17/24 05/09/24 Rx 31 gauge x 5/16 (Advocate Syringes) omeprazole 40 mg capsule,delayed 40 mg PO HS acid reflux #90 caps 01/17/24 05/09/24 Rx release clonidine HCl 0.1 mg tablet 0.1 mg PO HS PRN hypertension #30 01/30/24 05/09/24 Rx tabs canagliflozin 100 mg tablet 100 mg PO DAILY 03/05/24 05/09/24 History (Invokana) furosemide 40 mg tablet 40 mg PO BID Fluid / swelling #90 03/12/24 05/09/24 Rx tabs balsalazide 750 mg capsule 2,250 mg (3 x 750 mg) PO BID 90 04/03/24 05/09/24 Rx days #540 caps insulin human U-100 NPH-regulr 83 unit (0.83 mL) SQ AM Diabetes 04/11/24 05/09/24 Rx 70-30 mix 100 unit/mL subcutaneous #10 mL susp (Novolin 70/30 U-100 Insulin) simvastatin 40 mg tablet 40 mg PO HS Cholesterol #90 tabs 04/11/24 05/09/24 Rx insulin human U-100 NPH-regulr 10 unit SQ HS Diabetes 05/08/24 05/09/24 History 70-30 mix 100 unit/mL subcutaneous susp (Novolin 70/30 U-100 Insulin) clindamycin HCl 300 mg capsule 300 mg PO TID infection 14 days 05/09/24 05/09/24 Rx #42 caps New Prescriptions to Start Prescriptions: Allergies Allergy/AdvReac Type Severity Reaction Status Date / Time Sulfa (Sulfonamide Allergy Intermediate I-RASH Verified 05/10/24 08:21 Antibiotics) Exam Data for Last 24 hours Vital signs and Labs for Last 24 Hours: Temp Pulse Resp BP Pulse Ox O2 Del Method O2 Flow Rate 97 F L 67 18 153/64 H 95 Room Air 5 05/10/24 09:36 05/10/24 09:58 05/10/24 09:58 05/10/24 09:58 05/10/24 09:58 05/10/24 09:58 05/10/24 09:05 Laboratory Results - last 24 hr 05/10/24 08:38: POC Glucose 109 I & O for Last 24 hours: Intake & Output 05/07/24 05/08/24 05/09/24 05/10/24 23:59 23:59 23:59 23:59 Weight 255 lb *Routine HEENT Exam Head: Present normocephalic Eye: Present EOMI and PERRL ENT: Present mucous membranes moist *Routine Neck Exam Neck: Present supple *Routine Respiratory Exam Respiratory: Present CTA bilaterally *Routine Cardiovascular Exam Cardiovascular: Present RRR *Routine Abdominal Exam Abdominal: Present soft and normoactive bowel sounds; Absent tenderness *Routine Rectal Exam Rectal:: deferred *Routine Genitalia Exam Genitalia:: deferred *Routine Extremities Exam Extremities: Absent cyanosis, clubbing or edema *Routine Skin Exam Skin: Present warm; Absent rash *Routine Neurological Exam Neurological: Present alert and oriented X3 Assessment and Plan *Assessment and plan (1) Bright red rectal bleeding: Status: Acute Category: Medical Code(s): K62.5 - Hemorrhage of anus and rectum (2) Left sided ulcerative colitis: Status: Acute Category: Medical Code(s): K51.50 - Left sided colitis without complications Plan A/P: 1. Bright red rectal bleeding?history of colitis is the preprocedural diagnosis. The patient will be anesthetized/sedated using MAC sedation. The patient has been seen and examined. Cardiac and lung assessment prior to the examination is stable. Proceed with planned colonoscopy
[2024-05-10 10:33] VITALS: BP 153/64; PULSE 67; RESP 18; O2SAT 95
== END 2024-05-10 10:33 | disposition home or self-care (01) ==
PROVIDERS: PCP Internal Medicine; Visit Provider Internal Medicine Gastroenterology
DX: K62.5 Hemorrhage of anus and rectum (principal); K51.50 Left sided colitis without complications; K57.30 Diverticulosis of large intestine without perforation or abscess without bleeding; K51.40 Inflammatory polyps of colon without complications
CPT/HCPCS: 45380; 82962; 88305; J7120

== ENCOUNTER 2024-06-05 11:09 | Inpatient (IN) | payer MEDICARE, SELFPAY ==
[2024-06-05] VITALS (7 sets, daily range): BP systolic 158–197; BP diastolic 59–93; PULSE 59–69; RESP 18–22; TEMP 36.7–37.3; O2SAT 90–94; BMI 44.1; BMI 43.4
--- NOTE | 2024-06-05 12:12 | XR_ITS ---
PROCEDURE INFORMATION: Exam: XR Chest Exam date and time: 06/05/2024 12:22 PM Age: 78 years old Clinical indication: Shortness of breath; Additional info: SOA TECHNIQUE: Imaging protocol: Radiologic exam of the chest. Views: 2 views. COMPARISON: CR XR CHEST 2V 06/05/2024 12:22 PM FINDINGS: Lungs: Mild pulmonary congestion noted. Pleural spaces: Unremarkable. No pleural effusion. No pneumothorax. Heart/Mediastinum: Cardiomegaly noted. Bones/joints: Unremarkable. IMPRESSION: 1. Cardiomegaly noted. 2. Mild pulmonary congestion noted.
--- NOTE | 2024-06-05 12:12 | XR_ITS ---
PROCEDURE INFORMATION: Exam: XR Left Foot Exam date and time: 06/05/2024 12:25 PM Age: 78 years old Clinical indication: Pain; Foot; Left; Additional info: Wound, worsening swelling/pain TECHNIQUE: Imaging protocol: Radiologic exam of the left foot. Views: 3 or more views. COMPARISON: No relevant prior studies available. FINDINGS: Bones/joints: There are osseous erosive changes involving the 4th proximal phalanx. There is a pathologic fracture. Soft tissues: Normal. IMPRESSION: There are osseous erosive changes involving the 4th proximal phalanx. There is a pathologic fracture. Findings suspicious for 4th proximal phalanx osteomyelitis and pathologic fracture.
--- NOTE | 2024-06-05 12:18 | ED_ITS ---
Discharge Plan Disposition Patient Disposition: Admitted Clinical Impressions Clinical Impression: Chronic respiratory failure, Acute osteomyelitis of left foot Discharge ED Provider: Ashley Smith General Adult HPI General Chief complaint: Recheck/Abnormal Lab/Rx Stated complaint: soa Time Seen by Provider: 06/05/24 11:45 Mode of Arrival: Ambulatory Source of Information: Patient and Spouse Limitations: No Limitations Description of Symptoms (Recalled from ER Triage Doc. by RN): sent over from office related to low oxygen. wound noted to left foot with edema,redness. fevers History of Present Illness HPI narrative: This patient is a 78-year-old female with a history of COPD intermittently on home oxygen as needed, CKD, hypertension, hyperlipidemia, diabetes with chronic left foot wound, CHF, IAN, and tobacco dependence presenting to the emergency department for evaluation from primary care's office with concern for low oxygen. Patient is also been having fevers and worsening redness and warmth of her foot, as she has not been taking her antibiotic that was prescribed by podiatry at home. She states that the antibiotic was making her too sick. She is supposed to be on clindamycin. Her redness and swelling of her left lower extremity are worse. She does note that she usually has swelling of both legs, but her right lower extremity has improved after starting a fluid pill. Her primary care doctor noted that her O2 saturation was in the 80s on room room air there, so he sent her in for evaluation. She states that she does not have a portable oxygen concentrator so that is why her oxygen is low. She denies any chest pain, shortness of breath, or cough. Related Data Home Medications ?Medication ?Instructions ?Recorded ?Confirmed ferrous gluconate 324 mg (38 mg 324 mg PO BID Supplement 11/20/18 06/05/24 iron) tablet cholecalciferol (vitamin D3) 50 50 mcg PO DAILY Supplement 09/03/19 06/05/24 mcg (2,000 unit) capsule aspirin 81 mg tablet,delayed 81 mg PO DAILY heart health 10/15/20 06/05/24 release (Adult Low Dose Aspirin) canagliflozin 100 mg tablet 100 mg PO DAILY 03/05/24 06/05/24 (Invokana) insulin human U-100 NPH-regulr 10 unit SQ HS Diabetes 05/08/24 06/05/24 70-30 mix 100 unit/mL subcutaneous susp (Novolin 70/30 U-100 Insulin) carvedilol 25 mg tablet (Coreg) 25 mg PO BIDWMEAL 06/05/24 06/05/24 furosemide 40 mg tablet 40 mg PO HS 06/05/24 06/05/24 furosemide 40 mg tablet 80 mg PO DAILY 06/05/24 06/05/24 levothyroxine 88 mcg tablet 88 mcg PO DAILY 06/05/24 06/05/24 losartan 50 mg tablet 50 mg PO DAILY 06/05/24 06/05/24 omeprazole 40 mg capsule,delayed 40 mg PO HS 06/05/24 06/05/24 release simvastatin 40 mg tablet 40 mg PO HS 06/05/24 06/05/24 Previous Rx's ?Medication ?Instructions ?Recorded nitroglycerin 0.4 mg sublingual 0.4 mg sublingual Q5-15M PRN chest 10/15/20 tablet pain #25 tabs amlodipine 5 mg tablet (Norvasc) 5 mg PO DAILY #30 tabs 03/16/23 blood-glucose meter #1 ea 10/05/23 mesalamine 800 mg tablet,delayed 2,400 mg (3 x 800 mg) PO BID 90 10/05/23 release days #540 tabs fluticasone propionate 50 1 spray intranasal DAILY #16 grams 11/08/23 mcg/actuation nasal spray,suspension (Flonase Allergy Relief) pen needle, diabetic 31 gauge x #100 ea 12/06/23 1/4 insulin syringe-needle U-100 1 mL #100 ea 01/17/24 31 gauge x 5/16 (Advocate Syringes) clonidine HCl 0.1 mg tablet 0.1 mg PO HS PRN hypertension #30 01/30/24 tabs balsalazide 750 mg capsule 2,250 mg (3 x 750 mg) PO BID 90 04/03/24 days #540 caps insulin human U-100 NPH-regulr 83 unit (0.83 mL) SQ AM Diabetes 04/11/24 70-30 mix 100 unit/mL subcutaneous #10 mL susp (Novolin 70/30 U-100 Insulin) amoxicillin 500 mg-potassium 1 tab PO BID 14 days #28 tabs 06/05/24 clavulanate 125 mg tablet (Augmentin) blood sugar diagnostic (Accu-Chek #100 ea 06/05/24 Guide test strips) Allergies Allergy/AdvReac Type Severity Reaction Status Date / Time Sulfa (Sulfonamide Allergy Intermediate I-RASH Verified 06/05/24 10:03 Antibiotics) [facility] Disclaimer: The information contained in this section may have been updated after the patient was seen, as this information can be updated by other users. 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 Dyspnea on exertion COVID IAN (obstructive sleep apnea) Cataract Breast cancer Carpal tunnel syndrome Iron deficiency anemia Hyperlipidemia Diastolic CHF Ulcerative colitis LV dysfunction Chest pain Dyspnea Surgical History History of colonoscopy with polypectomy H/O mastectomy H/O hysterectomy for benign disease History of right-sided carotid endarterectomy Family History Other Family history of diabetes mellitus type I Family history of myocardial infarction Liver cancer Social History Smoking Status: Former smoker tobacco type: cigarettes packs per day: 1 alcohol intake: never substance use type: denies use current occupational status: retired Travel in the last 8 weeks: None household members: spouse housing: house marital status: number of children: 1 number of grandchildren: 2 education level: high school current occupational exposures/hazards: No sexually active: Yes how many partners: 1 caffeine: Yes Other Medical History Have you received the Flu Vaccine for this season: No Have you received the Pneumonia Vaccine: Yes ROS Obtained: Yes All systems reviewed & no additional complaints except as documented Physical Exam General General appearance: alert and in no apparent distress Head Head exam: atraumatic and normocephalic Eye Eye exam: Present normal appearance, PERRL and EOMI ENT ENT exam: Present normal exam, normal oropharynx, mucous membranes moist and normal external ear exam Neck Neck exam: Present normal inspection, full ROM and trachea midline; Absent tenderness Chest Chest inspection: Present normal inspection and symmetric chest wall rise; Absent tenderness Respiratory Respiratory exam: Present normal lung sounds bilaterally; Absent respiratory distress, wheezes, stridor or accessory muscle use Cardiovascular Cardiovascular exam: Present regular rate and normal rhythm Abdominal Exam Abdominal exam: Present soft; Absent distention, tenderness or guarding Extremities Exam Extremities exam: Present full ROM, tenderness, normal capillary refill, edema and other (Redness, swelling, and warmth of the left lower extremity with a wound on the fourth toe that has purulence. No palpable crepitus. No appreciable abscess) Back Exam Back exam: Present normal inspection and full ROM; Absent tenderness Neurological Exam Neurological exam: Present alert, oriented X3, CN II-XII intact and normal gait; Absent motor sensory deficit Psychiatric Psychiatric exam: Present normal affect and normal mood Skin Skin exam: Present warm and dry Medical Decision Making Medical Records Medical records reviewed: Yes I reviewed the patient's medical records. Screening: Per USPSTF and CDC recommendations, given the prevalence of disease in our region, it is our hospital?s policy to screen for HIV and viral Hepatitis for all patients aged 18 and over and those with ongoing risk factors. [place] Inquiry Pt receiving controlled substance: No Vital Signs: 06/05/24 11:10 06/05/24 11:34 06/05/24 12:00 Temperature 99.1 F Temperature Source Oral Pulse Rate 61 69 Pulse Rate [Left] 60 Respiratory Rate 22 Blood Pressure 159/77 H Blood Pressure [Left Arm] 159/77 H Blood Pressure Mean [Left Arm] 104 02 Sat by Pulse Oximetry 94 L 91 L 90 L Oxygen Delivery Method Room Air Room Air Room Air 06/05/24 13:30 06/05/24 15:00 Temperature 99.0 F Temperature Source Pulse Rate 59 L 68 Pulse Rate [Left] Respiratory Rate 20 Blood Pressure 197/82 H 197/82 H Blood Pressure [Left Arm] Blood Pressure Mean [Left Arm] 02 Sat by Pulse Oximetry 92 L Oxygen Delivery Method Lab Data Lab results reviewed: Yes I reviewed the patient's lab results. Lab Results 06/05/24 11:42: WBC 13.1 H, RBC 4.80, Hgb 12.8, Hct 38.9, MCV 81.1, MCH 26.6 L, MCHC 32.8, RDW 16.2, Plt Count 389, MPV 7.3 L, Neut % (Auto) 77.0, Lymph % (Auto) 10.8, [place] % (Auto) 6.6, Eos % (Auto) 4.1, Baso % (Auto) 1.6, Neut # (Auto) 10.1 H, Lymph # (Auto) 1.4, [place] # (Auto) 0.9, Eos # (Auto) 0.5 H, Baso # (Auto) 0.2, D-Dimer 0.68 H, Sodium 139, Potassium 4.4, Chloride 98, Carbon Dioxide 34 H, Anion Gap 11.4, BUN 40 H, Creatinine 2.10 H, Estimated Creat Clear 19, Estimated GFR 23 L, Est GFR ( Amer) 28 L, Glucose 145 H, Lactate 1.0, Calcium 8.8, Total Bilirubin 0.8, AST 22, ALT 12, Alkaline Phosphatase 69, C- Reactive Protein 54.1 H, NT-Pro-B Natriuret Pep 2210 H, Total Protein 7.5, Albumin 3.9, Globulin 3.6 H, Albumin/Globulin Ratio 1.1, Procalcitonin 0.117, TSH 2.99, Thyroxine (T4) 7.5 06/05/24 12:57: VBG pH 7.35, VBG pCO2 62.0 H, VBG pO2 27.8 L, VBG HCO3 33.5 H, V BG Total CO2 35.4 H, VBG O2 Saturation 48.5 L, VBG Base Excess 7.9 H, VBG Lactic Acid 1.3 06/05/24 11:42 06/05/24 11:42 Orders (Tests/Meds): ED MEDICATIONS Generic Name Dose Route Start Last Admin Trade Name Freq PRN Reason Stop Dose Admin Vancomycin/PEG/NADA/Lysine/Water 1.75 gm in 350 mls @ 175 mls/hr 06/05/24 13:45 06/05/24 14:51 Vancomycin 1.75gm/350ml (Peg) Premix IV 06/05/24 15:44 175 mls/hr ONCE ONE Administration Discontinued Medications Generic Name Dose Route Start Last Admin Trade Name Freq PRN Reason Stop Dose Admin Piperacillin Sod/Tazobactam 50 mls @ 100 mls/hr 06/05/24 13:31 06/05/24 13:53 Sod 3.375 gm/ Sodium Chloride IV 06/05/24 14:00 100 mls/hr ONCE ONE Administration Miscellaneous 1 each 06/05/24 13:30 Vancomycin Consult Request NOTAPPLIC 07/05/24 13:29 CONSULT PHARMACY JESSE ORDERS Category Date Time Status Podiatry Consult [Consult to Podiatry] [CONS] Routine Cons 06/05/24 13:30 Active Podiatry Consult [Consult to Podiatry] [CONS] Routine Cons 06/05/24 13:54 Active CXR 2 view (NOT portable) [XR chest 2V] Stat Exams 06/05/24 12:12 Completed Foot XR left minimum 3 views [XR foot LT min 3V] Stat Exams 06/05/24 12:12 Completed BNP [NT Pro Brain Natriuretic Pep.] Stat Lab 06/05/24 11:42 Completed CRP [C-Reactive Protein] AMLAB Lab 06/06/24 06:00 Ordered CRP [C-Reactive Protein] Stat Lab 06/05/24 11:42 Completed Complete Blood Count Auto Diff AMLAB Lab 06/06/24 06:00 Ordered Complete Blood Count Auto Diff Stat Lab 06/05/24 11:42 Completed Comprehensive Metabolic Panel AMLAB Lab 06/06/24 06:00 Ordered Comprehensive Metabolic Panel Stat Lab 06/05/24 11:42 Completed D-Dimer Stat Lab 06/05/24 11:42 Completed Erythrocyte Sedimentation Rate AMLAB Lab 06/06/24 06:00 Ordered HIV (1&2) Antibody Rapid Stat Lab 06/05/24 11:42 Received Hep C Ab with Reflex to RNA Stat Lab 06/05/24 11:42 Received Lactic Acid Stat Lab 06/05/24 11:42 Completed Magnesium AMLAB Lab 06/06/24 06:00 Ordered Procalcitonin Stat Lab 06/05/24 11:42 Completed Rapid PCR Covid and Flu A/B Stat Lab 06/05/24 12:53 Received T4 (Thyroxine) Stat Lab 06/05/24 11:42 Completed TSH [Thyroid Stimulating Hormone] Stat Lab 06/05/24 11:42 Completed Blood Culture Stat Micro 06/05/24 12:53 Received Wound Culture and Gram Stain Stat Micro 06/05/24 13:32 Received VBG [Venous Blood Gas] Stat RT 06/05/24 12:57 Completed ECG Data Tracing #1: I reviewed this ECG and interpreted as documented below: Sinus bradycardia with ventricular rate of 58 bpm. Left axis deviation. PVC noted. No acute ST changes concerning for ischemia. ECG initial impression date: 06/05/24 ECG initial impression time: 12:32 Medical Decision Narrative: In summary, this patient is a 78-year-old female presenting to the Emergency Department for evaluation of fevers and chills in the setting of left foot wound and antibiotic noncompliance as well as low oxygen saturation at primary care clinic. Differential diagnoses considered include but are not limited to sepsis, pneumonia, cellulitis, osteomyelitis, CHF exacerbation, acute on chronic respiratory failure. Ruling out the most morbid conditions drove assessment. It should be noted patient's history includes COPD, CHF, diabetes, hypertension, hyperlipidemia which are not at goal therapy. This complicates all aspects of care by increasing patient's risk for morbidity. I reviewed patient's past medical records and noted evaluations by podiatry as well as by primary care. On exam, the patient is sitting upright in a chair in no acute distress, but she does have an O2 saturation of 86% on room air. She has no increased work of breathing. Lungs are clear bilaterally. She does have significant swelling, redness, warmth to her left foot and lower extremity. Workup included lab evaluation to evaluate for infectious, metabolic, cardiac causes of symptoms as well as x-rays of the left foot and chest x-ray. I independently interpreted x- ray prior to the radiologist read and noted mild pulmonary edema. Please see their read for final interpretation. Labs were obtained that demonstrated BNP and kidney function that around her baseline. She does have a leukocytosis and elevated CRP. D-dimer negative per years criteria. I independently interpreted x-ray of the left foot and noted concerns for osteomyelitis, so I called and had an interactive discussion with podiatry. Dr. Ramon came and evaluated the patient and recommended amputation. She recommended admission for broad-spectrum antibiotics and operative intervention. Patient is agreeable to this. I started the patient on vancomycin and Zosyn after obtaining blood cultures. I had an interactive discussion with the hospitalist who admitted the patient in stable condition. Critical Care Critical Care Time Critical Care Time: No
--- NOTE | 2024-06-05 12:29 | ECG_ITS ---
APPROVED REPORT Exam: Resting ECG HR:58 bpm ECG Measurements Heart Rate 58 AXES CO 247 P 76 QRSd 86 QRS -41 QT 398 T 68 QTc 396 Conclusion SINUS BRADYCARDIA WITH SINUS ARRHYTHMIA WITH FIRST DEGREE AV BLOCK LEFT AXIS DEVIATION [QRS AXIS < -30] No acute STEMI PVC noted Electronically signed by : NICHOL EVANS, 06/05/2024 15:27:21
[2024-06-05 12:30] LABS: Basophils # 0.2 K/mm3 (0-0.2); Basophils % 1.6 % (0.1-2.0); Eosinophils # 0.5 K/mm3 (0.0-0.4); Eosinophils % 4.1 % (0.1-12.0); Hematocrit 38.9 % (37.0-47.0); Hemoglobin 12.8 g/dL (12.2-16.2); Lymphocytes # 1.4 K/mm3 (0.7-4.5); Lymphocytes % 10.8 % (10-50); Mean Corpuscular HGB Conc 32.8 g/dL (31.8-35.4); Mean Corpuscular Hemoglobin 26.6 pg (27.0-31.2); Mean Corpuscular Volume 81.1 fl (81-99); Mean Platelet Volume 7.3 fl (7.4-10.4); Monocytes # 0.9 K/mm3 (0.1-1.0); Monocytes % 6.6 % (1.7-9.3); Neutrophils # 10.1 K/mm3 (1.8-7.8); Platelet Count 389 K/mm3 (142-424); Red Cell Distribution Width 16.2 % (11.5-17.5); White Blood Count 13.1 K/mm3 (4.8-10.8)
[2024-06-05 12:32] LABS: Alanine Aminotransferase 12 U/L (12-78); Albumin Level 3.9 g/dl (3.5-5.0); Albumin/Globulin Ratio 1.1 (1.1-1.8); Alkaline Phosphatase 69 U/L (38-126); Anion Gap 11.4 mEq/L (5-15); Aspartate Amino Transferase 22 U/L (14-36); Bilirubin,Total 0.8 mg/dl (0.2-1.3); Blood Urea Nitrogen 40 mg/dl (7-17); Calcium 8.8 mg/dl (8.4-10.2); Carbon Dioxide 34 mmol/L (22.0-30.0); Chloride 98 mmol/L (98-107); Creatinine Clearance Estimated 19 mL/min (50-200); Estimated Glomerular Filt Rate 23 ml/min (>60); GFR (African American) 28 ML/MIN (>60); Globulin 3.6 g/dL (1.3-3.2); Glucose 145 mg/dl (74-100); Potassium 4.4 mmoL/L (3.5-5.1); Sodium 139 mmol/L (136-145); Total Protein,Serum 7.5 g/dl (6.3-8.2)
[2024-06-05 12:37] LABS: D-Dimer 0.68 ug/mL (0.0-0.5)
[2024-06-05 12:38] LABS: C-Reactive Protein 54.1 mg/L (0-4)
[2024-06-05 12:41] LABS: NT Pro Brain Natriuretic Pep. 2210 pg/mL (0-450)
[2024-06-05 12:48] LABS: Procalcitonin 0.117 ng/mL (0.0-2.0); T4 (Thyroxine) 7.5 ug/dl (5.53-11.0)
--- NOTE | 2024-06-05 12:53 | PC.NURSE ---
2nd blood culture sent to lab; blue band placed on left wrist covid/flu swab sent to lab Amy in [place] aware of VBG sent to lab
[2024-06-05 12:56] LABS: Coronavirus 19, PCR Not Detected (NotDetected); Influenza A, PCR Not Detected (NotDetected); Influenza B, PCR Not Detected (NotDetected)
[2024-06-05 12:58] LABS: Lactate Venous 1.3 mmol/L (0.4-2.0); VBG Base Excess 7.9 mmol/L (-2.4-2.3); VBG HCO3 33.5 mmol/L (23-30); VBG Oxygen Saturation 48.5 % (50-70); VBG PH 7.35 mmol/L (7.31-7.41); VBG PO2 27.8 mmol/L (28-40); VBG Total CO2 35.4 mmol/L (23-27)
--- NOTE | 2024-06-05 12:59 | PC.NURSE ---
on phone with podiatry
[2024-06-05 13:02] LABS: Thyroid Stimulating Hormone 2.99 uIU/mL (0.465-4.68)
--- NOTE | 2024-06-05 13:36 | PC.NURSE ---
culture obtained from wound on left foot.
[2024-06-05] MEDS: PIPERACILLIN/TAZO 3.375 GM in 0.9 % SODIUM CHLORIDE 50 ML IV (13:53)
--- NOTE | 2024-06-05 13:56 | EXP.HP ---
History of Present Illness *Admission Date: 06/05/24 *Reason for visit:: left foot pain *History of present illness: Ms. Rios is a 78-year-old female with multiple comorbidities including COPD, diabetes, obesity, CHF, CKD. She presented from her primary care doctor office due to low oxygen and left foot pain. Having swelling and redness. Reportedly having fevers but afebrile in the ER. On evaluation, patient reports she wears oxygen as needed but stable on room air at this time. States she has been having worsening pain and redness in her left foot for about the past month. She has not been taking her antibiotic consistently as prescribed per podiatry at home. It was making her feel nauseous so she stopped taking it. Redness and swelling of her left lower extremity has gotten worse. Workup in the ER concerning for osteomyelitis with pathologic fracture along with elevated white count of 13. Initiated on vancomycin and Zosyn. Medicine consulted for admission and further management On evaluation after arriving to the floor, patient has family at bedside. Having purulent drainage from wound between fourth and fifth digit on left foot. Afebrile. On room air. Per history and talking to her, has extensive history of vasculopathy with previous stents and right sided carotid endarterectomy. Smoked for about 50 years. No longer smokes at this time. Diabetes poorly controlled with A1c fluctuating between 8 and 10 for the past several years. Denies any chest pain, nausea, vomiting. [facility] Disclaimer: The information contained in this section may have been updated after the patient was seen, as this information can be updated by other users. 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 Dyspnea on exertion COVID IAN (obstructive sleep apnea) Cataract Carpal tunnel syndrome Iron deficiency anemia Hyperlipidemia Diastolic CHF Ulcerative colitis LV dysfunction Chest pain Dyspnea Surgical History History of colonoscopy with polypectomy H/O mastectomy H/O hysterectomy for benign disease History of right-sided carotid endarterectomy Family History Other Family history of diabetes mellitus type I Family history of myocardial infarction Liver cancer Social History Smoking Status: Former smoker tobacco type: cigarettes packs per day: 1 alcohol intake: never substance use type: denies use current occupational status: retired Travel in the last 8 weeks: None household members: spouse housing: house marital status: number of children: 1 number of grandchildren: 2 education level: high school current occupational exposures/hazards: No sexually active: Yes how many partners: 1 caffeine: Yes Other Medical History Have you received the Flu Vaccine for this season: No Have you received the Pneumonia Vaccine: Yes Review of Systems Review of Systems Review of systems (narrative): 14 point review of systems performed, pertinent positives and negatives as per [facility] Meds Home Medications and Allergies Home Medications ?Medication ?Instructions ?Recorded ?Confirmed ?Type ferrous gluconate 324 mg (38 mg 324 mg PO BID Supplement 11/20/18 06/05/24 History iron) tablet cholecalciferol (vitamin D3) 50 50 mcg PO DAILY Supplement 09/03/19 06/05/24 History mcg (2,000 unit) capsule aspirin 81 mg tablet,delayed 81 mg PO DAILY heart health 10/15/20 06/05/24 History release (Adult Low Dose Aspirin) nitroglycerin 0.4 mg sublingual 0.4 mg sublingual Q5-15M PRN chest 10/15/20 06/05/24 Rx tablet pain #25 tabs amlodipine 5 mg tablet (Norvasc) 5 mg PO DAILY #30 tabs 03/16/23 06/05/24 Rx blood-glucose meter #1 ea 10/05/23 06/05/24 Rx mesalamine 800 mg tablet,delayed 2,400 mg (3 x 800 mg) PO BID 90 10/05/23 06/05/24 Rx release days #540 tabs fluticasone propionate 50 1 spray intranasal DAILY #16 grams 11/08/23 06/05/24 Rx mcg/actuation nasal spray,suspension (Flonase Allergy Relief) pen needle, diabetic 31 gauge x #100 ea 12/06/23 06/05/24 Rx 1/4 insulin syringe-needle U-100 1 mL #100 ea 01/17/24 06/05/24 Rx 31 gauge x 5/16 (Advocate Syringes) clonidine HCl 0.1 mg tablet 0.1 mg PO HS PRN hypertension #30 01/30/24 06/05/24 Rx tabs canagliflozin 100 mg tablet 100 mg PO DAILY 03/05/24 06/05/24 History (Invokana) balsalazide 750 mg capsule 2,250 mg (3 x 750 mg) PO BID 90 04/03/24 06/05/24 Rx days #540 caps insulin human U-100 NPH-regulr 83 unit (0.83 mL) SQ AM Diabetes 04/11/24 06/05/24 Rx 70-30 mix 100 unit/mL subcutaneous #10 mL susp (Novolin 70/30 U-100 Insulin) insulin human U-100 NPH-regulr 10 unit SQ HS Diabetes 05/08/24 06/05/24 History 70-30 mix 100 unit/mL subcutaneous susp (Novolin 70/30 U-100 Insulin) amoxicillin 500 mg-potassium 1 tab PO BID 14 days #28 tabs 06/05/24 06/05/24 Rx clavulanate 125 mg tablet (Augmentin) blood sugar diagnostic (Accu-Chek #100 ea 06/05/24 06/05/24 Rx Guide test strips) carvedilol 25 mg tablet (Coreg) 25 mg PO BIDWMEAL 06/05/24 06/05/24 History furosemide 40 mg tablet 40 mg PO HS 06/05/24 06/05/24 History furosemide 40 mg tablet 80 mg PO DAILY 06/05/24 06/05/24 History levothyroxine 88 mcg tablet 88 mcg PO DAILY 06/05/24 06/05/24 History losartan 50 mg tablet 50 mg PO DAILY 06/05/24 06/05/24 History omeprazole 40 mg capsule,delayed 40 mg PO HS 06/05/24 06/05/24 History release simvastatin 40 mg tablet 40 mg PO HS 06/05/24 06/05/24 History New Prescriptions to Start Prescriptions: Allergies Allergy/AdvReac Type Severity Reaction Status Date / Time Sulfa (Sulfonamide Allergy Intermediate I-RASH Verified 06/05/24 10:03 Antibiotics) Exam Data for Last 24 hours Vital signs and Labs for Last 24 Hours: Temp Pulse Resp BP Pulse Ox O2 Del Method 99.1 F 69 22 159/77 H 90 L Room Air 06/05/24 11:10 06/05/24 12:00 06/05/24 11:10 06/05/24 11:34 06/05/24 12:00 06/05/24 12:00 Laboratory Results - last 24 hr 06/05/24 11:42: WBC 13.1 H, RBC 4.80, Hgb 12.8, Hct 38.9, MCV 81.1, MCH 26.6 L, MCHC 32.8, RDW 16.2, Plt Count 389, MPV 7.3 L, Neut % (Auto) 77.0, Lymph % (Auto) 10.8, [place] % (Auto) 6.6, Eos % (Auto) 4.1, Baso % (Auto) 1.6, Neut # (Auto) 10.1 H, Lymph # (Auto) 1.4, [place] # (Auto) 0.9, Eos # (Auto) 0.5 H, Baso # (Auto) 0.2, D-Dimer 0.68 H, Sodium 139, Potassium 4.4, Chloride 98, Carbon Dioxide 34 H, Anion Gap 11.4, BUN 40 H, Creatinine 2.10 H, Estimated Creat Clear 19, Estimated GFR 23 L, Est GFR ( Amer) 28 L, Glucose 145 H, Lactate 1.0, Calcium 8.8, Total Bilirubin 0.8, AST 22, ALT 12, Alkaline Phosphatase 69, C-Reactive Protein 54.1 H, NT-Pro-B Natriuret Pep 2210 H, Total Protein 7.5, Albumin 3.9, Globulin 3.6 H, Albumin/Globulin Ratio 1.1, Procalcitonin 0.117, TSH 2.99, Thyroxine (T4) 7.5 06/05/24 12:57: VBG pH 7.35, VBG pCO2 62.0 H, VBG pO2 27.8 L, VBG HCO3 33.5 H, VBG Total CO2 35.4 H, VBG O2 Saturation 48.5 L, VBG Base Excess 7.9 H, VBG Lactic Acid 1.3 I & O for Last 24 hours: Intake & Output 06/02/24 06/03/24 06/04/24 06/05/24 23:59 22:59 23:59 23:59 Weight 112.945 kg Constitutional Constitutional: no acute distress, morbidly obese, chronically ill appearing and cooperative *Routine HEENT Exam Head: Present normocephalic Eye: Present EOMI ENT: Present mucous membranes moist *Routine Neck Exam Neck: Present full ROM *Routine Respiratory Exam Respiratory: Present normal respiratory effort; Absent rhonchi, wheezes or crackles *Routine Cardiovascular Exam Cardiovascular: Present RRR *Routine Abdominal Exam Abdominal: Present soft and normoactive bowel sounds; Absent tenderness or distended *Routine Rectal Exam Rectal:: deferred *Routine Genitalia Exam Genitalia:: deferred *Routine Extremities Exam Extremities: Present edema and full ROM; Absent cyanosis or clubbing Comments: Purulent drainage between fourth and fifth digit on left foot; left reagent tender helper to palpation *Routine Skin Exam Skin: Present intact and erythema (Left foot as above) *Routine Neurological Exam Neurological: Present alert, oriented X3 and moving all extremities; Absent altered mental status Comments: Patient with poor medical understanding. Assessment and Plan *Assessment and plan (1) Acute osteomyelitis of left foot: Status: Acute Category: Medical Code(s): M86.172 - Other acute osteomyelitis, left ankle and foot (2) Pathological fracture of toe: Status: Acute Qualifiers: Pathology associated with fracture: other disease Encounter type: initial encounter Laterality: left Qualified Code(s): M84.675A - Pathological fracture in other disease, left foot, initial encounter for fracture Category: Medical Code(s): M84.479A - Pathological fracture, unspecified toe(s), initial encounter for fracture (3) Cellulitis of left foot: Status: Acute Category: Medical Code(s): L03.116 - Cellulitis of left lower limb (4) CKD stage 4 due to type 2 diabetes mellitus: Status: Acute Category: Medical Code(s): E11.22 - Type 2 diabetes mellitus with diabetic chronic kidney disease; N18.4 - Chronic kidney disease, stage 4 (severe) (5) Obstructive sleep apnea: Status: Acute Category: Medical Code(s): G47.33 - Obstructive sleep apnea (adult) (pediatric) (6) Obesity, morbid, BMI 40.0-49.9: Status: Acute Category: Medical Code(s): E66.01 - Morbid (severe) obesity due to excess calories (7) Hypothyroid: Status: Acute Qualifiers: Hypothyroidism type: acquired Qualified Code(s): E03.9 - Hypothyroidism, unspecified Category: Medical Code(s): E03.9 - Hypothyroidism, unspecified (8) DM type 2 (diabetes mellitus, type 2): Status: Chronic Qualifiers: Diabetes mellitus care home insulin use: with extermination inspector use Diabetes mellitus complication status: with neurologic complications Diabetes mellitus complication detail: with polyneuropathy Qualified Code(s): E11.42 - Type 2 diabetes mellitus with diabetic polyneuropathy; Z79.4 - extermination inspector (current) use of insulin Category: Medical Code(s): E11.9 - Type 2 diabetes mellitus without complications (9) COPD (chronic obstructive pulmonary disease): Status: Chronic Qualifiers: COPD type: unspecified COPD Qualified Code(s): J44.9 - Chronic obstructive pulmonary disease, unspecified Category: Medical Code(s): J44.9 - Chronic obstructive pulmonary disease, unspecified (10) History of smoking 30 or more pack years: Status: Acute Category: Social Hx Code(s): Z87.891 - Personal history of nicotine dependence (11) Diastolic heart failure: Status: Chronic Qualifiers: Heart failure chronicity: chronic Qualified Code(s): I50.32 - Chronic diastolic (congestive) heart failure Category: Medical Code(s): I50.30 - Unspecified diastolic (congestive) heart failure (12) HLD (hyperlipidemia): Status: Chronic Qualifiers: Hyperlipidemia type: mixed hyperlipidemia Qualified Code(s): E78.2 - Mixed hyperlipidemia Category: Medical Code(s): E78.5 - Hyperlipidemia, unspecified Plan 78-year-old female with multiple complex comorbidities including uncontrolled diabetes, hypothyroid, obesity, vasculopathy. Presented to the ER with pain. Concern for osteomyelitis and pathologic fracture in her left foot. Discussed case with ER physician, request admission for IV antibiotics and podiatry intervention. I agreed to admit for further care. Will continue vancomycin and Zosyn. N.p.o. at midnight for surgery. Problems addressed as follows: Osteomyelitis of left foot Pathologic fracture of left toe Cellulitis of foot -White count elevated at 13, per my review of imaging, has fracture of Fourth proximal phalanx. Drainage on exam. -Continue vancomycin and Zosyn renally dosed, monitor for toxicity. -Discussed case with podiatry, plan for surgical debridement and amputation in the morning. -Inflammatory markers elevated with CRP of 54, Pro-Ja normal at 0.117. -BNP elevated at 2200, does have some edema in her legs. Will diurese x 1 with Bumex -CMP, CBC, magnesium, CRP, ESR ordered for the morning. CHF Hypertension - Continue carvedilol 25 mg twice daily; hold ARB in the setting of normotension and CKD. Monitor for further include Sumption from low to pain in the morning blood pressure. -Bumex 1 mg once, assess for diuresis CKD 4: BUN 40, creatinine 2.1. At baseline. Monitor closely given antibiotics above -Electrolytes stable with potassium 4.4, sodium 139. Diabetes: -Poorly controlled, last A1c 8.13 months ago. Repeat ordered for the morning. -Continue sliding scale insulin with fingersticks ACHS. -Complicates all aspects of her care along with wound healing Hypothyroid: TSH 2.99, continue levothyroxine 88 mcg daily Morbid obesity: Complicates all aspects of her care Full code Lovenox 30 mg daily subcu Diabetic diet, n.p.o. at midnight
--- NOTE | 2024-06-05 13:59 | PC.NURSE ---
call made to warehouse selector for bed placement
--- NOTE | 2024-06-05 14:41 | PC.NURSE ---
report called to Rena
[2024-06-05] MEDS: VANCOMYCIN/WATER FOR INJ (PEG) 1.75 GM/350 ML PIGGYBACK IV (14:51)
--- NOTE | 2024-06-05 15:01 | PC.NURSE ---
arrived by w/c from ED
--- NOTE | 2024-06-05 15:04 | EXP.POD.CONS ---
Documented by User: Elizabeth Hou APRN 06/05/24 15:48 History of Present Illness *Admission Date: 06/05/24 *Reason for visit:: Left Foot DFU, cellulitis *History of present illness: T2DM, CKD stage 3, Left lateral 4th DFU [facility] Disclaimer: The information contained in this section may have been updated after the patient was seen, as this information can be updated by other users. 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 Dyspnea on exertion COVID IAN (obstructive sleep apnea) Cataract Carpal tunnel syndrome Iron deficiency anemia Hyperlipidemia Diastolic CHF Ulcerative colitis LV dysfunction Chest pain Dyspnea Surgical History History of colonoscopy with polypectomy H/O mastectomy H/O hysterectomy for benign disease History of right-sided carotid endarterectomy Family History Other Family history of diabetes mellitus type I Family history of myocardial infarction Liver cancer Social History (Updated 06/05/24 @ 15:50 by Keerthi Diego RN) Smoking Status: Former smoker tobacco type: cigarettes packs per day: 1 alcohol intake: never substance use type: denies use current occupational status: retired Travel in the last 8 weeks: None household members: spouse housing: house marital status: number of children: 1 number of grandchildren: 2 education level: high school current occupational exposures/hazards: No sexually active: Yes how many partners: 1 caffeine: Yes Meds Home Medications and Allergies Home Medications ?Medication ?Instructions ?Recorded ?Confirmed ?Type ferrous gluconate 324 mg (38 mg 324 mg PO BID Supplement 11/20/18 06/05/24 History iron) tablet cholecalciferol (vitamin D3) 50 50 mcg PO DAILY Supplement 09/03/19 06/05/24 History mcg (2,000 unit) capsule aspirin 81 mg tablet,delayed 81 mg PO DAILY heart health 10/15/20 06/05/24 History release (Adult Low Dose Aspirin) nitroglycerin 0.4 mg sublingual 0.4 mg sublingual Q5-15M PRN chest 10/15/20 06/05/24 Rx tablet pain #25 tabs amlodipine 5 mg tablet (Norvasc) 5 mg PO DAILY #30 tabs 03/16/23 06/05/24 Rx blood-glucose meter #1 ea 10/05/23 06/05/24 Rx mesalamine 800 mg tablet,delayed 2,400 mg (3 x 800 mg) PO BID 90 10/05/23 06/05/24 Rx release days #540 tabs fluticasone propionate 50 1 spray intranasal DAILY #16 grams 11/08/23 06/05/24 Rx mcg/actuation nasal spray,suspension (Flonase Allergy Relief) pen needle, diabetic 31 gauge x #100 ea 12/06/23 06/05/24 Rx 1/4 insulin syringe-needle U-100 1 mL #100 ea 01/17/24 06/05/24 Rx 31 gauge x 5/16 (Advocate Syringes) clonidine HCl 0.1 mg tablet 0.1 mg PO HS PRN hypertension #30 01/30/24 06/05/24 Rx tabs canagliflozin 100 mg tablet 100 mg PO DAILY 03/05/24 06/05/24 History (Invokana) balsalazide 750 mg capsule 2,250 mg (3 x 750 mg) PO BID 90 04/03/24 06/05/24 Rx days #540 caps insulin human U-100 NPH-regulr 83 unit (0.83 mL) SQ AM Diabetes 04/11/24 06/05/24 Rx 70-30 mix 100 unit/mL subcutaneous #10 mL susp (Novolin 70/30 U-100 Insulin) insulin human U-100 NPH-regulr 10 unit SQ HS Diabetes 05/08/24 06/05/24 History 70-30 mix 100 unit/mL subcutaneous susp (Novolin 70/30 U-100 Insulin) amoxicillin 500 mg-potassium 1 tab PO BID 14 days #28 tabs 06/05/24 06/05/24 Rx clavulanate 125 mg tablet (Augmentin) blood sugar diagnostic (Accu-Chek #100 ea 06/05/24 06/05/24 Rx Guide test strips) carvedilol 25 mg tablet (Coreg) 25 mg PO BIDWMEAL 06/05/24 06/05/24 History furosemide 40 mg tablet 40 mg PO HS 06/05/24 06/05/24 History furosemide 40 mg tablet 80 mg PO DAILY 06/05/24 06/05/24 History levothyroxine 88 mcg tablet 88 mcg PO DAILY 06/05/24 06/05/24 History losartan 50 mg tablet 50 mg PO DAILY 06/05/24 06/05/24 History omeprazole 40 mg capsule,delayed 40 mg PO HS 06/05/24 06/05/24 History release simvastatin 40 mg tablet 40 mg PO HS 06/05/24 06/05/24 History New Prescriptions to Start Prescriptions: Allergies Allergy/AdvReac Type Severity Reaction Status Date / Time Sulfa (Sulfonamide Allergy Intermediate I-RASH Verified 06/05/24 10:03 Antibiotics) Exam (Inpt) Vital signs and Labs for Last 24 Hours: Temp Pulse Resp BP Pulse Ox O2 Del Method 99.0 F 68 20 197/82 H 92 L Room Air 06/05/24 15:00 06/05/24 15:00 06/05/24 15:00 06/05/24 15:00 06/05/24 13:30 06/05/24 12:00 Laboratory Results - last 24 hr 06/05/24 11:42: WBC 13.1 H, RBC 4.80, Hgb 12.8, Hct 38.9, MCV 81.1, MCH 26.6 L, MCHC 32.8, RDW 16.2, Plt Count 389, MPV 7.3 L, Neut % (Auto) 77.0, Lymph % (Auto) 10.8, [place] % (Auto) 6.6, Eos % (Auto) 4.1, Baso % (Auto) 1.6, Neut # (Auto) 10.1 H, Lymph # (Auto) 1.4, [place] # (Auto) 0.9, Eos # (Auto) 0.5 H, Baso # (Auto) 0.2, D-Dimer 0.68 H, Sodium 139, Potassium 4.4, Chloride 98, Carbon Dioxide 34 H, Anion Gap 11.4, BUN 40 H, Creatinine 2.10 H, Estimated Creat Clear 19, Estimated GFR 23 L, Est GFR ( Amer) 28 L, Glucose 145 H, Lactate 1.0, Calcium 8.8, Total Bilirubin 0.8, AST 22, ALT 12, Alkaline Phosphatase 69, C-Reactive Protein 54.1 H, NT-Pro-B Natriuret Pep 2210 H, Total Protein 7.5, Albumin 3.9, Globulin 3.6 H, Albumin/Globulin Ratio 1.1, Procalcitonin 0.117, TSH 2.99, Thyroxine (T4) 7.5 06/05/24 12:57: VBG pH 7.35, VBG pCO2 62.0 H, VBG pO2 27.8 L, VBG HCO3 33.5 H, VBG Total CO2 35.4 H, VBG O2 Saturation 48.5 L, VBG Base Excess 7.9 H, VBG Lactic Acid 1.3 I & O for Labs for Last 24 Hours: Intake & Output 06/02/24 06/03/24 06/04/24 06/05/24 23:59 22:59 23:59 23:59 Weight 249 lb Constitutional: Present no acute distress and cooperative Head: Present normocephalic Eye: Present as per HPI Neck: Present normal inspection, full ROM and trachea midline Respiratory: Present normal respiratory effort and able to speak in complete sentences Cardiac: Present posterior tibial pulses present and pedal pulses present Comments:: deferred Rectal (female): Present deferred (female): Present deferred Extremities: Present tenderness, normal capillary refill and edema; Absent calf tenderness Results Labs 06/05/24 11:42 06/05/24 11:42 Labs: Abnormal lab results 06/05/24 06/05/24 Range/Units 11:42 12:57 WBC 13.1 H (4.8-10.8) K/mm3 MCH 26.6 L (27.0-31.2) pg MPV 7.3 L (7.4-10.4) fl Neut # (Auto) 10.1 H (1.8-7.8) K/mm3 Eos # (Auto) 0.5 H (0.0-0.4) K/mm3 D-Dimer 0.68 H (0.0-0.5) ug/mL VBG pCO2 62.0 H (35-51) mmol/L VBG pO2 27.8 L (28-40) mmol/L VBG HCO3 33.5 H (23-30) mmol/L VBG Total CO2 35.4 H (23-27) mmol/L VBG O2 Saturation 48.5 L (50-70) % VBG Base Excess 7.9 H (-2.4-2.3) mmol/L Carbon Dioxide 34 H (22.0-30.0) mmol/L BUN 40 H (7-17) mg/dl Creatinine 2.10 H (0.52-1.04) mg/dl Estimated GFR 23 L (>60) ml/min Est GFR ( Amer) 28 L (>60) ML/MIN Glucose 145 H (74-100) mg/dl C-Reactive Protein 54.1 H (0-4) mg/L NT-Pro-B Natriuret Pep 2210 H (0-450) pg/mL Globulin 3.6 H (1.3-3.2) g/dL H & H 06/05/24 Range/Units 11:42 Hgb 12.8 (12.2-16.2) g/dL Hct 38.9 (37.0-47.0) % All other labs normal. Assessment and Plan *Assessment and plan (1) Acute osteomyelitis of left foot: Status: Acute Category: Medical Code(s): M86.172 - Other acute osteomyelitis, left ankle and foot (2) Diabetic foot ulcer: Status: Acute Qualifiers: Diabetes mellitus type: type 2 Diabetic foot ulcer location: toe Laterality: left Non-pressure ulcer stage: unspecified non-pressure ulcer stage Qualified Code(s): E11.621 - Type 2 diabetes mellitus with foot ulcer; L97.529 - Non-pressure chronic ulcer of other part of left foot with unspecified severity Category: Medical Code(s): E11.621 - Type 2 diabetes mellitus with foot ulcer; L97.509 - Non-pressure chronic ulcer of other part of unspecified foot with unspecified severity (3) Cellulitis of left foot: Status: Acute Category: Medical Code(s): L03.116 - Cellulitis of left lower limb (4) Pathological fracture of toe: Status: Acute Qualifiers: Encounter type: initial encounter Laterality: left Pathology associated with fracture: other disease Qualified Code(s): M84.675A - Pathological fracture in other disease, left foot, initial encounter for fracture Category: Medical Code(s): M84.479A - Pathological fracture, unspecified toe(s), initial encounter for fracture (5) DM type 2 (diabetes mellitus, type 2): Status: Chronic Qualifiers: Diabetes mellitus complication detail: with polyneuropathy Diabetes mellitus complication status: with neurologic complications Diabetes mellitus layout former insulin use: with snf use Qualified Code(s): E11.42 - Type 2 diabetes mellitus with diabetic polyneuropathy; Z79.4 - halfway (current) use of insulin Category: Medical Code(s): E11.9 - Type 2 diabetes mellitus without complications (6) Obesity, morbid, BMI 40.0-49.9: Status: Acute Category: Medical Code(s): E66.01 - Morbid (severe) obesity due to excess calories Documented by User: Anne-Marie Ramon DPM 06/05/24 18:35 History of Present Illness *History of present illness: Patient is a 78-year-old female with a past medical history of T2DM, CKD stage 3, Left lateral 4th DFU. She was last seen in the podiatry office outpatient 05/24/2024 by IVAN. At that time patient had a relatively small wound to the left lateral fourth digit which was healing. See pictures in the ambulatory chart. Patient had been given a 14d course of clindamycin 300 mg TID (05/09/2024-05/23/2024). Patient admits today that she took only 5 pills and did not take the rest. Presents to ER with left foot cellulitis, 4th toe infection with open wound that probes to bone. Discussed with ER Dr Smith about 4th digit osteomyelitis. Patient is to be admitted under [facility] Hospitalist team and Podiatry to consult. Podiatry providers both IVAN and myself saw the patient in the ER. Patient was reluctant but did agree to admission for IV antibiotics and fourth toe amputation tomorrow. 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 Dyspnea on exertion COVID IAN (obstructive sleep apnea) Cataract Carpal tunnel syndrome Iron deficiency anemia Hyperlipidemia Diastolic CHF Ulcerative colitis LV dysfunction Chest pain Dyspnea Surgical History History of colonoscopy with polypectomy H/O mastectomy H/O hysterectomy for benign disease History of right-sided carotid endarterectomy Family History Other Family history of diabetes mellitus type I Family history of myocardial infarction Liver cancer Social History (Updated 06/05/24 @ 15:50 by Keerthi Diego, LUIS) Smoking Status: Former smoker tobacco type: cigarettes packs per day: 1 alcohol intake: never substance use type: denies use current occupational status: retired Travel in the last 8 weeks: None household members: spouse housing: house marital status: number of children: 1 number of grandchildren: 2 education level: high school current occupational exposures/hazards: No sexually active: Yes how many partners: 1 caffeine: Yes Meds Home Medications and Allergies Home Medications ?Medication ?Instructions ?Recorded ?Confirmed ?Type ferrous gluconate 324 mg (38 mg 324 mg PO BID Supplement 11/20/18 06/05/24 History iron) tablet cholecalciferol (vitamin D3) 50 50 mcg PO DAILY Supplement 09/03/19 06/05/24 History mcg (2,000 unit) capsule aspirin 81 mg tablet,delayed 81 mg PO DAILY heart health 10/15/20 06/05/24 History release (Adult Low Dose Aspirin) nitroglycerin 0.4 mg sublingual 0.4 mg sublingual Q5-15M PRN chest 10/15/20 06/05/24 Rx tablet pain #25 tabs amlodipine 5 mg tablet (Norvasc) 5 mg PO DAILY #30 tabs 03/16/23 06/05/24 Rx blood-glucose meter #1 ea 10/05/23 06/05/24 Rx mesalamine 800 mg tablet,delayed 2,400 mg (3 x 800 mg) PO BID 90 10/05/23 06/05/24 Rx release days #540 tabs fluticasone propionate 50 1 spray intranasal DAILY #16 grams 11/08/23 06/05/24 Rx mcg/actuation nasal spray,suspension (Flonase Allergy Relief) pen needle, diabetic 31 gauge x #100 ea 12/06/23 06/05/24 Rx 1/4 insulin syringe-needle U-100 1 mL #100 ea 01/17/24 06/05/24 Rx 31 gauge x 5/16 (Advocate Syringes) clonidine HCl 0.1 mg tablet 0.1 mg PO HS PRN hypertension #30 01/30/24 06/05/24 Rx tabs canagliflozin 100 mg tablet 100 mg PO DAILY 03/05/24 06/05/24 History (Invokana) balsalazide 750 mg capsule 2,250 mg (3 x 750 mg) PO BID 90 04/03/24 06/05/24 Rx days #540 caps insulin human U-100 NPH-regulr 83 unit (0.83 mL) SQ AM Diabetes 04/11/24 06/05/24 Rx 70-30 mix 100 unit/mL subcutaneous #10 mL susp (Novolin 70/30 U-100 Insulin) insulin human U-100 NPH-regulr 10 unit SQ HS Diabetes 05/08/24 06/05/24 History 70-30 mix 100 unit/mL subcutaneous susp (Novolin 70/30 U-100 Insulin) amoxicillin 500 mg-potassium 1 tab PO BID 14 days #28 tabs 06/05/24 06/05/24 Rx clavulanate 125 mg tablet (Augmentin) blood sugar diagnostic (Accu-Chek #100 ea 06/05/24 06/05/24 Rx Guide test strips) carvedilol 25 mg tablet (Coreg) 25 mg PO BIDWMEAL 06/05/24 06/05/24 History furosemide 40 mg tablet 40 mg PO HS 06/05/24 06/05/24 History furosemide 40 mg tablet 80 mg PO DAILY 06/05/24 06/05/24 History levothyroxine 88 mcg tablet 88 mcg PO DAILY 06/05/24 06/05/24 History losartan 50 mg tablet 50 mg PO DAILY 06/05/24 06/05/24 History omeprazole 40 mg capsule,delayed 40 mg PO HS 06/05/24 06/05/24 History release simvastatin 40 mg tablet 40 mg PO HS 06/05/24 06/05/24 History New Prescriptions to Start Prescriptions: Allergies Allergy/AdvReac Type Severity Reaction Status Date / Time Sulfa (Sulfonamide Allergy Intermediate I-RASH Verified 06/05/24 10:03 Antibiotics) Exam (Inpt) Comment:: Left 4th lateral DFU: no debrided at bedside. The wound does probe to exposed 4th proximal phalanx bone. Fibrotic/macerated tissue noted with worsening cellulitis extending to dorsal midfoot. Minimal bleeding was noted. The wound measured 0.4 x 0.4 x 0.6 cm, yellow drainage noted. Neuro: Present Numbness and moves all extremities; Absent Sensory Function Intact Ankle: left: swelling Feet/Toes: left: swelling, left: tenderness and left: wound (L 4th lateral toe DFU) Inspection: Present nail disorder, calluses/corns, skin break, infection and ulceration Pulses: L dorsalis pedis pulse: diminished, L posterior tibial pulse: diminished and R posterior tibial pulse: diminished Results Labs 06/05/24 11:42 06/05/24 11:42 Diagnostic results Ankle/Foot x-ray: report reviewed (pathologic fx and OM to left 4th toe) and image reviewed Assessment and Plan *Assessment and plan (1) Acute osteomyelitis of left foot: Status: Acute Category: Medical Code(s): M86.172 - Other acute osteomyelitis, left ankle and foot (2) Diabetic foot ulcer: Status: Acute Qualifiers: Diabetes mellitus type: type 2 Diabetic foot ulcer location: toe Laterality: left Non-pressure ulcer stage: unspecified non-pressure ulcer stage Qualified Code(s): E11.621 - Type 2 diabetes mellitus with foot ulcer; L97.529 - Non-pressure chronic ulcer of other part of left foot with unspecified severity Category: Medical Code(s): E11.621 - Type 2 diabetes mellitus with foot ulcer; L97.509 - Non-pressure chronic ulcer of other part of unspecified foot with unspecified severity (3) Cellulitis of left foot: Status: Acute Category: Medical Code(s): L03.116 - Cellulitis of left lower limb (4) Pathological fracture of toe: Status: Acute Qualifiers: Encounter type: initial encounter Laterality: left Pathology associated with fracture: other disease Qualified Code(s): M84.675A - Pathological fracture in other disease, left foot, initial encounter for fracture Category: Medical Code(s): M84.479A - Pathological fracture, unspecified toe(s), initial encounter for fracture (5) DM type 2 (diabetes mellitus, type 2): Status: Chronic Qualifiers: Diabetes mellitus complication detail: with polyneuropathy Diabetes mellitus complication status: with neurologic complications Diabetes mellitus layout former insulin use: with snf use Qualified Code(s): E11.42 - Type 2 diabetes mellitus with diabetic polyneuropathy; 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 Per that note, patient said she called our office and we did not write for more abx. PCP notes that patient seems confused. There was no record of pt calling or talking to TELEPHONE ORDER CLERK [employer] SERVICE or myself regarding her decision to stop her abx or requesting a different abx. It was disclosed in ER today that she had only taken 5 doses. 06/05/24, labs: wbc 13.1, esr pending, crp 54.1, cr 2.1, gfr 23, glucose 145, albumin 3.9 D-dimer 0.68, NT pro BNP 2210 Pre-op: Patient is a 78-year-old diabetic female who was last seen outpatient podiatry office 05/24/2024. She was last seen by TELEPHONE ORDER CLERK RO[employer] SERVICE who had her on oral clindamycin x14d supply. Patient admits to taking only 2.5 days (5 pills) of the medication and then stopped. She presents to [facility] ER 06/05/2024 with complaints of left foot redness and left lower extremity pain/swelling. ER workup showed elevated infection markers, white count of 13.3, left foot x-ray positive for pathological fracture of the fourth toe with osteomyelitis. Clinical examination shows drainage, cellulitis, and open wound which probes directly to the bone. We discussed conservative versus surgical treatment options. Conservative treatment options include local wound care, oral and IV antibiotics, change in shoe wear, taping/padding, and off-loading. We discussed surgical intervention for amputation of the left 4th toe. Patient understands that there is a chance that the toes can migrate to fill the gap or the foot may change shape after surgery. Patient also understands that they could have wound healing complications including delayed healing and infection. We discussed that if the wound does not heal, it is possible that they may need a more proximal amputation and could result in further loss of digits, loss of partial foot or loss of leg. We discussed the risks and benefits in great detail. Other surgical risks include: prolonged pain and swelling, further infection requiring oral or IV antibiotics, delay in healing of soft tissue or bone, nerve or blood vessel damage, CRPS/RSD, DVT, anesthesia complications, and even . All questions answered. Patient verbalized understanding. Verbal consent obtained. -Plan for admission per Hospitalist team, Podiatry to consult. -Am infection labs. -PWB to left foot in short fx boot vs post op shoe. -B/L LE ABIs (resting arterial studies) to access healing potential. -Broad spectrum IV abx. -NPO after midnight -Plan for surgery: 06/06/24: left fourth toe amputation -Podiatry will continue to follow.
[2024-06-05 17:23] LABS: POC Glucose,Bedside 140 (70-110)
[2024-06-05 17:37] LABS: HIV (1&2) Antibody Rapid NONREACTIVE (NONREACTIVE)
--- NOTE | 2024-06-05 18:15 | PC.WOUNDNOTE ---
LT FOOT LT LEG
[2024-06-05 19:59] LABS: POC Glucose,Bedside 215 (70-110)
[2024-06-05] MEDS: BUMETANIDE 1MG/4ML VIAL 1 MG IV (20:08)
[2024-06-05] MEDS: ENOXAPARIN 30MG/0.3ML SYRINGE 30 MG SUBCUT (20:08)
[2024-06-05] MEDS: humaLOG 100 UNITS/ML 10ML VIAL (SSI) SUBCUT (20:08)
[2024-06-05] MEDS: PIPERCILLIN/TAZO 3.375 GM in 0.9 % SODIUM CHLORIDE 50 ML IV (21:30)
[2024-06-05] MEDS: VANCOMYCIN CONSULT REQUEST 1 EACH NOTAPPLIC (21:31)
[2024-06-06] VITALS (14 sets, daily range): BP systolic 99–176; BP diastolic 50–97; PULSE 60–70; RESP 16–22; TEMP 36.3–37.3; O2SAT 90–98; BMI 44.0
[2024-06-06] MEDS: PIPERCILLIN/TAZO 3.375 GM in 0.9 % SODIUM CHLORIDE 50 ML IV ×2 (05:07→13:45)
[2024-06-06 05:33] LABS: POC Glucose,Bedside 107 (70-110)
--- NOTE | 2024-06-06 06:15 | PC.NURSE ---
Pt A&OX4. She remained on room air most of the shift but O2 sats dropped to 88%. She was placed on 2L nasal cannula and is currently at 96%. Left foot is slightly red and is swollen. She has not complained of any pain. She has ambulated to the bathroom with standby assist. She has remained NPO since midnight. No complaints at this time, call light within reach.
--- NOTE | 2024-06-06 06:40 | P.PN_ITS ---
Subjective *Date: 06/06/24 *Time: 08:39 Interval history: 06/06/24: Patient awake and sitting up on side of bed, Left foot edema/cellulitis improving. Patient had ABIs completed this morning. I discussed MARY findings and reviewed x-rays at bedside. Surgical consent was obtained and placed on chart this morning. Ortho Exam (Inpt) Vital signs and Labs for Last 24 Hours: Temp Pulse Resp BP Pulse Ox O2 Del Method O2 Flow Rate 98.0 F 68 18 151/82 H 96 Nasal Cannula 2 06/06/24 04:00 06/06/24 04:00 06/06/24 04:00 06/06/24 04:00 06/06/24 04:00 06/06/24 05:00 06/06/24 05:00 Laboratory Results - last 24 hr 06/05/24 11:42: WBC 13.1 H, RBC 4.80, Hgb 12.8, Hct 38.9, MCV 81.1, MCH 26.6 L, MCHC 32.8, RDW 16.2, Plt Count 389, MPV 7.3 L, Neut % (Auto) 77.0, Lymph % (Auto) 10.8, [place] % (Auto) 6.6, Eos % (Auto) 4.1, Baso % (Auto) 1.6, Neut # (Auto) 10.1 H, Lymph # (Auto) 1.4, [place] # (Auto) 0.9, Eos # (Auto) 0.5 H, Baso # (Auto) 0.2, D-Dimer 0.68 H, Sodium 139, Potassium 4.4, Chloride 98, Carbon Dioxide 34 H, Anion Gap 11.4, BUN 40 H, Creatinine 2.10 H, Estimated Creat Clear 19, Estimated GFR 23 L, Est GFR ( Amer) 28 L, Glucose 145 H, Lactate 1.0, Calcium 8.8, Total Bilirubin 0.8, AST 22, ALT 12, Alkaline Phosphatase 69, C- Reactive Protein 54.1 H, NT-Pro-B Natriuret Pep 2210 H, Total Protein 7.5, Albumin 3.9, Globulin 3.6 H, Albumin/Globulin Ratio 1.1, Procalcitonin 0.117, TS H 2.99, Thyroxine (T4) 7.5, HIV 1&2 Antibody Rapid Nonreactive 06/05/24 12:53: SARS-CoV-2 (PCR) Not detected, Influenza A Untype (PCR) Not detected, Influenza Type B (PCR) Not detected 06/05/24 12:57: VBG pH 7.35, VBG pCO2 62.0 H, VBG pO2 27.8 L, VBG HCO3 33.5 H, VBG Total CO2 35.4 H, VBG O2 Saturation 48.5 L, VBG Base Excess 7.9 H, VBG Lactic Acid 1.3 06/05/24 17:15: POC Glucose 140 H 06/05/24 19:51: POC Glucose 215 H 06/06/24 05:25: POC Glucose 107 I & O for Labs for Last 24 Hours: Intake & Output 06/03/24 06/04/24 06/05/24 06/06/24 22:59 23:59 23:59 23:59 Intake Total 270 / 270 500 / 500 Output Total 0 / 0 300 / 300 Balance 270 / 270 200 / 200 Weight 245 lb 248 lb 6.4 oz Microbiology Reports for the Last 24 Hours: Microbiology 06/05/24 13:32 Foot,Left Gram Stain - Final Constitutional: Present no acute distress and cooperative Head: Present normocephalic Eyes: Present as per HPI ENT: Present normal exam Neck: Present full ROM and trachea midline Respiratory: Present normal respiratory effort and able to speak in complete sentences Cardiac: Present posterior tibial pulses present and pedal pulses present Comments:: deferred Rectal (female): Present deferred (female): Present deferred Extremities: Present tenderness (Left foot cellulitis, left lateral fourth DFU), normal capillary refill and edema; Absent calf tenderness Skin: Present erythema, normal turgor and wounds (Cellulitis left foot, left lateral fourth DFU) Neuro: Present Motor Function Intact, oriented x 3 and moves all extremities Ankle: left: swelling (Left foot cellulitis, 1+ edema, left lateral fourth DFU) and left: tenderness (Left foot and lower extremity edema) Feet/Toes: left: swelling, left: tenderness (Left lateral fourth DFU, cellulitis left foot lower extremity) and left: wound (Left lateral fourth DFU) and bilateral: nail abnormalities Assessment and Plan *Assessment and plan (1) Pathological fracture of toe: Status: Acute Qualifiers: Encounter type: initial encounter Laterality: left Pathology associated with fracture: other disease Qualified Code(s): M84.675A - Patho logical fracture in other disease, left foot, initial encounter for fracture Category: Medical Code(s): M84.479A - Pathological fracture, unspecified toe(s), initial encounter for fracture (2) Cellulitis of left foot: Status: Acute Category: Medical Code(s): L03.116 - Cellulitis of left lower limb (3) Acute osteomyelitis of left foot: Status: Acute Category: Medical Code(s): M86.172 - Other acute osteomyelitis, left ankle and foot (4) Diabetic foot ulcer: Status: Acute Qualifiers: Diabetes mellitus type: type 2 Diabetic foot ulcer location: toe Laterality: left Non-pressure ulcer stage: unspecified non-pressure ulcer stage Qualified Code(s): E11.621 - Type 2 diabetes mellitus with foot ulcer; L97.529 - Non-pressure chronic ulcer of other part of left foot with unspecified severity Category: Medical Code(s): E11.621 - Type 2 diabetes mellitus with foot ulcer; L97.509 - Non-pressure chronic ulcer of other part of unspecified foot with unspecified severity (5) Skin ulcer of fourth toe of left foot with fat layer exposed: Status: Acute Category: Medical Code(s): L97.522 - Non-pressure chronic ulcer of other part of left foot with fat layer exposed (6) Callus of foot: Status: Acute Category: Medical Code(s): L84 - Corns and callosities (7) Pincer nail deformity: Status: Acute Category: Medical Code(s): L60.8 - Other nail disorders (8) Onychodystrophy: Status: Acute Category: Medical Code(s): L60.3 - Nail dystrophy (9) Onychomycosis: Status: Acute Category: Medical Code(s): B35.1 - Tinea unguium (10) Obesity, morbid, BMI 40.0-49.9: Status: Acute Category: Medical Code(s): E66.01 - Morbid (severe) obesity due to excess calories (11) DM type 2 (diabetes mellitus, type 2): Status: Chronic Qualifiers: Diabetes mellitus complication detail: with polyneuropathy Diabetes mellitus complication status: with neurologic complications Diabetes mellitus skilled nursing insulin use: with skilled nursing use Qualified Code(s): E11.42 - Type 2 diabetes mellitus with diabetic polyneuropathy; 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 She was last seen in the podiatry office outpatient 05/24/2024 by [employer]. At that time patient had a relatively small wound to the left lateral fourth digit which was healing. See pictures in the ambulatory chart. Patient had been given a 14d course of clindamycin 300 mg TID (05/09/2024- 05/23/2024). Patient admits today that she took only 5 pills and did not take the rest. Presented to ER with left foot cellulitis, 4th toe infection with open wound that probes to bone. Discussed with ER Dr Smith about 4th digit osteomyelitis. Patient is to be admitted under [facility] Hospitalist team and Podiatry to consult. Podiatry providers both [employer] and myself saw the patient in the ER. Patient was reluctant but did agree to admission for IV antibiotics and fourth toe amputation tomorrow. Reviewed Labs: 06/05/24, labs: wbc 13.1, esr pending, crp 54.1, cr 2.1, gfr 23, glucose 145, albumin 3.9 D-dimer 0.68, NT pro BNP 2210 06/06/24:wbc. 12.7 trending down, glucose 107, crp, 56.1 still elevated. Pre-op: Patient is a 78-year-old diabetic female who was last seen outpatient podiatry office 05/24/2024. She was last seen by [employer] who had her on oral clindamycin x14d supply. Patient admits to taking only 2.5 days (5 pills) of the medication and then stopped. She presents to [facility] ER 06/05/2024 with complaints of left foot redness and left lower extremity pain/swelling. ER workup showed elevated infection markers, white count of 13.3, left foot x-ray positive for pathological fracture of the fourth toe with osteomyelitis. Clinical examination shows drainage, cellulitis, and open wound which probes directly to the bone. We discussed conservative versus surgical treatment options. Conservative treatment options include local wound care, oral and IV antibiotics, change in shoe wear, taping/padding, and off-loading. We discussed surgical intervention for amputation of the left 4th toe. Patient understands that there is a chance that the toes can migrate to fill the gap or the foot may change shape after surgery. Patient also understands that they could have wound healing complications including delayed healing and infection. We discussed that if the wound does not heal, it is possible that they may need a more proximal amputation and could result in further loss of digits, loss of partial foot or loss of leg. We discussed the risks and benefits in great detail. Other surgical risks include: prolonged pain and swelling, further infection requiring oral or IV antibiotics, delay in healing of soft tissue or bone, nerve or blood vessel damage, CRPS/RSD, DVT, anesthesia complications, and even . All questions answered. Patient verbalized understanding. Verbal consent obtained. -Patient admitted per hospitalist team podiatry consulting -Am infection labs reviewed -PWB to left foot in short fx boot vs post op shoe. -B/L LE ABIs (resting arterial studies) to access healing potential. -These were obtained and reviewed with the patient, Ankle/Brachial Index R 0.94, L 0.89 -Continue Broad spectrum IV abx (Zosyn 2.25gm q 12h,Vancomycin 2,000mg IV q 48h) -Patient to remain NPO until surgery today -Plan for surgery: 06/06/24: left fourth toe amputation, I&D of nonviable soft tissue and bone, bone biopsy -Surgical consent has been obtained and placed on chart this morning -Left lateral fourth DFU cleaned with Betadine, gauze and Coban dressing -Podiatry will continue to follow. -All orders per Dr. Ramon
[2024-06-06 07:06] LABS: Basophils # 0.1 K/mm3 (0-0.2); Eosinophils # 0.7 K/mm3 (0.0-0.4); Eosinophils % 5.5 % (0.1-12.0); Hematocrit 41.7 % (37.0-47.0); Hemoglobin 13.4 g/dL (12.2-16.2); Lymphocytes # 1.3 K/mm3 (0.7-4.5); Lymphocytes % 10.6 % (10-50); Mean Corpuscular HGB Conc 32.1 g/dL (31.8-35.4); Mean Corpuscular Volume 81.2 fl (81-99); Mean Platelet Volume 6.6 fl (7.4-10.4); Monocytes # 0.8 K/mm3 (0.1-1.0); Monocytes % 6.1 % (1.7-9.3); Neutrophils # 9.7 K/mm3 (1.8-7.8); Neutrophils % 76.9 % (37.0-80.0); Platelet Count 403 K/mm3 (142-424); Red Blood Count 5.13 M/mm3 (4.20-5.40); Red Cell Distribution Width 16.2 % (11.5-17.5); White Blood Count 12.7 K/mm3 (4.8-10.8)
[2024-06-06 07:19] LABS: Alanine Aminotransferase 10 U/L (12-78); Albumin Level 3.9 g/dl (3.5-5.0); Albumin/Globulin Ratio 1.1 (1.1-1.8); Alkaline Phosphatase 82 U/L (38-126); Anion Gap 14.1 mEq/L (5-15); Aspartate Amino Transferase 25 U/L (14-36); Bilirubin,Total 0.9 mg/dl (0.2-1.3); Blood Urea Nitrogen 38 mg/dl (7-17); Calcium 8.7 mg/dl (8.4-10.2); Carbon Dioxide 30 mmol/L (22.0-30.0); Chloride 99 mmol/L (98-107); Creatinine Clearance Estimated 18 mL/min (50-200); Estimated Glomerular Filt Rate 23 ml/min (>60); GFR (African American) 28 ML/MIN (>60); Globulin 3.6 g/dL (1.3-3.2); Glucose 92 mg/dl (74-100); Magnesium 2.3 mg/dl (1.6-2.3); Potassium 4.1 mmoL/L (3.5-5.1); Sodium 139 mmol/L (136-145); Total Protein,Serum 7.5 g/dl (6.3-8.2)
[2024-06-06 07:26] LABS: C-Reactive Protein 56.1 mg/L (0-4)
--- NOTE | 2024-06-06 07:40 | P.CONPHA_ITS ---
Pharmacy Consult Date: 06/06/24 Time: 07:40 Referring provider: DR. CANO Reason for Consult:: VANCOMYCIN DOSING Allergies Allergy/AdvReac Type Severity Reaction Status Date / Time Sulfa (Sulfonamide Allergy Intermediate I-RASH Verified 06/05/24 10:03 Antibiotics) Home Medications ?Medication ?Instructions ?Recorded ?Confirmed ?Type ferrous gluconate 324 mg (38 mg 324 mg PO BID Supplement 11/20/18 06/05/24 History iron) tablet cholecalciferol (vitamin D3) 50 50 mcg PO DAILY Supplement 09/03/19 06/05/24 History mcg (2,000 unit) capsule aspirin 81 mg tablet,delayed 81 mg PO DAILY heart health 10/15/20 06/05/24 History release (Adult Low Dose Aspirin) nitroglycerin 0.4 mg sublingual 0.4 mg sublingual Q5-15M PRN chest 10/15/20 06/05/24 Rx tablet pain #25 tabs amlodipine 5 mg tablet (Norvasc) 5 mg PO DAILY #30 tabs 03/16/23 06/05/24 Rx blood-glucose meter #1 ea 10/05/23 06/05/24 Rx mesalamine 800 mg tablet,delayed 2,400 mg (3 x 800 mg) PO BID 90 10/05/23 06/05/24 Rx release days #540 tabs fluticasone propionate 50 1 spray intranasal DAILY #16 grams 11/08/23 06/05/24 Rx mcg/actuation nasal spray,suspension (Flonase Allergy Relief) pen needle, diabetic 31 gauge x #100 ea 12/06/23 06/05/24 Rx 1/4 insulin syringe-needle U-100 1 mL #100 ea 01/17/24 06/05/24 Rx 31 gauge x 5/16 (Advocate Syringes) clonidine HCl 0.1 mg tablet 0.1 mg PO HS PRN hypertension #30 01/30/24 06/05/24 Rx tabs canagliflozin 100 mg tablet 100 mg PO DAILY 03/05/24 06/05/24 History (Invokana) balsalazide 750 mg capsule 2,250 mg (3 x 750 mg) PO BID 90 04/03/24 06/05/24 Rx days #540 caps insulin human U-100 NPH-regulr 83 unit (0.83 mL) SQ AM Diabetes 04/11/24 06/05/24 Rx 70-30 mix 100 unit/mL subcutaneous #10 mL susp (Novolin 70/30 U-100 Insulin) insulin human U-100 NPH-regulr 10 unit SQ HS Diabetes 05/08/24 06/05/24 History 70-30 mix 100 unit/mL subcutaneous susp (Novolin 70/30 U-100 Insulin) amoxicillin 500 mg-potassium 1 tab PO BID 14 days #28 tabs 06/05/24 06/05/24 Rx clavulanate 125 mg tablet (Augmentin) blood sugar diagnostic (Accu-Chek #100 ea 06/05/24 06/05/24 Rx Guide test strips) carvedilol 25 mg tablet (Coreg) 25 mg PO BIDWMEAL 06/05/24 06/05/24 History furosemide 40 mg tablet 40 mg PO HS 06/05/24 06/05/24 History furosemide 40 mg tablet 80 mg PO DAILY 06/05/24 06/05/24 History levothyroxine 88 mcg tablet 88 mcg PO DAILY 06/05/24 06/05/24 History losartan 50 mg tablet 50 mg PO DAILY 06/05/24 06/05/24 History omeprazole 40 mg capsule,delayed 40 mg PO HS 06/05/24 06/05/24 History release simvastatin 40 mg tablet 40 mg PO HS 06/05/24 06/05/24 History New Prescriptions to Start Prescriptions: Height: 1.6 m Weight: 112.672 kg Laboratory Results:: Laboratory Results - last 24 hr 06/05/24 11:42: WBC 13.1 H, RBC 4.80, Hgb 12.8, Hct 38.9, MCV 81.1, MCH 26.6 L, MCHC 32.8, RDW 16.2, Plt Count 389, MPV 7.3 L, Neut % (Auto) 77.0, Lymph % (Auto) 10.8, [place] % (Auto) 6.6, Eos % (Auto) 4.1, Baso % (Auto) 1.6, Neut # (Auto) 10.1 H, Lymph # (Auto) 1.4, [place] # (Auto) 0.9, Eos # (Auto) 0.5 H, Baso # (Auto) 0.2, D-Dimer 0.68 H, Sodium 139, Potassium 4.4, Chloride 98, Carbon Dioxide 34 H, Anion Gap 11.4, BUN 40 H, Creatinine 2.10 H, Estimated Creat Clear 19, Estimated GFR 23 L, Est GFR ( Amer) 28 L, Glucose 145 H, Lactate 1.0, Calcium 8.8, Total Bilirubin 0.8, AST 22, ALT 12, Alkaline Phosphatase 69, C- Reactive Protein 54.1 H, NT-Pro-B Natriuret Pep 2210 H, Total Protein 7.5, Albumin 3.9, Globulin 3.6 H, Albumin/Globulin Ratio 1.1, Procalcitonin 0.117, TSH 2.99, Thyroxine (T4) 7.5, HIV 1&2 Antibody Rapid Nonreactive 06/05/24 12:53: SARS-CoV-2 (PCR) Not detected, Influenza A Untype (PCR) Not detected, Influenza Type B (PCR) Not detected 06/05/24 12:57: VBG pH 7.35, VBG pCO2 62.0 H, VBG pO2 27.8 L, VBG HCO3 33.5 H, VBG Total CO2 35.4 H, VBG O2 Saturation 48.5 L, VBG Base Excess 7.9 H, VBG Lactic Acid 1.3 06/05/24 17:15: POC Glucose 140 H 06/05/24 19:51: POC Glucose 215 H 06/06/24 05:25: POC Glucose 107 06/06/24 06:33: Sodium 139, Potassium 4.1, Chloride 99, Carbon Dioxide 30, Anion Gap 14.1, BUN 38 H, Creatinine 2.10 H, Estimated Creat Clear 18, Estimated GFR 23 L, Est GFR ( Amer) 28 L, Glucose 92 D, Calcium 8.7, Magnesium 2.3, Total Bilirubin 0.9, AST 25, ALT 10 L, Alkaline Phosphatase 82, C-Reactive Protein 56.1 H, Total Protein 7.5, Albumin 3.9, Globulin 3.6 H, Albumin/Globulin Ratio 1.1 Medical History: Medical History (Updated 06/05/24 @ 18:18 by Anne-Marie Ramon DPM) History of smoking 30 or more pack years Pulmonary emphysema Daytime somnolence Sleep apnea Screening for lung cancer Smoking greater than 30 pack years 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 Drug selected: Vancomycin Loading dose (mg): Vd (liters): 90.2 (factor used: 0.8 L/kg) Christopher (hr-1): 0.020 Half life (hrs): 34.66 CLvanco=?? 1.804 L/hr Recommended dose: 2000 mg Interval: 48 hrs Infusion time (hrs): 2.0 Predicted peak (mcg/mL): 35.2 Predicted trough (mcg/mL): 14.03 Total body weight is being used for vancomycin dosing. Recommendations: Give Vancomycin 2000 mg q 48 hrs with an expected Cpeak of 35.2 mcg/ml and an expected Ctrough of 14.03 mcg/ml AUC 0-24 /ANGELA Data: ANGELA 0.5 mcg/mL:?? AUC/ANGELA:? 1108.6 ANGELA 1.0 mcg/mL:?? AUC/ANGELA:? 554.3 --------- ANGELA 1.5 mcg/mL:?? AUC/ANGELA:? 369.5 ANGELA 2.0 mcg/mL:?? AUC/ANGELA:? 277.2 Thank you for the consult, will continue to follow. -REED LYD
[2024-06-06] MEDS: LEVOTHYROXINE 88MCG (0.088MG) TAB 88 MCG PO (08:13)
[2024-06-06] MEDS: CARVEDILOL 25MG TABLET 25 MG PO ×2 (08:13→16:31)
[2024-06-06 09:06] LABS: Erythrocyte Sedimentation Rate 46 mm/hr (0-30)
[2024-06-06 09:13] LABS: Hemoglobin A1C 7.1 % (4.0-6.0)
[2024-06-06 09:39] LABS: HCV Ab Non Reactive (Non Reactive)
--- NOTE | 2024-06-06 10:29 | HMH.PHAINT1 ---
Pharmacy Intervention Comments: Home medication list attempted with limited pt response
[2024-06-06 12:29] LABS: POC Glucose,Bedside 126 (70-110)
--- NOTE | 2024-06-06 13:04 | EXP.ANES.CKL ---
[facility] Disclaimer: The information contained in this section may have been updated after the patient was seen, as this information can be updated by other users. Medical History History of smoking 30 or more pack years Pulmonary emphysema Daytime somnolence Sleep apnea Screening for lung cancer Smoking greater than 30 pack years [id number] syndrome manifesting as chronic dyspnea Dyspnea on exertion COVID IAN (obstructive sleep apnea) Cataract Carpal tunnel syndrome Iron deficiency anemia Hyperlipidemia Diastolic CHF Ulcerative colitis LV dysfunction Chest pain Dyspnea Surgical History History of colonoscopy with polypectomy H/O mastectomy H/O hysterectomy for benign disease History of right-sided carotid endarterectomy Family History Other Family history of diabetes mellitus type I Family history of myocardial infarction Liver cancer Social History Smoking Status: Former smoker tobacco type: cigarettes packs per day: 1 alcohol intake: never substance use type: denies use current occupational status: retired Travel in the last 8 weeks: None household members: spouse housing: house marital status: number of children: 1 number of grandchildren: 2 education level: high school current occupational exposures/hazards: No sexually active: Yes how many partners: 1 caffeine: Yes [facility] Anesthesia Checklist Patient Identification Patient Identification: Arm Band Structural Data Admitted From: Inpatient Planned Operative Procedure/s: I&D Left Foot Consent for Planned Operative Procedure(s) Verified: Yes Verified Documents: Surgical Consent and History and Physical NPO Status Verified Time NPO: 00:00 Additional verifications Anesthesia Reactions: Yes ( Blood Pressure Dropped during Colonoscopy ) Airway Assessment Mallampati Score:: Class II C-Spine Mobility Assessed: Yes TMJ Mobility Assessed: Yes Dentition: Edentulous Neurological Assessment Level of Consciousness: Awake, Alert and Appropriate Anesthesia Plan Anesthesia Risk discussed: Yes Anesthesia Plan: Verified ASA Class: III Anesthesia Type: MAC
[2024-06-06] MEDS: VANCOMYCIN 1000MG VIAL 1000 MG (14:00)
[2024-06-06] MEDS: BUPIVACAINE 0.5% 30ML VIAL 150 MG (14:00)
[2024-06-06] MEDS: GENTAMICIN 80 MG/2 ML VIAL (14:00)
--- NOTE | 2024-06-06 14:08 | P.PNANES_ITS ---
[facility] Disclaimer: The information contained in this section may have been updated after the patient was seen, as this information can be updated by other users. Medical History History of smoking 30 or more pack years Pulmonary emphysema Daytime somnolence Sleep apnea Screening for lung cancer Smoking greater than 30 pack years [id number] syndrome manifesting as chronic dyspnea Dyspnea on exertion COVID IAN (obstructive sleep apnea) Cataract Carpal tunnel syndrome Iron deficiency anemia Hyperlipidemia Diastolic CHF Ulcerative colitis LV dysfunction Chest pain Dyspnea Surgical History History of colonoscopy with polypectomy H/O mastectomy H/O hysterectomy for benign disease History of right-sided carotid endarterectomy Family History Other Family history of diabetes mellitus type I Family history of myocardial infarction Liver cancer Social History Smoking Status: Former smoker tobacco type: cigarettes packs per day: 1 alcohol intake: never substance use type: denies use current occupational status: retired Travel in the last 8 weeks: None household members: spouse housing: house marital status: number of children: 1 number of grandchildren: 2 education level: high school current occupational exposures/hazards: No sexually active: Yes how many partners: 1 caffeine: Yes [facility] Anesthesia Checklist Patient Identification Patient Identification: Verbal (Name & ) Structural Data Admitted From: Inpatient Planned Operative Procedure/s: l 4th toe amp Consent for Planned Operative Procedure(s) Verified: Yes NPO Status Verified Time NPO: 00:00 Additional verifications Anesthesia Reactions: Yes ( Blood Pressure Dropped during Colonoscopy ) Airway Assessment Mallampati Score:: Class II C-Spine Mobility Assessed: Yes TMJ Mobility Assessed: Yes Dentition: Poor Dentition Neurological Assessment Level of Consciousness: Awake, Alert and Appropriate Anesthesia Plan Anesthesia Risk discussed: Yes Anesthesia Plan: Verified ASA Class: III Anesthesia Type: MAC
[2024-06-06] MEDS: CLINDAMYCIN PHOSPHATE/D5W 900 MG/50 ML PIGGYBACK 25 MG (14:15)
--- NOTE | 2024-06-06 14:45 | P.OP_ITS ---
Date of procedure: 06/06/24 Pre-op Diagnosis:: Left fourth toe osteomyelitis Left fourth toe DFU Left foot cellulitis Left 4th proximal phalanx pathologic fracture Post-op Diagnosis:: Same Procedure performed:: Left foot I&D Left fourth toe amputation Surgeon:: Anne-Marie Ramon DPM ROOFING CONTRACTOR:: Mahdu Mcfarland Anesthesia: MAC and local (10 cc 0.5% Marcaine plain) Estimated blood loss (mL): 10 Clinical Note:: Patient is a 78-year-old diabetic female who was last seen outpatient podiatry office 05/24/2024. She was last seen by [employer] [employer] who had her on oral clindamycin x14d supply. Patient admits to taking only 2.5 days (5 pills) of the medication and then stopped. She presents to [facility] ER 06/05/2024 with complaints of left foot redness and left lower extremity pain/swelling. ER workup showed elevated infection markers, white count of 13.3, left foot x-ray positive for patholog ical fracture of the fourth toe with osteomyelitis. Clinical examination shows drainage, cellulitis, and open wound which probes directly to the bone. We discussed conservative versus surgical treatment options. Conservative treatment options include local wound care, oral and IV antibiotics, change in shoe wear, taping/padding, and off-loading. We discussed surgical intervention for amputation of the left 4th toe. Patient understands that there is a chance that the toes can migrate to fill the gap or the foot may change shape after surgery. Patient also understands that they could have wound healing complications including delayed healing and infection. We discussed that if the wound does not heal, it is possible that they may need a more proximal amputation and could result in further loss of digits, loss of partial foot or loss of leg. We discussed the risks and benefits in great detail. Other surgical risks include: prolonged pain and swelling, further infection requiring oral or IV antibiotics, delay in healing of soft tissue or bone, nerve or blood vessel damage, CRPS/RSD, DVT, anesthesia complications, and even . All questions answered. Patient verbalized understanding. Verbal and written consent obtained. Operative findings:: Left fourth toe diabetic foot ulcer noted to the lateral aspect. Purulent drainage from the wound noted and wound culture taken. Wound probes to the proximal phalanx. Bone was soft and crumbly at the middle and proximal phalanx. Wound appeared to be localized to the PIPJ and the toe bones. The metatarsal head was intact with no obvious cortical erosions or signs of osteomyelitis proximal. No sinus tracking noted. Operative note:: On this date and time patient was deemed an appropriate surgical candidate. With informed consent signed, the patient was taken to the operating theater. The patient was positioned supine. MAC anesthesia was induced. No tourniquet used. Pre-op left fourth toe block given with 10 cc 0.5% marcaine plain. IV Clinda infused. Left foot irrigation and debridement, 4th digit amputation: The left lower e xtremity was prepped and draped in normal sterile fashion. Cellulitis is noted extending to the midfoot. DFU over the lateral PIPJ. A racquetball incision was mapped out. Utilizing a 15 blade dissection was carried down sharply to the level of the bone around the middle phalanx, which was disarticulated from the proximal phalanx. There was creamy white purulent drainage coming from the joint. The proximal phalanx head was crumbly and pathologic fracture noted to the toe. The entire toe was removed. The proximal phalanx was disarticulated from the metatarsal head. The toe bones were sent for bone culture and the other part was sent for bone biopsy for pathology. The 4th met head was intact with no cortical erosions, discoloration or obvious signs of osteomyelitis. Next 1L of gentamicin irrigation was used to flush the wound. The wound was reexplored and no further signs of infection noted. No sinus tracking. Bleeding controlled. No vessels ligated with electrocautery or tied as there was minimal blood loss. Vancomycin powder inserted into the wound. 3-0 Prolene and nylon was used to close skin in an interrupted simple suture fashion. The wounds were cleansed. Vancomycin powder applied along the incision. Betadine soaked gauze, dry sterile dressing was then applied to the left foot. The patient was awoken from anesthesia and transferred to recovery with vital signs stable and neurovascular status intact. Patient appeared to tolerate procedure and anesthesia well without complication. Discharge/Plan: Transfer back to the floor. Patient is to maintain dressing clean dry and intact. Continue IV antibiotics. Non weight bearing to the left foot. Ok to PWB to left heel in short fracture boot with DME assistance (walker, wheelchair). PT for gait training. Needs short fracture boot. Obtain post op films, left foot, 3 views. Plan for dressing change tomorrow by Podiatry. From Podiatry stand point she will likely be able to be d/c with oral abx and not need a PICC line. Condition: stable Disposition: floor Specimens:: Left foot wound culture Left 4th toe wound culture Left 4th toe bone culture Left 4th toe bone path Left 4th toe ulcer path Complications:: None
--- NOTE | 2024-06-06 14:55 | XR_ITS ---
FINAL REPORT CLINICAL HISTORY: post op COMPARISON: None FINDINGS: LEFT FOOT: Three views of the left foot were obtained. There are postoperative changes of amputation of the fourth digit. There is no acute fracture or dislocation. There is soft tissue swelling of the forefoot. Mild degenerative changes present. IMPRESSION: Postoperative changes from amputation of the fourth digit. Reviewed, Interpreted and Dictated by Leonardo Mendes III, MD Transcribed by Ella Taveras Authenticated and [facility]
[2024-06-06 16:03] LABS: POC Glucose,Bedside 140 (70-110)
[2024-06-06] MEDS: BUMETANIDE 1MG/4ML VIAL 1 MG IV (16:31)
--- NOTE | 2024-06-06 16:47 | PC.NURSE ---
aox4, post op dressing to foot c/d/i. pt has denied pain. 2lnc for o2 support.
--- NOTE | 2024-06-06 16:51 | US_ITS ---
FINAL REPORT CLINICAL HISTORY: osteomyelitis, COPD, HTN, HLD, IAN, DM, CHF, exsmoker, , Left warm, red foot, pt noncompliant with OP antibiotics COMPARISON: None FINDINGS: ANKLE-BRACHIAL PRESSURE INDICES Pressure indices are as follows: RIGHT LOWER EXTREMITY: Ankle-brachial pressure index: 0.9 Comments: Borderline LEFT LOWER EXTREMITY: Ankle-brachial pressure index: 0.9 Comments: Borderline IMPRESSION: Borderline obstructive peripheral vascular disease of the lower extremities Reviewed, Interpreted and Dictated by Leonardo Mendes III, MD Transcribed by Ann Madera Authenticated and [facility]
[2024-06-06] MEDS: PIPERACILLIN/TAZO 2.25 GM in 0.9 % SODIUM CHLORIDE 50 ML IV (17:00)
--- NOTE | 2024-06-06 18:28 | P.PN_ITS ---
Subjective *Date: 06/06/24 *Time: 21:41 Interval history: Patient states he is feeling little better this morning. Pain somewhat improved in her foot. Going for surgery today. Stable on baseline oxygen of 2 L. Afebrile overnight. Medical Exam Vital signs and Labs for Last 24 Hours: Vital Signs Temp Pulse Resp BP Pulse Ox O2 Del Method O2 Flow Rate 06/06/24 17:00 66 18 148/56 H 95 Nasal Cannula 2 06/06/24 16:46 Nasal Cannula 2 06/06/24 16:30 64 18 148/62 H 93 L Nasal Cannula 2 06/06/24 16:00 98.3 F 67 18 142/58 H 98 Nasal Cannula 2 06/06/24 15:45 98.1 F 69 18 148/56 H 97 Nasal Cannula 2 06/06/24 15:30 98 F 66 18 142/52 H 96 Nasal Cannula 3 06/06/24 15:15 97.9 F 67 17 141/56 H 90 L Nasal Cannula 2 06/06/24 15:05 97.3 F L 70 16 126/53 L 96 Room Air 06/06/24 15:00 Nasal Cannula 2 06/06/24 14:55 97.3 F L 67 16 119/89 96 Room Air 06/06/24 14:45 97.3 F L 64 16 99/50 L 96 Room Air 06/06/24 14:35 97.3 F L 69 16 111/71 96 Room Air 06/06/24 13:00 Nasal Cannula 2 06/06/24 12:00 98.9 F 64 21 146/73 H 95 Nasal Cannula 2 06/06/24 11:00 Nasal Cannula 2 06/06/24 09:00 Nasal Cannula 2 06/06/24 08:00 Room Air 06/06/24 07:45 99.2 F 60 22 176/75 H 96 Nasal Cannula 2 06/06/24 06:48 Nasal Cannula 2 06/06/24 05:00 Nasal Cannula 2 06/06/24 04:00 98.0 F 68 18 151/82 H 96 Nasal Cannula 2 06/06/24 03:00 Room Air 06/06/24 01:00 Room Air 06/05/24 23:00 Room Air 06/05/24 21:00 Room Air 06/05/24 20:00 Room Air 06/05/24 20:00 98.3 F 68 18 188/93 H 90 L Room Air 06/05/24 18:31 Room Air Intake and Output 06/06/24 06/06/24 06/06/24 07:59 15:59 23:59 Intake Total 500 / 760 260 / 760 Output Total 300 / 300 0 / 300 0 / 300 Balance 200 / 460 0 / 460 260 / 460 Intake: Intake, Oral Amount 500 / 760 260 / 760 Output: Output, Urine Amount 300 / 300 0 / 300 0 / 300 Other: Number of Unmeasured Voids 4 1 1 Number of Bowel Movements 1 2 2 Weight 112.672 kg Patient Weight 06/06/24 23:59 Weight 112.672 kg Laboratory Results - last 24 hr 06/05/24 11:42: Hepatitis C Antibody Non reactive 06/05/24 19:51: POC Glucose 215 H 06/06/24 05:25: POC Glucose 107 06/06/24 06:33: WBC 12.7 H, RBC 5.13, Hgb 13.4, Hct 41.7, MCV 81.2, MCH 26.0 L, MCHC 32.1, RDW 16.2, Plt Count 403, MPV 6.6 L, Neut % (Auto) 76.9, Lymph % (Auto) 10.6, [place] % (Auto) 6.1, Eos % (Auto) 5.5, Baso % (Auto) 1.0, Neut # (Auto) 9.7 H, Lymph # (Auto) 1.3, [place] # (Auto) 0.8, Eos # (Auto) 0.7 H, Baso # (Auto) 0.1, ESR 46 H, Sodium 139, Potassium 4.1, Chloride 99, Carbon Dioxide 30, Anion Gap 14.1, BUN 38 H, Creatinine 2.10 H, Estimated Creat Clear 18, Estimated GFR 23 L, Est GFR ( Amer) 28 L, Glucose 92 D, Hemoglobin A1c 7.1 H, Calcium 8.7, Magnesium 2.3, Total Bilirubin 0.9, AST 25, ALT 10 L, Alkaline Phosphatase 82, C-Reactive Protein 56.1 H, Total Protein 7.5, Albumin 3.9, Globulin 3.6 H, Albumin/Globulin Ratio 1.1 06/06/24 12:21: POC Glucose 126 H 06/06/24 15:55: POC Glucose 140 H I & O for Labs for Last 24 Hours: Intake & Output 06/03/24 06/04/24 06/05/24 06/06/24 22:59 23:59 23:59 23:59 Intake Total 270 / 770 760 / 760 Output Total 0 / 300 300 / 300 Balance 270 / 470 460 / 460 Weight 111.13 kg 112.672 kg Microbiology Reports for the Last 24 Hours: Microbiology 06/05/24 12:53 Blood Blood Culture - Preliminary NO GROWTH AFTER 24 HOURS 06/05/24 11:42 Blood Blood Culture - Preliminary NO GROWTH AFTER 24 HOURS 06/05/24 13:32 Foot,Left Gram Stain - Final Constitutional: Present no acute distress, morbidly obese, chronically ill appearing and cooperative Head: Present atraumatic and normocephalic ENT: Present normal exam Respiratory: Present normal respiratory effort; Absent rhonchi, wheezes or crackles Cardiac: Present Reg Rate and Rhythm GI: Present soft and normal bowel sounds; Absent distention or tenderness Extremities: Present normal inspection, full ROM and edema (2+ to knees, Left > Right) Comment:: scant drainagae from between 4th and 5th digit on left foot. Skin: Present intact; Absent erythema Neuro: Present Grossly Intact, alert, awake, oriented x 3 and moves all extremities Assessment and Plan *Assessment and plan (1) Acute osteomyelitis of left foot: Status: Acute Category: Medical Code(s): M86.172 - Other acute osteomyelitis, left ankle and foot (2) Pathological fracture of toe: Status: Acute Qualifiers: Encounter type: initial encounter Laterality: left Pathology associated with fracture: other disease Qualified Code(s): M84.675A - Pathological fracture in other disease, left foot, initial encounter for fracture Category: Medical Code(s): M84.479A - Pathological fracture, unspecified toe(s), initial encounter for fracture (3) Cellulitis of left foot: Status: Acute Category: Medical Code(s): L03.116 - Cellulitis of left lower limb (4) CKD stage 4 due to type 2 diabetes mellitus: Status: Acute Category: Medical Code(s): E11.22 - Type 2 diabetes mellitus with diabetic chronic kidney disease; N18.4 - Chronic kidney disease, stage 4 (severe) (5) Obstructive sleep apnea: Status: Acute Category: Medical Code(s): G47.33 - Obstructive sleep apnea (adult) (pediatric) (6) Obesity, morbid, BMI 40.0-49.9: Status: Acute Category: Medical Code(s): E66.01 - Morbid (severe) obesity due to excess calories (7) Hypothyroid: Status: Acute Qualifiers: Hypothyroidism type: acquired Qualified Code(s): E03.9 - Hypothy roidism, unspecified Category: Medical Code(s): E03.9 - Hypothyroidism, unspecified (8) DM type 2 (diabetes mellitus, type 2): Status: Chronic Qualifiers: Diabetes mellitus complication detail: with polyneuropathy Diabetes mellitus complication status: with neurologic complications Diabetes mellitus exterminator helper insulin use: with exterminator helper use Qualified Code(s): E11.42 - Type 2 diabetes mellitus with diabetic polyneuropathy; Z79.4 - termite control representative (current) use of insulin Category: Medical Code(s): E11.9 - Type 2 diabetes mellitus without complications (9) COPD (chronic obstructive pulmonary disease): Status: Chronic Qualifiers: COPD type: unspecified COPD Qualified Code(s): J44.9 - Chronic obstructive pulmonary disease, unspecified Category: Medical Code(s): J44.9 - Chronic obstructive pulmonary disease, unspecified (10) History of smoking 30 or more pack years: Status: Acute Category: Social Hx Code(s): Z87.891 - Personal history of nicotine dependence (11) Diastolic heart failure: Status: Chronic Qualifiers: Heart failure chronicity: chronic Qualified Code(s): I50.32 - Chronic diastolic (congestive) heart failure Category: Medical Code(s): I50.30 - Unspecified diastolic (congestive) heart failure (12) HLD (hyperlipidemia): Status: Chronic Qualifiers: Hyperlipidemia type: mixed hyperlipidemia Qualified Code(s): E78.2 - Mixed hyperlipidemia Category: Medical Code(s): E78.5 - Hyperlipidemia, unspecified Plan 78-year-old female with multiple complex comorbidities including uncontrolled diabetes, hypothyroid, obesity, vasculopathy. Presented to the ER with pain. Concern for osteomyelitis and pathologic fracture in her left foot. Discussed case with ER physician, request admission for IV antibiotics and podiatry inter vention. I agreed to admit for further care. Will continue vancomycin and Zosyn. Taken for surgical debridement and amputation of fourth digit on left foot today. Podiatry assisting with care. Problems addressed as follows: Osteomyelitis of left foot Pathologic fracture of left toe Cellulitis of foot -White count marginally improved to 12.7. Hemoglobin 13. Inflammatory markers remained elevated at 56 for CRP and ESR 46. -Continue vancomycin and Zosyn renally dosed, monitor for toxicity. -CMP, CBC, magnesium, CRP, ESR ordered for the morning. -Discussed case with podiatry, patient taken for Left foot I&D with left fourth toe amputation -Podiatry recommends therapy to evaluate and gait training. Nonweightbearing on left foot. Will need short fracture boot. Plan for dressing change tomorrow. Likely discharge tomorrow on oral antibiotics. Bone cultures obtained during procedure CHF Hypertension - Continue carvedilol 25 mg twice daily; hold ARB in the setting of normotension and CKD. - Bumex 1 mg IV twice daily to address edema CKD 4: BUN 38, creatinine 2.1. Magnesium 2.3, potassium 4.1. At baseline. Monitor closely given antibiotics above Diabetes: -Appears to have some improved control. A1c 7.1. -Continue sliding scale insulin with fingersticks ACHS. -Complicates all aspects of her care along with wound healing Hypothyroid: TSH 2.99, continue levothyroxine 88 mcg daily Morbid obesity: Complicates all aspects of her care Full code Lovenox 30 mg daily subcu Diabetic diet
[2024-06-06] MEDS: PANTOPRAZOLE 40MG TABLET 40 MG PO (20:10)
[2024-06-06] MEDS: humaLOG 100 UNITS/ML 10ML VIAL (SSI) SUBCUT (20:29)
[2024-06-06 21:43] LABS: POC Glucose,Bedside 269 (70-110)
--- NOTE | 2024-06-07 03:59 | EXP.EVENT.NO ---
Problem: Nurses reported that patient's that she was little short of breath and she was wheezing., That she normally takes DuoNebs at home. Also noted that she has CPAP but her CPAP is at home. Exam: Patient medication list did not mention any nebulizer medications., Her history note is that she has obstructive sleep apnea Plan : Will start DuoNebs on a as needed basis for the patient., Respiratory department called order put in for CPAP if patient requires it or wants it. Do not know the home settings if the patient does not know them will let the respiratory therapist set it up and will adjust as needed. Patient had not had any respiratory issues until this evening. And it is noted in her chart that sometimes she uses oxygen at home but had not required it here
[2024-06-07 04:00] VITALS: BP 186/66; PULSE 65; RESP 18; TEMP 36.8; O2SAT 91; BMI 41.1
[2024-06-07] MEDS: IPRATROPIUM/ALBUTEROL 3 ML NEB IH (04:00)
[2024-06-07 04:10] VITALS: PULSE 63; PULSE 65
[2024-06-07] MEDS: PIPERACILLIN/TAZO 2.25 GM in 0.9 % SODIUM CHLORIDE 50 ML IV (04:27)
[2024-06-07] MEDS: humaLOG 100 UNITS/ML 10ML VIAL (SSI) SUBCUT ×2 (06:11→11:58)
[2024-06-07 06:23] LABS: POC Glucose,Bedside 168 (70-110)
--- NOTE | 2024-06-07 06:37 | P.PN_ITS ---
Subjective *Date: 06/07/24 *Time: 09:15 Interval history: 06/07/24: Patient doing very well this morning, sitting up on the side of the bed eating breakfast. She had some difficulty breathing about 4:00 this morning but after getting the breathing treatment resolved her breathing issues. Ortho Exam (Inpt) Vital signs and Labs for Last 24 Hours: Temp Pulse Resp BP Pulse Ox O2 Del Method O2 Flow Rate 98.3 F 65 18 186/66 H 91 L Nasal Cannula 1 06/07/24 04:00 06/07/24 04:10 06/07/24 04:00 06/07/24 04:00 06/07/24 04:00 06/07/24 04:00 06/07/24 04:00 Laboratory Results - last 24 hr 06/05/24 11:42: Hepatitis C Antibody Non reactive 06/06/24 06:33: WBC 12.7 H, RBC 5.13, Hgb 13.4, Hct 41.7, MCV 81.2, MCH 26.0 L, MCHC 32.1, RDW 16.2, Plt Count 403, MPV 6.6 L, Neut % (Auto) 76.9, Lymph % (Auto) 10.6, [place] % (Auto) 6.1, Eos % (Auto) 5.5, Baso % (Auto) 1.0, Neut # (Auto) 9.7 H, Lymph # (Auto) 1.3, [place] # (Auto) 0.8, Eos # (Auto) 0.7 H, Baso # (Auto) 0.1, ESR 46 H, Sodium 139, Potassium 4.1, Chloride 99, Carbon Dioxide 30, Anion Gap 14.1, BUN 38 H, Creatinine 2.10 H, Estimated Creat Clear 18, Estimated GFR 23 L, Est GFR ( Amer) 28 L, Glucose 92 D, Hemoglobin A1c 7.1 H, Calcium 8.7, Magnesium 2.3, Total Bilirubin 0.9, AST 25, ALT 10 L, Alkaline Phosphatase 82, C-Reactive Protein 56.1 H, Total Protein 7.5, Albumin 3.9, Globulin 3.6 H, Albumin/Globulin Ratio 1.1 06/06/24 12:21: POC Glucose 126 H 06/06/24 15:55: POC Glucose 140 H 06/06/24 20:26: POC Glucose 269 H 06/07/24 05:50: POC Glucose 168 H I & O for Labs for Last 24 Hours: Intake & Output 06/04/24 06/05/24 06/06/24 06/07/24 23:59 23:59 23:59 23:59 Intake Total 270 / 270 760 / 760 460 / 460 Output Total 0 / 0 300 / 300 100 / 100 Balance 270 / 270 460 / 460 360 / 360 Weight 245 lb 248 lb 6.4 oz 232 lb Microbiology Reports for the Last 24 Hours: Microbiology 06/06/24 Unknown Foot,Left - Left Fourth Bone Culture - Preliminary 06/06/24 Unknown Foot,Left - Left Fourth Gram Stain - Preliminary 06/06/24 Unknown Foot,Left - Left Fourth Gram Stain - Preliminary 06/06/24 Unknown Foot,Left - Left Fourth Bone Culture - Preliminary 06/05/24 12:53 Blood Blood Culture - Preliminary NO GROWTH AFTER 24 HOURS 06/05/24 11:42 Blood Blood Culture - Preliminary NO GROWTH AFTER 24 HOURS Constitutional: Present no acute distress and cooperative Head: Present normocephalic Eyes: Present as per HPI ENT: Present normal exam Neck: Present full ROM and trachea midline Respiratory: Present normal respiratory effort and able to speak in complete sentences Cardiac: Present posterior tibial pulses present and pedal pulses present Comments:: deferred Rectal (female): Present deferred (female): Present deferred Extremities: Present tenderness (Left foot cellulitis improving, s/p I&D, 4th toe amputation), normal capillary refill and edema; Absent calf tenderness Skin: Present erythema (Improving), normal turgor and wounds (Cellulitis left foot improving, left fourth toe amputation, Betadine dressing changed and intact.) Neuro: Present Motor Function Intact, oriented x 3 and moves all extremities Ankle: left: swelling (Left foot cellulitis, 1+ edema, left lateral fourth DFU) and left: tenderness (Left foot and lower extremity edema) Feet/Toes: left: swelling, left: tenderness (S/p I&D, left fourth toe amputation) and left: wound and bilateral: nail abnormalities Assessment and Plan *Assessment and plan (1) Amputated toe of left foot: Status: Acute Category: Medical Code(s): S98.132A - Complete traumatic amputation of one left lesser toe, initial encounter (2) Pathological fracture of toe: Status: Acute Qualifiers: Encounter type: initial encounter Laterality: left Pathology associated with fracture: other disease Qualified Code(s): M84.675A - Pathological fracture in other disease, left foot, initial encounter for fracture Category: Medical Code(s): M84.479A - Pathological fracture, unspecified toe(s), initial encounter for fracture (3) Cellulitis of left foot: Status: Acute Category: Medical Code(s): L03.116 - Cellulitis of left lower limb (4) Acute osteomyelitis of left foot: Status: Acute Category: Medical Code(s): M86.172 - Other acute osteomyelitis, left ankle and foot (5) Diabetic foot ulcer: Status: Acute Qualifiers: Diabetes mellitus type: type 2 Diabetic foot ulcer location: toe Laterality: left Non-pressure ulcer stage: unspecified non-pressure ulcer stage Qualified Code(s): E11.621 - Type 2 diabetes mellitus with foot ulcer; L97.529 - Non-pressure chronic ulcer of other part of left foot with unspecified severity Category: Medical Code(s): E11.621 - Type 2 diabetes mellitus with foot ulcer; L97.509 - Non-pressure chronic ulcer of other part of unspecified foot with unspecified severity (6) Skin ulcer of fourth toe of left foot with fat layer exposed: Status: Acute Category: Medical Code(s): L97.522 - Non-pressure chronic ulcer of other part of left foot with fat layer exposed (7) Callus of foot: Status: Acute Category: Medical Code(s): L84 - Corns and callosities (8) Pincer nail deformity: Status: Acute Category: Medical Code(s): L60.8 - Other nail disorders (9) Onychodystrophy: Status: Acute Category: Medical Code(s): L60.3 - Nail dystrophy (10) Onychomycosis: Status: Acute Category: Medical Code(s): B35.1 - Tinea unguium (11) Obesity, morbid, BMI 40.0-49.9: Status: Acute Category: Medical Code(s): E66.01 - Morbid (severe) obesity due to excess calories (12) DM type 2 (diabetes mellitus, type 2): Status: Chronic Qualifiers: Diabetes mellitus complication detail: with polyneuropathy Diabetes mellitus complication status: with neurologic complications Diabetes mellitus assistant laboratory director insulin use: with shelter use Qualified Code(s): E11.42 - Type 2 diabetes mellitus with diabetic polyneuropathy; Z79.4 - employment agency manager (current) use of insulin Category: Medical Code(s): E11.9 - Type 2 diabetes mellitus without complications (13) CKD (chronic kidney disease) stage 3, GFR 30-59 ml/min: Status: Chronic Qualifiers: Chronic kidney disease stage 3 subtype: stage 3b (GFR 30-44) Qualified Code(s): N18.32 - Chronic kidney disease, stage 3b Category: Medical Code(s): N18.30 - Chronic kidney disease, stage 3 unspecified Plan 06/07/24: Post Op day #1 Sx. 06/06/24-Left fourth toe osteomyelitis, left fourth toe DFU, left foot cellulitis, left fourth proximal phalanx pathologic fracture S/P Left foot I&D, left fourth toe amputation Discharge/Plan: Patient is to maintain dressing clean dry and intact. Continue IV antibiotics. Non weight bearing to the left foot. Ok to PWB to left heel in short fracture boot with DME assistance (walker, wheelchair). PT for gait training. Needs short fracture boot. Left foot dressing change: Directions given for daily dressing changes with: betadine soaked betadine, 4x4 gauze, dorian, alina wrap Reviewed labs; WBC 12.1 trending down, ESR 46-54, close 164, CRP 56.1?62.0 From Podiatry stand point she will likely be able to be d/c with oral abx and not need a PICC line. Patient to be discharged with oral antibiotics, Suggest doxycycline 100 mg p.o. twice daily x 14 days, levofloxacin 500 mg daily x 14 days (06/07/24-06/21/24) All orders per Dr. Ramon Specimens:: PENDING Left foot wound culture Left 4th toe wound culture Left 4th toe bone culture Left 4th toe bone path Left 4th toe ulcer path
--- NOTE | 2024-06-07 06:51 | PC.NURSE ---
0650:Pt. awake all night. Pt. sitting on side of bed most of the night. c/o minimal pain to left foot. dressing to left foot clean,dry, intact. Alert, orientated, x 4. vital signs stable . PT to see patient today. pt did use walker and pivot to bedside commode for BM. purewick in place.
[2024-06-07] MEDS: LEVOTHYROXINE 88MCG (0.088MG) TAB 88 MCG PO (07:01)
[2024-06-07] MEDS: CARVEDILOL 25MG TABLET 25 MG PO (07:01)
[2024-06-07 07:05] LABS: Basophils # 0.2 K/mm3 (0-0.2); Basophils % 1.3 % (0.1-2.0); Eosinophils # 0.7 K/mm3 (0.0-0.4); Eosinophils % 5.7 % (0.1-12.0); Hematocrit 38.6 % (37.0-47.0); Hemoglobin 12.4 g/dL (12.2-16.2); Lymphocytes # 1.2 K/mm3 (0.7-4.5); Lymphocytes % 9.9 % (10-50); Mean Corpuscular Volume 81.2 fl (81-99); Mean Platelet Volume 6.9 fl (7.4-10.4); Monocytes # 0.7 K/mm3 (0.1-1.0); Monocytes % 6.2 % (1.7-9.3); Neutrophils # 9.3 K/mm3 (1.8-7.8); Neutrophils % 76.9 % (37.0-80.0); Platelet Count 377 K/mm3 (142-424); Red Blood Count 4.76 M/mm3 (4.20-5.40); Red Cell Distribution Width 16.2 % (11.5-17.5); White Blood Count 12.1 K/mm3 (4.8-10.8)
[2024-06-07 07:08] LABS: Anion Gap 15.2 mEq/L (5-15); Blood Urea Nitrogen 38 mg/dl (7-17); Calcium 8.5 mg/dl (8.4-10.2); Carbon Dioxide 27 mmol/L (22.0-30.0); Chloride 101 mmol/L (98-107); Creatinine Clearance Estimated 16 mL/min (50-200); Estimated Glomerular Filt Rate 21 ml/min (>60); GFR (African American) 25 ML/MIN (>60); Glucose 164 mg/dl (74-100); Potassium 4.2 mmoL/L (3.5-5.1); Sodium 139 mmol/L (136-145)
[2024-06-07 07:42] VITALS: BP 162/71; PULSE 80; RESP 20; TEMP 36.6; O2SAT 90
--- NOTE | 2024-06-07 08:10 | P.DS_ITS ---
General Admission date:: 06/05/24 Discharge date: 06/07/24 HPI HPI HPI: Ms. Michelle is a 78-year-old female with multiple comorbidities including COPD, diabetes, obesity, CHF, CKD. She presented from her primary care doctor office due to low oxygen and left foot pain. Having swelling and redness. Reportedly having fevers but afebrile in the ER. On evaluation, patient reports she wears oxygen as needed but stable on room air at this time. States she has been having worsening pain and redness in her left foot for about the past month. She has not been taking her antibiotic consistently as prescribed per podiatry at home. It was making her feel nauseous so she stopped taking it. Redness and swelling of her left lower extremity has gotten worse. Workup in the ER concerning for osteomyelitis with pathologic fracture along with elevated white count of 13. Initiated on vancomycin and Zosyn. Medicine consulted for admission and further management On evaluation after arriving to the floor, patient has family at bedside. Having purulent drainage from wound between fourth and fifth digit on left foot. Afebrile. On room air. Per history and talking to her, has extensive history of vasculopathy with previous stents and right sided carotid endarterectomy. Smoked for about 50 years. No longer smokes at this time. Diabetes poorly controlled with A1c fluctuating between 8 and 10 for the past several years. Denies any chest pain, nausea, vomiting. Hospital Course Hospital Course Hospital Course: 78-year-old female with multiple complex comorbidities including uncontrolled diabetes, hypothyroid, obesity, vasculopathy. Presented to the ER with pain. Concern for osteomyelitis and pathologic fracture in her left foot. Discussed case with ER physician, request admission for IV antibiotics and podiatry intervention. I agreed to admit for further care. Initiated on vancomycin and Zosyn. Podiatry consulted. Patient was taken for surgical debridement and amputation of fourth digit on left foot 06/06. Tolerated procedure well.. Monitored overnight. Stable to discharge home with home health to assist with wound care and therapy. Problems addressed as follows: Osteomyelitis of left foot Pathologic fracture of left toe Cellulitis of foot -White count marginally elevated during admission. Initiated on broad-spectrum antibiotics with vancomycin and Zosyn. Inflammatory markers remained elevated at 56 for CRP and ESR 46. Transition to Levophed Oxis and renally and doxycy myles twice daily to 10 more days of antibiotics for treatment of cellulitis. Infected bone removed. Tolerated amputation well. Discussed case with podiatry, patient taken for Left foot I&D with left fourth toe amputation. Podiatry recommends therapy to evaluate and gait training. Nonweightbearing on left foot. Short fracture boot provided prior to discharge. Bone cultures obtained during procedure. Given stability the following morning, discharged home with home health. CHF Hypertension - Continue carvedilol 25 mg twice daily, losartan 50 mg daily, and adequate Lasix 80 mg twice daily. Patient has significant edema. Would benefit from increased diuresis. CKD 4: BUN 38, creatinine 2.1. Magnesium 2.3, potassium 4.1. At baseline. Diabetes: Appears to have some improved control. A1c 7.1. Treated with sliding scale insulin and fingersticks during admission, recommend resuming home regimen at discharge. Hypothyroid: TSH 2.99, continue levothyroxine 88 mcg daily Morbid obesity: Complicates all aspects of her care Total time spent on discharge 32 minutes in counseling, documentation, chart review, and direct care with patient. Exam Data for Last 24 hours Vital signs and Labs for Last 24 Hours: Temp Pulse Resp BP Pulse Ox O2 Del Method O2 Flow Rate 97.9 F 80 20 162/71 H 90 L Nasal Cannula 1 06/07/24 07:42 06/07/24 07:42 06/07/24 07:42 06/07/24 07:42 06/07/24 07:42 06/07/24 07:42 06/07/24 07:42 Laboratory Results - last 24 hr 06/05/24 11:42: Hepatitis C Antibody Non reactive 06/06/24 06:33: ESR 46 H, Hemoglobin A1c 7.1 H 06/06/24 12:21: POC Glucose 126 H 06/06/24 15:55: POC Glucose 140 H 06/06/24 20:26: POC Glucose 269 H 06/07/24 05:50: POC Glucose 168 H 06/07/24 06:01: WBC 12.1 H, RBC 4.76, Hgb 12.4, Hct 38.6, MCV 81.2, MCH 26.0 L, MCHC 32.0, RDW 16.2, Plt Count 377, MPV 6.9 L, Neut % (Auto) 76.9, Lymph % (Auto) 9.9 L, [place] % (Auto) 6.2, Eos % (Auto) 5.7, Baso % (Auto) 1.3, Neut # (Auto) 9.3 H, Lymph # (Auto) 1.2, [place] # (Auto) 0.7, Eos # (Auto) 0.7 H, Baso # (Auto) 0.2, Sodium 139, Potassium 4.2, Chloride 101, Carbon Dioxide 27, Anion Gap 15.2 H, BUN 38 H, Creatinine 2.30 H, Estimated Creat Clear 16, Estimated GFR 21 L, Est GFR ( Amer) 25 L, Glucose 164 H D, Calcium 8.5, C-Reactive Protein 62.0 H I & O for Last 24 hours: Intake & Output 06/04/24 06/05/24 06/06/24 06/07/24 23:59 23:59 23:59 23:59 Intake Total 270 / 770 760 / 1120 980 / 980 Output Total 0 / 300 300 / 300 100 / 100 Balance 270 / 470 460 / 820 880 / 880 Weight 111.13 kg 112.672 kg 105.233 kg Microbiology Reports for the Last 24 Hours: Microbiology 06/06/24 Unknown Foot,Left - Left Fourth Bone Culture - Preliminary 06/06/24 Unknown Foot,Left - Left Fourth Gram Stain - Preliminary 06/06/24 Unknown Foot,Left - Left Fourth Gram Stain - Preliminary 06/06/24 Unknown Foot,Left - Left Fourth Bone Culture - Preliminary 06/05/24 12:53 Blood Blood Culture - Preliminary NO GROWTH AFTER 24 HOURS 06/05/24 11:42 Blood Blood Culture - Preliminary NO GROWTH AFTER 24 HOURS Constitutional Constitutional: no acute distress, morbidly obese and chronically ill appearing *Routine HEENT Exam Head: Present normocephalic Eye: Present EOMI and PERRL ENT: Present mucous membranes moist *Routine Neck Exam Neck: Present supple; Absent lymphadenopathy *Routine Respiratory Exam Respiratory: Present CTA bilaterally and prolonged expiratory phase; Absent rhonchi, wheezes or crackles *Routine Cardiovascular Exam Cardiovascular: Present RRR *Routine Abdominal Exam Abdominal: Present soft and normoactive bowel sounds; Absent tenderness *Routine Rectal Exam Patient deferred: visual exam *Routine Exam Patient deferred: external exam *Routine Extremities Exam Extremities: Present edema; Absent cyanosis or clubbing Comments: 2+ pitting edema up to the thighs bilaterally *Routine Skin Exam Skin: Present intact and warm; Absent rash *Routine Neurological Exam Neurological: Present alert, oriented X3 and moving all extremities; Absent altered mental status Results Data Completed and Pending Labs on day of discharge: Labs from last 24 hours 06/07/24 06/07/24 06/06/24 06:01 05:50 20:26 WBC 12.1 H RBC 4.76 Hgb 12.4 Hct 38.6 MCV 81.2 MCH 26.0 L MCHC 32.0 RDW 16.2 Plt Count 377 MPV 6.9 L Neut % (Auto) 76.9 Lymph % (Auto) 9.9 L [place] % (Auto) 6.2 Eos % (Auto) 5.7 Baso % (Auto) 1.3 Neut # (Auto) 9.3 H Lymph # (Auto) 1.2 [place] # (Auto) 0.7 Eos # (Auto) 0.7 H Baso # (Auto) 0.2 ESR Sodium 139 Potassium 4.2 Chloride 101 Carbon Dioxide 27 Anion Gap 15.2 H BUN 38 H Creatinine 2.30 H Estimated Creat Clear 16 Estimated GFR 21 L Est GFR ( Amer) 25 L Glucose 164 H D POC Glucose 168 H 269 H Hemoglobin A1c Calcium 8.5 C-Reactive Protein 62.0 H Hepatitis C Antibody 06/06/24 06/06/24 06/06/24 15:55 12:21 06:33 WBC RBC Hgb Hct MCV MCH MCHC RDW Plt Count MPV Neut % (Auto) Lymph % (Auto) [place] % (Auto) Eos % (Auto) Baso % (Auto) Neut # (Auto) Lymph # (Auto) [place] # (Auto) Eos # (Auto) Baso # (Auto) ESR 46 H Sodium Potassium Chloride Carbon Dioxide Anion Gap BUN Creatinine Estimated Creat Clear Estimated GFR Est GFR ( Amer) Glucose POC Glucose 140 H 126 H Hemoglobin A1c 7.1 H Calcium C-Reactive Protein Hepatitis C Antibody 06/05/24 11:42 WBC RBC Hgb Hct MCV MCH MCHC RDW Plt Count MPV Neut % (Auto) Lymph % (Auto) [place] % (Auto) Eos % (Auto) Baso % (Auto) Neut # (Auto) Lymph # (Auto) [place] # (Auto) Eos # (Auto) Baso # (Auto) ESR Sodium Potassium Chloride Carbon Dioxide Anion Gap BUN Creatinine Estimated Creat Clear Estimated GFR Est GFR ( Amer) Glucose POC Glucose Hemoglobin A1c Calcium C-Reactive Protein Hepatitis C Antibody Non reactive Preliminary micro results at discharge 06/06/24 Unknown Bone Culture - Preliminary Foot,Left - Left Fourth 06/06/24 Unknown Gram Stain - Preliminary Foot,Left - Left Fourth 06/06/24 Unknown Gram Stain - Preliminary Foot,Left - Left Fourth 06/06/24 Unknown Bone Culture - Preliminary Foot,Left - Left Fourth 06/05/24 12:53 Blood Culture - Preliminary Blood NO GROWTH AFTER 24 HOURS 06/05/24 11:42 Blood Culture - Preliminary Blood NO GROWTH AFTER 24 HOURS DS: Diagnosis Discharge Diagnosis (1) Acute osteomyelitis of left foot: Status: Acute Code(s): M86.172 - Other acute osteomyelitis, left ankle and foot (2) Pathological fracture of toe: Status: Acute Code(s): M84.479A - Pathological fracture, unspecified toe(s), initial encounter for fracture Qualifiers: Encounter type: initial encounter Laterality: left Pathology associated with fracture: other disease Qualified Code(s): M84.675A - Pathological fracture in other disease, left foot, initial encounter for fracture (3) Cellulitis of left foot: Status: Acute Code(s): L03.116 - Cellulitis of left lower limb (4) CKD stage 4 due to type 2 diabetes mellitus: Status: Acute Code(s): E11.22 - Type 2 diabetes mellitus with diabetic chronic kidney disease; N18.4 - Chronic kidney disease, stage 4 (severe) (5) Obstructive sleep apnea: Status: Acute Code(s): G47.33 - Obstructive sleep apnea (adult) (pediatric) (6) Obesity, morbid, BMI 40.0-49.9: Status: Acute Code(s): E66.01 - Morbid (severe) obesity due to excess calories (7) Hypothyroid: Status: Acute Code(s): E03.9 - Hypothyroidism, unspecified Qualifiers: Hypothyroidism type: acquired Qualified Code(s): E03.9 - Hypothyroidism, unspecified (8) DM type 2 (diabetes mellitus, type 2): Status: Chronic Code(s): E11.9 - Type 2 diabetes mellitus without complications Qualifiers: Diabetes mellitus complication detail: with polyneuropathy Diabetes mellitus complication status: with neurologic complications Diabetes mellitus buttermaker helper insulin use: with buttermaker helper use Qualified Code(s): E11.42 - Type 2 diabetes mellitus with diabetic polyneuropathy; Z79.4 - assisted (current) use of insulin (9) COPD (chronic obstructive pulmonary disease): Status: Chronic Code(s): J44.9 - Chronic obstructive pulmonary disease, unspecified Qualifiers: COPD type: unspecified COPD Qualified Code(s): J44.9 - Chronic obstructive pulmonary disease, unspecified (10) History of smoking 30 or more pack years: Status: Acute Code(s): Z87.891 - Personal history of nicotine dependence (11) Diastolic heart failure: Status: Chronic Code(s): I50.30 - Unspecified diastolic (congestive) heart failure Qualifiers: Heart failure chronicity: chronic Qualified Code(s): I50.32 - Chronic diastolic (congestive) heart failure (12) HLD (hyperlipidemia): Status: Chronic Code(s): E78.5 - Hyperlipidemia, unspecified Qualifiers: Hyperlipidemia type: mixed hyperlipidemia Qualified Code(s): E78.2 - Mixed hyperlipidemia Meds Home Medications and Allergies Home Medications ?Medication ?Instructions ?Recorded ?Confirmed ?Type blood-glucose meter #1 ea 10/05/23 06/05/24 Rx pen needle, diabetic 31 gauge x #100 ea 12/06/23 06/05/24 Rx 1/4 insulin syringe-needle U-100 1 mL #100 ea 01/17/24 06/05/24 Rx 31 gauge x 5/16 (Advocate Syringes) clonidine HCl 0.1 mg tablet 0.1 mg PO HS PRN hypertension #30 01/30/24 06/05/24 Rx tabs canagliflozin 100 mg tablet 100 mg PO DAILY 03/05/24 06/05/24 History (Invokana) balsalazide 750 mg capsule 2,250 mg (3 x 750 mg) PO BID 90 04/03/24 06/05/24 Rx days #540 caps insulin human U-100 NPH-regulr 83 unit (0.83 mL) SQ AM Diabetes 04/11/24 06/05/24 Rx 70-30 mix 100 unit/mL subcutaneous #10 mL susp (Novolin 70/30 U-100 Insulin) insulin human U-100 NPH-regulr 10 unit SQ HS Diabetes 05/08/24 06/05/24 History 70-30 mix 100 unit/mL subcutaneous susp (Novolin 70/30 U-100 Insulin) blood sugar diagnostic (Accu-Chek #100 ea 06/05/24 06/05/24 Rx Guide test strips) carvedilol 25 mg tablet (Coreg) 25 mg PO BIDWMEAL 06/05/24 06/05/24 History levothyroxine 88 mcg tablet 88 mcg PO DAILY 06/05/24 06/05/24 History losartan 50 mg tablet 50 mg PO DAILY 06/05/24 06/05/24 History omeprazole 40 mg capsule,delayed 40 mg PO HS 06/05/24 06/05/24 History release simvastatin 40 mg tablet 40 mg PO HS 06/05/24 06/05/24 History doxycycline hyclate 100 mg capsule 100 mg PO BID #20 caps 06/07/24 Rx furosemide 40 mg tablet 80 mg (2 x 40 mg) PO BIDL 30 days 06/07/24 06/05/24 Rx #120 tabs hydrocodone 5 mg-acetaminophen 325 1 tab PO Q6H PRN pain #11 tabs 06/07/24 Rx mg tablet levofloxacin 250 mg tablet 250 mg PO Q48H 10 days #5 tabs 06/07/24 Rx New Prescriptions to Start Prescriptions: thony hyclate Rudi Shultz hydrocodone-acetaminophen Rudi Shultz levofloxacin Rudi Shultz Allergies Allergy/AdvReac Type Severity Reaction Status Date / Time Sulfa (Sulfonamide Allergy Intermediate I-RASH Verified 06/05/24 10:03 Antibiotics) Discharge Plan Disposition Patient Disposition: Home Health Service Condition: Fair Discharge Order Discharge Orders: Discharge Order (Routine); Ordered 06/07/24 Ordered By: Rudi Shultz Follow up Plan Follow up with: Jaguar Prince DO [Primary Care Provider] - 06/14/24 1:30 pm Anne-Marie Ramon DPM [Staff Physician] - 06/14/24 10:15 am Prescriptions/Medication Reconciliation: New doxycycline hyclate 100 mg capsule 100 mg PO BID Qty: 20 0RF levofloxacin 250 mg tablet 250 mg PO Q48H 10 Days Qty: 5 0RF hydrocodone-acetaminophen 5-325 mg tablet 1 tab PO Q6H PRN (Reason: pain) Qty: 11 0RF Continued Novolin 70/30 U-100 Insulin 100 unit/mL (70-30) suspension 83 unit SQ AM Qty: 10 6RF (DME) Accu-Chek Guide test strips Strip See Rx Instructions .Route Qty: 100 8RF Rx Instructions: As directed or tid Invokana 100 mg tablet 100 mg PO DAILY clonidine HCl 0.1 mg tablet 0.1 mg PO HS PRN (Reason: hypertension) Qty: 30 2RF (DME) blood-glucose meter Kit See Rx Instructions .ROUTE .MEDSUPPLY Qty: 1 0RF Rx Instructions: As directed or tid (DME) pen needle, diabetic 31 gauge x 1/4 needle See Rx Instructions .Route Qty: 100 2RF Rx Instructions: use BID (DME) insulin syringe-needle U-100 [Advocate Syringes] 1 mL 31 gauge x 5/16 syringe See Rx Instructions .Route Qty: 100 2RF Rx Instructions: As directed or tid Can substitute with Relion syringes 1ml 31 guage balsalazide 750 mg capsule 2,250 mg PO BID 90 Days Qty: 540 0RF Novolin 70/30 U-100 Insulin 100 unit/mL (70-30) suspension 10 unit SQ HS losartan 50 mg tablet 50 mg PO DAILY Patient Comments: TAKE 1 TABLET BY MOUTH ONCE DAILY carvedilol [Coreg] 25 mg tablet 25 mg PO BIDWMEAL Rx Instructions: give with food (meal/snack) omeprazole 40 mg capsule,delayed release(DR/EC) 40 mg PO HS simvastatin 40 mg tablet 40 mg PO HS levothyroxine 88 mcg tablet 88 mcg PO DAILY Changed furosemide 40 mg tablet 80 mg PO BIDL 30 Days Qty: 120 0RF Rx Instructions: 80 mg (2 tablets) in the AM, and 40mg (one tablet) in the evening, about 12 hours apart. Discontinued amoxicillin-pot clavulanate [Augmentin] 500-125 mg tablet 1 tab PO BID 14 Days Qty: 28 0RF furosemide 40 mg tablet 40 mg PO HS Patient Comments: TAKE 2 TABLETS BY MOUTH IN THE MORNING AND 1 IN THE EVENING ABOUT 12 HOURS APART Problem Reconciliation Problems Reviewed?: Yes Patient Discharge Instructions ACTIVITY: Continue current activity and Other DIET: continue same diet Additional Instructions: NWB on left forefoot (can transfer on Heel) Patient Instructions: DI for Osteomyelitis, DI for Surgical Site Infection, DI for Respiratory Failure Print Language: Namibian Providers Primary Care Provider: Jaguar Prince Admit Provider: Rudi Shultz Attending Provider: Rudi Shultz
[2024-06-07 08:14] LABS: Erythrocyte Sedimentation Rate 54 mm/hr (0-30)
--- NOTE | 2024-06-07 09:34 | HMH.PTEV ---
Physical Therapy Evaluation Rehab PT IP Evaluation Start: 06/06/24 14:56 Freq: ONCE Status: Active Protocol: Document 06/07/24 08:25 CHRISTY (Rec: 06/07/24 09:34 CHRISTY [id number]) Subjective/History History History Per H&P: Ms. Rios is a 78- year-old female with multiple comorbidities including COPD, diabetes, obesity, CHF, CKD. She presented from her primary care doctor office due to low oxygen and left foot pain. Having swelling and redness. Reportedly having fevers but afebrile in the ER. On evaluation, patient reports she wears oxygen as needed but stable on room air at this time. States she has been having worsening pain and redness in her left foot for about the past month. She has not been taking her antibiotic consistently as prescribed per podiatry at home. It was making her feel nauseous so she stopped taking it. Redness and swelling of her left lower extremity has gotten worse. Workup in the ER concerning for osteomyelitis with pathologic fracture along with elevated white count of 13. Initiated on vancomycin and Zosyn. Medicine consulted for admission and further management On evaluation after arriving to the floor, patient has family at bedside. Having purulent drainage from wound between fourth and fifth digit on left foot. Afebrile. On room air. Per history and talking to her, has extensive history of vasculopathy with previous stents and right sided carotid endarterectomy. Smoked for about 50 years. No longer smokes at this time. Diabetes poorly controlled with A1c fluctuating between 8 and 10 for the past several years. Denies any chest pain, nausea, vomiting. Subjective Subjective Pt lives with her in a single-story home with 3STE ( Rs). PLOF: IND with intermittent use of cane and RW. Not driving prior. Owns a w/c, RW, and cane. able to assist physically as needed. New diagnosis of cancer in past 12 No months? Rehab PT IP Eval Objective Appearance Patient Behavior Appropriate,Cooperative Patient Orientation Person,Situation Difficulty following instructions mild Speech Pattern Clear Ambulation Patient Able to Ambulate No Balance Ability to Arise Able, uses arms to help Sitting Balance Steady, safe Standing Balance Unsteady Transfers Sit to Stand Bed Transfer Ability Minimal x 1 (25% assist) Rehab PT IP prob,goals,plan Problems Date of Evaluation: 06/07/24 PT IP Problems Bed Mobility,Transfers,Gait, Balance,Safety Rehab Potential Rehab Potential Good Plan PT Intervention Plan Bed Mobility,Transfers,Gait, Balance,Self care,Safety, Therapeutic Exercise Other Intervention Plan 1-2 times PT Plan Frequency Daily Duration LOS Discharge Goals Bed Transfer Ability Contact Guard/Hand Hold Sit to Stand Chair Transfer Ability Contact Guard/Hand Hold Ambulation Assistive Device Rolling Walker Ambulation Distance (feet) 10 Discharge Plan PT Discharge Plan Initial physical therapy evaluation performed. Patient presents below baseline at this time in functional mobility, transfers, gait, and strength. Pt would benefit from skilled PT while at [facility] to prevent further functional decline and maximize safety with mobility. Pt safe to d/c home when deemed medically necessary (with 21/02 assist by family) d/t current level of mobility, home set-up, and family support. Pt able to perform stand-pivot transfers to/from w/c with Min A and NWB compliant using RW. PT recommending home health PT services to address deficits. Eval Complexity Eval Charge Codes 65057 - Moderate Complexity PHYSICIAN CERTIFICATION: I certify the specified therapy services for Cari Michelle are required, authorized, and reviewed every 30 days.
--- NOTE | 2024-06-07 10:05 | SW/DCPLANNER ---
Addendum entered by Swapna Casillas RN 06/08/24 12:53: Referral faxed to [facility], who accepted the patient for PT/OT services only. Unable to find HH with SN available. Addendum entered by Emilie Waggoner 06/07/24 15:17: [facility] is unable to accept patient. Patient information/order has been faxed to [facility]. Addendum entered by Emilie Waggoner 06/07/24 13:46: Patient information/order has been faxed to Leeann murphy/ [facility]. Original Note: I spoke w/ this patient regarding plans once medically stable for discharge. PT/OT evaluated patient and recommended home w/ home health services. Patient is agreeable to home health services at this time (no preference). I will set up home health services at time of discharge. Discharge date is unknown at this time.
[2024-06-07] MEDS: BUMETANIDE 1MG/4ML VIAL 1 MG IV (10:08)
[2024-06-07 11:48] LABS: POC Glucose,Bedside 336 (70-110)
--- NOTE | 2024-06-08 13:16 | CARE MANAGER ---
Contacted patient related to hospital discharge. She states she has her new medication and is aware of follow up appointments and is having no pain. Denies questions or concerns. LUIS Cid
== END 2024-06-07 14:52 | disposition home health service (06) | DRG 617 ==
LOC: ER 13:54 → 2ND 14:14
PROVIDERS: Podiatrist; Admitting Provider Internal Medicine Adolescent Medicine; Emergency Provider Emergency Medicine; PCP Internal Medicine; Visit Provider Internal Medicine Adolescent Medicine
PROC: 0Y6W0Z1 Detachment at Left 4th Toe, High, Open Approach (ICD-10-PCS; principal; 2024-06-06 12:55)
DX: E11.69 Type 2 diabetes mellitus with other specified complication (principal); I50.32 Chronic diastolic (congestive) heart failure; M86.172 Other acute osteomyelitis, left ankle and foot; M84.478A Pathological fracture, left toe(s), initial encounter for fracture; Z68.41 Body mass index [BMI] 40.0-44.9, adult; L03.116 Cellulitis of left lower limb; N18.4 Chronic kidney disease, stage 4 (severe); Z79.899 Other long term (current) drug therapy; E11.22 Type 2 diabetes mellitus with diabetic chronic kidney disease; E66.01 Morbid (severe) obesity due to excess calories; E11.42 Type 2 diabetes mellitus with diabetic polyneuropathy; E78.2 Mixed hyperlipidemia; I11.0 Hypertensive heart disease with heart failure; I50.9 Heart failure, unspecified; E03.9 Hypothyroidism, unspecified; G47.33 Obstructive sleep apnea (adult) (pediatric); Z87.891 Personal history of nicotine dependence
CPT/HCPCS: 28124; 36415; 71046; 73630; 80048; 80053; 82803; 82962; 83036; 83605; 83735; 83880; 84145; 84436; 84443; 85025; 85378; 85651; 86140; 86803; 87040; 87070; 87077; 87186; 87205; 87389; 87636; 88304; 88305; 88311; 93005; 93923; 94640; 97110; 97162; 99285; C9144; J0736; J1580; J1650; J1939; J2543; J3370; J7620

== ENCOUNTER 2024-06-26 11:54 | Outpatient (CLI) | payer MEDICARE, SELFPAY ==
[2024-06-26 12:40] LABS: Albumin Level 3.8 g/dl (3.5-5.0); Basophils # 0.2 K/mm3 (0-0.2); Basophils % 1.6 % (0.1-2.0); Chloride 97 mmol/L (98-107); Eosinophils # 0.5 K/mm3 (0.0-0.4); Eosinophils % 5.1 % (0.1-12.0); Hematocrit 39.5 % (37.0-47.0); Lymphocytes # 1.5 K/mm3 (0.7-4.5); Lymphocytes % 15.9 % (10-50); Mean Corpuscular HGB Conc 32.9 g/dL (31.8-35.4); Mean Corpuscular Hemoglobin 26.8 pg (27.0-31.2); Mean Corpuscular Volume 81.6 fl (81-99); Mean Platelet Volume 7.3 fl (7.4-10.4); Monocytes # 0.7 K/mm3 (0.1-1.0); Neutrophils # 6.8 K/mm3 (1.8-7.8); Neutrophils % 70.5 % (37.0-80.0); Platelet Count 293 K/mm3 (142-424); Potassium 4.5 mmoL/L (3.5-5.1); Red Blood Count 4.84 M/mm3 (4.20-5.40); Red Cell Distribution Width 16.3 % (11.5-17.5); Sodium 138 mmol/L (136-145); White Blood Count 9.6 K/mm3 (4.8-10.8)
[2024-06-26 12:43] LABS: Alanine Aminotransferase 11 U/L (12-78); Albumin/Globulin Ratio 1.1 (1.1-1.8); Alkaline Phosphatase 71 U/L (38-126); Anion Gap 10.5 mEq/L (5-15); Aspartate Amino Transferase 21 U/L (14-36); Bilirubin,Total 0.6 mg/dl (0.2-1.3); Blood Urea Nitrogen 37 mg/dl (7-17); Carbon Dioxide 35 mmol/L (22.0-30.0); Estimated Glomerular Filt Rate 23 ml/min (>60); GFR (African American) 28 ML/MIN (>60); Globulin 3.5 g/dL (1.3-3.2); Glucose 55 mg/dl (74-100); Total Protein,Serum 7.3 g/dl (6.3-8.2)
[2024-06-26 12:49] LABS: C-Reactive Protein 8.6 mg/L (0-4)
[2024-06-26 13:08] LABS: Erythrocyte Sedimentation Rate 19 mm/hr (0-30)
== END 2024-06-26 23:59 | disposition home or self-care (01) ==
LOC: LAB 11:55
PROVIDERS: PCP Internal Medicine; Visit Provider Podiatrist
DX: S98.132A Complete traumatic amputation of one left lesser toe, initial encounter (principal); Z98.890 Other specified postprocedural states; E11.9 Type 2 diabetes mellitus without complications
CPT/HCPCS: 36415; 80053; 85025; 85651; 86140

== ENCOUNTER 2024-06-27 15:06 | Outpatient (CLI) | payer MEDICARE, SELFPAY ==
--- NOTE | 2024-06-27 15:07 | CT_ITS ---
FINAL REPORT TECHNIQUE: Axial CT images of the chest were obtained without contrast. Low-dose protocol was utilized. This study was performed with techniques to keep radiation doses as low as reasonably achievable (ALARA). Individualized dose reduction techniques using automated exposure control or adjustment of mA and/or kV according to the patient's size were employed. CLINICAL HISTORY: lung cancer screening former smoker, quit 4 years ago. smoked 3 ppd x 55 years COMPARISON: CT chest 06/29/[address] low-dose 12/29/2022 FINDINGS: CT CHEST WITHOUT, LOW DOSE SCREENING CT Di Vol: 2.90 mGy DLP: 102.12 mGy*cm There is no axillary, mediastinal, or hilar adenopathy. The heart size is mildly enlarged. Prominent coronary artery calcifications are noted. There is no pleural or pericardial effusion. The lung windows show a stable 4 mm posterior left upper lobe nodule on series 4 image 18 and a 4 mm nodule in the superior segment of the left lower lobe on image 19. A 4 mm left upper lobe nodule on image 35 is unchanged. The 10 mm left lower lobe nodule on image 47 previously measured 11 mm and is unchanged. Right middle lobe 7 mm nodule was 6 mm. There are a few additional less than 5 mm pulmonary nodules all of which are stable. Limited images of the upper abdomen demonstrate no acute findings. IMPRESSION: Stable pulmonary nodules LR Category 2S: Return to 12 month screening low-dose chest CT recommended per Fleischner criteria. Modifier S: Prominent coronary artery calcifications. Reviewed, Interpreted and Dictated by Jhoana Hubbard MD Transcribed by Ann Madera Authenticated and . [facility]
== END 2024-06-27 23:59 | disposition home or self-care (01) ==
LOC: RAD 15:07
PROVIDERS: PCP Internal Medicine; Visit Provider Internal Medicine Pulmonary Disease
DX: F17.210 Nicotine dependence, cigarettes, uncomplicated (principal)
CPT/HCPCS: 71271

== ENCOUNTER 2024-07-18 11:00 | Outpatient (CLI) | payer MEDICARE, SELFPAY ==
[2024-07-18 22:57] LABS: Creatinine,Urine Random 23 mg/dL (Not Estab.)
== END 2024-07-18 23:59 | disposition home or self-care (01) ==
LOC: LAB.DROPOF 07-19 09:22
PROVIDERS: PCP Internal Medicine; Visit Provider Internal Medicine
DX: E11.42 Type 2 diabetes mellitus with diabetic polyneuropathy (principal); Z79.4 Long term (current) use of insulin
CPT/HCPCS: 82043; 82570

== ENCOUNTER 2024-08-02 18:55 | Outpatient (CLI) | payer MEDICARE, SELFPAY ==
[2024-08-02 19:42] LABS: Chol/HDL Ratio 2.8 (1-3.5); Cholesterol 120 mg/dl (140-200); HDL Cholesterol 43 mg/dl (40-60); Triglycerides 100 mg/dl (30-150); VLDL Cholesterol 20 mg/dL (0-40)
[2024-08-02 19:53] LABS: Direct LDL Cholesterol 58.07 mg/dL (100-129)
== END 2024-08-02 23:59 | disposition home or self-care (01) ==
LOC: LAB.DROPOF 18:58
PROVIDERS: PCP Internal Medicine; Visit Provider Internal Medicine
DX: E78.5 Hyperlipidemia, unspecified (principal)
CPT/HCPCS: 80061

== ENCOUNTER 2024-08-14 08:15 | Outpatient (CLI) | payer MEDICARE, SELFPAY ==
[2024-08-14 08:26] LABS: Microscopic, Urine URINE MICROSCOPIC (MICROSCOPIC)
[2024-08-14 08:46] LABS: Basophils # 0.1 K/mm3 (0-0.2); Basophils % 0.9 % (0.1-2.0); Eosinophils # 0.4 K/mm3 (0.0-0.4); Eosinophils % 3.4 % (0.1-12.0); Hematocrit 35.8 % (37.0-47.0); Hemoglobin 11.3 g/dL (12.2-16.2); Lymphocytes # 1.5 K/mm3 (0.7-4.5); Lymphocytes % 11.4 % (10-50); Mean Corpuscular HGB Conc 31.6 g/dL (31.8-35.4); Mean Corpuscular Hemoglobin 26.8 pg (27.0-31.2); Mean Corpuscular Volume 84.8 fl (81-99); Monocytes # 0.9 K/mm3 (0.1-1.0); Neutrophils # 9.9 K/mm3 (1.8-7.8); Platelet Count 282 K/mm3 (142-424); Red Blood Count 4.22 M/mm3 (4.20-5.40); Red Cell Distribution Width 16.2 % (11.5-17.5); White Blood Count 12.8 K/mm3 (4.8-10.8)
[2024-08-14 09:35] LABS: Alanine Aminotransferase 11 U/L (12-78); Albumin Level 3.8 g/dl (3.5-5.0); Albumin/Globulin Ratio 1.4 (1.1-1.8); Alkaline Phosphatase 76 U/L (38-126); Aspartate Amino Transferase 18 U/L (14-36); Bilirubin,Total 0.5 mg/dl (0.2-1.3); Blood Urea Nitrogen 48 mg/dl (7-17); Calcium 8.9 mg/dl (8.4-10.2); Carbon Dioxide 33 mmol/L (22.0-30.0); Chloride 96 mmol/L (98-107); Estimated Glomerular Filt Rate 22 ml/min (>60); GFR (African American) 26 ML/MIN (>60); Globulin 2.7 g/dL (1.3-3.2); Glucose 163 mg/dl (74-100); Sodium 137 mmol/L (136-145); Total Protein,Serum 6.5 g/dl (6.3-8.2)
[2024-08-14 09:36] LABS: Blood Urea Nitrogen 49 mg/dl (7-17); Calcium 8.7 mg/dl (8.4-10.2); Chloride 95 mmol/L (98-107); Estimated Glomerular Filt Rate 22 ml/min (>60); GFR (African American) 26 ML/MIN (>60); Glucose 161 mg/dl (74-100); Phosphorous 5.4 mg/dl (2.5-4.5); Potassium 4.7 mmoL/L (3.5-5.1); Sodium 137 mmol/L (136-145)
[2024-08-14 09:37] LABS: Albumin Level 3.8 g/dl (3.5-5.0); Anion Gap 13.7 mEq/L (5-15); Carbon Dioxide 33 mmol/L (22.0-30.0)
[2024-08-14 09:47] LABS: Intact Parathyroid Hormone 234.2 pg/mL (7.5-53.5)
[2024-08-14 10:04] LABS: Erythrocyte Sedimentation Rate 100 mm/hr (0-30)
[2024-08-14 10:06] LABS: Appearance,Urine CLEAR (Clear); Bilirubin,Urine Negative (Negative); Blood, Urine Negative (Negative); Color,Urine YELLOW (Yellow); Glucose,Urine (UA) 2+ (Negative); Ketones,Urine Negative (Negative); Leukocyte Esterase,Urine Negative (Negative); Nitrate,Urine Negative (Negative); PH,Urine 6.5 (5.0-8.5); Protein,Urine Negative (Negative); Urobilinogen,Urine 0.2 EU/dl (0.2)
[2024-08-14 10:21] LABS: Microalbumin/Creatinine Ratio 666.9
[2024-08-14 10:25] LABS: Creatinine,Urine Random 13 mg/dL (Not Estab.)
[2024-08-14 11:32] LABS: Bacteria,Urine Trace /lpf; RBC,Urine Occasional #/hpf (0-3); WBC,Urine Occasional #/hpf (0-3)
[2024-08-14 11:33] LABS: Anion Gap 12.9 mEq/L (5-15); Potassium 4.9 mmoL/L (3.5-5.1)
[2024-08-14 11:36] LABS: Iron 51 ug/dL (37-170)
[2024-08-14 11:50] LABS: Total Iron Binding Capacity 315 ug/dL (265-497)
[2024-08-14 12:10] LABS: Ferritin 44.8 ng/ml (11.1-264)
[2024-08-14 13:45] LABS: Vitamin B12 456 pg/mL (239-931)
[2024-08-14 16:01] LABS: 25-OH Vitamin D, Total 35.7 ng/mL (30-100)
== END 2024-08-14 23:59 | disposition home or self-care (01) ==
LOC: LAB 08:16
PROVIDERS: Student in an Organized Health Care Education/Training Program; PCP Internal Medicine; Visit Provider Nurse Practitioner Family
DX: K51.911 Ulcerative colitis, unspecified with rectal bleeding (principal)
CPT/HCPCS: 36415; 80053; 80069; 81001; 82043; 82306; 82570; 82607; 82728; 83540; 83550; 83970; 84156; 85025; 85651; 86140

== ENCOUNTER 2024-09-28 09:19 | Outpatient (CLI) | payer MEDICARE, SELFPAY ==
[2024-09-28 10:40] LABS: Alanine Aminotransferase 14 U/L (12-78); Albumin Level 3.9 g/dl (3.5-5.0); Albumin/Globulin Ratio 1.4 (1.1-1.8); Aspartate Amino Transferase 17 U/L (14-36); Carbon Dioxide 28 mmol/L (22.0-30.0); Estimated Glomerular Filt Rate 22 ml/min (>60); GFR (African American) 26 ML/MIN (>60); Globulin 2.8 g/dL (1.3-3.2); Total Protein,Serum 6.7 g/dl (6.3-8.2)
[2024-09-28 10:58] LABS: Anion Gap 11.9 mEq/L (5-15); Blood Urea Nitrogen 51 mg/dl (7-17); Calcium 8.5 mg/dl (8.4-10.2); Chloride 98 mmol/L (98-107); Glucose 288 mg/dl (74-100); Potassium 4.9 mmoL/L (3.5-5.1); Sodium 133 mmol/L (136-145)
[2024-09-28 11:14] LABS: Alkaline Phosphatase 86 U/L (38-126); Bilirubin,Total 0.6 mg/dl (0.2-1.3)
[2024-09-29 10:11] LABS: HBsAg Screen Negative (Negative); HCV Ab Non Reactive (Non Reactive); Hep A Ab, IGM Negative (Negative); Hep B Core Ab, IgM Negative (Negative)
[2024-10-02 21:08] LABS: QuantiFERON-TB Gold Plus Negative (Negative)
== END 2024-09-28 23:59 | disposition home or self-care (01) ==
LOC: LAB 09:20
PROVIDERS: PCP Internal Medicine; Visit Provider Nurse Practitioner Family
DX: K51.50 Left sided colitis without complications (principal)
CPT/HCPCS: 36415; 80053; 80074; 86480; 86803

== ENCOUNTER 2024-11-22 10:56 | Outpatient (CLI) | payer MEDICARE, SELFPAY ==
[2024-11-22 18:32] LABS: Basophils # 0.1 K/mm3 (0-0.2); Basophils % 0.9 % (0.1-2.0); Eosinophils # 0.6 Kmm3 (0.0-0.4); Eosinophils % 4.6 % (0.1-12.0); Hematocrit 38.5 % (37.0-47.0); Hemoglobin 11.7 g/dL (12.2-16.2); Lymphocytes # 1.4 K/mm3 (0.7-4.5); Lymphocytes % 11.6 % (10-50); Mean Corpuscular HGB Conc 30.4 g/dL (31.8-35.4); Mean Corpuscular Hemoglobin 25.6 pg (27.0-31.2); Mean Corpuscular Volume 84.2 fl (81-99); Monocytes # 0.9 K/mm3 (0.1-1.0); Monocytes % 7.4 % (1.7-9.3); Neutrophils % 75.1 % (37.0-80.0); Nucleated Red Blood Cells # 0 10^3/uL; Nucleated Red Blood Cells % 0 %; Platelet Count 358 K/mm3 (142-424); Red Blood Count 4.57 M/mm3 (4.20-5.40); Red Cell Distribution Width 14.7 % (11.5-17.5); Red Cell Distribution Width-SD 44.8 fL
[2024-11-22 19:00] LABS: Albumin Level 3.8 g/dl (3.5-5.0); Chloride 97 mmol/L (98-107)
[2024-11-22 19:01] LABS: Potassium 5.5 mmoL/L (3.5-5.1); Sodium 134 mmol/L (136-145)
[2024-11-22 19:03] LABS: Alanine Aminotransferase 13 U/L (12-78); Albumin/Globulin Ratio 1.2 (1.1-1.8); Alkaline Phosphatase 105 U/L (38-126); Anion Gap 15.5 mEq/L (5-15); Aspartate Amino Transferase 17 U/L (14-36); Bilirubin,Total 0.4 mg/dl (0.2-1.3); Blood Urea Nitrogen 66 mg/dl (7-17); Carbon Dioxide 27 mmol/L (22.0-30.0); Estimated Glomerular Filt Rate 16 ml/min (>60); GFR (African American) 19 ML/MIN (>60); Globulin 3.3 g/dL (1.3-3.2); Total Protein,Serum 7.1 g/dl (6.3-8.2)
[2024-11-22 19:04] LABS: Calcium 8.8 mg/dl (8.4-10.2); Cholesterol 136 mg/dl (140-200); Glucose 272 mg/dl (74-100); HDL Cholesterol 46 mg/dl (40-60); Triglycerides 132 mg/dl (30-150); VLDL Cholesterol 26 mg/dL (0-40)
[2024-11-22 19:15] LABS: Direct LDL Cholesterol 58.53 mg/dL (100-129)
[2024-11-22 20:23] LABS: Hemoglobin A1C 7.7 % (4.0-6.0)
== END 2024-11-22 23:59 | disposition home or self-care (01) ==
LOC: LAB.DROPOF 11-23 11:10
PROVIDERS: PCP Family Medicine; Visit Provider Family Medicine
DX: E78.2 Mixed hyperlipidemia (principal); E03.9 Hypothyroidism, unspecified; E11.42 Type 2 diabetes mellitus with diabetic polyneuropathy; Z79.4 Long term (current) use of insulin; D50.9 Iron deficiency anemia, unspecified; I10 Essential (primary) hypertension
CPT/HCPCS: 80053; 80061; 83036; 85025

== ENCOUNTER 2024-11-30 09:20 | Outpatient (CLI) | payer MEDICARE, SELFPAY ==
[2024-11-30 19:23] LABS: Chloride 98 mmol/L (98-107); Potassium 5.3 mmoL/L (3.5-5.1); Sodium 136 mmol/L (136-145)
[2024-11-30 19:26] LABS: Anion Gap 15.3 mEq/L (5-15); Blood Urea Nitrogen 64 mg/dl (7-17); Calcium 8.9 mg/dl (8.4-10.2); Carbon Dioxide 28 mmol/L (22.0-30.0); Estimated Glomerular Filt Rate 18 ml/min (>60); GFR (African American) 22 ML/MIN (>60); Glucose 172 mg/dl (74-100)
[2024-11-30 19:54] LABS: Thyroid Stimulating Hormone 2.54 uIU/mL (0.465-4.68)
== END 2024-11-30 23:59 ==
LOC: LAB.DROPOF 12-03 11:10
PROVIDERS: PCP Family Medicine; Visit Provider Family Medicine
DX: E03.9 Hypothyroidism, unspecified (principal); E11.42 Type 2 diabetes mellitus with diabetic polyneuropathy; Z79.4 Long term (current) use of insulin
CPT/HCPCS: 80048; 84443

== ENCOUNTER 2024-12-10 10:40 | Outpatient (CLI) | payer MEDICARE, SELFPAY ==
[2024-12-10 11:08] LABS: Microscopic, Urine URINE MICROSCOPIC (MICROSCOPIC)
[2024-12-10 11:27] LABS: Hematocrit 39.9 % (37.0-47.0); Hemoglobin 12.9 g/dL (12.2-16.2); Mean Corpuscular HGB Conc 32.3 g/dL (31.8-35.4); Mean Corpuscular Volume 80.4 fl (81-99); Nucleated Red Blood Cells # 0 10^3/uL; Nucleated Red Blood Cells % 0 %; Platelet Count 348 K/mm3 (142-424); Red Blood Count 4.96 M/mm3 (4.20-5.40); Red Cell Distribution Width 14.6 % (11.5-17.5); Red Cell Distribution Width-SD 42.7 fL; White Blood Count 19.7 K/mm3 (4.8-10.8)
[2024-12-10 12:27] LABS: Albumin Level 3.9 g/dl (3.5-5.0); Anion Gap 9.6 mEq/L (5-15); Blood Urea Nitrogen 79 mg/dl (7-17); Calcium 9.3 mg/dl (8.4-10.2); Carbon Dioxide 32 mmol/L (22.0-30.0); Chloride 98 mmol/L (98-107); Estimated Glomerular Filt Rate 23 ml/min (>60); GFR (African American) 28 ML/MIN (>60); Glucose 76 mg/dl (74-100); Phosphorous 4.1 mg/dl (2.5-4.5); Potassium 4.6 mmoL/L (3.5-5.1); Sodium 135 mmol/L (136-145)
[2024-12-10 12:46] LABS: Appearance,Urine CLEAR (Clear); Bilirubin,Urine Negative (Negative); Blood, Urine Negative (Negative); Color,Urine YELLOW (Yellow); Glucose,Urine (UA) 1+ (Negative); Ketones,Urine Negative (Negative); Leukocyte Esterase,Urine Negative (Negative); Nitrate,Urine Negative (Negative); PH,Urine 5.5 (5.0-8.5); Protein,Urine TRACE (Negative); Specific Gravity, Urine <= 1.005 (1.005-1.030); Urobilinogen,Urine 0.2 EU/dl (0.2)
[2024-12-10 13:12] LABS: Microalbumin/Creatinine Ratio 684.5
[2024-12-10 13:14] LABS: Creatinine,Urine Random 22 mg/dL (Not Estab.)
[2024-12-10 13:23] LABS: RBC,Urine Occasional #/hpf (0-3)
== END 2024-12-10 23:59 | disposition home or self-care (01) ==
LOC: LAB 10:41
PROVIDERS: PCP Family Medicine; Visit Provider Student in an Organized Health Care Education/Training Program
DX: E11.22 Type 2 diabetes mellitus with diabetic chronic kidney disease (principal); N18.4 Chronic kidney disease, stage 4 (severe); Z79.4 Long term (current) use of insulin
CPT/HCPCS: 36415; 80069; 81001; 82043; 82570; 84156; 85027

== ENCOUNTER 2025-01-04 13:59 | Outpatient (CLI) | payer MEDICARE, SELFPAY ==
--- OUTSIDE RECORDS SUMMARY | 2024-12-17 11:40 | XMS_ITS | Encounter Summary ---
Author Organization [facility] Address [address] [place] [address] Care Team Providers Care Chief Wellness Officer Name Role Phone Jaguar Prince DO Primary Care Provider [phone] Reason for Referral * Consultation (Routine) - Authorized Specialty Diagnoses / Procedures Referred By Angel t Referred To Contact Diagnoses Type 2 diabetes mellitus with stage 4 chronic kidney disease, unspecified whether [place] insulin use (CMS/HCC) Tristin Mcmanus MD [address] [place] [address] Phone: tel: fax: Referral ID Status Reason Start Date Expiration Date V isits Requested Visits Authorized [id number] Authorized 12/17/2024 06/18/2026 1 1 Reason for Visit * Reason Comments Follow-up Encounter Details Date Type Department Care Team ([facility] st Contact Info) Description 12/17/2024 11:40 AM EDT Office Visit [facility] Nephrology, Bone & Mineral Metabolism [address], [address] [place] [address] Tristin Mcmanus MD [address] [place] [address] Type 2 diabetes mellitus with stage 4 chronic kidney disease, unspecified whether termite helper insulin use (CMS/HCC) (Primary Dx); Hypertensive chronic [...] - 12/17/2024 11:40 AM EDT Follow up [place] * Progress Notes - Tristin Mcmanus MD - 12/17/2024 11:40 AM EDT [facility] SUBJECTIVE Cari Michelle is a 79 y.o. [...] Expiration Date: 09/13/2025 [facility] Immediate Renal Function Panel, Plasma Standing Status: Future Expected Date: 04/16/2025 Expiration Date: 09/13/2025 Release to patient in [facility]: Immediate CBC W/O Differential Standing Status: Future Expected Date: 04/16/2025 Expiration Date: 09/13/20[facility] Protein, Random, Urine with Creatinine Standing Status: Future Expected Date: 04/16/2025 Expiration Date: 09/13/2025 [facility] Immediate Urinalysis with reflex microscopic (Culture NOT Included) Standing Status: Future Expected Date: 04/16/2025 Expiration Date: 09/13/2025 Release to patient in [facility]: Immediate Follow Up Nephrology [facility] Standing Status: Future Expected Date: 04/19/2025 Expiration Date: 06/19/2026 Referral Priority: Routine Referral Type: Consultation Number of Visits Requested: 1 Problem List Items Addressed This Visit Anemia in stage 4 chronic kidney disease Relevant Medications canagliflozin (Invokana) 100 MG losartan (Cozaar) 50 MG tablet Type 2 diabetes mellitus with stage 4 chronic kidney disease ([facility]) - Primary Relevant Medications canagliflozin (Invokana) 100 [...] kidney disease) stage 4, GFR 15-29 ml/min ([facility]) Relevant Medications canagliflozin (Invokana) 100 MG losartan [...] stage 4 chronic kidney disease, unspecified whether [place] [facility] insulin use (CMS/HCC) Expected: 04/16/2025 (Approximate), Expires: 09/13/2025 Renal Function Panel, Plasma Lab Routine Type 2 diabetes mellitus with stage 4 chronic kidney disease, unspecified whether termite helper insulin use (CMS/HCC) Expected: 04/16/2025 (Approximate), Expires: 09/13/2025 CBC W/O Differential Lab Routine Type 2 diabetes mellitus with stage 4 chronic kidney disease, unspecified whether termite helper insulin use (CMS/HCC) Expected: 04/16/2025 (Approximate), Expires: 09/13/2025 Protein, Random, Urine with Creatinine Lab Routine Type 2 diabetes mellitus with stage 4 chronic kidney disease, unspecified whether termite helper insulin use (CMS/HCC) Expected: 04/16/2025 (Approximate), Expires: 09/13/2025 Urinalysis with reflex microscopic (Culture NOT Included) Lab Routine Type 2 diabetes mellitus with stage 4 chronic kidney disease, unspecified whether termite helper insulin use (CMS/HCC) Expected: 04/16/2025 (Approximate), Expires: 09/13/2025 Scheduled Referrals Name Type Priority Associated Diagnoses Orde r Schedule Follow Up Nephrology Outpatient Referral Routine Type 2 diabetes mellitus with stage 4 chronic kidney disease, unspecified whether [place] [facility] insulin use (CMS/HCC) Expected: 04/19/2025 (Approximate), Expires: 06/19/2026 documented as of this encounter Visit Diagnoses Diagnosis Type 2 diabetes mellitus with stage 4 chronic kidney disease, unspecified whether [place] insulin use (CMS/HCC)- Primary Hypertensive chronic kidney [...] documented as of this encounter Care Teams Chief Wellness Officer Relationship Specialty Start Date End Date Jaguar Prince DO [address] [place] [address] PCP - General 08/26/23 documented as of this encounter
--- OUTSIDE RECORDS SUMMARY | 2025-01-04 14:03 | XMS_ITS | Encounter Summary ---
Author Organization [facility] Address [address] [address] Care Team Providers Care Firearms Specialist Name Role Phone Jaguar Prince DO Primary Care Provider Encounter Details Date Type Department Care Team ([facility] Contact Info) Description 11/26/2024 Telephone [facility] Nephrology, Bone & Mineral Metabolism [address] [facility] [address], [address] [place] [address] Tristin Mcmanus MD [address] [place] [id number] Social History Tobacco Use Types Packs/Day Years [...] on file documented as of this encounter Miscellaneous Notes * Telephone Encounter - Giselle Barron S - 11/26/2024 11:04 AM EDT Patient Phone Message Reason for Call: Pt returned a call regarding her question about labs. She asks for another call back Best contact number and optimal time of day to reach caller: [phone] Note: Please do not reply to this message. Follow-up communication and further actions as a result of this message need to be communicated with the patient directly, if the patient is not active onMyChart. If the patient is active on MyChart, they will receive notification of the communication/outcome via Masterbranchhart. * Telephone Encounter - Andreina Cortés - 11/26/2024 9:55 AM EDT Clinical Concern/Question Reason for Call: PT asking to advise julianne she needs to complete labs prior to 12/17 apt. Please call Best contact number: [phone] (home) Optimal time of day to reach caller: ANYTIME Additional comments/information from caller: None Note: Please do not reply to this message. Follow-up communication and further actions as a result of this message need to be communicated with the patient directly, if the patient is not active onMyChart. If the patient is active on MyChart, they will receive notification of the communication/outcome via Masterbranchhart. documented in this encounter Plan of Treatment Not on file documented as of this encounter Visit Diagnoses Not on filedocumented in this encounter Additional Health Concerns Assessment Noted Time A fall risk assessment has been complete d for the patient 01/02/2024 2:41 PM EDT A Body Mass Index follow-up plan has been documented for the patient 08/17/2024 1:55 PM EST documented as of this encounter Care Teams Firearms Specialist Relationship Specialty Start Date End Date Jaguar Prince DO [address] [place] [address] PCP - General 08/26/23 documented as of this encounter
--- OUTSIDE RECORDS SUMMARY | 2025-01-04 14:03 | XMS_ITS | Encounter Summary ---
Author Organization [facility] Address [address] [id number] Care Team Providers Care Armored Service Technician Name Role Phone Jaguar Prince DO Primary Care Provider [phone] Encounter Details Date Type Department Care Team ([facility] st Contact Info) Description 11/26/2024 Telephone [facility] Nephrology, Bone & Mineral Metabolism [address] [facility], [address] [place] [address] Olga Yuna Social History Tobacco Use Types Packs/Day Years [...] on file documented as of this encounter Plan of Treatment Not on [...] documented as of this encounter Care Teams Armored Service Technician Relationship Specialty Start Date End Date Jaguar Prince DO [address] [place] [address] PCP - General 08/26/23 documented as of this encounter
--- OUTSIDE RECORDS SUMMARY | 2025-01-04 14:03 | XMS_ITS | Encounter Summary ---
Author Organization [facility] Address [address] [place] [address] Care Team Providers Care Gettering Filament Machine Operator Name Role Phone Jaguar Prince DO Primary Care Provider [phone] Encounter Details Date Type Department Care Team (Latest Contact Info) Description 12/17/2024 Travel Social History Tobacco Use Types Packs/Day Years [...] documented as of this encounter Care Teams Gettering Filament Machine Operator Relationship Specialty Start Date End Date Jaguar Prince DO [address] [place], [place] [id number] PCP - General 08/26/23 documented as of this encounter
--- OUTSIDE RECORDS SUMMARY | 2025-01-04 14:03 | XMS_ITS | Encounter Summary ---
Author Organization [facility] Address [address] [place] [address] Care Team Providers Care Electronic Bench Technician Name Role Phone Jaguar Prince DO Primary Care Provider [phone] Encounter Details Date Type Department Care Team ([facility] st Contact Info) Description 12/13/2024 Telephone [facility] Nephrology, Bone & Mineral Metabolism [address] [facility] [address] [facility], [address] [place] [address] [place] [address] Social History Tobacco Use Types Packs/Day Years [...] encounter Miscellaneous Notes * Telephone Encounter - Danuta Celis RN - 12/14/2024 11:34 AM EDT Called [facility] for lab results from 12/10; Left voice message * Telephone Encounter - Romy Norman - 12/14/2024 11:19 AM EDT Status Update Call #2 2nd call regarding the status of the initial request. Best contact number: [phone] (home) Optimal time of day to reach caller: ANYTIME Additional comments/information from caller: Patient had her labs drawn on 12/10 at [facility] - will have to call hospital and get results? Note: Please do not reply to this message. Follow-up communication and further actions as a result of this message need to be communicated with the patient directly, if the patient is not active onMyChart. If the patient is active on MyChart, they will receive notification of the communication/outcome via MyChart. * Telephone Encounter - Rhea Steele - 12/14/2024 9:49 AM EDT Status Update Call #1 1st call regarding the status of the initial request. Best contact number: [phone] (home) Optimal time of day to reach caller: ANYTIME Additional comments/information from caller: Pt returned a call and said she had her labs done at [facility] on 12/10/24. Note: Please do not reply to this message. Follow-up communication and further actions as a result of this message need to be communicated with the patient directly, if the patient is not active onMyChart. If the patient is active on MyChart, they will receive notification of the communication/outcome via MyChart. * Telephone Encounter - Ayden Butts - 12/13/2024 5:14 PM EDT LVM [facility] documented in this encounter Plan of Treatment [...] documented as of this encounter Care Teams Electronic Bench Technician Relationship Specialty Start Date End Date Jaguar Prince DO [address] [place] [address] PCP - General 08/26/23 documented as of this encounter
--- OUTSIDE RECORDS SUMMARY | 2025-01-04 14:03 | XMS_ITS | Encounter Summary ---
Author Organization [facility] Address [address] [place] [address] Care Team Providers Care Inclusion Internship Name Role Phone Jaguar Prince DO Primary Care Provider [phone] Encounter Details Date Type Department Care Team ([facility] st Contact Info) Description 08/17/2024 Telephone [facility] Nephrology, Bone & Mineral Metabolism [address] [facility], [address] [place] [address] Jayna Lynne, PharmD [address] [place] [address] Social History Tobacco Use Types Packs/Day Years [...] encounter Miscellaneous Notes * Telephone Encounter - Jayna Lynne, PharmD - 12/03/2024 1:44 PM EDT Spoke with Cari Kassandra Michelle via phone regarding MAP enrollment. She states she is being shipped refill today but MAP expires on 12/11. Patient is scheduled at [facility] on 12/17 for re-enrollment eligibility. Please follow- up with patient after 12/17 to renew MAP application. Jayna Lynne, PharmD, BCACP Clinical Pharmacist Nephrology Clinic * Telephone Encounter - Codie Ayala - 08/30/2024 11:01 AM EST Left VM for patient with direct line for scheduling * Telephone Encounter - Leena Martines PharmD - 08/22/2024 9:45 AM EST Patient called back and reports she is agreeable to have next appointment at [facility] clinic in order to continue to be eligible for Invokana [place] discount program. Will have schedulers reach out to patient to help coordinate this. Leena Martines PharmD, RAJESHCP Clinical Pharmacist Mortgage Banker Float * Telephone Encounter - Jayna Lynne PharmD - 08/17/2024 4:53 PM EST Attempted to reach Cari Michelle without success, left VM reassuring her she should be able to receive Invokana through [place] discount program through 12/11/2024. Will need to reschedule next office visit at [facility] clinic rather than [facility] to continue to receive discounted copay after November. Jayna Lynne PharmD, BCACP Clinical Pharmacist Nephrology Clinic * Telephone Encounter - Jayna Lynne PharmD - 08/17/2024 2:10 PM EST Cari Michelle saw Dr. Mcmanus today, invokana 100mg daily continued. documented in this encounter Plan of Treatment [...] documented as of this encounter Care Teams Inclusion Internship Relationship Specialty Start Date End Date Jaguar Prince DO [address] [place] [address] PCP - General 08/26/23 documented as of this encounter
--- OUTSIDE RECORDS SUMMARY | 2025-01-04 14:03 | XMS_ITS | Clinical Summary ---
Author Organization [facility] Address [address] [place] [address] Care Team Providers Care C++ Professor Name Role Phone Jaguar Prince DO Primary Care Provider [phone] Allergies Active Allergy Reactions Criticality Noted Date Comments Influenza Vaccines Swelling High 12/17/2024 Sulfa Drugs Rash Low 09/06/2013 Medications acetaminophen (Tylenol) 500 MG tablet TAKE 1 TABLET EVERY 4 TO 6 HOURS NEEDED. 0 Active Aspirin Buf,CaCarb-MgCa rb-MgO, 81 MG tablet TAKE 1 TABLET DAILY. 0 Active balsalazide (Colazal) 750 MG capsule Take by mouth 2 (two) times a day. 1 Active carvedilol (Coreg) 25 MG tablet Take by mouth 2 (two) times a day with meals. 1 Active cholecalciferol (Vitamin D-3) 50 MCG (2000 UT) capsule Take by mouth 1 (one) time each day. 0 Active cloNIDine (Catapres) 0.2 MG tablet 1 Active ferrous gluconate (Fergon) 324 (38 Fe) MG tablet Take 1 tablet twice daily 0 Active furosemide (Lasix) 40 MG tablet Take by mouth 2 (two) times a day. 1 Active NovoLIN 70/30 RELION (70-30) 100 UNIT/ML injection 1 Active isosorbide mononitrate ER (Imdur) 60 MG 24 hr tablet 2 (two) times a day. 1 Active nitroglycerin (Nitrostat) 0.4 MG SL tablet 1 Active omeprazole (PriLOSEC) [address] capsule Take by mouth 1 (one) time each day. 1 Active prazosin (Minipress) 1 MG capsule 2 (two) times a day. 1 Active simvastatin (Zocor) 40 MG tablet Take by mouth every night. 1 Active spironolactone (Aldactone) 25 MG tablet every other day. 1 Active amLODIPine (Norvasc) 5 MG tablet Take 1 tablet (5 mg) by mouth 1 (one) time each day. 2 Active levothyroxine (Synthroid, Levoxyl) 88 MCG tablet 3 Active RELION INSULIN SYRINGE 1ML/31G 31G X 5/16 1 ML misc USE 1 SYRINGE TWICE DAILY FOR INSULIN SHOTS 3 Active Blood Glucose Monitoring Suppl (Accu-Chek Guide Me) w/Device kit USE TO CHECK GLUCOSE THREE TIMES DAILY DIRECTED 4 Active Accu-Chek Guide test strip USE 1 STRIP THREE TIMES DAILY OR DIRECTED 4 Active Accu-Chek Softclix Lancets lancets USE 1 TO CHECK GLUCOSE THREE TIMES DAILY OR DIRECTED 4 Active mesalamine (Asacol) 800 MG EC tablet 4 Active Stiolto Respimat 2.5-2.5 MCG/ACT aerosol solution inhaler 4 Active fluticasone (Flonase) 50 MCG/ACT nasal spray USE 1 SPRAY(S) IN EACH NOSTRIL ONCE DAILY 4 Active ipratropium-alb uterol (Duo-Neb) 0.5-2.5 mg/3 mL nebulizer solution USE 3 ML IN NEBULIZER 4 TIMES DAILY NEEDED FOR SHORTNESS OF BREATH FOR WHEEZING 4 Active canagliflozin (Invokana) 100 MGIndications:C KD (chronic kidney disease) stage 4, GFR 15-29 ml/min (CMS/HCC),Persi stent proteinuria Take 1 tablet by mouth daily. 90 tablet 3 5 Active losartan (Cozaar) 50 MG tabletIndicatio ns:Type 2 diabetes mellitus with stage 4 chronic kidney disease, unspecified whether terminal clerk insulin use ([facility]) Take 1 tablet by mouth daily. 90 tablet 3 5 Active losartan (Cozaar) 50 MG tabletIndicatio ns:Type 2 diabetes mellitus with stage 4 chronic kidney disease, unspecified whether intermediate insulin use ([facility]) Take 1 tablet (50 mg) by mouth 1 (one) time each day. 90 tablet 3 4 12/18/19 25 Discontinu ed(Reorder ) canagliflozin (Invokana) 100 MGIndications:C KD (chronic kidney disease) stage 4, GFR 15-29 ml/min ([facility]),Persi stent proteinuria Take 1 tablet (100 mg) by mouth 1 (one) time each day. 90 tablet 3 5 12/18/19 25 Discontinu ed(Reorder ) Active Problems Problem Noted Date Diagnosed Date Class III obesity with body mass index (BMI) of 40.0 or higher 08/17/2024 Type 2 diabetes mellitus wit h stage 4 chronic kidney disease 04/19/2024 Hypertensive chronic kidney disease with stage 1 through stage 4 chronic kidney disease, or unspecified chronic kidney disease 04/19/2024 Hypervolemia associated with renal insufficiency 04/19/2024 Renal bone disease 04/19/2024 Anemia in stage 4 chronic kidney disease 023 Post-menopausal 06/10/2020 CKD (chronic kidney disease) stage 3, GFR 30-59 ml/min 09/17/2019 Anemia, iron deficiency 04/20/2017 Mild vitamin D deficiency 06/02/2015 Encounters Date Type Department Care Team Description 12/17/2024 11:40 AM EDT Office Visit [facility] Nephrology, Bone & Mineral Metabolism [address] [facility], [address] [place] [address] Tristin Mcmanus MD Type 2 diabetes mellitus with stage 4 chronic kidney disease, unspecified whether intermediate insulin use ([facility]) (Primary Dx); Hypertensive chronic kidney disease with stage 1 through stage 4 chronic kidney disease, or unspecified chronic kidney disease; CKD (chronic kidney disease) stage 4, GFR 15-29 ml/min (CMS/HCC); Hypervolemia associated with renal insufficiency; Anemia in stage 4 chronic kidney disease; Persistent proteinuria; Renal osteodystrophy; Renal bone disease 12/17/2024 Travel 12/14/2024 Telephone [facility] [address] [place] [address] Ashley Malik, PharmD 12/13/2024 [facility] Nephrology, Bone & Mineral Metabolism [address], [address] [place] [address] Ayden Butts [place] 11/26/2024 [facility] Nephrology, Bone & Mineral Metabolism [address], [address] [place] [address] LissyOlga noriega Damian 11/26/2024 [facility] Nephrology, Bone & Mineral Metabolism [address], [address] [place] [address] Tristin Mcmanus MD from Last 3 Months Family History Medical History Relation Name Comments Diabetes Father's Sister Diabetes Other Diabetes Paternal Grandmother Cardiac disorder Sister Relation Name Status Comments Father's Sister Other Paternal Grandmother Sister Social History Tobacco Use Types Packs/Day Years Used Date Smoking Tobacco: Former Passive Smoke Exposure: Past Smokeless Tobacco: Never Tobacco Cessation:Counseling Given: Not Answered Alcohol Use Standard Drinks/Week Comments No 0 (1 standard drink = 0.6 oz pur e alcohol) PHQ-2 Answer Date Recorded Patient Health Questionnaire-2 Score 0 01/02/2024 Comments No Sex and Gender Information Value Date Recorded Sex Assigned at Not on file Legal Sex Female 6:29 PM EDT Gender Identity Not on file Sexual Orientation Not on file Last Filed Vital Signs Vital Sign Reading [...] Mass Index 43.58 12/17/2024 11:00 AM EDT Plan of Treatment Health Maintenance Due Date Last Done Comments [facility]-Bone Density Scan 1945 [facility]-Hepatitis C Screening 1945 [facility]-Medicare Annual Wellness (AWV) 1945 [facility]-Infant/Child/Adol SDOH Screenings 1946 Diabetes: Dental Exam 1956 [facility]- SDOH Screenings 1964 [facility]-Adult SDOH Screenings 1964 [facility]-DTaP,Tdap,and Td Vaccines (1 - Tdap) 1965 [facility]-Pneumococcal Vaccine: 50+ Years (1 of 2 - PCV) 1965 [facility]-Zoster Vaccines (1 of 2) 1996 [facility]-Diabetes: Hemoglobin A1C 10/26/2020 04/28/2020 [facility]-RSV Vaccine: 60+ Years or (1 - 1-dose 75+ series) 2021 [id number] Vaccine ( - season) 2024 07/08/2021, 11/05/2020 [facility]-Depression Screening 01/01/2025 01/02/2024 [facility]-Influenza Vaccine (Season Ended) 2025 [facility]-Obesity Intervention Completed 025, 08/17/2024, 04/19/2024, Additional history exists HPV Vaccines Aged Out No longer eligi ble based on patient's age to complete this topic [facility]-HIB Vaccines Aged Out No longer e ligible based on patient's age to complete this topic [facility]-Hepatitis A Vaccines Aged Out No longer eligible based on patient's age to complete this topic [facility]-IPV Vaccines Aged Out No longer e ligible based on patient's age to complete this topic [facility]-Rotavirus Vaccines Aged Out No lo nger eligible based on patient's age to complete this topic [place] [address] [employer] MED[employer] Care Teams C++ Professor Relationship Specialty Start Date End Date Jaguar Prince DO [address] [place] [address] PCP - General 08/26/23
--- OUTSIDE RECORDS SUMMARY | 2025-01-04 14:03 | XMS_ITS | Encounter Summary ---
Author Organization [facility] Address [address] [place] [address] Care Team Providers Care Coffee Shop Attendant Name Role Phone Jaguar Prince DO Primary Care Provider [phone] Encounter Details Date Type Department Care Team (Late st Contact Info) Description 12/14/2024 Telephone [facility] [address] [place] [address] Ashley Malik, PharmD [facility] [place] [address] Social History Tobacco Use Types Packs/Day Years [...] encounter Miscellaneous Notes * Telephone Encounter - Ashley Malik, PharmD - 12/14/2024 3:36 PM EDT Cari called [facility] asking how to renew MAP application - as she had not received anything in mail.I explained that I would reach out to the PAP team and ask them to mail to her home. She understands to return application along with copies of SS award letters. She just filled 3 month supply of Invokana, so refill needed first of Mar. documented in this encounter Plan of Treatment [...] documented as of this encounter Care Teams Coffee Shop Attendant Relationship Specialty Start Date End Date Jaguar Prince DO [address] [place] [address] PCP - General 08/26/23 documented as of this encounter
--- OUTSIDE RECORDS SUMMARY | 2025-01-04 15:03 | XMS_ITS | CCD ---
Author Organization Unknown Care Team Providers Care Short Order Cook Name Role Phone Unavailable Primary Care Provider Unavailabl e Unavailable Chronic Care Management Unavaila ble Summary Purpose DataExchange Insurance Providers Payer name Policy type / Coverage type Covered alliance party ID Effective Begin Date Effective End Date [facility] [id number] Unknown Unknown Family History Family History data not found Medication Administered No Medication Administered data Reason For Visit No Reason For Visit data Medical Equipment No Medical Equipment data Advance Directives No Advance Directive data
[2025-01-09 23:09] LABS: TPMT Activity 12.5 (.)
== END 2025-01-04 23:59 | disposition home or self-care (01) ==
LOC: LAB 14:01
PROVIDERS: PCP Family Medicine; Visit Provider Nurse Practitioner Family
DX: K51.911 Ulcerative colitis, unspecified with rectal bleeding (principal)
CPT/HCPCS: 36415; 82657

== ENCOUNTER 2025-01-29 10:44 | Outpatient (CLI) | payer MEDICARE, SELFPAY ==
--- OUTSIDE RECORDS SUMMARY | 2024-12-17 11:40 | XMS_ITS | Encounter Summary ---
Author Organization [facility] Address [address] [place] [address] Care Team Providers Care Founder President And Ceo Name Role Phone Jaguar Prince DO Primary Care Provider [phone] Reason for Referral * Consultation (Routine) - Authorized Specialty Diagnoses / Procedures Referred By Angel t Referred To Contact Diagnoses Type 2 diabetes mellitus with stage 4 chronic kidney disease, unspecified whether care home insulin use (CMS/HCC) Tristin Mcmanus MD [address] [place] [address] Phone: tel: fax: Referral ID Status Reason Start Date Expiration Date V isits Requested Visits Authorized [id number] Authorized 12/17/2024 06/18/2026 1 1 Reason for Visit * Reason Comments Follow-up Encounter Details Date Type Department Care Team ([facility] st Contact Info) Description 12/17/2024 11:40 AM EDT Office Visit [facility] Nephrology, Bone & Mineral Metabolism [address], [address] [place] [address] Tristin Mcmanus MD [address] [place] [address] Type 2 diabetes mellitus with stage 4 chronic kidney disease, unspecified whether terminal carman insulin use (CMS/HCC) (Primary Dx); Hypertensive chronic [...] - 12/17/2024 11:40 AM EDT Follow up [place] * Progress Notes - Tristin Mcmanus MD - 12/17/2024 11:40 AM EDT [facility] SUBJECTIVE Cari Michelle is a 79 y.o. [...] Expiration Date: 09/13/2025 [facility] Renal Function Panel, Plasma Standing Status: Future Expected Date: 04/16/2025 Expiration Date: 09/13/2025 Release to patient in [facility]: Immediate CBC W/O Differential Standing Status: Future Expected Date: 04/16/2025 Expiration Date: 09/13/[facility] Protein, Random, Urine with Creatinine Standing Status: Future Expected Date: 04/16/2025 Expiration Date: 09/13/20[facility] Urinalysis with reflex microscopic (Culture NOT Included) Standing Status: Future Expected Date: 04/16/2025 Expiration Date: 09/13/2025 Release to patient in [facility]: Immediate Follow Up Nephrology [facility] Standing Status: Future Expected Date: 04/19/2025 Expiration Date: 06/19/2026 Referral Priority: Routine Referral Type: Consultation Number of Visits Requested: 1 Problem List Items Addressed This Visit Anemia in stage 4 chronic kidney disease Relevant Medications canagliflozin (Invokana) 100 MG losartan (Cozaar) 50 MG tablet Type 2 diabetes mellitus with stage 4 chronic kidney disease ([facility] - Primary Relevant Medications canagliflozin (Invokana) 100 [...] kidney disease) stage 4, GFR 15-29 ml/min ([facility]) Relevant Medications canagliflozin (Invokana) 100 MG losartan [...] stage 4 chronic kidney disease, unspecified whether care home insulin use (CMS/HCC) Expected: 04/16/2025 (Approximate), Expires: 09/13/2025 Renal Function Panel, Plasma Lab Routine Type 2 diabetes mellitus with stage 4 chronic kidney disease, unspecified whether terminal carman insulin use (CMS/HCC) Expected: 04/16/2025 (Approximate), Expires: 09/13/2025 CBC W/O Differential Lab Routine Type 2 diabetes mellitus with stage 4 chronic kidney disease, unspecified whether terminal carman insulin use (CMS/HCC) Expected: 04/16/2025 (Approximate), Expires: 09/13/2025 Protein, Random, Urine with Creatinine Lab Routine Type 2 diabetes mellitus with stage 4 chronic kidney disease, unspecified whether terminal carman insulin use (CMS/HCC) Expected: 04/16/2025 (Approximate), Expires: 09/13/2025 Urinalysis with reflex microscopic (Culture NOT Included) Lab Routine Type 2 diabetes mellitus with stage 4 chronic kidney disease, unspecified whether terminal carman insulin use (CMS/HCC) Expected: 04/16/2025 (Approximate), Expires: 09/13/2025 Scheduled Referrals Name Type Priority Associated Diagnoses Orde r Schedule Follow Up Nephrology Outpatient Referral Routine Type 2 diabetes mellitus with stage 4 chronic kidney disease, unspecified whether care home insulin use (CMS/HCC) Expected: 04/19/2025 (Approximate), Expires: 06/19/2026 documented as of this encounter Visit Diagnoses Diagnosis Type 2 diabetes mellitus with stage 4 chronic kidney disease, unspecified whether care home insulin use (CMS/HCC)- Primary Hypertensive chronic kidney [...] documented as of this encounter Care Teams Founder President And Ceo Relationship Specialty Start Date End Date Jaguar Prince DO [address] [place] [address] PCP - General 08/26/23 documented as of this encounter
--- OUTSIDE RECORDS SUMMARY | 2025-01-29 10:48 | XMS_ITS | Encounter Summary ---
Author Organization [facility] Address [address] [place] [address] Care Team Providers Care Senior Design Engineer Name Role Phone Jaguar Prince DO Primary Care Provider [phone] Encounter Details Date Type Department Care Team ([facility] st Contact Info) Description 08/17/2024 Telephone [facility] Nephrology, Bone & Mineral Metabolism [address] [facility], [address] [place] [address] Jayna Lynne, PharmD [address] [place] [address] Social History Tobacco Use Types [...] expires on 12/11. Patient is scheduled at [facility] on 12/17 for re-enrollment eligibility. Please follow- [...] is agreeable to have next appointment at [facility] clinic in order to continue to be eligible for Invokana [place] discount program. Will have schedulers reach out to patient to help coordinate this. Leena Martines PharmD, RAJESHCP Clinical Pharmacist Nuclear Reactor Operator Float * Telephone Encounter - Jayna Lynne PharmD - 08/17/2024 4:53 PM EST Attempted to reach Cari Michelle without success, left VM reassuring her she should be able to receive Invokana through [place] discount program through 12/11/2024. Will need to reschedule next office visit at [facility] clinic rather than [facility] to continue to receive discounted copay [...] documented as of this encounter Care Teams Senior Design Engineer Relationship Specialty Start Date End Date Jaguar Prince DO [address] [place] [address] PCP - General 08/26/23 documented as of this encounter
--- OUTSIDE RECORDS SUMMARY | 2025-01-29 10:48 | XMS_ITS | Clinical Summary ---
Author Organization [facility] Address [address] [place] [address] Care Team Providers Care Drive Worker Name Role Phone Jaguar Prince DO Primary Care Provider [phone] Allergies Active Allergy Reactions Criticality Noted Date Comments Influenza Vaccines Swelling High 12/17/2024 Sulfa Drugs Rash Low 09/06/2013 Medications acetaminophen (Tylenol) 500 MG tablet TAKE 1 TABLET EVERY 4 TO 6 HOURS NEEDED. 0 Active Aspirin Buf,CaCarb-MgCar b-MgO, 81 MG tablet TAKE 1 TABLET DAILY. [...] IN EACH NOSTRIL ONCE DAILY 4 Active ipratropium-albu terol (Duo-Neb) 0.5-2.5 mg/3 mL nebulizer solution USE 3 ML IN NEBULIZER 4 TIMES DAILY NEEDED FOR SHORTNESS OF BREATH FOR WHEEZING 4 Active canagliflozin (Invokana) 100 MGIndications:CK D (chronic kidney disease) stage 4, GFR 15-29 ml/min ([facility]),Persis tent proteinuria Take 1 tablet by mouth daily. 90 tablet 3 5 Active losartan (Cozaar) 50 MG tabletIndication s:Type 2 diabetes mellitus with stage 4 chronic kidney disease, unspecified whether intermediate project manager insulin use ([facility]/HCC) Take 1 tablet by mouth daily. 90 tablet 3 Active Active Problems Problem Noted Date Diagnosed Date [...] Description 12/17/2024 11:40 AM EDT Office Visit [facility] Nephrology, Bone & Mineral Metabolism [address] [place] [address] Tristin Mcmanus MD Type 2 diabetes mellitus with stage 4 chronic kidney disease, unspecified whether assisted insulin use (CMS/HCC) (Primary Dx); Hypertensive chronic kidney disease with stage 1 through stage 4 chronic kidney disease, or unspecified chronic kidney disease; CKD (chronic kidney disease) stage 4, GFR 15-29 ml/min (CMS/HCC); Hypervolemia associated with renal insufficiency; Anemia in stage 4 chronic kidney disease; Persistent proteinuria; Renal osteodystrophy; Renal bone disease 12/17/2024 Travel 12/14/2024 Telephone [facility] [address] [place] [phone] Ashley Malik, PharmD 12/13/2024 Telephone [facility] Nephrology, Bone & Mineral Metabolism [address] [place] [address] Ayden Butts 11/26/2024 Telephone [facility] Nephrology, Bone & Mineral Metabolism [address] [place] [address] Olga Yuan 11/26/2024 Telephone [facility] Nephrology, Bone & Mineral Metabolism [address] [facility], [address] [place] [address] Tristin Mcmanus MD from Last [...] or (1 - 1-dose 75+ series) 2021 [id number] Vaccine (3 - season) 2024 07/08/2021, 11/05/2020 [facility]-Depression Screening [...] patient's age to complete this topic Insurance [employer] MEDICARE Care Teams Drive Worker Relationship Specialty Start Date End Date Jaguar Prince DO [address] [place], [place] [id number] PCP - General 08/26/23
--- OUTSIDE RECORDS SUMMARY | 2025-01-29 10:48 | XMS_ITS | Encounter Summary ---
Author Organization [facility] Address [address] [place] [address] Care Team Providers Care Search Manager Name Role Phone Jaguar Prince DO Primary Care Provider [phone] Encounter Details Date Type Department Care Team ([facility] st Contact Info) Description 12/13/2024 Telephone [facility] Bone [facility] Mineral Metabolism [address], [address] [place] [address] [place] [address] Social History Tobacco Use Types Packs/Day Years [...] RN - 12/14/2024 11:34 AM EDT Called [facility] for lab results from 12/10; Left voice message * Telephone Encounter - Romy Norman - 12/14/2024 11:19 AM EDT Status Update Call #2 2nd call regarding the status of the initial request. Best contact number: [phone] (home) Optimal time of day to reach caller: ANYTIME Additional comments/information from caller: Patient had her labs drawn on 12/10 at [facility] - will have to [...] of the initial request. Best contact number: [phone] (home) Optimal time of day to reach caller: ANYTIME Additional comments/information from caller: Pt returned a call and said she had her labs done at [facility] on 12/10/24. Note: Please do not reply [...] documented as of this encounter Care Teams Search Manager Relationship Specialty Start Date End Date Jaguar Prince DO [address] [place] [address] PCP - General 08/26/23 documented as of this encounter
--- OUTSIDE RECORDS SUMMARY | 2025-01-29 10:48 | XMS_ITS | Encounter Summary ---
Author Organization [facility] Address [address] [place] [address] Care Team Providers Care Sharepoint Net Developer Name Role Phone Jaguar Prince DO Primary Care Provider [phone] Encounter Details Date Type Department Care Team (Late st Contact Info) Description 12/14/2024 Telephone [facility] [address] [place] [address] Ashley Malik, PharmD [facility] [place] [address] Social History Tobacco Use Types Packs/Day Years [...] - 12/14/2024 3:36 PM EDT Cari called [facility] asking how to renew MAP [...] documented as of this encounter Care Teams Sharepoint Net Developer Relationship Specialty Start Date End Date Jaguar Prince DO [address] [place] [address] PCP - General 08/26/23 documented as of this encounter
--- OUTSIDE RECORDS SUMMARY | 2025-01-29 10:48 | XMS_ITS | Encounter Summary ---
Author Organization [facility] Address [address] [place] [address] Care Team Providers Care Purchaser Automotive Parts Name Role Phone Jaguar Prince DO Primary Care Provider [phone] Encounter Details Date Type Department Care Team [...] documented as of this encounter Care Teams Purchaser [employer]otive [employer] Relationship Specialty Start Date End Date Jaguar Prince DO [address] [place], [place] [id number] PCP - General 08/26/23 documented as of this encounter
[2025-01-29 11:17] LABS: Hematocrit 39.0 % (37.0-47.0); Hemoglobin 11.9 g/dL (12.2-16.2); Immature Granulocytes % 0.5 %; Mean Corpuscular HGB Conc 30.5 g/dL (31.8-35.4); Mean Corpuscular Hemoglobin 25.2 pg (27.0-31.2); Mean Corpuscular Volume 82.5 fl (81-99); Nucleated Red Blood Cells % 0 %; Platelet Count 312 K/mm3 (142-424); Red Blood Count 4.73 M/mm3 (4.20-5.40); Red Cell Distribution Width-SD 47.8 fL; White Blood Count 12.0 K/mm3 (4.8-10.8)
--- OUTSIDE RECORDS SUMMARY | 2025-01-29 11:47 | XMS_ITS | CCD ---
Author Organization Unknown Care Team Providers Care Surgical Clinical Reviewer Name Role Phone Unavailable Primary Care Provider Unavailabl e Unavailable Chronic Care Management Unavaila ble Summary Purpose DataExchange Insurance Providers Payer name Policy type / Coverage type Covered democrat ID Effective Begin Date Effective End Date [facility] [id number] Unknown Unknown Family History Family History data not found Medication Administered No Medication Administered data Reason For Visit No Reason For Visit data Medical Equipment No Medical Equipment data Advance Directives No Advance Directive data
--- OUTSIDE RECORDS SUMMARY | 2025-01-29 11:47 | XMS_ITS | CCD ---
Author Organization Unknown Care Team Providers Care Reading Interventionist Name Role Phone Unavailable Primary Care Provider Unavailabl e Unavailable Chronic Care Management Unavaila ble Summary Purpose DataExchange Insurance Providers Payer name Policy type / Coverage type Covered republican ID Effective Begin Date Effective End Date [facility] [id number] Unknown Unknown Family History Family History data not found Medication Administered No Medication Administered data Reason For Visit No Reason For Visit data Medical Equipment No Medical Equipment data Advance Directives No Advance Directive data
[2025-01-29 12:17] LABS: Alanine Aminotransferase 11 U/L (12-78); Albumin Level 3.7 g/dl (3.5-5.0); Albumin/Globulin Ratio 1.3 (1.1-1.8); Alkaline Phosphatase 75 U/L (38-126); Anion Gap 16.0 mEq/L (5-15); Aspartate Amino Transferase 23 U/L (14-36); Bilirubin,Total 0.6 mg/dl (0.2-1.3); Blood Urea Nitrogen 50 mg/dl (7-17); Calcium 9.4 mg/dl (8.4-10.2); Carbon Dioxide 30 mmol/L (22.0-30.0); Chloride 92 mmol/L (98-107); Creatinine,Serum 2.50 mg/dl (0.52-1.04); Estimated Glomerular Filt Rate 19 ml/min (>60); GFR (African American) 23 ML/MIN (>60); Globulin 2.9 g/dL (1.3-3.2); Glucose 193 mg/dl (74-100); Potassium 5.0 mmoL/L (3.5-5.1); Sodium 133 mmol/L (136-145); Total Protein,Serum 6.6 g/dl (6.3-8.2)
[2025-01-29 12:23] LABS: C-Reactive Protein 17.6 mg/L (0-4)
[2025-01-29 12:38] LABS: 25-OH Vitamin D, Total 41.8 ng/mL (30-100)
[2025-01-29 13:06] LABS: Vitamin B12 471 pg/mL (239-931)
[2025-01-29 14:08] LABS: Iron 53 ug/dL (37-170)
[2025-01-29 14:17] LABS: Total Iron Binding Capacity 279 ug/dL (265-497)
[2025-01-29 15:14] LABS: Ferritin 30.1 ng/ml (11.1-264)
== END 2025-01-29 23:59 | disposition home or self-care (01) ==
LOC: LAB 10:44
PROVIDERS: PCP Family Medicine; Visit Provider Nurse Practitioner Family
DX: K51.911 Ulcerative colitis, unspecified with rectal bleeding (principal)
CPT/HCPCS: 36415; 80053; 82306; 82607; 82728; 83540; 83550; 85025; 85651; 86140

== ENCOUNTER 2025-02-15 08:49 | Outpatient (CLI) | payer MEDICARE, SELFPAY ==
--- OUTSIDE RECORDS SUMMARY | 2024-12-17 11:40 | XMS_ITS | Encounter Summary ---
Author Organization [facility] Address [address] [place] [address] Care Team Providers Care All Source Intelligence Analyst Name Role Phone Jaguar Prince DO Primary Care Provider [phone] Reason for Referral * Consultation (Routine) - Authorized Specialty Diagnoses / Procedures Referred By Angel t Referred To Contact Diagnoses Type 2 diabetes mellitus with stage 4 chronic kidney disease, unspecified whether intermediate card tender insulin use (CMS/HCC) Tristin Mcmanus MD [address] [place] [address] Phone: tel: fax: Referral ID Status Reason Start Date Expiration Date V isits Requested Visits Authorized [id number] Authorized 12/17/2024 06/18/2026 1 1 Reason for Visit * Reason Comments Follow-up Encounter Details Date Type Department Care Team ([facility] st Contact Info) Description 12/17/2024 11:40 AM EDT Office Visit [facility] [place] Nephrology, Bone & Mineral Metabolism [address], [address] [place] [address] Tristin Mcmanus MD [address] [place] [address] Type 2 diabetes mellitus with stage 4 chronic kidney disease, unspecified whether retirement insulin use (CMS/HCC) (Primary Dx); Hypertensive chronic kidney disease with stage 1 through stage 4 chronic kidney disease, or unspecified chronic kidney disease; CKD (chronic kidney disease) stage 4, GFR 15-29 ml/min (CMS/HCC); Hypervolemia associated with renal insufficiency; Anemia in stage 4 chronic kidney disease; Persistent proteinuria; Renal osteodystrophy; Renal bone disease Social History Tobacco Use Types Packs/Day Years Used Date Smoking Tobacco: Former Passive Smoke Exposure: Past Smokeless Tobacco: Never Alcohol Use Standard Drinks/Week Comments No 0 (1 standard drink = 0.6 oz pur e alcohol) PHQ-2 Answer Date Recorded Patient Health Questionnaire-2 Score 0 01/02/2024 Comments No Sex and Gender Information Value Date Recorded Sex Assigned at Not on file Legal Sex Female 6:29 PM EDT Gender Identity Not on file Sexual Orientation Not on file documented as of this encounter Last Filed Vital Signs Vital Sign Reading Time Taken Comments Blood Pressure 135/68 12/17/2024 11:00 AM EDT Pulse 54 12/17/2024 11:00 AM EDT Temperature 36.5 C (97.7 F) 12/17/2024 11:00 AM EDT Respiratory Rate 18 12/17/2024 11:00 AM EDT Oxygen Saturation 94% 12/17/2024 11:00 AM EDT Inhaled Oxygen Concentration - - Weight 112 kg (246 lb 0.5 oz) 12/17/2024 11:00 A M EDT Height 160 cm (5' 3 ) 12/17/2024 11:00 AM EDT Body Mass Index 43.58 12/17/2024 11:00 AM EDT documented in this encounter Miscellaneous Notes * Patient Instructions - Tristin Mcmanus MD - 12/17/2024 11:40 AM EDT Follow up [place] * Progress Notes - Tristin Mcmanus MD - 12/17/2024 11:40 AM EDT [facility] SUBJECTIVE Cari Michelle is a 79 y.o. female who presents for follow-up of CKD. Feeling well.On chronic O2. Had to have a toe removed since last visit. Otherwise doing okay. Feels okay today. Her UC GI Dr is attempting to decrease balsalazide in favor of another UC treatment agent. MS. Michelle had a couple episdoes of bloody diarrhea when decreasing balsalazide initially,but this has resolved. No other changes in medications Denies hematuria, dysuria, abd pain, SOA, CP. OBJECTIVE Vitals: 12/17/24 1100 BP: 135/68 Pulse: 54 Resp: 18 Temp: 36.5 ??C (97.7 ??F) SpO2: 94% PHYSICAL EXAMINATION Gen: NAD, obese, ambulates with cane HEENT: AT/NC, EOMI, MMM Neck: trachea midline, supple Skin: warm, dry CV: RRR, BLE edema present Pulm: no increased work of breathing, symmetric chest expansion, good inspiratory/expiratory effort Neuro: alert, interactive, cortical function grossly intact LAB RESULTS Outside labs reviewed. 04/16/2024 CBC: WBC 12K, Hgb 13.1 RFP: Na 136, K 4.5, Cl 99, CO2 32, BUN 41, Creat 2.0, GFR 24, Glu 182, Ca 8.3, Sandra 5.7, Alb 3.76 UA: +glu, trace protein Labs 08/14/24 CBC: WBC 12.8, Hgb 11.3, PLT 282 RFP: Na 137, K 4.7, Cl 95, CO2 32, BUN 49, Cr 2.2 Ferritin 44.8 UACR 666.9, UPCR: / UA neg prot, 2+ glu Ipth 234 Labs 11/30/2024 CBC: WBC 12, Hgb 1.7, PLT 358 ESR 100 RFP: Na 136, K 5.3, Cl 98, CO2 28, BUN 64, Cr 2.6, eGFR 18, Phos 5.4, iron 51, TIBC 315, Tsat 16% ,ferritin 44.8, Albumin 3.8, tprot 7.1, August 2024 vit d 35.7 , pth 234, urine creatinine 13, urine microalbumin 86.7, UACR 666, urine protein 29, UPCR >2 ASSESSMENT/PLAN # CKD 4: secondary to DM2/HTN, advanced diabetic complications, patient high risk of progression; Baseline 2.0-2.4. Cr 2.2, stable. eGFR 22. No major issues with electrolytes or acid/base Chronic hypervolemia - controlled on lasix Risk factor reduction: DM control and BP control -Goal A1C <7.5% due to age >75 -goal BP <130/80 -SGLT2 inh as tolerated (invokana 100mg daily) -acei/arb as tolerated (losartan 50mg daily) -Low sodium diet -weight loss would benefit patients overall health # HTN in CKD: -At goal diastolic, systolic remains elevated. Will treat for goal diastolic <80 and systolic <150 -On carvedilol 6.25mg BID, isosorbide MN 60mg BID, prazosin 2mg BID, furosemide 40mg BID and clonidine 0.2mg TID, spironolactone 25 mg MWF, losartan 50 mg daily. # Proteinuria: UPC 0.8-1.0 mg/mg, likely related to diabetic changes -on ARB and SGLT2 in # Anemia in CKD: at goal Hgb 10-12 g/dL # DM2: significant complications, on insulin, working to manage, on canagliflozin 100mg and tolerating # Renal bone disease/ Hyperphosphatemia: target vitamin D 40-60, BMD within normal; 09/2020; Phos 54.8, Ca 8.8. Encouraged to continue cholecalciferol 50 mcg daily. PTH 204. Vit D 32 #Hypervolemia in renal insufficiency: continue lasix, daily weights Recommendations and plan for 12/17/2024 -Slight bump in creatinine from 2.2 to 2.6. K a little high as well. No changes to medication day, but if K >5.5 on next check I will stop her Spironolactone. She has significant proteinuria likely 2/2 diabetic nephropathy. There is a correlation of IgA and IBD so this may also play a role, but she is not a strong candidate for any aggressive treatments given her comorbidities. Budesonide targeted release would be the only therapy I would consider but that would require a kidney biopsy to confirm iga -refilled losartan and invokana -Recommend Low sodium diet -Continue current antihypertensives - allowing permissive elevated systolic given patient with verywide pulse pressure diastolic in the 40s and 50s at home -Continue vitamin d supplement -AVOID NSAIDs RTC in 3-4 months Orders Placed This Encounter Procedures Albumin-creatinine ratio, urine, random Standing Status: Future Expected Date: 04/16/2025 Expiration Date: 09/13/2025 [facility] Renal Function Panel, Plasma Standing Status: Future Expected Date: 04/16/2025 Expiration Date: 09/13/2025 Release [address] patient [facility]: Immediate CBC W/O Differential Standing Status: Future Expected Date: 04/16/2025 Expiration Date: 09/13/[facility] Protein, Random, Urine with Creatinine Standing Status: Future Expected Date: 04/16/2025 Expiration Date: 09/13/2025 [facility] Immediate Urinalysis with reflex microscopic (Culture NOT Included) Standing Status: Future Expected Date: 04/16/2025 Expiration Date: 09/13/2025 Release [address] patient in [facility]: Immediate Follow Up Nephrology [facility] Standing Status: Future Expected Date: 04/19/2025 Expiration Date: 06/19/2026 Referral Priority: Routine Referral Type: Consultation Number of Visits Requested: 1 Problem List Items Addressed This Visit Anemia in stage 4 chronic kidney disease Relevant Medications canagliflozin (Invokana) 100 MG losartan (Cozaar) 50 MG tablet Type 2 diabetes mellitus with stage 4 chronic kidney disease ([facility]) - Primary Relevant Medications canagliflozin (Invokana) 100 MG losartan (Cozaar) 50 MG tablet Other Relevant Orders Albumin-creatinine ratio, urine, random Renal Function Panel, Plasma CBC W/O Differential Protein, Random, Urine with Creatinine Urinalysis with reflex microscopic (Culture NOT Included) Follow Up Nephrology Hypertensive chronic kidney disease with stage 1 through stage 4 chronic kidney disease, or unspecified chronic kidney disease Relevant Medications losartan (Cozaar) 50 MG tablet Hypervolemia associated with renal insufficiency Relevant Medications losartan (Cozaar) 50 MG tablet Renal bone disease Relevant Medications losartan (Cozaar) 50 MG tablet Other Visit Diagnoses CKD (chronic kidney disease) stage 4, GFR 15-29 ml/min ([facility]) Relevant Medications canagliflozin (Invokana) 100 MG losartan (Cozaar) 50 MG tablet Persistent proteinuria Relevant Medications canagliflozin (Invokana) 100 MG Renal osteodystrophy Relevant Medications losartan (Cozaar) 50 MG tablet Note to Patient: The Cure Act makes medical noted like these available to patients in the interest of transparency. However, be advised this is a medical document. It is intended as peerto peer communication. It is written in medical language and may contain abbreviations or verbiage that are unfamiliar. It may appear blunt or direct. Medical documents are intended to carry relevantinformation, facts as evident, and the clinical opinion of the physician documented in this encounter Plan of Treatment Scheduled Orders Name Type Priority Associated Diagnoses Orde r Schedule Albumin-creatinine ratio, urine, random Lab Routine Type 2 diabetes mellitus with stage 4 chronic kidney disease, unspecified whether intermediate card tender insulin use (CMS/HCC) Expected: 04/16/2025 (Approximate), Expires: 09/13/2025 Renal Function Panel, Plasma Lab Routine Type 2 diabetes mellitus with stage 4 chronic kidney disease, unspecified whether retirement insulin use (CMS/HCC) Expected: 04/16/2025 (Approximate), Expires: 09/13/2025 CBC W/O Differential Lab Routine Type 2 diabetes mellitus with stage 4 chronic kidney disease, unspecified whether intermediate card tender insulin use (CMS/HCC) Expected: 04/16/2025 (Approximate), Expires: 09/13/2025 Protein, Random, Urine with Creatinine Lab Routine Type 2 diabetes mellitus with stage 4 chronic kidney disease, unspecified whether retirement insulin use (CMS/HCC) Expected: 04/16/2025 (Approximate), Expires: 09/13/2025 Urinalysis with reflex microscopic (Culture NOT Included) Lab Routine Type 2 diabetes mellitus with stage 4 chronic kidney disease, unspecified whether retirement insulin use (CMS/HCC) Expected: 04/16/2025 (Approximate), Expires: 09/13/2025 Scheduled Referrals Name Type Priority Associated Diagnoses Orde r Schedule Follow Up Nephrology Outpatient Referral Routine Type 2 diabetes mellitus with stage 4 chronic kidney disease, unspecified whether intermediate card tender insulin use (CMS/HCC) Expected: 04/19/2025 (Approximate), Expires: 06/19/2026 documented as of this encounter Visit Diagnoses Diagnosis Type 2 diabetes mellitus with stage 4 chronic kidney disease, unspecified whether retirement insulin use (CMS/HCC)- Primary Hypertensive chronic kidney disease with stage 1 through stage 4 chronic kidney disease, or unspecified chronic kidney disease CKD (chronic kidney disease) stage 4, GFR 15-29 ml/min (CMS/HCC) Chronic kidney disease, Stage IV (severe) Hypervolemia associated with renal insufficiency Anemia in stage 4 chronic kidney disease Persistent proteinuria Renal osteodystrophy Renal bone disease Renal osteodystrophy documented in this encounter Additional Health Concerns Assessment Noted Time A fall risk assessment has been complete d for the patient 01/02/2024 2:41 PM EDT A Body Mass Index follow-up plan has been documented for the patient 12/17/2024 12:49 PM EDT documented as of this encounter Care Teams All Source Intelligence Analyst Relationship Specialty Start Date End Date Jaguar Prince DO [address] [place] [address] PCP - General 08/26/23 documented as of this encounter
--- OUTSIDE RECORDS SUMMARY | 2025-02-15 08:53 | XMS_ITS | Clinical Summary ---
Author Organization [facility] Address [address] [place] [address] Care Team Providers Care Mine Wirer Name Role Phone Mike Lee MD Primary Care Provider + Allergies Active Allergy Reactions Criticality Noted Date Comments Sulfa Antibiotics Rash Low 12/21/2016 Medications glimepiride (AMARYL) 4 MG tablet Take 4 mg by mouth 2 (Two) Times a Day. Active omeprazole (priLOSEC) 40 MG capsule Take 40 mg by mouth Daily. Active simvastatin (ZOCOR) 40 MG tablet Take 40 mg by mouth Every Night. Active balsalazide (COLAZAL) 750 MG capsule Take 2,250 mg by mouth 2 (Two) Times a Day. Active insulin NPH-insulin regular (novoLIN 70/30) (70-30) 100 UNIT/ML injection Inject 50 Units under the skin into the appropriate area as directed Every Morning. Active lisinopril (PRINIVIL,ZESTRI L) 40 MG tablet Take 1 tablet by mouth Daily. 7 Active nitroglycerin (NITROSTAT) 0.4 MG SL tablet 1 under the tongue as needed for angina, may repeat q5mins for up three doses 100 tablet 11 8 Active Additional Information Patient taking differently: 0.4 mg Sublingual Every 5 Minutes PRN, 1 under the tongue as needed for angina, may repeat q5mins for up three doses, Informant: Self, Reported on 04/28/2020 levothyroxine (SYNTHROID, LEVOTHROID) 75 MCG tablet Take 75 mcg by mouth Daily. 11 9 Active ferrous sulfate 325 (65 FE) MG tablet Take 325 mg by mouth 2 (Two) Times a Day. Active cholecalciferol (VITAMIN D3) 25 MCG (1000 UT) tablet Take 1,000 Units by mouth Daily. Active isosorbide mononitrate (IMDUR) 60 MG 24 hr tablet TAKE 1 TABLET BY MOUTH ONCE DAILY 90 tablet 3 9 Active Additional Information Patient taking differently: 60 mg Oral 2 times daily, Informant: Medication Bottle, Reported on 04/28/2020 furosemide (LASIX) 40 MG tablet Take 40 mg by mouth 2 (Two) Times a Day. 0 Active timolol (TIMOPTIC) 0.5 % ophthalmic solution Administer 1 drop to both eyes 2 (two) times a day. 0 Active prazosin (MINIPRESS) 2 MG capsule Take 2 mg by mouth 2 (two) times a day. 0 Active ferrous gluconate (FERGON) 324 MG tablet Take 324 mg by mouth Daily With Breakfast. Active simethicone (MYLICON) 125 MG chewable tablet Chew 125 mg Every 6 (Six) Hours As Needed for Flatulence. Active FIBER PO Take 2 capsules by mouth Daily. Active insulin NPH-insulin regular (humuLIN 70/30,novoLIN 70/30) (70-30) 100 UNIT/ML injection Inject 20 Units under the skin into the appropriate area as directed Every Night. Active cloNIDine (CATAPRES) 0.3 MG tablet Take 1 tablet by mouth Every 8 (Eight) Hours. 66 tablet 0 Active carvedilol (COREG) 12.5 MG tablet Take 1 tablet by mouth 2 (Two) Times a Day. 42 tablet 0 Active amLODIPine (NORVASC) 10 MG tablet Take 1 tablet by mouth Daily. 21 tablet 0 Active aspirin 81 MG EC tablet Take 1 tablet by mouth Daily. 0 Active Active Problems Problem Noted Date Diagnosed Date Carotid stenosis, right 04/30/2020 Subclavian arterial stenosis 04/10/2020 Morbidly obese 04/10/2020 Abnormal stress test 12/29/2016 Essential hypertension 12/21/2016 Mixed hyperlipidemia 12/21/2016 Type 2 diabetes mellitus wit h hyperglycemia, with long-term current use of insulin 12/21/2016 GERD (gastroesophageal reflux disease) COPD (chronic obstructive pulmonary disease) Hypothyroidism Chronic kidney disease Tobacco abuse Coronary artery disease Overview (04/30/2020): [facility] 12/29/[address] Hutchins - Chronic total occlusion of the dominant RCA served by excellent collaterals. 70% stenosis of the mid LAD treated with 3.0 x 23 mm HUNG and reduced to 0%. Moderate nonobstructive disease of the first diagonal, the first obtuse marginal and the mid circumflex. Preserved left ventricular systolic function, ejection fraction 60%. Resolved Problems Problem Noted Date Diagnosed Date Resolved Date Carotid stenosis, asymptomatic, bilateral 04/23/2020 05/01/2020 Overview (04/23/2020): Added automatically from request for surgery [id number] Family History Medical History Relation Name Comments Stroke Mother Relation Name Status Comments Father ACCIDENTAL Mother Social History Tobacco Use Types Packs/Day Years Used Date Smoking Tobacco: Former Cigarettes 0.3 50 0 04/29/1970 - 04/29/2020 Smokeless Tobacco: Never Comments:was smoking 1/2 ppd Alcohol Use Standard Drinks/Week Comments No 0 (1 standard drink = 0.6 oz pur e alcohol) Abuse Screen Answer Date Recorded Unsafe at Home or Work/School Not on file Feels Threatened by Someone? Not on file 04/2023 Does Anyone Keep You from Co ntacting Others or Doint Things Outside the Home? Not on file 05/09/2023 Physical Sign of Abuse Present Not on file 1 Housing Stability Answer Date Recorded Current Living Arrangements Not on file 04/2023 Potentially Unsafe Housing Conditions Not on mary e 05/09/2023 Family and Community Support Answer Curt e Recorded Help with Day-to-Day Activities Not on file 05/09/2023 Lonely or Isolated Not on file 05/09/2023 Employment Answer Date Recorded Do you want help finding or keeping work or a ekaterina b? Not on file 05/09/2023 Disabilities Answer Date Recorded Concentrating, Remembering, or Making Decisions Difficulty Not on file 05/09/2023 Doing Errands Independently Difficulty Not on fi le 05/09/2023 Education Answer Date Recorded Help with school or training? 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 Not on file Not on file Last Filed Vital Signs Vital Sign Reading Time Taken Comments Blood Pressure 160/85 05/28/2021 10:57 AM EDT Pulse 68 05/28/2021 10:57 AM EDT Temperature 37 C (98.6 F) 05/28/2021 10:57 AM EDT Respiratory Rate 20 05/02/2020 12:00 PM EDT Oxygen Saturation 88% 05/28/2021 10:57 AM EDT Inhaled Oxygen Concentration - - Weight 116 kg (255 lb) 05/28/2021 10:57 AM EDT Height 160 cm (5' 3 ) 05/28/2021 10:57 AM EDT Body Mass Index 45.17 05/28/2021 10:57 AM EDT Plan of Treatment Scheduled Procedures Name Priority Associated Diagnoses Date/Ti me LEFT HEART CATH w/cors Angina pectoris Health Maintenance Due Date Last Done Comments DXA SCAN 1945 Pneumococcal Vaccine 50+ (1 of 2 - PCV) 1965 TDAP/TD VACCINES (1 - Tdap) 1965 COLOGUARD 10/30/1991 COLON CANCER SCREENING 5 YEA R SIGMOIDOSCOPY 10/30/1991 CT COLONOGRAPHY 10/30/1991 FECAL OCCULT BLOOD TEST 10/30/1991 FIT Testing (1 year) 10/30/1991 ZOSTER VACCINE (1 of 2) 1996 ANNUAL PHYSICAL 12/21/2016 HEPATITIS C SCREENING 12/21/2016 LIPID PANEL 07/04/2020 07/04/2019, 01/29, 02/07/2019, Additional history exists RSV Vaccine - Adults (1 - 1- dose 75+ series) 2021 COVID-19 Vaccine (2 - 2023-2 5 season) 2024 11/05/2020 INFLUENZA VACCINE 05/01/2025 06/28/2017, 06/28/2017 COLONOSCOPY 11/20/2028 11/20/2018, 02/19/2013 COLORECTAL CANCER SCREENING 11/20/2028 HEMOGLOBIN A1C Discontinued 04/28/2020, 09/30, 07/04/2019, Additional history exists Medical Devices Implanted Type Area Primer And Powder Canning Leader Device Identifier Shelf Expiration Date Model / Serial / Lot Ptch Vascuguard 1x6cm - [id number] Implanted:Qty: 1 on 04/30/2020 by Tony Osborne MD at [facility] Implant Right: Carotid SYNOVIS 04/02/2024 [id number] / / [id number] Stent Xience Alpine Hung Rx [id number] - [id number] Implanted:Qty: 1 on 12/29/2016 by Rubens Hutchins MD at [facility] [employer] [id number] / / Procedures Procedure Name Priority Date/Time Associated Diagnosis Comments HEMOGLOBIN A1C Routine 04/28/2020 9:18 AM EDT Carotid stenosis, right LIPID PANEL Routine 12/29/2016 7:04 AM EDT from Last 3 Months or Most Recently Relevant to Health Maintenance Results * (ABNORMAL) Hemoglobin A1c (04/28/2020 9:18 AM EDT) Hemoglobin A1C 10.70(H) 4.80 - 5.60 % 04/28/2020 10:00 AM EDT [facility] Blood Venipuncture / Unknown 04/28/2020 9:18 AM EDT 04/28/2020 9:32 AM EDT Narrative [facility] - 04/28/2020 10:00 AM EDT Hemoglobin A1C Ranges: Increased Risk for Diabetes 5.7% to 6.4% Diabetes >= 6.5% Diabetic Goal < 7.0% us Jim MEDELL[facility] LAB BLOOD ORDERABLES Final Resu lt [facility]
[address] [place] [address], * Lipid Panel (12/29/2016 7:04 AM EDT) Total Cholesterol 156 0 - 200 mg/dL 12/29/2016 2:29 PM EDT [facility] Triglycerides 114 0 - 150 mg/dL 12/29/2016 2:29 PM EDT [facility] HDL Cholesterol 57 40 - 60 mg/dL 12/29/2016 2:29 PM EDT [facility] LDL Cholesterol 80 0 - 130 mg/dL 12/29/2016 2:29 PM EDT [facility] Blood Line / Unknown 12/29/2016 7: 04 AM EDT 12/29/2016 7:18 AM EDT [facility] - 12/29/2016 2:29 PM EDT Cholesterol Reference Ranges: Desirable < 200 mg/dL Borderline 200-239 mg/dL High Risk > 239 mg/dL Triglyceride Reference Ranges: Normal < 150 mg/dL Borderline 150-199 mg/dL High 200-499 mg/dL Very High > 499 mg/dL HDL Reference Ranges: Low < 40 mg/dL High > 59 mg/dL LDL Reference Ranges: Optimal < 100 mg/dL Near Optimal 100-129 mg/dL Borderline 130-159 mg/dL High 160-189 mg/dL Very High > 189 mg/dL Rubens Hutchins MD LAB BLOOD ORDERABLES Final Resul t [facility]
[address] [place] [address], from Last 3 Months or Most Recently Relevant to Health Maintenance Insurance MEDICARE A & B Advance Directives * CPR (Attempt to Resuscitate) (Latest Code Status on File) Date Activated Date Inactivated Comments 04/30/2020 1:15 PM 05/02/2020 5:56 PM Question Answer Comments Code Status (Patient has no pulse and is not breathing): CPR (Attempt to Resuscitate) Medical Interventions (Patie nt has pulse or is breathing): Full * Full Code Date Activated Date Inactivated Comments 12/29/2016 10:05 AM 12/30/2016 1:40 PM Care Teams Mine Wirer Relationship Specialty Start Date End Date Mike Lee MD PCP - General Family Medicine 05/02/20
--- OUTSIDE RECORDS SUMMARY | 2025-02-15 08:53 | XMS_ITS | Encounter Summary ---
Author Organization [facility] Address [address] [place] [address] Care Team Providers Care Flight Kitchen Manager Name Role Phone Mike Lee MD Primary Care Provider + Encounter Details Date Type Department Care Team (Late st Contact Info) Description 11/23/2016 External CPT II ALUMINUM CAN COLLECTOR - [facility] Social History Tobacco Use Types Packs/Day Years Used Date Smoking Tobacco: Never Assessed Comments Unknown Sex and Gender Information Value Date Recorded Sex Assigned at Not on file Legal Sex Female 4:05 PM EDT Gender Identity Not on file Sexual Orientation Not on file documented as of this encounter Plan of Treatment Scheduled Procedures Name Priority Associated Diagnoses Date/Ti me LEFT HEART CATH w/cors Angina pectoris documented as of this encounter Visit Diagnoses Not on filedocumented in this encounter Additional Health Concerns Infection Onset Date Last Indicated Resolved Time COVID Screen (preop/placement) 04/28/2020 04/28/2020 04/28/2020 10:53 AM EDT documented as of this encounter Care Teams Flight Kitchen Manager Relationship Specialty Start Date End Date Mike Lee MD PCP - General Family Medicine 05/02/20 documented as of this encounter
--- OUTSIDE RECORDS SUMMARY | 2025-02-15 08:53 | XMS_ITS | Encounter Summary ---
Author Organization [facility] Address [address] [place] [address] Care Team Providers Care Reserve Operator Name Role Phone Mike Lee MD Primary Care Provider + Encounter Details Date Type Department Care Team (Late st Contact Info) Description 08/04/2012 External CPT II OFFICE NURSE - [facility] Social History Tobacco Use [...] documented as of this encounter Care Teams Reserve Operator Relationship Specialty Start Date End Date Mike Lee MD PCP - General Family Medicine 05/02/20 documented as of this encounter
--- OUTSIDE RECORDS SUMMARY | 2025-02-15 08:53 | XMS_ITS | Encounter Summary ---
Author Organization [facility] Address [address] [place] [address] Care Team Providers Care Manager Fund Name Role Phone Mike Lee MD Primary Care Provider + Encounter Details Date Type Department Care Team (Late st Contact Info) Description 11/26/2016 External CPT II POWDER MIXER - [facility] Social History Tobacco Use [...] documented as of this encounter Care Teams Manager Fund Relationship Specialty Start Date End Date Mike Lee MD PCP - General Family Medicine 05/02/20 documented as of this encounter
--- OUTSIDE RECORDS SUMMARY | 2025-02-15 08:53 | XMS_ITS | Encounter Summary ---
Author Organization [facility] Address [address] [place] [address] Care Team Providers Care Minister Helper Name Role Phone Mike Lee MD Primary Care Provider + Encounter Details Date Type Department Care Team (Late st Contact Info) Description 12/09/2015 External CPT II FOOD BEVERAGE MANAGER - [facility] Social History Tobacco Use [...] documented as of this encounter Care Teams Minister Helper Relationship Specialty Start Date End Date Mike Lee MD PCP - General Family Medicine 05/02/20 documented as of this encounter
--- OUTSIDE RECORDS SUMMARY | 2025-02-15 08:53 | XMS_ITS | Encounter Summary ---
Author Organization [facility] Address [address] [place] [address] Care Team Providers Care Wharfmaster Name Role Phone Mike Lee MD Primary Care Provider + Encounter Details Date Type Department Care Team (Late st Contact Info) Description 09/28/2017 External CPT II QUARRY PLUG AND FEATHER DRILLER - [facility] Social History Tobacco Use Types Packs/Day Years Used Date Smoking Tobacco: Former Cigarettes Q uit: 12/30/2016 Smokeless Tobacco: Never Alcohol Use Standard Drinks/Week Comments No 0 (1 standard drink = 0.6 oz pur e alcohol) Comments Unknown Sex and Gender Information Value [...] documented as of this encounter Care Teams Wharfmaster Relationship Specialty Start Date End Date Mike Lee MD PCP - General Family Medicine 05/02/20 documented as of this encounter
--- OUTSIDE RECORDS SUMMARY | 2025-02-15 08:53 | XMS_ITS | Encounter Summary ---
Author Organization [facility] Address [address] [place] [address] Care Team Providers Care Brick Unloader Tender Name Role Phone Jaguar Prince DO Primary Care Provider [phone] Encounter Details Date Type Department Care Team [...] documented as of this encounter Care Teams Brick Unloader Tender Relationship Specialty Start Date End Date Jaguar Prince DO [address] [place], [place] [id number] PCP - General 08/26/23 documented as of this encounter
--- OUTSIDE RECORDS SUMMARY | 2025-02-15 08:53 | XMS_ITS | Encounter Summary ---
Author Organization [facility] Address [address] [place] [address] Care Team Providers Care Elevator Technician Name Role Phone Mike Lee MD Primary Care Provider + Encounter Details Date Type Department Care Team (Late st Contact Info) Description 05/16/2018 External CPT II KITCHEN BATH DESIGNER - [facility] Social History Tobacco Use Types Packs/Day Years Used Date Smoking Tobacco: Every Day Cigarettes Last attempted to quit: 12/30/2016 Smokeless Tobacco: Never Comments:4-5 per day Alcohol Use Standard Drinks/Week Comments No 0 [...] documented as of this encounter Care Teams Elevator Technician Relationship Specialty Start Date End Date Mike Lee MD PCP - General Family Medicine 05/02/20 documented as of this encounter
--- OUTSIDE RECORDS SUMMARY | 2025-02-15 08:53 | XMS_ITS | Encounter Summary ---
Author Organization [facility] Address [address] [place] [address] Care Team Providers Care Oil Painter Name Role Phone Mike Lee MD Primary Care Provider + Encounter Details Date Type Department Care Team (Late st Contact Info) Description 05/14/2014 External CPT II VICTORIAN LITERATURE PROFESSOR - [facility] Social History Tobacco Use [...] documented as of this encounter Care Teams Oil Painter Relationship Specialty Start Date End Date Mike Lee MD PCP - General Family Medicine 05/02/20 documented as of this encounter
--- OUTSIDE RECORDS SUMMARY | 2025-02-15 08:53 | XMS_ITS | Encounter Summary ---
Author Organization [facility] Address [address] [place] [address] Care Team Providers Care Mold Cleaning And Storage Supervisor Name Role Phone Mike Lee MD Primary Care Provider + Encounter Details Date Type Department Care Team (Late st Contact Info) Description 06/28/2017 External CPT II FREIGHT FLOW SALES LEADER - [facility] Social History Tobacco Use [...] documented as of this encounter Care Teams Mold Cleaning And Storage Supervisor Relationship Specialty Start Date End Date Mike Lee MD PCP - General Family Medicine 05/02/20 documented as of this encounter
--- OUTSIDE RECORDS SUMMARY | 2025-02-15 08:53 | XMS_ITS | Clinical Summary ---
Author Organization [facility] Address [address] [place] [address] Care Team Providers Care Electric Power Line Repairer Name Role Phone Jaguar Prince DO Primary Care Provider [phone] Allergies Active Allergy Reactions Criticality Noted Date [...] kidney disease) stage 4, GFR 15-29 ml/min ([facility]),Persis tent proteinuria Take 1 tablet by mouth daily. 90 tablet 3 5 Active losartan (Cozaar) 50 MG tabletIndication s:Type 2 diabetes mellitus with stage 4 chronic kidney disease, unspecified whether intermediate insulin use ([facility]/HCC) Take 1 tablet by mouth daily. [...] Description 12/17/2024 11:40 AM EDT Office Visit [facility] Nephrology, Bone & Mineral Metabolism [address] , [address] [place] [address] Tristin Mcmanus MD Type 2 diabetes mellitus with stage 4 chronic kidney disease, unspecified whether intermodal owner operator truck driver insulin use (CMS/HCC) (Primary Dx); Hypertensive chronic kidney disease with stage 1 through stage 4 chronic kidney disease, or unspecified chronic kidney disease; CKD (chronic kidney disease) stage 4, GFR 15-29 ml/min (CMS/HCC); Hypervolemia associated with renal insufficiency; Anemia in stage 4 chronic kidney disease; Persistent proteinuria; Renal osteodystrophy; Renal bone disease 12/17/2024 Travel 12/14/2024 Telephone [facility] [address] [place] [id number] Ashley Malik, PharmD 12/13/2024 Telephone [facility] Nephrology, Bone & Mineral Metabolism [address] , [address] [place] [address] Ayden Butts 11/26/2024 Telephone [facility] Nephrology, Bone & Mineral Metabolism [address] , [address] [place] [address] Olga Yuan 11/26/2024 Telephone [facility] Nephrology, Bone & Mineral Metabolism [address], [address] [place] [address] Tristin Mcmanus MD from Last [...] or (1 - 1-dose 75+ series) 2021 [id number] Vaccine (3 - 2023- season) 2024 07/08/2021, 11/05/2020 [facility]-Depression Screening 01/01/2025 01/02/2024 [facility]-Influenza Vaccine (#1) 2025 [facility]-Obesity Intervention Completed 025, 08/17/2024, 04/19/2024, [...] this topic Insurance [employer] MEDICARE Care Teams Electric Power Line Repairer Relationship Specialty Start Date End Date Jaguar Prince DO [address] [place], [place] [id number] PCP - General 08/26/23
--- OUTSIDE RECORDS SUMMARY | 2025-02-15 08:53 | XMS_ITS | Encounter Summary ---
Author Organization [facility] Address [address] [place] [address] Care Team Providers Care Certified Prosthetist Vice President Name Role Phone Mike Lee MD Primary Care Provider + Encounter Details Date Type Department Care Team (Late st Contact Info) Description 07/16/2015 External CPT II AGRICULTURAL EXTENSION EDUCATOR - [facility] Social History Tobacco Use [...] documented as of this encounter Care Teams Certified Prosthetist Vice President Relationship Specialty Start Date End Date Mike Lee MD PCP - General Family Medicine 05/02/20 documented as of this encounter
--- NOTE | 2025-02-15 09:15 | XR_ITS ---
FINAL REPORT CLINICAL HISTORY: screening COMPARISON: 09/29/2020 FINDINGS: Using L1-4, the bone mineral density of the spine is 1.318 g/cm2, corresponding to T-score of 2.5. Using the left hip, the bone mineral density of the femoral neck is 0.731 g/cm2, corresponding to a T-score of -1.1. Using the right hip, the bone mineral density of the femoral neck is 1.203 g/cm2, corresponding to a T-score of 2.1. NOTE: T-score: Standard deviation compared with peak bone mass of young adult mean. *Following the recommendations of the International Society of Bone densitometry, classification of hip BMD is based on the lower of two T-scores; total hip or femoral neck. IMPRESSION: Normal bone mineral density of the lumbar spine and right femoral neck. Diminished bone mineral density of the left hip, consistent with osteopenia. Reviewed, Interpreted and Dictated by Robb Palomo MD Transcribed by Ella Taveras Authenticated and [facility]
--- OUTSIDE RECORDS SUMMARY | 2025-02-15 09:52 | XMS_ITS | CCD ---
Author Organization Unknown Care Team Providers Care Dog Licenser Name Role Phone Unavailable Primary Care Provider Unavailabl e Unavailable Chronic Care Management Unavaila ble Summary Purpose DataExchange Insurance Providers Payer name Policy type / Coverage type Covered democrat ID Effective Begin Date Effective End Date [facility] [id number] Unknown Unknown Family History Family History data not found Medication Administered No Medication Administered data Reason For Visit No Reason For Visit data Medical Equipment No Medical Equipment data Advance Directives No Advance Directive data
--- OUTSIDE RECORDS SUMMARY | 2025-02-15 09:53 | XMS_ITS | CCD ---
Author Organization Unknown Care Team Providers Care Door Maker Name Role Phone Unavailable Primary Care Provider Unavailabl e Unavailable Chronic Care Management Unavaila ble Summary Purpose DataExchange Insurance Providers Payer name Policy type / Coverage type Covered green party ID Effective Begin Date Effective End Date [facility] [id number] Unknown Unknown Family History Family History data not found Medication Administered No Medication Administered data Reason For Visit No Reason For Visit data Medical Equipment No Medical Equipment data Advance Directives No Advance Directive data
== END 2025-02-15 23:59 | disposition home or self-care (01) ==
LOC: RAD 08:49
PROVIDERS: PCP Family Medicine; Visit Provider Family Medicine
DX: M85.88 Other specified disorders of bone density and structure, other site (principal); E11.22 Type 2 diabetes mellitus with diabetic chronic kidney disease; N18.4 Chronic kidney disease, stage 4 (severe); Z78.0 Asymptomatic menopausal state
CPT/HCPCS: 77080

== ENCOUNTER 2025-03-18 09:10 | Outpatient (CLI) | payer MEDICARE, SELFPAY ==
--- OUTSIDE RECORDS SUMMARY | 2025-03-18 09:14 | XMS_ITS | Encounter Summary ---
Author Organization [facility] Address [address] [place] [address] Care Team Providers Care Hedge Trimmer Name Role Phone Mike Lee MD Primary Care Provider + Encounter Details Date Type Department Care Team (Late st Contact Info) Description 08/04/2012 External CPT II RAILCAR BRAKE OPERATOR - [facility] Social History Tobacco Use [...] documented as of this encounter Care Teams Hedge Trimmer Relationship Specialty Start Date End Date Mike Lee MD PCP - General Family Medicine 05/02/20 documented as of this encounter
--- OUTSIDE RECORDS SUMMARY | 2025-03-18 09:14 | XMS_ITS | Clinical Summary ---
Author Organization [facility] Address [address] [place] [address] Care Team Providers Care Nursing Assistants Teacher Name Role Phone Mike Lee MD Primary [...] Tobacco abuse Coronary artery disease Overview (04/30/2020): [facility] 12/29/[address] Hutchins - Chronic [...] (04/23/2020): Added automatically from request for surgery [id number] Family History Medical History Relation Name Comments [...] history exists Medical Devices Implanted Type Area Counsel Device Identifier Shelf Expiration Date Model / Serial / Lot Ptch Vascuguard 1x6cm - [id number] Implanted:Qty: 1 on 04/30/2020 by Tony Osborne MD at [facility] Implant Right: Carotid SYNOVIS 04/02/2024 [id number] / / [id number] Stent Xience Alpine Hung Rx [id number] - [id number] Implanted:Qty: 1 on 12/29/2016 by Rubens Hutchins MD at [facility] [employer] [id number] / / Procedures Procedure Name Priority Date/Time Associated Diagnosis Comments HEMOGLOBIN A1C Routine 04/28/2020 9:18 AM EDT Carotid stenosis, right LIPID PANEL Routine 12/29/2016 7:04 AM EDT from Last 3 Months or Most Recently Relevant to Health Maintenance Results * (ABNORMAL) Hemoglobin A1c (04/28/2020 9:18 AM EDT) Hemoglobin A1C 10.70(H) 4.80 - 5.60 % 04/28/2020 10:00 AM EDT [facility] Blood Venipuncture / Unknown 04/28/2020 9:18 AM EDT 04/28/2020 9:32 AM EDT Narrative [facility] - 04/28/2020 10:00 AM EDT Hemoglobin A1C Ranges: Increased Risk for Diabetes 5.7% to 6.4% Diabetes >= 6.5% Diabetic Goal < 7.0% us Jim [facility] BLOOD ORDERABLES Final Resu lt [facility]
[address] [place] [address], * Lipid Panel (12/29/2016 7:04 AM EDT) Total Cholesterol 156 0 - 200 mg/dL 12/29/2016 2:29 PM EDT [facility] Triglycerides 114 0 - 150 mg/dL 12/29/2016 2:29 PM EDT [facility] HDL Cholesterol 57 40 - 60 mg/dL 12/29/2016 2:29 PM EDT [facility] LDL Cholesterol 80 0 - 130 mg/dL 12/29/2016 2:29 PM EDT [facility] Blood Line / Unknown 12/29/2016 7: 04 AM EDT 12/29/2016 7:18 AM EDT [facility] - 12/29/2016 2:29 PM EDT [...] MD LAB BLOOD ORDERABLES Final Resul t [facility]
[address] [place] [address], from Last 3 Months or Most Recently [...] 10:05 AM 12/30/2016 1:40 PM Care Teams Nursing Assistants Teacher Relationship Specialty Start Date End Date Mike Lee MD PCP - General Family Medicine 05/02/20
--- OUTSIDE RECORDS SUMMARY | 2025-03-18 09:14 | XMS_ITS | Encounter Summary ---
Author Organization [facility] Address [address] [place] [address] Care Team Providers Care Engineering Operations Leader Name Role Phone Mike Lee MD Primary Care Provider + Encounter Details Date Type Department Care Team (Late st Contact Info) Description 12/09/2015 External CPT II DIRECTOR FACILITIES MAINTENANCE - [facility] Social History Tobacco Use [...] documented as of this encounter Care Teams Engineering Operations Leader Relationship Specialty Start Date End Date Mike Lee MD PCP - General Family Medicine 05/02/20 documented as of this encounter
--- OUTSIDE RECORDS SUMMARY | 2025-03-18 09:14 | XMS_ITS | Encounter Summary ---
Author Organization [facility] Address [address] [place] [address] Care Team Providers Care Asphalt Blender Name Role Phone Mike Lee MD Primary Care Provider + Encounter Details Date Type Department Care Team (Late st Contact Info) Description 09/28/2017 External CPT II RING CONDUCTOR - [facility] Social History Tobacco Use [...] documented as of this encounter Care Teams Asphalt Blender Relationship Specialty Start Date End Date Mike Lee MD PCP - General Family Medicine 05/02/20 documented as of this encounter
--- OUTSIDE RECORDS SUMMARY | 2025-03-18 09:14 | XMS_ITS | Encounter Summary ---
Author Organization [facility] Address [address] [place] [address] Care Team Providers Care Process Controller Name Role Phone Mike Lee MD Primary Care Provider + Encounter Details Date Type Department Care Team (Late st Contact Info) Description 05/16/2018 External CPT II BUTTON TUFTING MACHINE OPERATOR - [facility] Social History Tobacco [...] documented as of this encounter Care Teams Process Controller Relationship Specialty Start Date End Date Mike Lee MD PCP - General Family Medicine 05/02/20 documented as of this encounter
--- OUTSIDE RECORDS SUMMARY | 2025-03-18 09:14 | XMS_ITS | Encounter Summary ---
Author Organization [facility] Address [address] [place] [address] Care Team Providers Care Command Center Officer Name Role Phone Mike Lee MD Primary Care Provider + Encounter Details Date Type Department Care Team (Late st Contact Info) Description 05/14/2014 External CPT II LAUNDROMAT MANAGER - [facility] Social History Tobacco [...] documented as of this encounter Care Teams Command Center Officer Relationship Specialty Start Date End Date Mike Lee MD PCP - General Family Medicine 05/02/20 documented as of this encounter
--- OUTSIDE RECORDS SUMMARY | 2025-03-18 09:14 | XMS_ITS | Encounter Summary ---
Author Organization [facility] Address [address] [place] [address] Care Team Providers Care Manager Servicing Name Role Phone Mike Lee MD Primary Care Provider + Encounter Details Date Type Department Care Team (Late st Contact Info) Description 11/26/2016 External CPT II ACCESSIONER - [facility] Social History Tobacco Use [...] as of this encounter Care Teams Manager Servicing Relationship Specialty Start Date End Date Mike Lee MD PCP - General Family Medicine 05/02/20 documented as of this encounter
--- OUTSIDE RECORDS SUMMARY | 2025-03-18 09:14 | XMS_ITS | Encounter Summary ---
Author Organization [facility] Address [address] [place] [address] Care Team Providers Care Bicycle Assembler Name Role Phone Mike Lee MD Primary Care Provider + Encounter Details Date Type Department Care Team (Late st Contact Info) Description 07/16/2015 External CPT II SEARCH CONSULTANT - [facility] Social History Tobacco Use [...] documented as of this encounter Care Teams Bicycle Assembler Relationship Specialty Start Date End Date Mike Lee MD PCP - General Family Medicine 05/02/20 documented as of this encounter
--- OUTSIDE RECORDS SUMMARY | 2025-03-18 09:14 | XMS_ITS | Clinical Summary ---
Author Organization [facility] Address [address] [place] [address] Care Team Providers Care Client Partner Name Role Phone Jaguar Prince DO Primary Care Provider [phone] Allergies Active Allergy Reactions Criticality Noted Date [...] kidney disease) stage 4, GFR 15-29 ml/min ([facility]),Persis tent proteinuria Take 1 tablet by mouth daily. 90 tablet 3 5 Active losartan (Cozaar) 50 MG tabletIndication s:Type 2 diabetes mellitus with stage 4 chronic kidney disease, unspecified whether supervisor intermediates insulin use ([facility]/HCC) Take 1 tablet by mouth daily. [...] Description 12/17/2024 11:40 AM EDT Office Visit [facility] Nephrology, Bone & Mineral Metabolism [address] [place] [address] Tristin Mcmanus MD Type 2 diabetes mellitus with stage 4 chronic kidney disease, unspecified whether jail insulin use (CMS/HCC) (Primary Dx); Hypertensive chronic kidney disease with stage 1 through stage 4 chronic kidney disease, or unspecified chronic kidney disease; CKD (chronic kidney disease) stage 4, GFR 15-29 ml/min (CMS/HCC); Hypervolemia associated with renal insufficiency; Anemia in stage 4 chronic kidney disease; Persistent proteinuria; Renal osteodystrophy; Renal bone disease 12/17/2024 Travel from Last 3 Months Family History Medical [...] 12/17/2024 11:00 AM EDT Plan of Treatment Upcoming Encounters Date Type Department Care Team (Late st Contact Info) Description 06/07/2025 1:20 PM EST Office Visit [facility] [address] [place] [address] Tristin Mcmanus MD [address] [place] [phone] Health Maintenance Due Date Last Done Comments [facility]-Bone Density Scan 1945 [facility]-Hepatitis C Screening 1946 [facility]-Medicare Annual Wellness (AWV) 1945 [facility]-/Child/Adol SDOH Screenings 1946 Diabetes: Dental Exam 1956 [facility]- SDOH Screenings 1964 [facility]-Adult SDOH Screenings 1964 [facility]-DTaP,Tdap,and Td Vaccines (1 - Tdap) 1965 [facility]-Pneumococcal Vaccine: 50+ Years (1 of 2 - PCV) 1965 [facility]-Zoster Vaccines (1 of 2) 1996 [facility]-Diabetes: Hemoglobin A1C 10/26/2020 04/28/2020 [facility]-RSV Vaccine: 60+ Years or (1 - 1-dose 75+ series) 2021 [id number] Vaccine (3 - season) 2024 07/08/2021, 11/05/2020 [...] patient's age to complete this topic Insurance Care Teams Client Partner Relationship Specialty Start Date End Date Jaguar Prince DO [address] [place], [place] [id number] PCP - General 08/26/23
--- OUTSIDE RECORDS SUMMARY | 2025-03-18 09:14 | XMS_ITS | Encounter Summary ---
Author Organization [facility] Address [address] [place] [address] Care Team Providers Care Scrap Drop Engineer Name Role Phone Mike Lee MD Primary Care Provider + Encounter Details Date Type Department Care Team (Late st Contact Info) Description 06/28/2017 External CPT II CREW BOAT OPERATOR - [facility] Social History Tobacco [...] documented as of this encounter Care Teams Scrap Drop Engineer Relationship Specialty Start Date End Date Mike Lee MD PCP - General Family Medicine 05/02/20 documented as of this encounter
--- OUTSIDE RECORDS SUMMARY | 2025-03-18 09:14 | XMS_ITS | Encounter Summary ---
Author Organization [facility] Address [address] [place] [address] Care Team Providers Care Java Designer Name Role Phone Mike Lee MD Primary Care Provider + Encounter Details Date Type Department Care Team (Late st Contact Info) Description 11/23/2016 External CPT II VETERINARIAN ASSISTANT - [facility] Social History Tobacco Use [...] documented as of this encounter Care Teams Java Designer Relationship Specialty Start Date End Date Mike Lee MD PCP - General Family Medicine 05/02/20 documented as of this encounter
--- NOTE | 2025-03-18 09:17 | XR_ITS ---
FINAL REPORT TECHNIQUE: Chest PA & Lateral CLINICAL HISTORY: cough tightness in chest COMPARISON: 03/15/2023 FINDINGS: 2 views of the chest were performed. Mild cardiomegaly is again noted. The mediastinum is within normal limits. The lungs are underinflated. There is no acute cardiopulmonary process. There are no pleural effusions. There is no pneumothorax. The bony thorax appears intact. IMPRESSION: No acute cardiopulmonary process. Reviewed, Interpreted and Dictated by Erik Lares MD Transcribed by Ella Taveras Authenticated and [facility]
--- OUTSIDE RECORDS SUMMARY | 2025-03-18 10:12 | XMS_ITS | CCD ---
Author Organization Unknown Care Team Providers Care Freight Team Associate Name Role Phone Unavailable Primary Care Provider Unavailabl e Unavailable Chronic Care Management Unavaila ble Summary Purpose DataExchange Insurance Providers Payer name Policy type / Coverage type Covered democrat ID Effective Begin Date Effective End Date [facility] [id number] Unknown Unknown Family History Family History data not found Medication Administered No Medication Administered data Reason For Visit No Reason For Visit data Medical Equipment No Medical Equipment data Advance Directives No Advance Directive data
--- OUTSIDE RECORDS SUMMARY | 2025-03-18 10:13 | XMS_ITS | CCD ---
Author Organization Unknown Care Team Providers Care Information Security Architect Name Role Phone Unavailable Primary Care Provider Unavailabl e Unavailable Chronic Care Management Unavaila ble Summary Purpose DataExchange Insurance Providers Payer name Policy type / Coverage type Covered democrat ID Effective Begin Date Effective End Date [facility] [id number] Unknown Unknown Family History Family History data not found Medication Administered No Medication Administered data Reason For Visit No Reason For Visit data Medical Equipment No Medical Equipment data Advance Directives No Advance Directive data
== END 2025-03-18 23:59 | disposition home or self-care (01) ==
LOC: RAD 09:11
PROVIDERS: PCP Family Medicine; Visit Provider Student in an Organized Health Care Education/Training Program
DX: R05.9 Cough, unspecified (principal); R07.89 Other chest pain
CPT/HCPCS: 71046; 87635

== ENCOUNTER 2025-06-03 09:17 | Outpatient (CLI) | payer MEDICARE, SELFPAY ==
--- OUTSIDE RECORDS SUMMARY | 2025-06-03 09:19 | XMS_ITS | CCD ---
Author Organization Unknown Care Team Providers Care Crusher Setter Name Role Phone Unavailable Primary Care Provider Unavailabl e Unavailable Chronic Care Management Unavaila ble Summary Purpose DataExchange Insurance Providers Payer name Policy type / Coverage type Covered republican ID Effective Begin Date Effective End Date [facility] [id number] Unknown Unknown Family History Family History data not found Medication Administered No Medication Administered data Reason For Visit No Reason For Visit data Medical Equipment No Medical Equipment data Advance Directives No Advance Directive data
[2025-06-03 09:25] LABS: Microscopic, Urine URINE MICROSCOPIC (MICROSCOPIC)
[2025-06-03 09:49] LABS: Hematocrit 41.4 % (37.0-47.0); Hemoglobin 12.9 g/dL (12.2-16.2); Mean Corpuscular HGB Conc 31.2 g/dL (31.8-35.4); Mean Corpuscular Hemoglobin 26.1 pg (27.0-31.2); Mean Corpuscular Volume 83.8 fl (81-99); Nucleated Red Blood Cells % 0 %; Platelet Count 298 K/mm3 (142-424); Red Blood Count 4.94 M/mm3 (4.20-5.40); Red Cell Distribution Width-SD 46.8 fL; White Blood Count 11.3 K/mm3 (4.8-10.8)
[2025-06-03 09:56] LABS: Bilirubin,Urine Negative (Negative); Color,Urine YELLOW (Yellow); Glucose,Urine (UA) 3+ (Negative); Ketones,Urine Negative (Negative); Leukocyte Esterase,Urine Negative (Negative); PH,Urine 7.0 (5.0-8.5); Protein,Urine TRACE (Negative); Specific Gravity, Urine 1.010 (1.005-1.030); Urobilinogen,Urine 0.2 EU/dl (0.2)
[2025-06-03 10:30] LABS: Albumin Level 3.9 g/dl (3.5-5.0); Anion Gap 11.6 mEq/L (5-15); Blood Urea Nitrogen 47 mg/dl (7-17); Calcium 8.9 mg/dl (8.4-10.2); Carbon Dioxide 31 mmol/L (22.0-30.0); Chloride 94 mmol/L (98-107); Creatinine,Serum 2.20 mg/dl (0.52-1.04); Estimated Glomerular Filt Rate 22 ml/min (>60); GFR (African American) 26 ML/MIN (>60); Glucose 198 mg/dl (74-100); Phosphorous 5.0 mg/dl (2.5-4.5); Potassium 4.6 mmoL/L (3.5-5.1); Sodium 132 mmol/L (136-145)
[2025-06-03 11:28] LABS: Bacteria,Urine Trace /lpf; Squamous Epithelial Cell,Urine Occasional #/hpf (0-5); WBC,Urine Occasional #/hpf (0-3)
== END 2025-06-03 23:59 | disposition home or self-care (01) ==
LOC: LAB 09:17
PROVIDERS: PCP Family Medicine; Visit Provider Student in an Organized Health Care Education/Training Program
DX: E11.22 Type 2 diabetes mellitus with diabetic chronic kidney disease (principal); N18.4 Chronic kidney disease, stage 4 (severe)
CPT/HCPCS: 36415; 80069; 81001; 82043; 82570; 84156; 85027

== ENCOUNTER 2025-07-18 13:15 | Outpatient (CLI) | payer MEDICARE, SELFPAY ==
--- OUTSIDE RECORDS SUMMARY | 2025-06-07 13:20 | XMS_ITS | Encounter Summary ---
Author Organization [facility] Address [address] [id number] Care Team Providers Care Licensed Aircraft Maintenance Engineer Name Role Phone Jaguar Prince DO Primary Care Provider [phone] Reason for Referral * Consultation (Routine) - Authorized Specialty Diagnoses / Procedures Referred By Angel harris Referred To Contact Diagnoses Type 2 diabetes mellitus with stage 4 chronic kidney disease, unspecified whether longterm insulin use Hypertensive chronic kidney disease with stage 1 through stage 4 chronic kidney disease, or unspecified chronic kidney disease [place] [address] Phone: tel: fax: Referral ID Status Reason Start Date Expiration Date V isits Requested Visits Authorized [id number] Authorized 06/07/2025 12/07/2026 1 1 Reason for Visit * Reason Comments Chronic Kidney Disease Patient is a 79 y ear old female that presents to the clinic on this date for a following up for CKD. Patient denies pain at the current moment. 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 disease, unspecified whether longterm insulin use Tristin Mcmanus MD [address] [place] [address] Phone: tel: fax: Referral ID Status Reason Start Date Expiration Date Visits Re quested Visits Authorized [id number] Closed 12/17/2024 06/18/2026 1 1 Encounter Details Date Type Department Care Team (Latest Contact Info) Description 06/07/2025 1:20 PM EST Office Visit [facility] [address] [place] [address] Tristin Mcmanus MD [address] [place] [phone] Type 2 diabetes mellitus with stage 4 chronic kidney disease, unspecified whether terminal makeup operator insulin use (Primary Dx); Hypertensive chronic kidney disease with stage 1 through stage 4 chronic kidney disease, or unspecified chronic kidney disease; CKD (chronic kidney disease) stage 4, GFR 15-29 ml/min (CMS/HCC); Hypervolemia associated with renal insufficiency; Anemia in stage 4 chronic kidney disease; Persistent proteinuria; Renal osteodystrophy Social History Tobacco Use Types Packs/Day Years [...] Sign Reading Time Taken Comments Blood Pressure 138/88 06/07/2025 1:32 PM EST Pulse 88 06/07/2025 1:32 PM EST Temperature - - Respiratory Rate 22 06/07/2025 1:32 PM EST Oxygen Saturation 91% 06/07/2025 1:32 PM EST Inhaled Oxygen Concentration - - Weight 113 kg (250 lb) 06/07/2025 1:32 PM EST Height 160 cm (5' 3 ) 06/07/2025 1:32 PM EST Body Mass Index 44.29 06/07/2025 1:32 PM EST documented in this encounter Miscellaneous Notes * Progress Notes - Tristin Mcmanus MD - 06/07/2025 1:20 PM EST [facility] SUBJECTIVE Cari Michelle is a 79 y.o. female who presents for follow-up of CKD. Feeling well.On chronic O2. Had to have a toe removed since last visit. Otherwise doing okay. Feels okay today. Doing well since last visit. Doing well on Ozempic 0.25 x 3 weeks. Sister starteddialysis at [facility] and requesting to come back to see me and was told she was not allowedto by the audio production engineer at [facility]. Denies hematuria, dysuria, abd pain, SOA, CP. OBJECTIVE Vitals: 06/07/25 1332 BP: 138/88 Pulse: 88 Resp: 22 SpO2: 91% PHYSICAL EXAMINATION Gen: NAD, obese, ambulates with [...] Cr 2.2 Ferritin 44.8 UACR 666.9, UPCR: 29/13 UA neg prot, 2+ glu Ipth 234 [...] UACR 666, urine protein 29, UPCR >2 labs 06/03/2025 CBC: 11.3, HGB 12.9, PLT 298 RFP: Na 132, K4.6, Cl 94, CO2 31, BUN47, Cr 2.2, Glu 198, Ca 8.9, Phos 5.0, Alb 3.9 ASSESSMENT/PLAN # CKD 4: secondary to DM2/HTN, [...] lasix, daily weights Recommendations and plan for 06/07/2025 -Creatinine improved back to low end of baseline 2.2. She appears clinically well. Feels better on Ozempic so I will order refills of semaglutide at increased dose 0.5 today through [facility]. -refilled losartan and invokana -Recommend Low sodium diet -Continue current antihypertensives - allowing permissive elevated systolic given patient with verywide pulse pressure diastolic in the 40s and 50s at home -Continue vitamin d supplement -AVOID NSAIDs RTC in 3-4 months Orders Placed This Encounter Procedures CBC W/O Differential Standing Status: Future Expected Date: 09/05/2025 Expiration Date: 12/09/2026 Release to patient in [facility]: Immediate Urinalysis with reflex microscopic (Culture NOT Included) Standing Status: Future Expected Date: 09/05/2025 Expiration Date: 12/09/2026 Release to patient in [facility]: Immediate Vitamin D 25 Hydroxy Standing Status: Future Expected Date: 09/05/2025 Expiration Date: 12/09/2026 Release to patient in [facility]: Immediate PTH Intact Total Standing Status: Future Expected Date: 09/05/2025 Expiration Date: 12/09/2026 Release to patient in [facility]: Immediate Albumin-creatinine ratio, urine, random Standing Status: Future Expected Date: 09/05/2025 Expiration Date: 12/09/2026 Release to patient in [facility]: Immediate Protein, Random, Urine with Creatinine Standing Status: Future Expected Date: 09/05/2025 Expiration Date: 12/09/2026 Release to patient in [facility]: Immediate Renal Function Panel, Plasma Standing Status: Future Expected Date: 09/05/2025 Expiration Date: 12/09/2026 Release to patient in [facility]: Immediate Follow Up Nephrology [facility] Standing Status: Future Expected Date: 09/07/2025 Expiration Date: 07/07/2026 Referral Priority: Routine Referral Type: Consultation Number of Visits Requested: 1 Problem List Items Addressed This Visit Anemia in stage 4 chronic kidney disease Type 2 diabetes mellitus with stage 4 chronic kidney disease - Primary Relevant Orders Follow Up Nephrology CBC W/O Differential Urinalysis with reflex microscopic (Culture NOT Included) Vitamin D 25 Hydroxy PTH Intact Total Albumin-creatinine ratio, urine, random Protein, Random, Urine with Creatinine Renal Function Panel, Plasma Hypertensive chronic kidney disease with stage 1 through stage 4 chronic kidney disease, or unspecified chronic kidney disease Relevant Orders Follow Up Nephrology Hypervolemia associated with renal insufficiency Other Visit Diagnoses CKD (chronic kidney disease) stage 4, GFR 15-29 ml/min (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 disease, unspecified whether terminal makeup operator insulin use Expected: 09/05/2025 (Approximate), Expires: 12/09/2026 Urinalysis with reflex microscopic (Culture NOT Included) Lab Routine Type 2 diabetes mellitus with stage 4 chronic kidney disease, unspecified whether longterm insulin use Expected: 09/05/2025 (Approximate), Expires: 12/09/2026 Vitamin D 25 Hydroxy Lab Routine Type 2 diabetes mellitus with stage 4 chronic kidney disease, unspecified whether terminal makeup operator insulin use Expected: 09/05/2025 (Approximate), Expires: 12/09/2026 PTH Intact Total Lab Routine Type 2 diabetes mellitus with stage 4 chronic kidney disease, unspecified whether terminal makeup operator insulin use Expected: 09/05/2025 (Approximate), Expires: 12/09/2026 Albumin-creatinine ratio, urine, random Lab Routine Type 2 diabetes mellitus with stage 4 chronic kidney disease, unspecified whether terminal makeup operator insulin use Expected: 09/05/2025 (Approximate), Expires: 12/09/2026 Protein, Random, Urine with Creatinine Lab Routine Type 2 diabetes mellitus with stage 4 chronic kidney disease, unspecified whether terminal makeup operator insulin use Expected: 09/05/2025 (Approximate), Expires: 12/09/2026 Renal Function Panel, Plasma Lab Routine Type 2 diabetes mellitus with stage 4 chronic kidney disease, unspecified whether longterm insulin use Expected: 09/05/2025 (Approximate), Expires: 12/09/2026 Scheduled Referrals Name Type Priority Associated Diagnoses Orde r Schedule Follow Up Nephrology Outpatient Referral Routine Type 2 diabetes mellitus with stage 4 chronic kidney disease, unspecified whether longterm insulin use Hypertensive chronic kidney disease with stage 1 through stage 4 chronic kidney disease, or unspecified chronic kidney disease Expected: 09/07/2025 (Approximate), Expires: 07/07/2026 documented as of this encounter Visit Diagnoses Diagnosis Type 2 diabetes mellitus with stage 4 chronic kidney disease, unspecified whether longterm insulin use- Primary Hypertensive chronic kidney disease with stage 1 through stage 4 chronic kidney disease, or unspecified chronic kidney disease CKD (chronic kidney disease) stage 4, GFR 15-29 ml/min ([facility]) Chronic kidney disease, Stage IV (severe) Hypervolemia associated with renal insufficiency Anemia in stage 4 chronic kidney disease Persistent proteinuria Renal osteodystrophy documented in this encounter Additional Health Concerns Assessment Noted Time A fall risk assessment has been complete d for the patient 01/02/2024 2:41 PM EDT A Body Mass Index follow-up plan has been documented for the patient 06/10/2025 10:11 AM EST documented as of this encounter Care Teams Licensed Aircraft Maintenance Engineer Relationship Specialty Start Date End Date Jaguar Prince DO [address] [place] [address] PCP - General 08/26/23 documented as of this encounter
--- OUTSIDE RECORDS SUMMARY | 2025-07-19 10:19 | XMS_ITS | Encounter Summary ---
Author Organization [facility] Address [address] [place] [address] Care Team Providers Care Gis Web Developer Name Role Phone Mike [place] MD Primary Care Provider + Encounter Details Date Type Department Care Team (Late st Contact Info) Description 05/14/2014 External CPT II BLADE WORKER - [facility] Social History Tobacco Use [...] documented as of this encounter Care Teams Gis Web Developer Relationship Specialty Start Date End Date Mike [place] MD PCP - General Family Medicine 05/02/20 documented as of this encounter
--- OUTSIDE RECORDS SUMMARY | 2025-07-19 10:19 | XMS_ITS | Clinical Summary ---
Author Organization [facility] Address [address] [place] [address] Care Team Providers Care Boxing Machine Operator Name Role Phone Mike [place] MD [...] Tobacco abuse Coronary artery disease Overview (04/30/2020): [facility] 12/29/[address] Hutchins - Chronic [...] (04/23/2020): Added automatically from request for surgery [id number] Family History Medical History Relation Name Comments [...] (1 - 1- dose 75+ series) 2021 INFLUENZA VACCINE 03/01/2025 06/28/2017, 06/28/2017 COVID-19 Vaccine (2 - 2024-2 6 season) 2025 11/05/2020 COLONOSCOPY 11/20/2028 11/20/2018, 02/19/2013 COLORECTAL CANCER SCREENING 11/20/2028 HEMOGLOBIN A1C Discontinued 04/28/2020, 09/30, 07/04/2019, Additional history exists Medical Devices Implanted Type Area Sole Stitcher Hand Device Identifier Shelf Expiration Date Model / Serial / Lot Ptch Vascuguard 1x6cm - [id number] Implanted:Qty: 1 on 04/30/2020 by Tony Osborne MD at [facility] Implant Right: Carotid SYNOVIS 04/02/2024 [id number] / / [id number] Stent Xience Alpine Hung Rx [id number] - [id number] Implanted:Qty: 1 on 12/29/2016 by Rubens Hutchins MD at [facility] [employer]IRE [employer] [id number] / / Procedures Procedure Name Priority Date/Time Associated Diagnosis Comments HEMOGLOBIN A1C Routine 04/28/2020 9:18 AM EDT Carotid stenosis, right LIPID PANEL Routine 12/29/2016 7:04 AM EDT from Last 3 Months or Most Recently Relevant to Health Maintenance Results * (ABNORMAL) Hemoglobin A1c (04/28/2020 9:18 AM EDT) Hemoglobin A1C 10.70(H) 4.80 - 5.60 % 04/28/2020 10:00 AM EDT [facility] Blood Venipuncture / Unknown 04/28/2020 9:18 AM EDT 04/28/2020 9:32 AM EDT Narrative [facility] - 04/28/2020 10:00 AM EDT Hemoglobin A1C Ranges: Increased Risk for Diabetes 5.7% to 6.4% Diabetes >= 6.5% Diabetic Goal < 7.0% us Jim MEDELLIN LAB BLOOD ORDERABLES Final Resu lt [facility]
[address] [place] [address], * Lipid Panel (12/29/2016 7:04 AM EDT) Total Cholesterol 156 0 - 200 mg/dL 12/29/2016 2:29 PM EDT [facility] Triglycerides 114 0 - 150 mg/dL 12/29/2016 2:29 PM EDT [facility] HDL Cholesterol 57 40 - 60 mg/dL 12/29/2016 2:29 PM EDT [facility] LDL Cholesterol 80 0 - 130 mg/dL 12/29/2016 2:29 PM EDT [facility] Blood Line / Unknown 12/29/2016 7: 04 AM EDT 12/29/2016 7:18 AM EDT [facility] - 12/29/2016 2:29 PM EDT [...] MD LAB BLOOD ORDERABLES Final Resul t [facility]
[address] [place] [address], from Last 3 Months or Most Recently [...] 10:05 AM 12/30/2016 1:40 PM Care Teams Boxing Machine Operator Relationship Specialty Start Date End Date Mike [place] MD PCP - General Family Medicine 05/02/20
--- OUTSIDE RECORDS SUMMARY | 2025-07-19 10:19 | XMS_ITS | CCD ---
Author Organization Unknown Care Team Providers Care Animal Humane Agent Supervisor Name Role Phone Unavailable Primary Care Provider Unavailabl e Unavailable Chronic Care Management Unavaila ble Summary Purpose DataExchange Insurance Providers Payer name Policy type / Coverage type Covered democrat ID Effective Begin Date Effective End Date [facility] [id number] Unknown Unknown Family History Family History data not found Medication Administered No Medication Administered data Reason For Visit No Reason For Visit data Medical Equipment No Medical Equipment data Advance Directives No Advance Directive data
--- OUTSIDE RECORDS SUMMARY | 2025-07-19 10:19 | XMS_ITS | CCD ---
Author Organization Unknown Care Team Providers Care Food Production Supervisor Name Role Phone Unavailable Primary Care Provider Unavailabl e Unavailable Chronic Care Management Unavaila ble Summary Purpose DataExchange Insurance Providers Payer name Policy type / Coverage type Covered alliance party ID Effective Begin Date Effective End Date [facility] [id number] Unknown Unknown Family History Family History data not found Medication Administered No Medication Administered data Reason For Visit No Reason For Visit data Medical Equipment No Medical Equipment data Advance Directives No Advance Directive data
--- OUTSIDE RECORDS SUMMARY | 2025-07-19 10:19 | XMS_ITS | Clinical Summary ---
Author Organization [facility] Address [address] [place] [address] Care Team Providers Care Racker Octave Board Name Role Phone aJguar Prince DO Primary Care Provider [phone] Allergies Active Allergy Reactions Criticality Noted Date [...] 2.5-2.5 MCG/ACT aerosol solution inhaler 4 Active ipratropium-albu terol (Duo-Neb) 0.5-2.5 mg/3 mL nebulizer solution USE 3 ML IN NEBULIZER 4 TIMES DAILY NEEDED FOR SHORTNESS OF BREATH FOR WHEEZING 4 Active canagliflozin (Invokana) 100 MGIndications:CK D (chronic kidney disease) stage 4, GFR 15-29 ml/min (CMS/HCC),Persis tent proteinuria Take 1 tablet by mouth daily. 90 tablet 3 5 Active losartan (Cozaar) 50 MG tabletIndication s:Type 2 diabetes mellitus with stage 4 chronic kidney disease, unspecified whether supervisor long goods insulin use Take 1 tablet by mouth daily. 90 tablet 3 5 Active Semaglutide,0.25 or 0.5MG/DOS, (Ozempic, 0.25 or 0.5 MG/DOSE,) 2 MG/3ML solution pen-injectorIndi cations:Type 2 diabetes mellitus with stage 4 chronic kidney disease, unspecified whether skilled nursing insulin use Inject 0.5 mg under the skin 1 time per week. 3 mL 5 5 Active Active Problems Problem Noted Date Diagnosed [...] Encounters Date Type Department Care Team Description 06/10/2025 Orders Only [facility] Nephrology, Bone & Mineral Metabolism [address] [facility], [address] [place] [address] Leena Thomas, PharmD Type 2 diabetes mellitus with stage 4 chronic kidney disease, unspecified whether skilled nursing insulin use 06/07/2025 1:20 PM EST Office Visit [facility] [address] [place] [address] Tristin Mcmanus MD Type 2 diabetes mellitus with stage 4 chronic kidney disease, unspecified whether supervisor long goods insulin use (Primary Dx); Hypertensive chronic kidney disease with stage 1 through stage 4 chronic kidney disease, or unspecified chronic kidney disease; CKD (chronic kidney disease) stage 4, GFR 15-29 ml/min (CMS/HCC); Hypervolemia associated with renal insufficiency; Anemia in stage 4 chronic kidney disease; Persistent proteinuria; Renal osteodystrophy 06/07/2025 Travel from Last 3 Months Family History [...] Pulse 88 06/07/2025 1:32 PM EST Temperature 36.5 C (97.7 F) 12/17/2024 11:00 AM EDT Respiratory Rate 22 06/07/2025 1:32 PM EST Oxygen Saturation 91% 06/07/2025 1:32 PM EST Inhaled Oxygen Concentration - - Weight 113 kg (250 lb) 06/07/2025 1:32 PM EST Height 160 cm (5' 3 ) 06/07/2025 1:32 PM EST Body Mass Index 44.29 06/07/2025 1:32 PM EST Plan of Treatment Upcoming Encounters Date Type Department Care Team (Late st Contact Info) Description 09/06/2025 10:40 AM EST Office Visit [facility] [address] [place] [address] Tristin Mcmanus MD [address] [place] [phone] Health Maintenance Due Date Last Done Comments [...] or (1 - 1-dose 75+ series) 2021 [facility]-Depression Screening 01/01/2025 01/02/2024 [id number] Vaccine ( season) 2025 07/08/2021, 11/05/2020 [facility]-Influenza Vaccine (#1) 2025 [facility]-Obesity Intervention Completed 025, 12/17/2024, 08/17/2024, Additional history exists HPV Vaccines (No Doses Required) Completed [facility]-HIB Vaccines Aged Out No longer e [...] this topic Insurance [employer] MED[employer] Care Teams Racker Octave Board Relationship Specialty Start Date End Date Jaguar Prince DO [address] [place] [address] PCP - General 08/26/23
--- OUTSIDE RECORDS SUMMARY | 2025-07-19 10:19 | XMS_ITS | Encounter Summary ---
Author Organization [facility] Address [address] [place] [address] Care Team Providers Care Bagman/Woman Name Role Phone Mike [place] MD Primary Care Provider + Encounter Details Date Type Department Care Team (Late st Contact Info) Description 05/16/2018 External CPT II MAINTENANCE CRAFTSMAN - [facility] Social History Tobacco Use [...] documented as of this encounter Care Teams Bagman/Woman Relationship Specialty Start Date End Date Mike [place] MD PCP - General Family Medicine 05/02/20 documented as of this encounter
--- OUTSIDE RECORDS SUMMARY | 2025-07-19 10:19 | XMS_ITS | Encounter Summary ---
Author Organization [facility] Address [address] [place] [address] Care Team Providers Care Senior Front End Developer Name Role Phone Mike [place] MD Primary Care Provider + Encounter Details Date Type Department Care Team (Late st Contact Info) Description 11/23/2016 External CPT II LEVEL VIAL SETTER - [facility] Social History Tobacco Use [...] as of this encounter Care Teams Senior Front End Developer Relationship Specialty Start Date End Date Mike [place] MD PCP - General Family Medicine 05/02/20 documented as of this encounter
--- OUTSIDE RECORDS SUMMARY | 2025-07-19 10:19 | XMS_ITS | Encounter Summary ---
Author Organization [facility] Address [address] [place] [address] Care Team Providers Care Mechanical Assembly Technician Name Role Phone Mike [place] MD Primary Care Provider + Encounter Details Date Type Department Care Team (Late st Contact Info) Description 07/16/2015 External CPT II GRAPHICS INTERN - [facility] Social History Tobacco Use [...] documented as of this encounter Care Teams Mechanical Assembly Technician Relationship Specialty Start Date End Date Mike [place] MD PCP - General Family Medicine 05/02/20 documented as of this encounter
--- OUTSIDE RECORDS SUMMARY | 2025-07-19 10:19 | XMS_ITS | Encounter Summary ---
Author Organization [facility] Address [address] [id number] Care Team Providers Care Commercial Art Instructor Name Role Phone Jaguar Prince DO Primary Care Provider [phone] Encounter Details Date Type Department Care Team (Latest Contact Info) Description 06/07/2025 Travel Social History Tobacco Use Types Packs/Day [...] as of this encounter Plan of Treatment Upcoming Encounters Date Type Department Care Team (Late st Contact Info) Description 09/06/2025 10:40 AM EST Office Visit [facility] [address] [place] [phone] Tristin Mcmanus MD [address] [place] [phone] documented as of this encounter Visit Diagnoses Not on filedocumented in this encounter Additional Health Concerns Assessment Noted Time A fall risk assessment has been complete d for the patient 01/02/2024 2:41 PM EDT A Body Mass Index follow-up plan has been documented for the patient 06/10/2025 10:11 AM EST documented as of this encounter Care Teams Commercial Art Instructor Relationship Specialty Start Date End Date Jaguar Prince DO [address] [place] [address] PCP - General 08/26/23 documented as of this encounter
--- OUTSIDE RECORDS SUMMARY | 2025-07-19 10:19 | XMS_ITS | Encounter Summary ---
Author Organization [facility] Address [address] [place] [address] Care Team Providers Care Government Affairs Researcher Name Role Phone Mike [place] MD Primary Care Provider + Encounter Details Date Type Department Care Team (Late st Contact Info) Description 12/09/2015 External CPT II WATCH SUPERVISOR - [facility] Social History Tobacco Use [...] documented as of this encounter Care Teams Government Affairs Researcher Relationship Specialty Start Date End Date Mike [place] MD PCP - General Family Medicine 05/02/20 documented as of this encounter
--- OUTSIDE RECORDS SUMMARY | 2025-07-19 10:19 | XMS_ITS | Encounter Summary ---
Author Organization [facility] Address [address] [place] [address] Care Team Providers Care Truck Car And Bus Cleaner Name Role Phone Jaguar Prince DO Primary Care Provider [phone] Encounter Details Date Type Department Care Team (Late Contact Info) Description 06/10/2025 Orders Only [facility] [address] [facility], [address] [place] [address] Leena Thomas, PharmD [address] [place] [address] [place] [phone] Type 2 diabetes mellitus with stage 4 chronic kidney disease, unspecified whether retirement insulin use Social History Tobacco Use Types Packs/Day Years [...] Encounters Date Type Department Care Team (Late Contact Info) Description 09/06/2025 10:40 AM EST Office Visit [facility] [address] [place] [phone] Tristin Mcmanus MD [address] [place] [phone] documented as of this encounter Visit Diagnoses Diagnosis Type 2 diabetes mellitus with stage 4 chronic kidney disease, unspecified whether exterminator termite insulin use documented in this encounter Additional Health Concerns Assessment Noted Time A fall risk assessment has been complete d for the patient 01/02/2024 2:41 PM EDT A Body Mass Index follow-up plan has been documented for the patient 06/10/2025 10:11 AM EST documented as of this encounter Care Teams Truck Car And Bus Cleaner Relationship Specialty Start Date End Date Jaguar Prince DO [address] [place] [address] PCP - General 08/26/23 documented as of this encounter
--- OUTSIDE RECORDS SUMMARY | 2025-07-19 10:19 | XMS_ITS | Encounter Summary ---
Author Organization [facility] Address [address] [place] [address] Care Team Providers Care Plaster Helper Name Role Phone Mike Lee MD Primary Care Provider + Encounter Details Date Type Department Care Team (Late st Contact Info) Description 06/28/2017 External CPT II DEPUTY CHIEF SHERIFF - [facility] Social History Tobacco Use [...] documented as of this encounter Care Teams Plaster Helper Relationship Specialty Start Date End Date Mike Lee MD PCP - General Family Medicine 05/02/20 documented as of this encounter
--- OUTSIDE RECORDS SUMMARY | 2025-07-19 10:19 | XMS_ITS | Encounter Summary ---
Author Organization [facility] Address [address] [place] [address] Care Team Providers Care Motel Clerk Name Role Phone Mike Lee MD Primary Care Provider + Encounter Details Date Type Department Care Team (Late st Contact Info) Description 08/04/2012 External CPT II QUALITY ASSURANCE AUDITOR - [facility] Social History Tobacco Use [...] documented as of this encounter Care Teams Motel Clerk Relationship Specialty Start Date End Date Mike Lee MD PCP - General Family Medicine 05/02/20 documented as of this encounter
--- OUTSIDE RECORDS SUMMARY | 2025-07-19 10:19 | XMS_ITS | Encounter Summary ---
Author Organization [facility] Address [address] [place] [address] Care Team Providers Care Education Sales Consultant Name Role Phone Mike Lee MD Primary Care Provider + Encounter Details Date Type Department Care Team (Late st Contact Info) Description 11/26/2016 External CPT II TABLET MAKING MACHINE OPERATOR HELPER - [facility] Social History Tobacco Use [...] documented as of this encounter Care Teams Education Sales Consultant Relationship Specialty Start Date End Date Mike Lee MD PCP - General Family Medicine 05/02/20 documented as of this encounter
--- OUTSIDE RECORDS SUMMARY | 2025-07-19 10:19 | XMS_ITS | Encounter Summary ---
Author Organization [facility] Address [address] [place] [address] Care Team Providers Care Managed Services Sales Consultant Name Role Phone Mike Lee MD Primary Care Provider + Encounter Details Date Type Department Care Team (Late st Contact Info) Description 09/28/2017 External CPT II EDGE WORKER - [facility] Social History Tobacco [...] documented as of this encounter Care Teams Managed Services Sales Consultant Relationship Specialty Start Date End Date Mike Lee MD PCP - General Family Medicine 05/02/20 documented as of this encounter
== END 2025-07-18 23:59 | disposition home or self-care (01) ==
LOC: LAB.DROPOF 07-19 10:17
PROVIDERS: PCP Family Medicine; Visit Provider Nurse Practitioner
DX: E11.621 Type 2 diabetes mellitus with foot ulcer (principal); L97.519 Non-pressure chronic ulcer of other part of right foot with unspecified severity
CPT/HCPCS: 87070; 87077; 87186; 87205